=== PATIENT | male | born 1935 | race Caucasian/White ===

== ENCOUNTER 2017-06-08 16:20 | Outpatient (CLI) | payer MEDICARE, MEDICAID ==
--- NOTE | 2017-06-08 21:55 | MRI Report ---
EXAM: RIGHT SHOULDER MRI WITHOUT CONTRAST EXAM DATE: 06/08/2017 06:01 PM. CLINICAL HISTORY: Myalgia and myositis of right shoulder. Right shoulder pain after 3 months. COMPARISON: None. TECHNIQUE: Multiplanar, multisequence T1-weighted and fluid-sensitive sequences of the shoulder witho ut contrast. Other: None. FINDINGS: Acromioclavicular Region: The acromion is type II. Severe acromioclavicular osteoarthropathy as evide nced by bony hypertrophy and a large effusion. There appears to be incompetence of the inferior acrom ioclavicular ligament/joint capsule. The coracoacromial and coracoclavicular ligaments are intact. A moderate amount of fluid is in the subacromial/subdeltoid bursa. Glenohumeral Region: No subluxation. No effusion or loose bodies. The articular cartilage is unremark able. The glenohumeral ligaments and joint capsule are unremarkable. Bone Marrow: No fracture, marrow edema or bone lesions. Labrum: At least a partial-thickness tear of the posterior- superior labrum can be seen on series 501 , image 12). Musculature/Rotator Cuff: The inner margin of the subscapularis tendon is irregular with small areas of fissuring. The supraspinatus tendon has a full thickness tear of the anterior 7 mm of the tendon. This tear is 9 mm in length. The infraspinatus and teres minor tendons are intact. The patient has mo derate atrophy of the subscapularis and infraspinatus muscles. Biceps Tendon: The biceps tendon is greatly thickened in the extraocular portion intraarticular porti on is difficult to evaluate. Other: The subcutaneous tissues are unremarkable. IMPRESSION: 1. Severe acromioclavicular osteoarthropathy. 2. Moderate subacromial/subdeltoid bursitis. 3. Tendinosis and mild partial tearing of the subscapularis tendon. 4. Full-thickness tear of the anterior supraspinatus tendon. 5. At least moderate biceps tendinosis. [facility] MUSCULOSKELETAL RADIOLOGY SECTION Referring Provider Line: [phone] SITE ID: [id number]
== END 2017-06-08 16:21 | disposition home or self-care (01) ==
LOC: DI 16:20
PROVIDERS: ATTEND Internal Medicine
DX: M19.011 Primary osteoarthritis, right shoulder (principal); M75.101 Unspecified rotator cuff tear or rupture of right shoulder, not specified as traumatic; M75.51 Bursitis of right shoulder; M67.921 Unspecified disorder of synovium and tendon, right upper arm

== ENCOUNTER 2017-06-29 10:23 | Outpatient (CLI) | payer MEDICARE, MEDICAID ==
[2017-06-29 12:34] LABS: HCT - HEMATOCRIT 38.5 % (42.0-52.0); MEAN CORPUSCULAR HEMOGLOBIN 31.2 pg (27.0-31.0); MEAN CORPUSCULAR HGB CONC 33.7 g/dL (32.0-36.0); MEAN CORPUSCULAR VOLUME 92.7 fL (80.0-94.0); MEAN PLATELET VOLUME 8.4 fL (7.4-11.4); RED BLOOD COUNT 4.15 10^6/uL (4.70-6.10); WHITE BLOOD COUNT 7.4 x10^3/uL (4.8-10.8)
[2017-06-29 12:36] LABS: INR 1.1 (0.8-1.2)
[2017-06-29 12:43] LABS: CHOL/HDL RATIO 2.7 (<5.0); CHOLESTEROL 117 mg/dL; HDL CHOLESTEROL 44 mg/dL; LDL/HDL RATIO 1.3 (<3.6); TRIGLYCERIDES 68 mg/dL; VLDL CHOLESTEROL 14 mg/dL
[2017-06-29 13:09] LABS: HEMOGLOBIN A1C 0.48 g/dL
== END 2017-06-29 10:24 | disposition home or self-care (01) ==
LOC: LAB.N 10:23
PROVIDERS: ATTEND Internal Medicine
DX: E78.2 Mixed hyperlipidemia (principal); E03.9 Hypothyroidism, unspecified; Z79.01 Long term (current) use of anticoagulants; E13.40 Other specified diabetes mellitus with diabetic neuropathy, unspecified
CPT/HCPCS: 36415; 80061; 83036; 85610

== ENCOUNTER 2017-08-11 10:44 | Outpatient (CLI) | payer MEDICARE, MEDICAID ==
[2017-08-11 19:02] LABS: MEAN RETIC VALUE 108.9; RED BLOOD COUNT 4.5 10^6/uL (4.70-6.10)
[2017-08-11 19:21] LABS: THYROID STIMULATING HORMONE 2.1 uIU/mL (0.34-5.60)
[2017-08-11 19:38] LABS: ALBUMIN/GLOBULIN RATIO 1.4 (1.0-2.2); BILIRUBIN,TOTAL 0.6 mg/dL (0.2-1.0); CALCIUM 9.3 mg/dL (8.5-10.3); CREATININE 1.3 mg/dL (0.6-1.2); TOTAL PROTEIN 6.8 g/dL (6.7-8.2)
[2017-08-11 20:38] LABS: INR 1.6 (0.8-1.2)
== END 2017-08-11 10:45 | disposition home or self-care (01) ==
LOC: LAB.N 10:44
PROVIDERS: ATTEND Internal Medicine
DX: E13.40 Other specified diabetes mellitus with diabetic neuropathy, unspecified (principal); I48.91 Unspecified atrial fibrillation; E03.9 Hypothyroidism, unspecified
CPT/HCPCS: 36415; 80053; 82607; 82746; 83540; 84443; 84466; 85044; 85610

== ENCOUNTER 2017-10-10 14:45 | Outpatient (CLI) | payer MEDICARE, MEDICAID ==
[2017-10-10 13:59] LABS: ALBUMIN 4.1 g/dL (3.2-5.5); BILIRUBIN,DIRECT 0.1 mg/dL (0.1-0.5); BILIRUBIN,TOTAL 0.6 mg/dL (0.2-1.0); CALCIUM 8.9 mg/dL (8.5-10.3); TOTAL PROTEIN 6.5 g/dL (6.7-8.2)
[2017-10-10 14:05] LABS: HEMOGLOBIN A1C 0.52 g/dL; HEMOGLOBIN A1C % 5.5 % (4.6-6.2)
== END 2017-10-10 14:46 | disposition home or self-care (01) ==
LOC: LAB.N 14:45
PROVIDERS: ATTEND Internal Medicine
DX: I50.9 Heart failure, unspecified (principal); E11.65 Type 2 diabetes mellitus with hyperglycemia; I10 Essential (primary) hypertension; E13.40 Other specified diabetes mellitus with diabetic neuropathy, unspecified; E78.2 Mixed hyperlipidemia; E03.9 Hypothyroidism, unspecified; Z79.899 Other long term (current) drug therapy
CPT/HCPCS: 36415; 80048; 80076; 83036; 83880; 85610

== ENCOUNTER 2017-10-13 15:38 | Emergency (ER) | payer MEDICARE, MEDICAID ==
--- NOTE | 2017-10-13 17:18 | ED Physician Documentation ---
PD HPI ABD PAIN - Stated complaint Stated Complaint: SIDE PX - Chief complaint Chief Complaint: Abd Pain - History obtained from History obtained from: Patient - History of Present Illness Timing - onset: Other (82-year-old gentleman on warfarin, he has known large kidney stones and developed gross hematuria 4 days ago with small clots. There is no pain. He does not know why he is on warfarin.) Review of Systems Constitutional: denies: Fever, Chills Ears: reports: Reviewed and negative Throat: reports: Reviewed and negative Cardiac: reports: Reviewed and negative Respiratory: reports: Reviewed and negative PD PAST MEDICAL HISTORY - Past Medical History Cardiovascular: Congestive heart failure, Hypertension, Atrial fibrillation Respiratory: None Neuro: Other Endocrine/Autoimmune: Type 2 diabetes, HyPOthyroidism, Other GI: GERD, Other : Kidney stones HEENT: None Psych: None Musculoskeletal: Osteoarthritis, Other Derm: Other - Past Surgical History Past Surgical History: Yes General: Cholecystectomy Ortho: Knee replacement - Present Medications Home Medications: Ambulatory Orders Medication Instructions Recorded Confirmed Aspirin 81 mg PO DAILY 07/12/13 02/05/15 Finasteride 5 mg PO DAILY 07/12/13 02/05/15 Furosemide 80 mg PO DAILY 07/12/13 02/05/15 Gabapentin [Neurontin] 100 mg PO QPM 07/12/13 02/05/15 Ibuprofen 200 mg PO DAILY PRN 07/12/13 02/05/15 Oxybutynin Chloride [Oxybutynin 10 mg PO QPM 07/12/13 02/05/15 Chloride ER] Prazosin [Minipress] 5 mg PO TID 07/12/13 02/05/15 traZODone [Desyrel] 100 mg PO HS 07/12/13 02/05/15 Ascorbic Acid [Vitamin C] 2,000 mg PO DAILY 11/20/13 02/05/15 Ca Cmb No.1/Vit D3/B-6/FA/B12 1 each PO DAILY 11/20/13 02/05/15 [Vitamin D3 1,000 Unit Tablet] Glucosamine Sulfate 1,000 mg PO BID 11/20/13 02/05/15 Levothyroxine [Synthroid] 25 mcg PO QDAC 11/20/13 02/05/15 Multivitamin [Multi-Vitamin Daily] 1 each PO DAILY 11/20/13 02/05/15 Vitamin E 400 unit PO DAILY 11/20/13 02/05/15 Warfarin [Coumadin] 2.5 mg DAILY 05/30/14 02/05/15 oxyCODONE/ACET 5/325 [Percocet 5 1 each PO Q4-6H PRN #20 tablet 02/05/15 mg/325 mg] - Allergies Allergies/Adverse Reactions: Allergies Allergy/AdvReac Type Severity Reaction Status Date / Time No Known Drug Allergies Allergy Verified 10/13/17 15:54 - Social History Does the pt smoke?: No Smoking Status: Never smoker Does the pt drink ETOH?: No Does the pt have substance abuse?: No - Immunizations Immunizations are current?: Yes - POLST Patient has POLST: No PD ED PE NORMAL - Vitals Vital signs reviewed: Yes - General General: Alert and oriented X 3, No acute distress - Neck Neck: Supple, no meningeal sign, No bony TTP - Cardiac Cardiac: RRR, No murmur - Respiratory Respiratory: No respiratory distress, Clear bilaterally - Abdomen Abdomen: Normal bowel sounds, Soft, Non tender - Back Back: No CVA TTP, No spinal TTP - Derm Derm: Normal color, Warm and dry - Extremities Extremities: No deformity, No calf tenderness / cord - Neuro Neuro: Alert and oriented X 3, Normal speech - Psych Psych: Normal mood, Normal affect Results - Vitals Vitals: Vital Signs - 24 hr 10/13/17 10/13/17 15:48 17:52 Temperature 36.6 C 36.4 C L Heart Rate 87 78 Respiratory 14 16 Rate Blood Pressure 166/84 H 151/75 H O2 Saturation 96 99 Oxygen O2 Source [With Activity] Oxymizer O2 Source Room air - Labs Labs: Laboratory Tests 10/13/17 10/13/17 10/13/17 17:24 17:24 17:24 WBC 9.8 RBC 3.91 L Hgb 12.2 L Hct 36.3 L MCV 92.7 MCH 31.1 H MCHC 33.5 RDW 13.3 Plt Count 204 MPV 8.0 Neut # 7.5 H Lymph # 1.2 L [place] # 0.5 Eos # 0.4 Baso # 0.2 H Absolute Nucleated RBC 0.00 Nucleated RBC % 0.0 PT 27.5 H INR 2.5 H Sodium 136 Potassium 3.9 Chloride 101 Carbon Dioxide 28 Anion Gap 7.0 BUN 22 H Creatinine 0.9 Estimated GFR (MDRD) 81 L Glucose 101 H Calcium 8.8 Total Bilirubin 0.5 AST 24 ALT 20 Alkaline Phosphatase 69 Total Protein 6.0 L Albumin 3.8 Globulin 2.2 Albumin/Globulin Ratio 1.7 Lipase 26 Urine Color Urine Clarity Urine pH Ur Specific [place] Urine Protein Urine Glucose (UA) Urine Ketones Urine Occult Blood Urine Nitrite Urine Bilirubin Urine Urobilinogen Ur Leukocyte Esterase Urine RBC Urine WBC Ur Squamous Epith Cells Urine Bacteria Ur Microscopic Review Urine Culture Comments 10/13/17 17:48 WBC RBC Hgb Hct MCV MCH MCHC RDW Plt Count MPV Neut # Lymph # [place] # Eos # Baso # Absolute Nucleated RBC Nucleated RBC % PT INR Sodium Potassium Chloride Carbon Dioxide Anion Gap BUN Creatinine Estimated GFR (MDRD) Glucose Calcium Total Bilirubin AST ALT Alkaline Phosphatase Total Protein Albumin Globulin Albumin/Globulin Ratio Lipase Urine Color BROWN Urine Clarity BLOODY Urine pH 8.5 H Ur Specific [place] 1.015 Urine Protein 100 H Urine Glucose (UA) NEGATIVE Urine Ketones NEGATIVE Urine Occult Blood LARGE H Urine Nitrite NEGATIVE Urine Bilirubin NEGATIVE Urine Urobilinogen 0.2 (NORMAL) Ur Leukocyte Esterase NEGATIVE Urine RBC TNTC H Urine WBC 0-3 Ur Squamous Epith Cells NONE SEEN Urine Bacteria None Seen Ur Microscopic Review INDICATED Urine Culture Comments NOT INDICATED - Rads (name of study) CT KUB Radiology: EMP read contemporaneously (Nonobstructing large right kidney stone with staghorn calculus and renal cyst, atherosclerosis, diverticulosis, abdominal midline hernia.) PD MEDICAL DECISION MAKING - ED course ED course: 82-year-old gentleman with known history of right kidney stones and on warfarin presents with gross hematuria. He is not retaining. His INR is therapeutic and his CT as shown. Follow-up with urologist as advised. Departure - Departure Disposition: Home, Self Care Clinical Impression: Adequate anticoagulation on anticoagulant therapy Hematuria Qualifiers: Hematuria type: gross Qualified Code(s): R31.0 - Gross hematuria Condition: Good Record reviewed to determine appropriate education?: Yes Comments: You should follow-up with a urologist, since Dr. BAUMANN has retired, the closest is in [place], the phone number is [phone]. Call Monday for an appointment. Return if you are unable to urinate. Drink plenty of fluids.
[2017-10-13 17:32] LABS: BASOPHILS # (AUTO) 0.2 10^3/uL (0.0-0.1); BASOPHILS % (AUTO) 1.6 %; EOSINOPHILS # (AUTO) 0.4 10^3/uL (0.0-0.7); EOSINOPHILS % (AUTO) 4.2 %; HGB - HEMOGLOBIN 12.2 g/dL (14.0-18.0); LYMPHOCYTES # (AUTO) 1.2 10^3/uL (1.5-3.5); LYMPHOCYTES % (AUTO) 12.1 %; MEAN CORPUSCULAR HEMOGLOBIN 31.1 pg (27.0-31.0); MEAN CORPUSCULAR HGB CONC 33.5 g/dL (32.0-36.0); MEAN CORPUSCULAR VOLUME 92.7 fL (80.0-94.0); MONOCYTES # (AUTO) 0.5 10^3/uL (0.0-1.0); MONOCYTES % (AUTO) 5.5 %; NEUTROPHILS # (AUTO) 7.5 10^3/uL (1.5-6.6); NEUTROPHILS % (AUTO) 76.6 %; PLT - PLATELET COUNT 204 10^3/uL (130-450); RED BLOOD COUNT 3.91 10^6/uL (4.70-6.10); RED CELL DISTRIBUTION WIDTH 13.3 % (12.0-15.0); WHITE BLOOD COUNT 9.8 x10^3/uL (4.8-10.8)
[2017-10-13 17:36] LABS: INR 2.5 (0.8-1.2); PT - PROTHROMBIN TIME 27.5 secs (9.9-12.6)
[2017-10-13 17:45] LABS: ALBUMIN 3.8 g/dL (3.2-5.5); ALBUMIN/GLOBULIN RATIO 1.7 (1.0-2.2); BILIRUBIN,TOTAL 0.5 mg/dL (0.2-1.0); CALCIUM 8.8 mg/dL (8.5-10.3); CREATININE 0.9 mg/dL (0.6-1.2)
[2017-10-13 18:21] LABS: BILIRUBIN,URINE NEGATIVE (NEGATIVE); GLUCOSE, URINE (UA) NEGATIVE (NEGATIVE); KETONES,URINE (UA) NEGATIVE (NEGATIVE); LEUKOCYTE ESTERASE, URINE NEGATIVE (NEGATIVE); NITRITE,URINE NEGATIVE (NEGATIVE); OCCULT BLOOD,URINE LARGE (NEGATIVE); PH,URINE 8.5 PH (5.0-7.5); PROTEIN,URINE 100 mg/dL (NEGATIVE); UROBILINOGEN,URINE 0.2 (NORMAL) E.U./dL (NORMAL)
[2017-10-13 18:26] LABS: CLARITY,URINE BLOODY (CLEAR)
[2017-10-13 18:27] LABS: BACTERIA,URINE None Seen /HPF (None Seen); RBC,URINE TNTC /HPF (0-5); SQUAMOUS EPITHELIAL CELL,UR NONE SEEN (<= Few)
--- NOTE | 2017-10-13 18:40 | CT Report ---
EXAM: CT ABDOMEN AND PELVIS EXAM DATE: 10/13/2017 06:13 PM. CLINICAL HISTORY: Gross hematuria. COMPARISONS: 05/07/2014. TECHNIQUE: Routine helical CT imaging was performed through the abdomen and pelvis. IV contrast: No. Enteric contrast: No. Reconstructions: Coronal and sagittal. In accordance with CT protocol optimization, one or more of the following dose reduction techniques w ere utilized for this exam: automated exposure control, adjustment of mA and/or KV based on patient s ize, or use of iterative reconstructive technique. FINDINGS: Lung Bases: Unremarkable. Liver: The liver appears unchanged. There are several scattered liver calcifications. Gallbladder/Bile Ducts: The gallbladder is either absent or contracted. Spleen: Normal in size. Pancreas: Normal in size and contour. Adrenal Glands: Normal. Kidneys: There is a large staghorn type calculus in the lower pole of the right kidney measuring 23 x 21 x 25 mm. There are other nonobstructing right kidney stones. There are renal vascular calcificati ons. There is an exophytic 5.6 cm right renal cyst Peritoneal Cavity/Bowel: There is increased stool in the left colon. There are a moderate number of d iverticula in the left colon. The small bowel is normal in caliber. There is a fat-containing ventral hernia in the lower abdomen with hernia neck measuring 2.1 cm in diameter. The appendix is well visu alized and normal. Pelvic Organs: Urinary bladder is unremarkable. Vasculature: There is diffuse moderate to severe atherosclerotic vascular calcification without aneur ysm. Bones: No significant abnormality. Other: None. IMPRESSION: 1. Nonobstructing right kidney stones including a prominent staghorn type calculus in the lower pole calyx. 2. Decreased size of the lower pole right renal cyst since 05/07/2014. 3. Atherosclerotic vascular disease. 4. Colonic diverticulosis. 5. Fat containing midline lower abdominal hernia appears similar to previous. [facility] Referring Provider Line: [phone] SITE ID: [id number]
[2017-10-13 19:21] VITALS: BP 156/81
== END 2017-10-13 19:19 | disposition home or self-care (01) ==
LOC: ED 15:38
DX: R31.0 Gross hematuria (principal); N20.0 Calculus of kidney; N28.1 Cyst of kidney, acquired; I11.0 Hypertensive heart disease with heart failure; I50.9 Heart failure, unspecified; E11.9 Type 2 diabetes mellitus without complications; E03.9 Hypothyroidism, unspecified; Z96.659 Presence of unspecified artificial knee joint; Z79.01 Long term (current) use of anticoagulants; Z79.82 Long term (current) use of aspirin
CPT/HCPCS: 36415; 74176; 80053; 81001; 81003; 83690; 85025; 85610; 87086; 99283; 99284

== ENCOUNTER 2017-10-15 12:19 | Outpatient (CLI) | payer MEDICARE, MEDICAID | END 2017-10-15 12:20 | disposition critical access hospital (66) | LOC: EMS 12:19 | PROVIDERS: ATTEND Surgery | DX: R41.0 Disorientation, unspecified (principal) | CPT/HCPCS: A0425; A0429 ==

== ENCOUNTER 2017-10-15 12:43 | Emergency (ER) | payer MEDICARE, MEDICAID ==
[2017-10-15 13:24] LABS: BASOPHILS % (AUTO) 0.3 %; EOSINOPHILS % (AUTO) 0.1 %; HGB - HEMOGLOBIN 13.4 g/dL (14.0-18.0); LYMPHOCYTES # (AUTO) 0.5 10^3/uL (1.5-3.5); MEAN CORPUSCULAR HGB CONC 33.6 g/dL (32.0-36.0); MEAN CORPUSCULAR VOLUME 92.2 fL (80.0-94.0); MEAN PLATELET VOLUME 8.2 fL (7.4-11.4); MONOCYTES # (AUTO) 0.5 10^3/uL (0.0-1.0); MONOCYTES % (AUTO) 3.5 %; NEUTROPHILS # (AUTO) 13.9 10^3/uL (1.5-6.6); NEUTROPHILS % (AUTO) 93.1 %; PLT - PLATELET COUNT 220 10^3/uL (130-450); RED BLOOD COUNT 4.33 10^6/uL (4.70-6.10); RED CELL DISTRIBUTION WIDTH 13.5 % (12.0-15.0); WHITE BLOOD COUNT 14.9 x10^3/uL (4.8-10.8)
[2017-10-15] MEDS ORDERED: SODIUM CHLORIDE 0.9% 500 ML IV ONE (13:28)
[2017-10-15 13:29] LABS: INR 2.1 (0.8-1.2); PT - PROTHROMBIN TIME 22.6 secs (9.9-12.6)
[2017-10-15 13:36] LABS: ALBUMIN 4.3 g/dL (3.2-5.5); ALBUMIN/GLOBULIN RATIO 1.6 (1.0-2.2); BILIRUBIN,TOTAL 0.9 mg/dL (0.2-1.0); CALCIUM 9.3 mg/dL (8.5-10.3); CREATININE 0.9 mg/dL (0.6-1.2)
[2017-10-15 14:06] LABS: BILIRUBIN,URINE NEGATIVE (NEGATIVE); GLUCOSE, URINE (UA) NEGATIVE (NEGATIVE); KETONES,URINE (UA) 15 mg/dL (NEGATIVE); LEUKOCYTE ESTERASE, URINE TRACE (NEGATIVE); NITRITE,URINE NEGATIVE (NEGATIVE); OCCULT BLOOD,URINE MODERATE (NEGATIVE); PROTEIN,URINE 30 mg/dL (NEGATIVE); UROBILINOGEN,URINE 0.2 (NORMAL) E.U./dL (NORMAL)
[2017-10-15 14:08] LABS: CLARITY,URINE CLEAR (CLEAR)
--- NOTE | 2017-10-15 14:11 | ED Physician Documentation ---
History of Present Illness - Stated complaint Stated Complaint: INCREASED CONFUSION - Chief complaint Chief Complaint: Neuro - Additonal information Additional information: hx from nurses note who got hx from EMS who got hx from caregiver and some hx from pt caregiver not here and pt is a poor historian 82 male on coumadin for a fib recently seen in ED for hematuria, INR was 2.5, UA + blood but not infection, CT showed numerous non obstructing R renal stones including a staghorn in the right renal pelvis pt was dced to [facility] urology since then he has become more confused, has fallen, was found half in his chair , had a COWART earlier but not now, and arrives tachycardic pt denies a COWART now, denies neck pain, denies chest abd and back pain feels nauseated no vomit no blood in BM continues to have hematuria Review of Systems Constitutional: denies: Fever Throat: denies: Sore throat Cardiac: denies: Chest pain / pressure Respiratory: denies: Dyspnea, Cough GI: denies: Abdominal Pain, Nausea, Vomiting, Diarrhea, Bloody / black stool : reports: Hematuria Musculoskeletal: denies: Neck pain, Back pain Neurologic: reports: Generalized weakness, Headache, Head injury Endocrine: reports: Easy bruising / bleeding Immunocompromised: denies: Immunocompromised PD PAST MEDICAL HISTORY - Past Medical History Cardiovascular: Congestive heart failure, Hypertension, Atrial fibrillation Respiratory: None Neuro: Other Endocrine/Autoimmune: Type 2 diabetes, HyPOthyroidism, Other GI: GERD, Other : Kidney stones HEENT: None Psych: None Musculoskeletal: Osteoarthritis, Other Derm: Other - Past Surgical History Past Surgical History: Yes General: Cholecystectomy Ortho: Knee replacement - Present Medications Home Medications: Ambulatory Orders Medication Instructions Recorded Confirmed Aspirin 81 mg PO DAILY 07/12/13 02/05/15 Finasteride 5 mg PO DAILY 07/12/13 02/05/15 Furosemide 80 mg PO DAILY 07/12/13 02/05/15 Gabapentin [Neurontin] 100 mg PO QPM 07/12/13 02/05/15 Ibuprofen 200 mg PO DAILY PRN 07/12/13 02/05/15 Oxybutynin Chloride [Oxybutynin 10 mg PO QPM 07/12/13 02/05/15 Chloride ER] Prazosin [Minipress] 5 mg PO TID 07/12/13 02/05/15 traZODone [Desyrel] 100 mg PO HS 07/12/13 02/05/15 Ascorbic Acid [Vitamin C] 2,000 mg PO DAILY 11/20/13 02/05/15 Ca Cmb No.1/Vit D3/B-6/FA/B12 1 each PO DAILY 11/20/13 02/05/15 [Vitamin D3 1,000 Unit Tablet] Glucosamine Sulfate 1,000 mg PO BID 11/20/13 02/05/15 Levothyroxine [Synthroid] 25 mcg PO QDAC 11/20/13 02/05/15 Multivitamin [Multi-Vitamin Daily] 1 each PO DAILY 11/20/13 02/05/15 Vitamin E 400 unit PO DAILY 11/20/13 02/05/15 Warfarin [Coumadin] 2.5 mg DAILY 05/30/14 02/05/15 oxyCODONE/ACET 5/325 [Percocet 5 1 each PO Q4-6H PRN #20 tablet 02/05/15 mg/325 mg] - Allergies Allergies/Adverse Reactions: Allergies Allergy/AdvReac Type Severity Reaction Status Date / Time No Known Drug Allergies Allergy Verified 10/13/17 15:54 - Social History Does the pt smoke?: No Smoking Status: Never smoker Does the pt drink ETOH?: No Does the pt have substance abuse?: No - Immunizations Immunizations are current?: Yes - POLST Patient has POLST: No PD ED PE NORMAL - Vitals Vital signs reviewed: Yes - General General: No: Alert and oriented X 3 - HEENT HEENT: Atraumatic (no palpable swollen or tender spots), PERRL. No: Moist mucous membranes (dry) - Neck Neck: No bony TTP (but confused) - Cardiac Cardiac: RRR - Respiratory Respiratory: No respiratory distress, Clear bilaterally - Abdomen Abdomen: Non tender - Derm Derm: Normal color - Extremities Extremities: No deformity - Neuro Neuro: No motor deficit, No sensory deficit. No: Alert and oriented X 3 Eye Opening: Spontaneous Motor: Obeys Commands Verbal: Confused GCS Score: 14 Results - Vitals Vitals: Vital Signs - 24 hr 10/15/17 10/15/17 10/15/17 12:45 13:30 14:41 Temperature 36.6 C Heart Rate 109 H 87 96 Respiratory 18 18 18 Rate Blood Pressure 157/97 H 136/79 H 118/85 H O2 Saturation 99 98 96 10/15/17 10/15/17 15:38 16:47 Temperature Heart Rate 100 100 Respiratory 18 18 Rate Blood Pressure 179/92 H 128/109 H O2 Saturation 98 98 Oxygen O2 Source [With Activity] Oxymizer O2 Source Room air - EKG (time done) 1438 Rate: Rate (enter#) Rhythm: Atrial fibrillation (not new), Other (PVCs) [place]: Normal Intervals: No: Normal AL Ischemia: Non specific changes - Labs Labs: Laboratory Tests 10/15/17 10/15/17 10/15/17 13:18 13:18 13:18 WBC 14.9 H RBC 4.33 L Hgb 13.4 L Hct 39.9 L MCV 92.2 MCH 31.0 MCHC 33.6 RDW 13.5 Plt Count 220 MPV 8.2 Neut # 13.9 H Lymph # 0.5 L [place] # 0.5 Eos # 0.0 Baso # 0.0 Absolute Nucleated RBC 0.00 Nucleated RBC % 0.0 PT 22.6 H INR 2.1 H Sodium 135 Potassium 3.1 L Chloride 99 L Carbon Dioxide 27 Anion Gap 9.0 BUN 22 H Creatinine 0.9 Estimated GFR (MDRD) 81 L Glucose 147 H Lactic Acid Calcium 9.3 Total Bilirubin 0.9 AST 40 ALT 27 Alkaline Phosphatase 81 Total Protein 7.0 Albumin 4.3 Globulin 2.7 Albumin/Globulin Ratio 1.6 Lipase 13 L Urine Color Urine Clarity Urine pH Ur Specific [place] Urine Protein Urine Glucose (UA) Urine Ketones Urine Occult Blood Urine Nitrite Urine Bilirubin Urine Urobilinogen Ur Leukocyte Esterase Urine RBC Urine WBC Urine WBC Clumps Ur Squamous Epith Cells Urine Bacteria Urine Mucus Ur Microscopic Review Urine Culture Comments 10/15/17 10/15/17 13:18 13:55 WBC RBC Hgb Hct MCV MCH MCHC RDW Plt Count MPV Neut # Lymph # [place] # Eos # Baso # Absolute Nucleated RBC Nucleated RBC % PT INR Sodium Potassium Chloride Carbon Dioxide Anion Gap BUN Creatinine Estimated GFR (MDRD) Glucose Lactic Acid 1.3 Calcium Total Bilirubin AST ALT Alkaline Phosphatase Total Protein Albumin Globulin Albumin/Globulin Ratio Lipase Urine Color YELLOW Urine Clarity CLEAR Urine pH 7.0 Ur Specific [place] 1.010 Urine Protein 30 H Urine Glucose (UA) NEGATIVE Urine Ketones 15 H Urine Occult Blood MODERATE H Urine Nitrite NEGATIVE Urine Bilirubin NEGATIVE Urine Urobilinogen 0.2 (NORMAL) Ur Leukocyte Esterase TRACE H Urine RBC 11-25 H Urine WBC 11-25 H Urine WBC Clumps PRESENT Ur Squamous Epith Cells FEW Squamous Urine Bacteria Few Urine Mucus Few Strands Ur Microscopic Review INDICATED Urine Culture Comments INDICATED - Rads (name of study) CTH Radiology: See rad report (no acute fx or bleed, chronic changes) CT CS Radiology: See rad report (no acute fx, chronic stenosis, pulm edema) PD MEDICAL DECISION MAKING - ED course ED course: todya UA is + infected staghorn not febrile but tachy and leukocytosis given IVF and rocephin after blood and urine cx d/w urology at [facility] Dr Barriga who agrees with need to transfer to facility with urology but rec pt be admitted to hospitalist service with urology consult then spoke to [facility] hospitalist Dr Pablo who accepts pt in transfer Departure - Departure Disposition: 02 Transfer Acute Care Hosp Clinical Impression: Kidney stone on right side UTI (urinary tract infection) Qualifiers: Urinary tract infection type: site unspecified Hematuria presence: with hematuria Qualified Code(s): N39.0 - Urinary tract infection, site not specified Mental status change Qualifiers: Altered mental status type: unspecified Qualified Code(s): R41.82 - Altered mental status, unspecified Fall Qualifiers: Encounter type: initial encounter Qualified Code(s): W19.XXXA - Unspecified fall, initial encounter Discharge Date/Time: 10/15/17 19:05
[2017-10-15 14:14] LABS: BACTERIA,URINE Few /HPF (None Seen); MUCUS,URINE Few Strands; SQUAMOUS EPITHELIAL CELL,UR FEW Squamous (<= Few); WBC CLUMPS,URINE PRESENT
[2017-10-15] MEDS ORDERED: cefTRIAXone 1 GM in SODIUM CHLORIDE 0.9% MINIBAG 100 ML IV STA (14:17)
--- NOTE | 2017-10-15 16:13 | CT Preliminary Report ---
Exam: CT HEAD W/O IMPRESSION: 1. Negative for intracranial hemorrhage, mass effect, or acute intracranial abnormality. 2. [id number] nonfocal white matter disease. Nonspecific but most commonly attributed to chroni c microangiopathy. [facility] SITE ID: [id number]
--- NOTE | 2017-10-15 16:14 | CT Report ---
EXAM: CT HEAD EXAM DATE: 10/15/2017 03:38 PM. CLINICAL HISTORY: Fall AMS on coumadin. COMPARISON: None. TECHNIQUE: Multiaxial CT images were obtained from the foramen magnum to the vertex. Reformats: Coron al. IV contrast: None. In accordance with CT protocol optimization, one or more of the following dose reduction techniques w ere utilized for this exam: automated exposure control, adjustment of mA and/or KV based on patient s ize, or use of iterative reconstructive technique. FINDINGS: Parenchyma: There is [id number] periventricular white matter hypodensity. Negative for intracra nial acute hemorrhage. There is no midline shift or mass effect. Extraaxial Spaces: No subdural or epidural collections identified. Ventricles: Ventricles are symmetric in size and normal in location. Sinuses and Orbits: Imaged paranasal sinuses, orbits, and mastoids show no significant abnormality. Bones: No evidence of fracture or calvarial defect. Other: None. IMPRESSION: 1. Negative for intracranial hemorrhage, mass effect, or acute intracranial abnormality. 2. Welf-ic-imvpnsww nonfocal white matter disease. Nonspecific but most commonly attributed to chroni c microangiopathy. [facility] Referring Provider Line: [phone] SITE ID: [id number]
--- NOTE | 2017-10-15 16:18 | CT Report ---
EXAM: CT CERVICAL SPINE WITHOUT CONTRAST DATE: 10/15/2017 03:38 PM. HISTORY: Fall AMS on coumadin. COMPARISONS: None. TECHNIQUE: Thin-section axial images were acquired of the cervical spine without contrast. Post-proce ssing: Coronal and sagittal reformats. Other: None. In accordance with CT protocol optimization, one or more of the following dose reduction techniques w ere utilized for this exam: automated exposure control, adjustment of mA and/or KV based on patient s ize, or use of iterative reconstructive technique. FINDINGS: Alignment: There is straightening of normal cervical lordosis. There is 1-2 mm of anterolisthesis at C3-C4 secondary to facet joint space narrowing. Bones: The vertebral bodies appear normal in height. No acute fracture. There are moderate sized ante rior and posterior disk osteophyte spurs from C2-T1. Interspace Levels/Facets: The moderate-sized posterior spurs at C2-C3 and C3-C4 cause mild to moderate central spinal canal bon y stenosis. There is mild stenosis at other levels. There is moderate disk height loss at multiple le vels with moderately advanced multilevel facet joint space narrowing and spurring. Musculature: No paravertebral hematoma identified. Other: There is moderate septal thickening in the lung apices. No apical pneumothorax. IMPRESSION: 1. 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 2. Negative for acute fracture. 3. Septal thickening in the lung apices raising suspicion for pulmonary edema 4. Degenerative facet disease and mild anterolisthesis at C3-C4. [facility] Referring Provider Line: [phone] SITE ID: [id number]
[2017-10-15 16:47] VITALS: BP 128/109
== END 2017-10-15 19:05 | disposition short-term general hospital (02) ==
LOC: EDUNIT# → ED 12:43
DX: N20.0 Calculus of kidney (principal); N39.0 Urinary tract infection, site not specified; R41.82 Altered mental status, unspecified; I48.91 Unspecified atrial fibrillation; I11.0 Hypertensive heart disease with heart failure; I50.9 Heart failure, unspecified; E11.9 Type 2 diabetes mellitus without complications; E03.9 Hypothyroidism, unspecified; Z91.81 History of falling; Z96.659 Presence of unspecified artificial knee joint; Z79.82 Long term (current) use of aspirin; Z79.01 Long term (current) use of anticoagulants
CPT/HCPCS: 36415; 51702; 70450; 72125; 80053; 81001; 81003; 83605; 83690; 85025; 85610; 87040; 87077; 87086; 93005; 96365; 99284

== ENCOUNTER 2017-10-15 19:06 | Outpatient (CLI) | payer MEDICARE, MEDICAID | END 2017-10-15 19:07 | disposition short-term general hospital (02) | LOC: EMS 19:06 | PROVIDERS: ATTEND Surgery | DX: N20.0 Calculus of kidney (principal); R41.82 Altered mental status, unspecified | CPT/HCPCS: A0425; A0429 ==

== ENCOUNTER 2017-11-11 08:00 | Outpatient (CLI) | payer MEDICAID, MEDICARE, OTHER ==
[2017-11-11 22:31] LABS: BASOPHILS # (AUTO) 0.1 10^3/uL (0.0-0.1); BASOPHILS % (AUTO) 0.5 %; EOSINOPHILS # (AUTO) 0.2 10^3/uL (0.0-0.7); EOSINOPHILS % (AUTO) 1.6 %; LYMPHOCYTES # (AUTO) 0.8 10^3/uL (1.5-3.5); LYMPHOCYTES % (AUTO) 7.4 %; MEAN CORPUSCULAR HEMOGLOBIN 30.4 pg (27.0-31.0); MEAN CORPUSCULAR HGB CONC 33.2 g/dL (32.0-36.0); MEAN CORPUSCULAR VOLUME 91.8 fL (80.0-94.0); MEAN PLATELET VOLUME 8.3 fL (7.4-11.4); MONOCYTES # (AUTO) 0.8 10^3/uL (0.0-1.0); MONOCYTES % (AUTO) 7.5 %; NEUTROPHILS # (AUTO) 8.8 10^3/uL (1.5-6.6); PLT - PLATELET COUNT 284 10^3/uL (130-450); RED BLOOD COUNT 3.94 10^6/uL (4.70-6.10); RED CELL DISTRIBUTION WIDTH 13.6 % (12.0-15.0); WHITE BLOOD COUNT 10.6 x10^3/uL (4.8-10.8)
[2017-11-11 22:34] LABS: BILIRUBIN,URINE NEGATIVE (NEGATIVE); GLUCOSE, URINE (UA) NEGATIVE (NEGATIVE); KETONES,URINE (UA) NEGATIVE (NEGATIVE); LEUKOCYTE ESTERASE, URINE LARGE (NEGATIVE); NITRITE,URINE POSITIVE (NEGATIVE); OCCULT BLOOD,URINE LARGE (NEGATIVE); PROTEIN,URINE 100 mg/dL (NEGATIVE); UROBILINOGEN,URINE 0.2 (NORMAL) E.U./dL (NORMAL)
[2017-11-11 22:37] LABS: CLARITY,URINE CLOUDY (CLEAR)
[2017-11-11 22:44] LABS: ALKALINE PHOSPHATASE 105 IU/L (42-121); ALT ALANINE AMINOTRANSFERASE 15 IU/L (10-60); AST ASPARTATE AMINOTRANSFERASE 24 IU/L (10-42); BILIRUBIN,TOTAL 0.5 mg/dL (0.2-1.0); BUN - BLOOD UREA NITROGEN 21 mg/dL (6-20); CALCIUM 8.4 mg/dL (8.5-10.3); CARBON DIOXIDE - CO2 28 mmol/L (21-32); CHLORIDE 95 mmol/L (101-111); CHOL/HDL RATIO 2.9 (<5.0); CHOLESTEROL 101 mg/dL; CREATININE 0.9 mg/dL (0.6-1.2); GFR - MDRD 81 (>89); GLUCOSE 128 mg/dL (70-100); HDL CHOLESTEROL 35 mg/dL; LDL CHOLESTEROL,CALCULATED 50 mg/dL; LDL/HDL RATIO 1.4 (<3.6); SODIUM 131 mmol/L (135-145); TOTAL PROTEIN 5.9 g/dL (6.7-8.2); VLDL CHOLESTEROL 16 mg/dL
[2017-11-11 22:46] LABS: RBC,URINE TNTC /HPF (0-5)
[2017-11-11 22:47] LABS: BACTERIA,URINE Few /HPF (None Seen); SQUAMOUS EPITHELIAL CELL,UR NONE SEEN (<= Few)
== END 2017-11-11 08:01 | disposition home or self-care (01) ==
LOC: LAB.R 08:00
DX: G92 Toxic encephalopathy (principal); I50.9 Heart failure, unspecified; I48.91 Unspecified atrial fibrillation; N39.0 Urinary tract infection, site not specified; E03.9 Hypothyroidism, unspecified; A04.9 Bacterial intestinal infection, unspecified
CPT/HCPCS: 80053; 80061; 81001; 81003; 82306; 83721; 83880; 84443; 85025; 85610; 87077; 87086; 87493

== ENCOUNTER 2017-11-16 16:15 | Outpatient (CLI) | payer MEDICAID, MEDICARE, OTHER ==
[2017-11-16 13:37] LABS: CALCIUM 8.8 mg/dL (8.5-10.3)
[2017-11-16 14:20] LABS: FOLATE 18.46 ng/mL (5.90 - >24.8)
== END 2017-11-16 16:16 | disposition home or self-care (01) ==
LOC: LAB.R 16:15
DX: I50.9 Heart failure, unspecified (principal); D51.0 Vitamin B12 deficiency anemia due to intrinsic factor deficiency; D52.9 Folate deficiency anemia, unspecified; D64.9 Anemia, unspecified
CPT/HCPCS: 80048; 82607; 82746; 83540; 84466

== ENCOUNTER 2017-12-01 08:00 | Outpatient (CLI) | payer MEDICAID, MEDICARE, OTHER ==
[2017-12-01 20:27] LABS: ALBUMIN 2.5 g/dL (3.2-5.5); ALBUMIN/GLOBULIN RATIO 0.8 (1.0-2.2); BILIRUBIN,TOTAL 0.7 mg/dL (0.2-1.0); CALCIUM 8.4 mg/dL (8.5-10.3); TOTAL PROTEIN 5.6 g/dL (6.7-8.2)
== END 2017-12-01 08:01 | disposition home or self-care (01) ==
LOC: LAB.R 08:00
DX: I50.9 Heart failure, unspecified (principal); R79.89 Other specified abnormal findings of blood chemistry
CPT/HCPCS: 80053

== ENCOUNTER 2017-12-11 13:40 | Outpatient (CLI) | payer MEDICARE, MEDICAID ==
[2017-12-11 17:15] LABS: HB2 TOTAL 12.2 g/dL; HEMOGLOBIN A1C 0.49 g/dL; HEMOGLOBIN A1C % 5.8 % (4.6-6.2)
== END 2017-12-11 13:41 | disposition home or self-care (01) ==
LOC: LAB.R 13:40
DX: E11.9 Type 2 diabetes mellitus without complications (principal)
CPT/HCPCS: 83036

== ENCOUNTER 2017-12-22 09:00 | Outpatient (CLI) | payer MEDICARE, MEDICAID ==
[2017-12-22 13:44] LABS: BASOPHILS # (AUTO) 0.1 10^3/uL (0.0-0.1); BASOPHILS % (AUTO) 0.9 %; EOSINOPHILS # (AUTO) 0.6 10^3/uL (0.0-0.7); EOSINOPHILS % (AUTO) 6.2 %; HGB - HEMOGLOBIN 12.2 g/dL (14.0-18.0); LYMPHOCYTES # (AUTO) 1.8 10^3/uL (1.5-3.5); LYMPHOCYTES % (AUTO) 18.8 %; MEAN CORPUSCULAR HEMOGLOBIN 29.6 pg (27.0-31.0); MEAN CORPUSCULAR VOLUME 89.9 fL (80.0-94.0); MEAN PLATELET VOLUME 8.4 fL (7.4-11.4); MONOCYTES # (AUTO) 0.6 10^3/uL (0.0-1.0); MONOCYTES % (AUTO) 5.7 %; NEUTROPHILS # (AUTO) 6.7 10^3/uL (1.5-6.6); NEUTROPHILS % (AUTO) 68.4 %; PLT - PLATELET COUNT 256 10^3/uL (130-450); RED BLOOD COUNT 4.12 10^6/uL (4.70-6.10); RED CELL DISTRIBUTION WIDTH 15.3 % (12.0-15.0); WHITE BLOOD COUNT 9.7 x10^3/uL (4.8-10.8)
[2017-12-22 13:51] LABS: CALCIUM 8.6 mg/dL (8.5-10.3); CREATININE 0.9 mg/dL (0.6-1.2)
== END 2017-12-22 09:01 | disposition home or self-care (01) ==
LOC: LAB.R 09:00
DX: I50.9 Heart failure, unspecified (principal); D50.0 Iron deficiency anemia secondary to blood loss (chronic); G92 Toxic encephalopathy; R68.89 Other general symptoms and signs
CPT/HCPCS: 80048; 82728; 83540; 84466; 85025

== ENCOUNTER 2017-12-27 08:00 | Outpatient (CLI) | payer MEDICARE, MEDICAID ==
[2017-12-27 15:43] LABS: BASOPHILS # (AUTO) 0.1 10^3/uL (0.0-0.1); BASOPHILS % (AUTO) 0.9 %; EOSINOPHILS # (AUTO) 0.5 10^3/uL (0.0-0.7); EOSINOPHILS % (AUTO) 6.1 %; HGB - HEMOGLOBIN 11.4 g/dL (14.0-18.0); LYMPHOCYTES # (AUTO) 1.4 10^3/uL (1.5-3.5); LYMPHOCYTES % (AUTO) 16.1 %; MEAN CORPUSCULAR HEMOGLOBIN 29.7 pg (27.0-31.0); MEAN CORPUSCULAR HGB CONC 33.3 g/dL (32.0-36.0); MEAN CORPUSCULAR VOLUME 89.3 fL (80.0-94.0); MEAN PLATELET VOLUME 8.5 fL (7.4-11.4); MONOCYTES # (AUTO) 0.7 10^3/uL (0.0-1.0); MONOCYTES % (AUTO) 8.9 %; NEUTROPHILS # (AUTO) 5.7 10^3/uL (1.5-6.6); PLT - PLATELET COUNT 253 10^3/uL (130-450); RED BLOOD COUNT 3.84 10^6/uL (4.70-6.10); RED CELL DISTRIBUTION WIDTH 15.5 % (12.0-15.0); WHITE BLOOD COUNT 8.4 x10^3/uL (4.8-10.8)
[2017-12-27 15:56] LABS: BILIRUBIN,TOTAL 0.7 mg/dL (0.2-1.0); CALCIUM 8.6 mg/dL (8.5-10.3); TOTAL PROTEIN 5.9 g/dL (6.7-8.2)
== END 2017-12-27 08:01 ==
LOC: LAB.R 08:00
DX: E11.9 Type 2 diabetes mellitus without complications (principal); I10 Essential (primary) hypertension
CPT/HCPCS: 80053; 85025

== ENCOUNTER 2017-12-28 12:10 | Outpatient (CLI) | payer MEDICAID, MEDICARE, OTHER ==
[2017-12-28 13:13] LABS: INR 2.3 (0.8-1.2); PT - PROTHROMBIN TIME 25.6 secs (9.9-12.6)
== END 2017-12-28 12:11 | disposition home or self-care (01) ==
LOC: LAB.R 12:10
DX: I48.91 Unspecified atrial fibrillation (principal)
CPT/HCPCS: 85610

== ENCOUNTER 2017-12-28 23:38 | Outpatient (CLI) | payer MEDICARE, MEDICAID | END 2017-12-28 23:39 | disposition critical access hospital (66) | LOC: EMS 23:38 | PROVIDERS: ATTEND Surgery | DX: R93.8 Abnormal findings on diagnostic imaging of other specified body structures (principal); R53.1 Weakness | CPT/HCPCS: A0425; A0429 ==

== ENCOUNTER 2017-12-28 23:48 | Emergency (ER) | payer MEDICARE, MEDICAID ==
--- NOTE | 2017-12-28 23:58 | ED Physician Documentation ---
History of Present Illness - Stated complaint Stated Complaint: ABNORMAL XRAY - Chief complaint Chief Complaint: General - History obtained from History obtained from: Patient, Other (Dr. Garcia (called to ED and discussed case with me)) - Additonal information Additional information: patient had outpatient CXR earlier today (for URI symptoms), interpreted as " air lucency in right hemidiaphragm which may represent free air. correlate clinically for recent surgery or interventional procedure. If patient has not had recent medical procedure, findings may represent perforated viscus, a surgical emergency". Because of this concerning finding, patient is sent to ED for evaluation. Patient brought by ambulance in [facility]. He has no c/o except occasional wet cough. denies nausea, vomiting, abdominal pain. Review of Systems Constitutional: denies: Fever Cardiac: reports: Reviewed and negative Respiratory: reports: Cough. denies: Dyspnea GI: denies: Abdominal Pain, Nausea, Vomiting PD PAST MEDICAL HISTORY - Past Medical History Cardiovascular: Congestive heart failure, Hypertension, Atrial fibrillation Respiratory: None Endocrine/Autoimmune: Type 2 diabetes, HyPOthyroidism, Other GI: GERD, Other : Kidney stones HEENT: None Psych: None Musculoskeletal: Osteoarthritis, Other Derm: Other - Past Surgical History Past Surgical History: Yes General: Cholecystectomy Ortho: Knee replacement - Present Medications Home Medications: Ambulatory Orders Medication Instructions Recorded Confirmed Aspirin 81 mg PO DAILY 07/12/13 02/05/15 Finasteride 5 mg PO DAILY 07/12/13 02/05/15 Furosemide 40 mg PO DAILY 07/12/13 02/05/15 Gabapentin [Neurontin] 100 mg PO QPM 07/12/13 02/05/15 traZODone [Desyrel] 100 mg PO HS 07/12/13 02/05/15 Ascorbic Acid [Vitamin C] 2,000 mg PO DAILY 11/20/13 02/05/15 Ca Cmb No.1/Vit D3/B-6/FA/B12 1 each PO DAILY 11/20/13 02/05/15 [Vitamin D3 1,000 Unit Tablet] Glucosamine Sulfate 1,000 mg PO BID 11/20/13 02/05/15 Levothyroxine [Synthroid] 25 mcg PO QDAC 11/20/13 02/05/15 Multivitamin [Multi-Vitamin Daily] 1 each PO DAILY 11/20/13 02/05/15 Vitamin E 400 unit PO DAILY 11/20/13 02/05/15 Warfarin [Coumadin] 2.5 mg PO DAILY 05/30/14 02/05/15 Acetaminophen 650 mg PO Q6HR PRN 12/29/17 12/29/17 Amlodipine Besylate 1 tab PO DAILY 12/29/17 12/29/17 Atorvastatin Calcium 10 mg PO DAILY 12/29/17 12/29/17 Cyclobenzaprine HCl 10 mg PO Q8HR PRN 12/29/17 12/29/17 Ferrous Sulfate 325 mg PO BID 12/29/17 12/29/17 Fluticasone [Flonase] 1 spray NS DAILY 12/29/17 12/29/17 Guaifenesin/Dextromethorphan 10 ml PO Q4HR PRN 12/29/17 12/29/17 [Tussin Dm Cough Syrup] Isosorbide Mononitrate [Isosorbide 1 tab PO DAILY 12/29/17 12/29/17 Mononitrate ER] Losartan Potassium 1 tab PO DAILY 12/29/17 12/29/17 Metoprolol Tartrate 1 tab PO BID 12/29/17 12/29/17 Oxybutynin Chloride 2.5 mg PO TID 12/29/17 12/29/17 Oxybutynin [Ditropan] 1 tab PO TID 12/29/17 12/29/17 Potassium Citrate [Potassium 1 tab PO TID 12/29/17 12/29/17 Citrate ER] Tamsulosin HCl [Flomax] 1 tab PO DAILY 12/29/17 12/29/17 Warfarin Sodium 1 tab PO 12/29/17 Warfarin Sodium 1 tab PO 12/29/17 - Allergies Allergies/Adverse Reactions: Allergies Allergy/AdvReac Type Severity Reaction Status Date / Time No Known Drug Allergies Allergy Verified 12/29/17 00:05 - Social History Does the pt smoke?: No Smoking Status: Never smoker Does the pt drink ETOH?: No Does the pt have substance abuse?: No - Immunizations Immunizations are current?: Yes - POLST Patient has POLST: No PD ED PE NORMAL - Vitals Vital signs reviewed: Yes - General General: Alert and oriented X 3, No acute distress, Well developed/nourished - Respiratory Respiratory: No respiratory distress, Clear bilaterally - Abdomen Abdomen: Normal bowel sounds, Soft, Non tender, Non distended, Other (soft, reducible umbilical hernia. abdomen is nontender in all quadrants and periumbilicus. ) Results - Vitals Vitals: Vital Signs - 24 hr 12/28/17 12/29/17 12/29/17 23:48 00:42 01:21 Temperature 36.2 C L Heart Rate 81 81 87 Respiratory 123 H 22 15 Rate Blood Pressure 144/95 H 136/67 H 138/79 H O2 Saturation 96 95 96 12/29/17 02:24 Temperature 36.4 C L Heart Rate 77 Respiratory 19 Rate Blood Pressure 130/56 L O2 Saturation 95 Oxygen O2 Source [With Activity] Oxymizer O2 Source Room air - Rads (name of study) chest xray Radiology: Prelim report reviewed, See rad report PD MEDICAL DECISION MAKING - ED course Complexity details: reviewed results, re-evaluated patient, considered differential, d/w patient ED course: chest xray obtained in ED, interpreted by radiologist as "gaseous distention of the colon seen under the right hemidiaphragm. Free intraperitoneal air not strongly suspected but correlate for any peritoneal signs". On my initial exam and repeat exam after CXR, abdominal exam is thoroughly benign. There are no peritoneal signs nor any tenderness to deep or light palpation in any quadrant or periumbilical. Based on complete lack of peritoneal findings on exam, the findings on xrays represent air in colon at hepatic flexure and not free air Departure - Departure Disposition: 01 Home, Self Care Clinical Impression: Abnormal x-ray Condition: Good Instructions: ED Gas Bloating Discharge Date/Time: 12/29/17 02:35
--- NOTE | 2017-12-29 01:33 | XRAY Report ---
EXAM: CHEST RADIOGRAPHY EXAM DATE: 12/29/2017 01:10 AM. CLINICAL HISTORY: Recent CXR interpreted as possible free air. COMPARISON: None. TECHNIQUE: 2 views. FINDINGS: Lungs/Pleura: Mild bibasilar atelectasis. No pleural effusion seen. Calcified granulomas in the right lung. No pneumothorax. Mediastinum: Heart size upper normal. Aortic atherosclerosis. Other: Gaseous distention of the colon. Free intraperitoneal air not strongly suspected. IMPRESSION: 1. Borderline heart size and mild bibasilar atelectasis. 2. Gaseous distention of the colon seen under the right hemidiaphragm. Free intraperitoneal air not s trongly suspected but correlate for any peritoneal signs. [facility] Referring Provider Line: [phone] SITE ID: [id number]
[2017-12-29] MEDS ORDERED: BENZONATATE 100 MG CAPSULE PO STA (02:18)
[2017-12-29 02:25] VITALS: BP 130/56
== END 2017-12-29 02:35 | disposition home or self-care (01) ==
LOC: EDUNIT# → ED 23:48
DX: R91.8 Other nonspecific abnormal finding of lung field (principal); I11.0 Hypertensive heart disease with heart failure; I50.9 Heart failure, unspecified; I48.91 Unspecified atrial fibrillation; E11.9 Type 2 diabetes mellitus without complications; E03.9 Hypothyroidism, unspecified; K21.9 Gastro-esophageal reflux disease without esophagitis; M19.90 Unspecified osteoarthritis, unspecified site; Z79.82 Long term (current) use of aspirin; Z79.01 Long term (current) use of anticoagulants
CPT/HCPCS: 71046; 99283; 99284; A9270

== ENCOUNTER 2017-12-29 02:33 | Outpatient (CLI) | payer MEDICARE, MEDICAID | END 2017-12-29 02:34 | LOC: EMS 02:33 | PROVIDERS: ATTEND Surgery | DX: R53.1 Weakness (principal); R05 Cough; Z74.01 Bed confinement status | CPT/HCPCS: A0425; A0428 ==

== ENCOUNTER 2017-12-31 16:30 | Outpatient (CLI) | payer MEDICARE, MEDICAID ==
[2017-12-31 19:01] LABS: INR 2.1 (0.8-1.2); PT - PROTHROMBIN TIME 23.2 secs (9.9-12.6)
== END 2017-12-31 16:31 | disposition home or self-care (01) ==
LOC: LAB.R 16:30
DX: D68.52 Prothrombin gene mutation (principal); Z51.81 Encounter for therapeutic drug level monitoring
CPT/HCPCS: 85610

== ENCOUNTER 2018-01-04 14:55 | Outpatient (CLI) | payer MEDICARE, MEDICAID ==
[2018-01-04 17:55] LABS: ALBUMIN 2.4 g/dL (3.2-5.5); ALBUMIN/GLOBULIN RATIO 0.7 (1.0-2.2); BILIRUBIN,TOTAL 0.5 mg/dL (0.2-1.0); CALCIUM 8.4 mg/dL (8.5-10.3); TOTAL PROTEIN 5.9 g/dL (6.7-8.2)
== END 2018-01-04 14:56 | disposition home or self-care (01) ==
LOC: LAB.R 14:55
DX: E11.9 Type 2 diabetes mellitus without complications (principal)
CPT/HCPCS: 80053

== ENCOUNTER 2018-01-11 16:10 | Outpatient (CLI) | payer MEDICARE, MEDICAID ==
[2018-01-11 19:50] LABS: CALCIUM 8.5 mg/dL (8.5-10.3); CREATININE 0.9 mg/dL (0.6-1.2)
[2018-01-11 19:51] LABS: BASOPHILS % (AUTO) 0.2 %; HGB - HEMOGLOBIN 10.2 g/dL (14.0-18.0); LYMPHOCYTES # (AUTO) 1.2 10^3/uL (1.5-3.5); LYMPHOCYTES % (AUTO) 7.1 %; MEAN CORPUSCULAR HEMOGLOBIN 28.7 pg (27.0-31.0); MEAN CORPUSCULAR HGB CONC 32.2 g/dL (32.0-36.0); MEAN CORPUSCULAR VOLUME 89.3 fL (80.0-94.0); MEAN PLATELET VOLUME 8.2 fL (7.4-11.4); MONOCYTES # (AUTO) 0.6 10^3/uL (0.0-1.0); MONOCYTES % (AUTO) 3.7 %; NEUTROPHILS # (AUTO) 15.4 10^3/uL (1.5-6.6); PLT - PLATELET COUNT 523 10^3/uL (130-450); RED BLOOD COUNT 3.55 10^6/uL (4.70-6.10); RED CELL DISTRIBUTION WIDTH 15.1 % (12.0-15.0); WHITE BLOOD COUNT 17.3 x10^3/uL (4.8-10.8)
== END 2018-01-11 23:59 | disposition home or self-care (01) ==
LOC: LAB.R 16:10
PROVIDERS: ATTEND Internal Medicine
DX: N20.0 Calculus of kidney (principal)
CPT/HCPCS: 80048; 85025

== ENCOUNTER 2018-01-18 10:40 | Outpatient (CLI) | END 2018-01-18 10:41 | disposition home or self-care (01) ==

== ENCOUNTER 2018-01-27 08:00 | Outpatient (CLI) | payer MEDICARE, MEDICAID ==
[2018-01-27 23:19] LABS: BASOPHILS # (AUTO) 0.1 10^3/uL (0.0-0.1); BASOPHILS % (AUTO) 0.7 %; EOSINOPHILS # (AUTO) 0.6 10^3/uL (0.0-0.7); EOSINOPHILS % (AUTO) 7.3 %; HGB - HEMOGLOBIN 10.8 g/dL (14.0-18.0); LYMPHOCYTES # (AUTO) 1.1 10^3/uL (1.5-3.5); LYMPHOCYTES % (AUTO) 14.8 %; MEAN CORPUSCULAR HEMOGLOBIN 30.1 pg (27.0-31.0); MEAN CORPUSCULAR HGB CONC 32.9 g/dL (32.0-36.0); MEAN CORPUSCULAR VOLUME 91.3 fL (80.0-94.0); MEAN PLATELET VOLUME 8.3 fL (7.4-11.4); MONOCYTES # (AUTO) 0.5 10^3/uL (0.0-1.0); MONOCYTES % (AUTO) 6.9 %; NEUTROPHILS # (AUTO) 5.3 10^3/uL (1.5-6.6); NEUTROPHILS % (AUTO) 70.3 %; PLT - PLATELET COUNT 175 10^3/uL (130-450); RED BLOOD COUNT 3.58 10^6/uL (4.70-6.10); RED CELL DISTRIBUTION WIDTH 17.6 % (12.0-15.0); WHITE BLOOD COUNT 7.6 x10^3/uL (4.8-10.8)
== END 2018-01-27 08:01 | disposition home or self-care (01) ==
LOC: EEVIPCON → LAB.R 08:00
DX: D64.9 Anemia, unspecified (principal)
CPT/HCPCS: 85025

== ENCOUNTER 2018-01-28 08:00 | Outpatient (CLI) | payer MEDICARE, MEDICAID ==
[2018-01-28 12:18] LABS: % IRON SATURATION 15 % (20-50); IRON 27 ug/dL (45-182); TOTAL IRON BINDING CAPACITY 181 ug/dL (250-450); TRANSFERRIN 129 mg/dL (180-329)
== END 2018-01-28 08:01 | disposition home or self-care (01) ==
LOC: LAB.R 08:00
DX: D64.9 Anemia, unspecified (principal)
CPT/HCPCS: 82728; 83540; 84466

== ENCOUNTER 2018-02-04 08:00 | Outpatient (CLI) | payer MEDICARE, MEDICAID ==
[2018-02-04 00:12] LABS: BASOPHILS # (AUTO) 0.1 10^3/uL (0.0-0.1); BASOPHILS % (AUTO) 1.3 %; EOSINOPHILS # (AUTO) 0.8 10^3/uL (0.0-0.7); EOSINOPHILS % (AUTO) 9.2 %; LYMPHOCYTES # (AUTO) 2.5 10^3/uL (1.5-3.5); LYMPHOCYTES % (AUTO) 30.7 %; MEAN CORPUSCULAR HEMOGLOBIN 29.5 pg (27.0-31.0); MEAN CORPUSCULAR HGB CONC 32.6 g/dL (32.0-36.0); MEAN CORPUSCULAR VOLUME 90.6 fL (80.0-94.0); MEAN PLATELET VOLUME 8.1 fL (7.4-11.4); MONOCYTES # (AUTO) 0.5 10^3/uL (0.0-1.0); MONOCYTES % (AUTO) 6.6 %; NEUTROPHILS # (AUTO) 4.3 10^3/uL (1.5-6.6); NEUTROPHILS % (AUTO) 52.2 %; PLT - PLATELET COUNT 232 10^3/uL (130-450); RED BLOOD COUNT 3.72 10^6/uL (4.70-6.10); RED CELL DISTRIBUTION WIDTH 17.9 % (12.0-15.0); WHITE BLOOD COUNT 8.2 x10^3/uL (4.8-10.8)
[2018-02-04 01:17] LABS: ALBUMIN 2.6 g/dL (3.2-5.5); ALBUMIN/GLOBULIN RATIO 0.9 (1.0-2.2); BILIRUBIN,TOTAL 0.5 mg/dL (0.2-1.0); CREATININE 1.1 mg/dL (0.6-1.2); TOTAL PROTEIN 5.5 g/dL (6.7-8.2)
[2018-02-04 01:23] LABS: CALCIUM 8.7 mg/dL (8.5-10.3)
[2018-02-04 02:40] LABS: HEMOGLOBIN A1C 0.44 g/dL; HEMOGLOBIN A1C % 5.5 % (4.6-6.2)
== END 2018-02-04 08:01 | disposition home or self-care (01) ==
LOC: LAB.R 08:00
PROVIDERS: ATTEND Internal Medicine
DX: Z13.0 Encounter for screening for diseases of the blood and blood-forming organs and certain disorders involving the immune mechanism (principal); R68.89 Other general symptoms and signs
CPT/HCPCS: 80053; 83036; 85025

== ENCOUNTER 2018-02-11 08:00 | Outpatient (CLI) | payer MEDICARE, MEDICAID ==
[2018-02-11 15:17] LABS: BASOPHILS # (AUTO) 0.1 10^3/uL (0.0-0.1); BASOPHILS % (AUTO) 1.1 %; EOSINOPHILS # (AUTO) 0.3 10^3/uL (0.0-0.7); EOSINOPHILS % (AUTO) 3.7 %; HGB - HEMOGLOBIN 11.2 g/dL (14.0-18.0); LYMPHOCYTES # (AUTO) 1.5 10^3/uL (1.5-3.5); LYMPHOCYTES % (AUTO) 21.3 %; MEAN CORPUSCULAR HEMOGLOBIN 29.8 pg (27.0-31.0); MEAN CORPUSCULAR HGB CONC 32.6 g/dL (32.0-36.0); MEAN CORPUSCULAR VOLUME 91.3 fL (80.0-94.0); MEAN PLATELET VOLUME 7.8 fL (7.4-11.4); MONOCYTES # (AUTO) 0.4 10^3/uL (0.0-1.0); MONOCYTES % (AUTO) 6.2 %; NEUTROPHILS # (AUTO) 4.7 10^3/uL (1.5-6.6); NEUTROPHILS % (AUTO) 67.7 %; PLT - PLATELET COUNT 284 10^3/uL (130-450); RED BLOOD COUNT 3.75 10^6/uL (4.70-6.10); RED CELL DISTRIBUTION WIDTH 18.4 % (12.0-15.0); WHITE BLOOD COUNT 6.9 x10^3/uL (4.8-10.8)
[2018-02-11 15:47] LABS: CALCIUM 8.6 mg/dL (8.5-10.3); CREATININE 0.9 mg/dL (0.6-1.2)
== END 2018-02-11 08:01 | disposition home or self-care (01) ==
LOC: LAB.R 08:00
DX: R22.31 Localized swelling, mass and lump, right upper limb (principal); E83.49 Other disorders of magnesium metabolism; R94.6 Abnormal results of thyroid function studies
CPT/HCPCS: 80048; 83735; 84443; 85025

== ENCOUNTER 2018-02-18 08:00 | Outpatient (CLI) | payer MEDICARE, MEDICAID ==
[2018-02-18 20:37] LABS: CALCIUM 8.3 mg/dL (8.5-10.3)
== END 2018-02-18 08:01 | disposition home or self-care (01) ==
LOC: LAB.R 08:00
DX: I48.91 Unspecified atrial fibrillation (principal)
CPT/HCPCS: 80048

== ENCOUNTER 2018-02-24 08:00 | Outpatient (CLI) | payer MEDICARE, MEDICAID ==
[2018-02-25 00:35] LABS: ALBUMIN 2.6 g/dL (3.2-5.5); BILIRUBIN,TOTAL 0.6 mg/dL (0.2-1.0); CALCIUM 8.5 mg/dL (8.5-10.3); TOTAL PROTEIN 5.2 g/dL (6.7-8.2)
== END 2018-02-25 08:01 | disposition home or self-care (01) ==
LOC: LAB.R 08:00
DX: I10 Essential (primary) hypertension (principal)
CPT/HCPCS: 80053

== ENCOUNTER 2018-03-02 11:30 | Outpatient (CLI) | payer MEDICARE, MEDICAID ==
[2018-03-02 17:30] LABS: BASOPHILS # (AUTO) 0.1 10^3/uL (0.0-0.1); EOSINOPHILS # (AUTO) 0.6 10^3/uL (0.0-0.7); EOSINOPHILS % (AUTO) 7.9 %; HGB - HEMOGLOBIN 10.1 g/dL (14.0-18.0); LYMPHOCYTES # (AUTO) 1.2 10^3/uL (1.5-3.5); MEAN CORPUSCULAR HEMOGLOBIN 29.9 pg (27.0-31.0); MEAN CORPUSCULAR HGB CONC 32.8 g/dL (32.0-36.0); MEAN CORPUSCULAR VOLUME 91.2 fL (80.0-94.0); MEAN PLATELET VOLUME 9.2 fL (7.4-11.4); MONOCYTES # (AUTO) 0.4 10^3/uL (0.0-1.0); MONOCYTES % (AUTO) 5.4 %; NEUTROPHILS # (AUTO) 5.7 10^3/uL (1.5-6.6); NEUTROPHILS % (AUTO) 70.7 %; PLT - PLATELET COUNT 205 10^3/uL (130-450); RED BLOOD COUNT 3.38 10^6/uL (4.70-6.10); RED CELL DISTRIBUTION WIDTH 19.1 % (12.0-15.0)
[2018-03-02 17:51] LABS: ALBUMIN 2.6 g/dL (3.2-5.5); BILIRUBIN,TOTAL 0.6 mg/dL (0.2-1.0); CALCIUM 8.3 mg/dL (8.5-10.3); CREATININE 0.8 mg/dL (0.6-1.2); TOTAL PROTEIN 5.2 g/dL (6.7-8.2)
[2018-03-02 18:15] LABS: HB2 TOTAL 10.7 g/dL; HEMOGLOBIN A1C 0.36 g/dL; HEMOGLOBIN A1C % 5.2 % (4.6-6.2)
== END 2018-03-02 11:31 | disposition home or self-care (01) ==
LOC: LAB.R 11:30
PROVIDERS: ATTEND Internal Medicine
DX: I50.9 Heart failure, unspecified (principal); N20.0 Calculus of kidney; E03.9 Hypothyroidism, unspecified; E09.9 Drug or chemical induced diabetes mellitus without complications
CPT/HCPCS: 80053; 83036; 84443; 85025

== ENCOUNTER 2018-03-08 15:42 | Outpatient (CLI) | payer MEDICARE, MEDICAID ==
[2018-03-08 18:38] LABS: ALBUMIN 2.6 g/dL (3.2-5.5); ALBUMIN/GLOBULIN RATIO 0.9 (1.0-2.2); BILIRUBIN,TOTAL 0.4 mg/dL (0.2-1.0); CALCIUM 8.6 mg/dL (8.5-10.3); CREATININE 0.7 mg/dL (0.6-1.2); TOTAL PROTEIN 5.4 g/dL (6.7-8.2)
== END 2018-03-08 15:43 | disposition home or self-care (01) ==
LOC: LAB.R 15:42
DX: I50.9 Heart failure, unspecified (principal)
CPT/HCPCS: 80053

== ENCOUNTER 2018-04-02 08:00 | Outpatient (CLI) | payer MEDICARE, MEDICAID ==
[2018-04-02 22:55] LABS: BASOPHILS # (AUTO) 0.1 10^3/uL (0.0-0.1); BASOPHILS % (AUTO) 1.3 %; EOSINOPHILS # (AUTO) 0.7 10^3/uL (0.0-0.7); EOSINOPHILS % (AUTO) 8.8 %; LYMPHOCYTES # (AUTO) 1.5 10^3/uL (1.5-3.5); LYMPHOCYTES % (AUTO) 18.9 %; MEAN CORPUSCULAR VOLUME 90.9 fL (80.0-94.0); MEAN PLATELET VOLUME 8.1 fL (7.4-11.4); MONOCYTES # (AUTO) 0.7 10^3/uL (0.0-1.0); MONOCYTES % (AUTO) 8.4 %; NEUTROPHILS % (AUTO) 62.6 %; PLT - PLATELET COUNT 242 10^3/uL (130-450); RED BLOOD COUNT 3.66 10^6/uL (4.70-6.10); RED CELL DISTRIBUTION WIDTH 16.3 % (12.0-15.0); WHITE BLOOD COUNT 7.9 x10^3/uL (4.8-10.8)
== END 2018-04-02 08:01 | disposition home or self-care (01) ==
LOC: LAB.R 08:00
DX: R68.89 Other general symptoms and signs (principal); D50.0 Iron deficiency anemia secondary to blood loss (chronic)
CPT/HCPCS: 82728; 85025

== ENCOUNTER 2018-04-05 17:47 | Outpatient (CLI) | payer MEDICARE, MEDICAID ==
[2018-04-05 18:39] LABS: CALCIUM 8.4 mg/dL (8.5-10.3); CREATININE 0.9 mg/dL (0.6-1.2)
== END 2018-04-05 17:48 | disposition home or self-care (01) ==
LOC: LAB.R 17:47
DX: N20.0 Calculus of kidney (principal); I87.323 Chronic venous hypertension (idiopathic) with inflammation of bilateral lower extremity
CPT/HCPCS: 80048

== ENCOUNTER 2018-05-03 08:00 | Outpatient (CLI) | payer MEDICARE, MEDICAID ==
[2018-05-03 20:37] LABS: CALCIUM 8.6 mg/dL (8.5-10.3); CREATININE 0.8 mg/dL (0.6-1.2)
== END 2018-05-03 08:01 | disposition home or self-care (01) ==
LOC: LAB.R 08:00
DX: G92 Toxic encephalopathy (principal); I50.9 Heart failure, unspecified
CPT/HCPCS: 80048

== ENCOUNTER 2018-05-10 13:30 | Outpatient (CLI) | payer MEDICARE, MEDICAID ==
[2018-05-10 16:07] LABS: CALCIUM 8.2 mg/dL (8.5-10.3); CREATININE 0.7 mg/dL (0.6-1.2)
== END 2018-05-10 13:31 | disposition home or self-care (01) ==
LOC: LAB.R 13:30
PROVIDERS: ATTEND Internal Medicine
DX: I50.9 Heart failure, unspecified (principal)
CPT/HCPCS: 80048

== ENCOUNTER 2018-05-18 23:14 | Outpatient (CLI) | payer MEDICARE, MEDICAID ==
[2018-05-18 14:52] LABS: ALBUMIN 3.2 g/dL (3.2-5.5); ALBUMIN/GLOBULIN RATIO 1.3 (1.0-2.2); BILIRUBIN,TOTAL 0.9 mg/dL (0.2-1.0); CALCIUM 8.5 mg/dL (8.5-10.3); CREATININE 0.9 mg/dL (0.6-1.2); TOTAL PROTEIN 5.6 g/dL (6.7-8.2)
== END 2018-05-18 23:15 | disposition home or self-care (01) ==
LOC: LAB.R 23:14
DX: R79.89 Other specified abnormal findings of blood chemistry (principal)
CPT/HCPCS: 80053

== ENCOUNTER 2018-05-24 13:45 | Outpatient (CLI) | payer MEDICARE, MEDICAID ==
[2018-05-24 15:44] LABS: ALBUMIN 3.4 g/dL (3.2-5.5); ALBUMIN/GLOBULIN RATIO 1.2 (1.0-2.2); BILIRUBIN,TOTAL 0.5 mg/dL (0.2-1.0); CALCIUM 8.9 mg/dL (8.5-10.3); TOTAL PROTEIN 6.2 g/dL (6.7-8.2)
== END 2018-05-24 13:46 | disposition home or self-care (01) ==
LOC: LAB.R 13:45
PROVIDERS: ATTEND Internal Medicine
DX: E11.9 Type 2 diabetes mellitus without complications (principal); I50.9 Heart failure, unspecified
CPT/HCPCS: 80053

== ENCOUNTER 2018-06-15 10:00 | Outpatient (CLI) | payer MEDICARE, MEDICAID ==
[2018-06-15 16:52] LABS: BASOPHILS # (AUTO) 0.1 10^3/uL (0.0-0.1); BASOPHILS % (AUTO) 0.9 %; EOSINOPHILS # (AUTO) 0.4 10^3/uL (0.0-0.7); EOSINOPHILS % (AUTO) 6.2 %; HGB - HEMOGLOBIN 11.1 g/dL (14.0-18.0); LYMPHOCYTES # (AUTO) 1.7 10^3/uL (1.5-3.5); LYMPHOCYTES % (AUTO) 25.9 %; MEAN CORPUSCULAR HEMOGLOBIN 30.1 pg (27.0-31.0); MEAN CORPUSCULAR HGB CONC 33.2 g/dL (32.0-36.0); MEAN CORPUSCULAR VOLUME 90.6 fL (80.0-94.0); MEAN PLATELET VOLUME 7.7 fL (7.4-11.4); MONOCYTES # (AUTO) 0.6 10^3/uL (0.0-1.0); MONOCYTES % (AUTO) 8.5 %; NEUTROPHILS # (AUTO) 3.8 10^3/uL (1.5-6.6); NEUTROPHILS % (AUTO) 58.5 %; PLT - PLATELET COUNT 219 10^3/uL (130-450); RED CELL DISTRIBUTION WIDTH 14.3 % (12.0-15.0); WHITE BLOOD COUNT 6.5 x10^3/uL (4.8-10.8)
[2018-06-15 17:01] LABS: ALBUMIN 2.8 g/dL (3.2-5.5); ALBUMIN/GLOBULIN RATIO 1.1 (1.0-2.2); BILIRUBIN,TOTAL 0.5 mg/dL (0.2-1.0); CALCIUM 8.3 mg/dL (8.5-10.3); CREATININE 0.9 mg/dL (0.6-1.2); TOTAL PROTEIN 5.3 g/dL (6.7-8.2); URIC ACID 5.4 mg/dL (2.6-7.2)
== END 2018-06-15 10:01 | disposition home or self-care (01) ==
LOC: LAB.R 10:00
PROVIDERS: ATTEND Family Medicine
DX: R79.89 Other specified abnormal findings of blood chemistry (principal); R68.89 Other general symptoms and signs; R70.0 Elevated erythrocyte sedimentation rate; E79.0 Hyperuricemia without signs of inflammatory arthritis and tophaceous disease
CPT/HCPCS: 80053; 84550; 85025; 85651

== ENCOUNTER 2018-06-17 08:00 | Outpatient (CLI) | payer MEDICARE, MEDICAID ==
[2018-06-17 16:57] LABS: HB2 TOTAL 13.6 g/dL; HEMOGLOBIN A1C 0.46 g/dL; HEMOGLOBIN A1C % 5.2 % (4.6-6.2)
[2018-06-17 17:20] LABS: CHOL/HDL RATIO 2.6 (<5.0); CHOLESTEROL 98 mg/dL; HDL CHOLESTEROL 37 mg/dL; MAGNESIUM 1.8 mg/dL (1.7-2.8)
[2018-06-17 17:44] LABS: LDL CHOLESTEROL,DIRECT 56 mg/dL; LDLD/HDL RATIO 1.5 (<3.6)
== END 2018-06-17 08:01 | disposition home or self-care (01) ==
LOC: LAB 08:00
PROVIDERS: ATTEND Internal Medicine
DX: E78.5 Hyperlipidemia, unspecified (principal); Z13.220 Encounter for screening for lipoid disorders; R73.09 Other abnormal glucose; E61.2 Magnesium deficiency; R94.6 Abnormal results of thyroid function studies; E55.9 Vitamin D deficiency, unspecified; E11.9 Type 2 diabetes mellitus without complications
CPT/HCPCS: 80061; 82306; 83036; 83721; 83735; 84443

== ENCOUNTER 2018-07-18 11:50 | Outpatient (CLI) | payer MEDICARE, MEDICAID ==
[2018-07-18 16:35] LABS: BASOPHILS # (AUTO) 0.1 10^3/uL (0.0-0.1); BASOPHILS % (AUTO) 0.8 %; EOSINOPHILS # (AUTO) 0.2 10^3/uL (0.0-0.7); EOSINOPHILS % (AUTO) 3.3 %; HGB - HEMOGLOBIN 11.8 g/dL (14.0-18.0); LYMPHOCYTES # (AUTO) 1.4 10^3/uL (1.5-3.5); LYMPHOCYTES % (AUTO) 21.5 %; MEAN CORPUSCULAR HEMOGLOBIN 29.8 pg (27.0-31.0); MEAN CORPUSCULAR HGB CONC 32.6 g/dL (32.0-36.0); MEAN CORPUSCULAR VOLUME 91.3 fL (80.0-94.0); MEAN PLATELET VOLUME 7.3 fL (7.4-11.4); MONOCYTES # (AUTO) 0.6 10^3/uL (0.0-1.0); MONOCYTES % (AUTO) 8.5 %; NEUTROPHILS # (AUTO) 4.4 10^3/uL (1.5-6.6); NEUTROPHILS % (AUTO) 65.9 %; PLT - PLATELET COUNT 333 10^3/uL (130-450); RED BLOOD COUNT 3.96 10^6/uL (4.70-6.10); RED CELL DISTRIBUTION WIDTH 14.5 % (12.0-15.0); WHITE BLOOD COUNT 6.7 x10^3/uL (4.8-10.8)
[2018-07-18 17:02] LABS: % IRON SATURATION 19 % (20-50); IRON 39 ug/dL (45-182); TOTAL IRON BINDING CAPACITY 206 ug/dL (250-450); TRANSFERRIN 147 mg/dL (180-329)
== END 2018-07-18 23:59 | disposition home or self-care (01) ==
LOC: LAB.R 11:50
DX: I48.91 Unspecified atrial fibrillation (principal); I50.9 Heart failure, unspecified; D50.9 Iron deficiency anemia, unspecified; G92 Toxic encephalopathy; N20.0 Calculus of kidney
CPT/HCPCS: 82607; 83540; 84466; 85025

== ENCOUNTER 2018-08-19 08:00 | Outpatient (CLI) | payer MEDICARE, MEDICAID ==
[2018-08-19 16:49] LABS: BASOPHILS # (AUTO) 0.1 10^3/uL (0.0-0.1); BASOPHILS % (AUTO) 0.9 %; EOSINOPHILS # (AUTO) 0.5 10^3/uL (0.0-0.7); EOSINOPHILS % (AUTO) 6.5 %; LYMPHOCYTES # (AUTO) 1.8 10^3/uL (1.5-3.5); LYMPHOCYTES % (AUTO) 22.3 %; MEAN CORPUSCULAR HEMOGLOBIN 28.9 pg (27.0-31.0); MEAN CORPUSCULAR HGB CONC 32.1 g/dL (32.0-36.0); MEAN PLATELET VOLUME 7.6 fL (7.4-11.4); MONOCYTES # (AUTO) 0.5 10^3/uL (0.0-1.0); MONOCYTES % (AUTO) 5.5 %; NEUTROPHILS # (AUTO) 5.3 10^3/uL (1.5-6.6); NEUTROPHILS % (AUTO) 64.8 %; PLT - PLATELET COUNT 283 10^3/uL (130-450); RED BLOOD COUNT 4.13 10^6/uL (4.70-6.10); RED CELL DISTRIBUTION WIDTH 15.2 % (12.0-15.0); WHITE BLOOD COUNT 8.2 x10^3/uL (4.8-10.8)
[2018-08-19 17:25] LABS: ALBUMIN 2.7 g/dL (3.2-5.5); ALBUMIN/GLOBULIN RATIO 1.1 (1.0-2.2); ALKALINE PHOSPHATASE 96 IU/L (42-121); ALT ALANINE AMINOTRANSFERASE 15 IU/L (10-60); AST ASPARTATE AMINOTRANSFERASE 19 IU/L (10-42); BILIRUBIN,TOTAL 0.5 mg/dL (0.2-1.0); BUN - BLOOD UREA NITROGEN 21 mg/dL (6-20); CALCIUM 8.4 mg/dL (8.5-10.3); CARBON DIOXIDE - CO2 30 mmol/L (21-32); CHLORIDE 99 mmol/L (101-111); CHOL/HDL RATIO 3.3 (<5.0); CHOLESTEROL 91 mg/dL; GFR - MDRD 71 (>89); GLUCOSE 117 mg/dL (70-100); HDL CHOLESTEROL 28 mg/dL; LDL CHOLESTEROL,CALCULATED 34 mg/dL; LDL/HDL RATIO 1.2 (<3.6); SODIUM 137 mmol/L (135-145); TOTAL PROTEIN 5.1 g/dL (6.7-8.2); VLDL CHOLESTEROL 29 mg/dL
[2018-08-19 17:27] LABS: HB2 TOTAL 12.6 g/dL; HEMOGLOBIN A1C 0.47 g/dL; HEMOGLOBIN A1C % 5.6 % (4.6-6.2)
== END 2018-08-19 23:59 | disposition home or self-care (01) ==
LOC: LAB.R 08:00
PROVIDERS: ATTEND Internal Medicine
DX: R79.89 Other specified abnormal findings of blood chemistry (principal); Z13.220 Encounter for screening for lipoid disorders; R68.89 Other general symptoms and signs; R73.09 Other abnormal glucose; R94.6 Abnormal results of thyroid function studies
CPT/HCPCS: 80053; 80061; 83036; 83721; 84443; 85025

== ENCOUNTER 2018-09-14 11:50 | Outpatient (CLI) | payer MEDICARE, MEDICAID ==
[2018-09-14 14:31] LABS: BASOPHILS # (AUTO) 0.1 10^3/uL (0.0-0.1); BASOPHILS % (AUTO) 0.8 %; EOSINOPHILS # (AUTO) 0.5 10^3/uL (0.0-0.7); EOSINOPHILS % (AUTO) 5.7 %; HGB - HEMOGLOBIN 11.2 g/dL (14.0-18.0); LYMPHOCYTES # (AUTO) 1.7 10^3/uL (1.5-3.5); LYMPHOCYTES % (AUTO) 20.5 %; MEAN CORPUSCULAR HEMOGLOBIN 30.4 pg (27.0-31.0); MEAN CORPUSCULAR HGB CONC 33.4 g/dL (32.0-36.0); MEAN PLATELET VOLUME 8.1 fL (7.4-11.4); MONOCYTES # (AUTO) 0.6 10^3/uL (0.0-1.0); NEUTROPHILS # (AUTO) 5.5 10^3/uL (1.5-6.6); PLT - PLATELET COUNT 253 10^3/uL (130-450); RED BLOOD COUNT 3.68 10^6/uL (4.70-6.10); RED CELL DISTRIBUTION WIDTH 15.7 % (12.0-15.0); WHITE BLOOD COUNT 8.3 x10^3/uL (4.8-10.8)
== END 2018-09-14 23:59 | disposition home or self-care (01) ==
LOC: LAB.R 11:50
DX: R68.89 Other general symptoms and signs (principal); I50.9 Heart failure, unspecified
CPT/HCPCS: 85025

== ENCOUNTER 2018-09-26 16:35 | Outpatient (CLI) | payer MEDICARE, MEDICAID ==
[2018-09-26 17:58] LABS: BASOPHILS # (AUTO) 0.1 10^3/uL (0.0-0.1); BASOPHILS % (AUTO) 0.8 %; EOSINOPHILS # (AUTO) 0.5 10^3/uL (0.0-0.7); EOSINOPHILS % (AUTO) 5.1 %; HGB - HEMOGLOBIN 12.5 g/dL (14.0-18.0); LYMPHOCYTES # (AUTO) 1.7 10^3/uL (1.5-3.5); LYMPHOCYTES % (AUTO) 17.5 %; MEAN CORPUSCULAR HEMOGLOBIN 30.6 pg (27.0-31.0); MEAN CORPUSCULAR HGB CONC 33.2 g/dL (32.0-36.0); MEAN PLATELET VOLUME 7.8 fL (7.4-11.4); MONOCYTES # (AUTO) 0.7 10^3/uL (0.0-1.0); MONOCYTES % (AUTO) 7.1 %; NEUTROPHILS # (AUTO) 6.7 10^3/uL (1.5-6.6); NEUTROPHILS % (AUTO) 69.5 %; PLT - PLATELET COUNT 241 10^3/uL (130-450); RED BLOOD COUNT 4.09 10^6/uL (4.70-6.10); WHITE BLOOD COUNT 9.6 x10^3/uL (4.8-10.8)
[2018-09-26 18:12] LABS: ALBUMIN 3.1 g/dL (3.2-5.5); ALBUMIN/GLOBULIN RATIO 1.3 (1.0-2.2); BILIRUBIN,TOTAL 0.5 mg/dL (0.2-1.0); CALCIUM 8.6 mg/dL (8.5-10.3); CREATININE 0.8 mg/dL (0.6-1.2); TOTAL PROTEIN 5.5 g/dL (6.7-8.2)
[2018-09-26 18:17] LABS: THYROID STIMULATING HORMONE 1.72 uIU/mL (0.34-5.60)
[2018-09-26 18:22] LABS: FREE T4 (FREE THYROXINE) 1.03 ng/dL (0.58-1.64)
== END 2018-09-26 23:59 | disposition home or self-care (01) ==
LOC: LAB.R 16:35
DX: E03.9 Hypothyroidism, unspecified (principal); I11.0 Hypertensive heart disease with heart failure; I50.9 Heart failure, unspecified; N20.0 Calculus of kidney; E64.0 Sequelae of protein-calorie malnutrition
CPT/HCPCS: 80053; 84439; 84443; 85025

== ENCOUNTER 2018-11-09 08:00 | Outpatient (CLI) | payer MEDICARE, MEDICAID ==
[2018-11-09 23:42] LABS: BASOPHILS # (AUTO) 0.1 10^3/uL (0.0-0.1); BASOPHILS % (AUTO) 1.1 %; EOSINOPHILS # (AUTO) 0.4 10^3/uL (0.0-0.7); EOSINOPHILS % (AUTO) 6.8 %; HGB - HEMOGLOBIN 8.2 g/dL (14.0-18.0); LYMPHOCYTES # (AUTO) 1.7 10^3/uL (1.5-3.5); LYMPHOCYTES % (AUTO) 27.5 %; MEAN CORPUSCULAR HEMOGLOBIN 30.6 pg (27.0-31.0); MEAN CORPUSCULAR HGB CONC 32.3 g/dL (32.0-36.0); MEAN CORPUSCULAR VOLUME 94.7 fL (80.0-94.0); MEAN PLATELET VOLUME 7.5 fL (7.4-11.4); MONOCYTES # (AUTO) 0.5 10^3/uL (0.0-1.0); MONOCYTES % (AUTO) 9.1 %; NEUTROPHILS # (AUTO) 3.3 10^3/uL (1.5-6.6); NEUTROPHILS % (AUTO) 55.5 %; PLT - PLATELET COUNT 257 10^3/uL (130-450); RED BLOOD COUNT 2.67 10^6/uL (4.70-6.10); RED CELL DISTRIBUTION WIDTH 16.8 % (12.0-15.0)
== END 2018-11-09 23:59 | disposition home or self-care (01) ==
LOC: LAB.R 08:00
PROVIDERS: ATTEND Internal Medicine
DX: E64.0 Sequelae of protein-calorie malnutrition (principal)
CPT/HCPCS: 85025

== ENCOUNTER 2018-11-10 08:00 | Outpatient (CLI) | payer MEDICARE, MEDICAID ==
[2018-11-11 00:10] LABS: BILIRUBIN,URINE NEGATIVE (NEGATIVE); GLUCOSE, URINE (UA) NEGATIVE (NEGATIVE); KETONES,URINE (UA) NEGATIVE (NEGATIVE); LEUKOCYTE ESTERASE, URINE LARGE (NEGATIVE); NITRITE,URINE NEGATIVE (NEGATIVE); OCCULT BLOOD,URINE SMALL (NEGATIVE); PROTEIN,URINE NEGATIVE (NEGATIVE); UROBILINOGEN,URINE 0.2 (NORMAL) E.U./dL (NORMAL)
[2018-11-11 00:11] LABS: BACTERIA,URINE Few /HPF (None Seen); CLARITY,URINE HAZY (CLEAR); SQUAMOUS EPITHELIAL CELL,UR NONE SEEN (<= Few)
== END 2018-11-10 23:59 | disposition home or self-care (01) ==
LOC: LAB.R 08:00
PROVIDERS: ATTEND Internal Medicine
DX: R31.9 Hematuria, unspecified (principal); R82.90 Unspecified abnormal findings in urine
CPT/HCPCS: 81001; 81003; 87086

== ENCOUNTER 2018-11-18 08:00 | Outpatient (CLI) | payer MEDICARE, MEDICAID ==
[2018-11-18 17:04] LABS: CALCIUM 8.6 mg/dL (8.5-10.3); CREATININE 0.8 mg/dL (0.6-1.2)
== END 2018-11-18 23:59 | disposition home or self-care (01) ==
LOC: LAB.R 08:00
PROVIDERS: ATTEND Internal Medicine
DX: E11.9 Type 2 diabetes mellitus without complications (principal); E03.9 Hypothyroidism, unspecified
CPT/HCPCS: 80048; 82728; 83540; 84466

== ENCOUNTER 2018-11-24 08:00 | Outpatient (CLI) | payer MEDICARE, MEDICAID ==
[2018-11-24 16:41] LABS: BASOPHILS # (AUTO) 0.1 10^3/uL (0.0-0.1); EOSINOPHILS # (AUTO) 0.5 10^3/uL (0.0-0.7); EOSINOPHILS % (AUTO) 7.1 %; HGB - HEMOGLOBIN 10.1 g/dL (14.0-18.0); LYMPHOCYTES # (AUTO) 1.6 10^3/uL (1.5-3.5); LYMPHOCYTES % (AUTO) 23.7 %; MEAN CORPUSCULAR HEMOGLOBIN 30.2 pg (27.0-31.0); MEAN CORPUSCULAR HGB CONC 32.1 g/dL (32.0-36.0); MEAN CORPUSCULAR VOLUME 94.2 fL (80.0-94.0); MEAN PLATELET VOLUME 7.7 fL (7.4-11.4); MONOCYTES # (AUTO) 0.5 10^3/uL (0.0-1.0); MONOCYTES % (AUTO) 7.7 %; NEUTROPHILS # (AUTO) 4.2 10^3/uL (1.5-6.6); NEUTROPHILS % (AUTO) 60.5 %; PLT - PLATELET COUNT 308 10^3/uL (130-450); RED BLOOD COUNT 3.33 10^6/uL (4.70-6.10); RED CELL DISTRIBUTION WIDTH 14.2 % (12.0-15.0); WHITE BLOOD COUNT 6.9 x10^3/uL (4.8-10.8)
[2018-11-25 19:18] LABS: FOLATE 12.98 ng/mL (5.90 - >24.8)
== END 2018-11-24 23:59 | disposition home or self-care (01) ==
LOC: LAB.R 08:00
PROVIDERS: ATTEND Internal Medicine
DX: D51.9 Vitamin B12 deficiency anemia, unspecified (principal); E64.0 Sequelae of protein-calorie malnutrition; D52.9 Folate deficiency anemia, unspecified
CPT/HCPCS: 82607; 82746; 85025

== ENCOUNTER 2018-12-04 08:00 | Outpatient (CLI) | payer MEDICARE, MEDICAID | END 2018-12-04 23:59 | disposition home or self-care (01) | LOC: LAB.R 08:00 | PROVIDERS: ATTEND Internal Medicine | DX: R19.5 Other fecal abnormalities (principal); R19.4 Change in bowel habit | CPT/HCPCS: 83630; 87177; 87209; 87493 ==

== ENCOUNTER 2018-12-11 08:00 | Outpatient (CLI) | payer MEDICARE, MEDICAID | END 2018-12-11 23:59 | disposition home or self-care (01) | LOC: LAB.R 08:00 | PROVIDERS: ATTEND Internal Medicine | DX: B82.9 Intestinal parasitism, unspecified (principal) | CPT/HCPCS: 87177; 87209 ==

== ENCOUNTER 2018-12-11 08:00 | Outpatient (CLI) | payer MEDICARE, MEDICAID ==
[2018-12-11 17:20] LABS: BASOPHILS # (AUTO) 0.1 10^3/uL (0.0-0.1); BASOPHILS % (AUTO) 0.8 %; EOSINOPHILS # (AUTO) 0.6 10^3/uL (0.0-0.7); HGB - HEMOGLOBIN 11.1 g/dL (14.0-18.0); LYMPHOCYTES # (AUTO) 1.8 10^3/uL (1.5-3.5); LYMPHOCYTES % (AUTO) 20.1 %; MEAN CORPUSCULAR HEMOGLOBIN 30.7 pg (27.0-31.0); MEAN CORPUSCULAR HGB CONC 33.4 g/dL (32.0-36.0); MEAN PLATELET VOLUME 7.5 fL (7.4-11.4); MONOCYTES # (AUTO) 0.6 10^3/uL (0.0-1.0); MONOCYTES % (AUTO) 6.9 %; NEUTROPHILS # (AUTO) 5.7 10^3/uL (1.5-6.6); NEUTROPHILS % (AUTO) 65.2 %; PLT - PLATELET COUNT 291 10^3/uL (130-450); RED BLOOD COUNT 3.61 10^6/uL (4.70-6.10); RED CELL DISTRIBUTION WIDTH 13.8 % (12.0-15.0); WHITE BLOOD COUNT 8.7 x10^3/uL (4.8-10.8)
[2018-12-11 17:35] LABS: ALBUMIN 2.8 g/dL (3.2-5.5); ALKALINE PHOSPHATASE 95 IU/L (42-121); ALT ALANINE AMINOTRANSFERASE 12 IU/L (10-60); AST ASPARTATE AMINOTRANSFERASE 16 IU/L (10-42); BILIRUBIN,TOTAL 0.3 mg/dL (0.2-1.0); BUN - BLOOD UREA NITROGEN 18 mg/dL (6-20); CALCIUM 8.8 mg/dL (8.5-10.3); CARBON DIOXIDE - CO2 32 mmol/L (21-32); CHLORIDE 97 mmol/L (101-111); CHOL/HDL RATIO 2.9 (<5.0); CHOLESTEROL 69 mg/dL; CREATININE 0.8 mg/dL (0.6-1.2); GFR - MDRD 92 (>89); HDL CHOLESTEROL 24 mg/dL; LDL CHOLESTEROL,CALCULATED 36 mg/dL; LDL/HDL RATIO 1.5 (<3.6); SODIUM 140 mmol/L (135-145); TOTAL PROTEIN 5.7 g/dL (6.7-8.2); VLDL CHOLESTEROL 9 mg/dL
[2018-12-11 18:06] LABS: HB2 TOTAL 11.7 g/dL; HEMOGLOBIN A1C 0.32 g/dL; HEMOGLOBIN A1C % 4.7 % (4.6-6.2)
[2018-12-11 18:20] LABS: GLUCOSE 92 mg/dL (70-100)
[2018-12-11 18:37] LABS: BILIRUBIN,URINE NEGATIVE (NEGATIVE); GLUCOSE, URINE (UA) NEGATIVE (NEGATIVE); KETONES,URINE (UA) NEGATIVE (NEGATIVE); LEUKOCYTE ESTERASE, URINE LARGE (NEGATIVE); NITRITE,URINE POSITIVE (NEGATIVE); OCCULT BLOOD,URINE LARGE (NEGATIVE); PH,URINE 8.5 PH (5.0-7.5); PROTEIN,URINE NEGATIVE (NEGATIVE); UROBILINOGEN,URINE 0.2 (NORMAL) E.U./dL (NORMAL)
[2018-12-11 18:40] LABS: CLARITY,URINE HAZY (CLEAR)
[2018-12-11 18:43] LABS: BACTERIA,URINE Rare /HPF (None Seen); RBC,URINE TNTC /HPF (0-5); SQUAMOUS EPITHELIAL CELL,UR NONE SEEN (<= Few)
== END 2018-12-11 23:59 | disposition home or self-care (01) ==
LOC: LAB.R 08:00
DX: E03.9 Hypothyroidism, unspecified (principal); I50.9 Heart failure, unspecified; E11.9 Type 2 diabetes mellitus without complications; N20.0 Calculus of kidney; B82.9 Intestinal parasitism, unspecified
CPT/HCPCS: 80053; 80061; 81001; 81003; 83036; 83721; 83735; 84443; 85025; 87086; 87177; 87181; 87209

== ENCOUNTER 2018-12-26 03:59 | Outpatient (CLI) | payer MEDICARE, MEDICAID | END 2018-12-26 04:00 | disposition critical access hospital (66) | LOC: EMS 03:59 | PROVIDERS: ATTEND Surgery | DX: R71.0 Precipitous drop in hematocrit (principal); R19.5 Other fecal abnormalities; R05 Cough; I69.365 Other paralytic syndrome following cerebral infarction, bilateral; G82.50 Quadriplegia, unspecified | CPT/HCPCS: A0425; A0429 ==

== ENCOUNTER 2018-12-26 04:04 | Inpatient (IN) | payer MEDICARE, MEDICAID ==
--- NOTE | 2018-12-26 04:15 | ED Physician Documentation ---
History of Present Illness - Stated complaint Stated Complaint: LOW H & H - Chief complaint Chief Complaint: General - History obtained from History obtained from: Patient - Additonal information Additional information: Patient is an 83-year-old male with complicated past medical history including CVA and currently anticoagulated with xarelto presenting with decreased H&H per his assisted facility. Patient denies fever, chest pain, headache, abdominal pain, vomiting, urine changes, stool changes, shortness of breath or other complaints. Patient denies blood in stool or other areas.Patient states that he has otherwise been in his normal state of health with no significant changes. No other improving or worsening factors noted. Unknown last INR.EMS reports that assisted staff contacted POA and he is aware of patient coming to the ED and is reportedly going to come in soon. However, no family members present. Review of Systems Constitutional: denies: Fever Cardiac: denies: Chest pain / pressure Respiratory: denies: Dyspnea GI: denies: Abdominal Pain, Vomiting PD PAST MEDICAL HISTORY - Past Medical History Cardiovascular: Congestive heart failure, Hypertension, Atrial fibrillation Respiratory: None Neuro: CVA Endocrine/Autoimmune: Type 2 diabetes, HyPOthyroidism, Other GI: GERD, Other : Kidney stones HEENT: None Psych: None Musculoskeletal: Osteoarthritis, Other Derm: Other - Past Surgical History Past Surgical History: Yes General: Cholecystectomy Ortho: Knee replacement - Present Medications Home Medications: Ambulatory Orders Medication Instructions Recorded Confirmed Aspirin 81 mg PO DAILY 07/12/13 12/26/18 Finasteride 5 mg PO DAILY 07/12/13 12/26/18 Furosemide 40 mg PO DAILY 07/12/13 12/26/18 Gabapentin [Neurontin] 300 mg PO QPM 07/12/13 12/26/18 traZODone [Desyrel] 50 mg PO HS 07/12/13 12/26/18 Ascorbic Acid [Vitamin C] 2,000 mg PO DAILY 11/20/13 12/26/18 Ca Cmb No.1/Vit D3/B-6/FA/B12 1 each PO DAILY 11/20/13 12/26/18 [Vitamin D3 1,000 Unit Tablet] Glucosamine Sulfate 1,000 mg PO BID 11/20/13 12/26/18 Levothyroxine [Synthroid] 25 mcg PO QDAC 11/20/13 12/26/18 Multivitamin [Multi-Vitamin Daily] 1 each PO DAILY 11/20/13 12/26/18 Vitamin E 400 unit PO DAILY 11/20/13 12/26/18 Acetaminophen 650 mg PO Q6HR PRN 12/29/17 12/26/18 Amlodipine Besylate 1 tab PO DAILY 12/29/17 12/26/18 Atorvastatin Calcium 10 mg PO DAILY 12/29/17 12/26/18 Cyclobenzaprine HCl 10 mg PO Q8HR PRN 12/29/17 12/26/18 Ferrous Sulfate 325 mg PO TID 12/29/17 12/26/18 Fluticasone [Flonase] 1 spray NS DAILY 12/29/17 12/26/18 Guaifenesin/Dextromethorphan 10 ml PO Q4HR PRN 12/29/17 12/26/18 [Tussin Dm Cough Syrup] Isosorbide Mononitrate [Isosorbide 1 tab PO DAILY 12/29/17 12/26/18 Mononitrate ER] Losartan Potassium 1 tab PO DAILY 12/29/17 12/26/18 Metoprolol Tartrate 1 tab PO BID 12/29/17 12/26/18 Oxybutynin [Ditropan] 2.5 mg PO TID 12/29/17 12/26/18 Potassium Citrate [Potassium 1 tab PO TID 12/29/17 12/26/18 Citrate ER] Tamsulosin HCl [Flomax] 1 tab PO DAILY 12/29/17 12/26/18 Rivaroxaban [Xarelto] 20 mg PO DAILY 12/26/18 12/26/18 raNITIdine [Zantac] 75 mg PO DAILY 12/26/18 12/26/18 - Allergies Allergies/Adverse Reactions: Allergies Allergy/AdvReac Type Severity Reaction Status Date / Time No Known Drug Allergies Allergy Verified 12/26/18 04:13 - Social History Does the pt smoke?: No Smoking Status: Never smoker Does the pt drink ETOH?: No Does the pt have substance abuse?: No - Immunizations Immunizations are current?: Yes - POLST Patient has POLST: No PD ED PE NORMAL - Vitals Vital signs reviewed: Yes - General General: Alert and oriented X 3, No acute distress, Well developed/nourished - HEENT HEENT: Atraumatic. No: Moist mucous membranes (Slightly dry), Dentition benign (No teeth or dentures present) - Cardiac Cardiac: RRR, No murmur - Respiratory Respiratory: No respiratory distress, Clear bilaterally - Abdomen Abdomen: Soft, Non tender. No: Non distended (Mildy distended) - Rectal Rectal: Other (Patient had black stool present in diaper,hemmocult positive) - Derm Derm: Warm and dry, No rash. No: Normal color (Pale) - Extremities Extremities: No deformity, No tenderness to palpate. No: No edema (Non pitting pedal edema bilaterally with appreciable edema to upper extremities) - Neuro Neuro: Alert and oriented X 3 (No gross deficits from baseline), No motor deficit, No sensory deficit - Psych Psych: Normal mood, Normal affect Results - Vitals Vitals: Vital Signs - 24 hr 12/26/18 12/26/18 12/26/18 04:04 04:32 05:03 Heart Rate 74 68 67 Respiratory 16 18 17 Rate Blood Pressure 126/62 104/49 L 119/60 O2 Saturation 97 98 100 12/26/18 12/26/18 06:19 06:42 Heart Rate 63 61 Respiratory 16 15 Rate Blood Pressure 100/45 L 112/41 L O2 Saturation 96 95 Oxygen O2 Source [] Oxymizer O2 Source Room air - EKG (time done) 0442 Rate: Rate (enter#) (68) Rhythm: Atrial fibrillation Intervals: Prolonged QT Ischemia: Non specific changes - Labs Labs: Laboratory Tests 12/25/18 12/26/18 12/26/18 22:20 04:25 04:25 WBC RBC Hgb Hct MCV MCH MCHC RDW Plt Count MPV Neut # (Auto) Lymph # (Auto) Grundy # (Auto) Eos # (Auto) Baso # (Auto) Absolute Nucleated RBC Nucleated RBC % PT INR APTT Sodium Potassium Chloride Carbon Dioxide Anion Gap BUN Creatinine Estimated GFR (MDRD) Glucose Calcium Total Bilirubin AST ALT Alkaline Phosphatase Troponin I B-Natriuretic Peptide 189 H Total Protein Albumin Globulin Albumin/Globulin Ratio Lipase Blood Type O POSITIVE Blood Type Recheck O POSITIVE Antibody Screen NEGATIVE Crossmatch IS Only See Detail 12/26/18 12/26/18 12/26/18 04:35 04:35 04:35 WBC 8.6 RBC 2.08 L Hgb 6.4 L* Hct 19.5 L* MCV 93.8 MCH 30.9 MCHC 32.9 RDW 15.7 H Plt Count 270 MPV 7.5 Neut # (Auto) 5.9 Lymph # (Auto) 1.5 Grundy # (Auto) 0.4 Eos # (Auto) 0.7 Baso # (Auto) 0.1 Absolute Nucleated RBC 0.01 Nucleated RBC % 0.1 PT 24.5 H INR 2.2 H APTT 40.1 H Sodium 136 Potassium 4.0 Chloride 98 L Carbon Dioxide 30 Anion Gap 8.0 BUN 40 H Creatinine 1.0 Estimated GFR (MDRD) 71 L Glucose 99 Calcium 8.5 Total Bilirubin 0.5 AST 16 ALT 20 Alkaline Phosphatase 80 Troponin I B-Natriuretic Peptide Total Protein 5.5 L Albumin 2.8 L Globulin 2.7 Albumin/Globulin Ratio 1.0 Lipase 27 Blood Type Blood Type Recheck Antibody Screen Crossmatch IS Only 12/26/18 04:35 WBC RBC Hgb Hct MCV MCH MCHC RDW Plt Count MPV Neut # (Auto) Lymph # (Auto) Grundy # (Auto) Eos # (Auto) Baso # (Auto) Absolute Nucleated RBC Nucleated RBC % PT INR APTT Sodium Potassium Chloride Carbon Dioxide Anion Gap BUN Creatinine Estimated GFR (MDRD) Glucose Calcium Total Bilirubin AST ALT Alkaline Phosphatase Troponin I < 0.04 B-Natriuretic Peptide Total Protein Albumin Globulin Albumin/Globulin Ratio Lipase Blood Type Blood Type Recheck Antibody Screen Crossmatch IS Only PD MEDICAL DECISION MAKING - ED course Complexity details: reviewed old records, reviewed results, re-evaluated patient, considered differential, d/w patient ED course: Patient is presenting from local assisted facility with report of decreased H&H without known areas of hemorrhage. Patient himself states that he is asymptomatic and denies all complaints. Physical exam is relatively unremarkable except for his baseline disease processes with the exception of nearly black stool present in his diaper which is Hemoccult positive. Screening lab work as well as coagulopathy studies and type and screen ordered. Given patient's history of CHF and fluid overload on physical exam, do not feel he requires IV fluids at this time. He does not require other medications currently. Patient is DNR/DNI and states that he is amenable to blood transfusion, but also trying to obtain consent from POA.Unfortunately, multiple attempts to contact POA are unsuccessful. Patient's physician had called in previously to alert ED staff that patient would be arriving and he requested blood transfusion. As patient and his physician are agreeable, feel appropriate to move forward with blood transfusion as POA is unavailable to provide consent otherwise. Do have concern for fluid overload given his history of CHF and physical exam findings. Patient does receive Lasix daily and feel this is appropriate to give with his blood transfusion today.Contacted patient's primary care physician as unable to obtain contact with POA and discussed possible hospitalization for further work-up such as endoscopy or colonoscopy versus discharge back to nursing facility following administration of blood products. Primary care physician feels it most appropriate to admit. Patient is also amenable to this plan. Discussed patient with hospitalist and hospitalist agrees with admission and will be consulting general surgery as well. Departure - Departure Disposition: 01 Home, Self Care Clinical Impression: Anemia Qualifiers: Anemia type: unspecified type Qualified Code(s): D64.9 - Anemia, unspecified GI bleed Qualifiers: GI bleed type/associated pathology: melena Qualified Code(s): K92.1 - Melena Condition: Fair
[2018-12-26 04:52] LABS: INR 2.2 (0.8-1.2); PT - PROTHROMBIN TIME 24.5 secs (9.9-12.6)
[2018-12-26 04:53] LABS: BASOPHILS # (AUTO) 0.1 10^3/uL (0.0-0.1); BASOPHILS % (AUTO) 0.7 %; EOSINOPHILS # (AUTO) 0.7 10^3/uL (0.0-0.7); EOSINOPHILS % (AUTO) 8.1 %; LYMPHOCYTES # (AUTO) 1.5 10^3/uL (1.5-3.5); LYMPHOCYTES % (AUTO) 17.7 %; MEAN CORPUSCULAR HEMOGLOBIN 30.9 pg (27.0-31.0); MEAN CORPUSCULAR HGB CONC 32.9 g/dL (32.0-36.0); MEAN CORPUSCULAR VOLUME 93.8 fL (80.0-94.0); MEAN PLATELET VOLUME 7.5 fL (7.4-11.4); MONOCYTES # (AUTO) 0.4 10^3/uL (0.0-1.0); MONOCYTES % (AUTO) 5.1 %; NEUTROPHILS # (AUTO) 5.9 10^3/uL (1.5-6.6); NEUTROPHILS % (AUTO) 68.4 %; PLT - PLATELET COUNT 270 10^3/uL (130-450); RED BLOOD COUNT 2.08 10^6/uL (4.70-6.10); RED CELL DISTRIBUTION WIDTH 15.7 % (12.0-15.0); WHITE BLOOD COUNT 8.6 x10^3/uL (4.8-10.8)
[2018-12-26 04:55] LABS: HGB - HEMOGLOBIN 6.4 g/dL (14.0-18.0)
[2018-12-26 04:59] LABS: ALBUMIN 2.8 g/dL (3.2-5.5); BILIRUBIN,TOTAL 0.5 mg/dL (0.2-1.0); CALCIUM 8.5 mg/dL (8.5-10.3); PARTIAL THROMBOPLASTIN TIME 40.1 secs (24.9-33.3); TOTAL PROTEIN 5.5 g/dL (6.7-8.2)
[2018-12-26] MEDS ORDERED: FUROSEMIDE 20 MG/2 ML VIAL IVP PRN (05:50)
[2018-12-26] MEDS ORDERED: ONDANSETRON 4 MG/2 ML VIAL IVP PRN (07:44)
[2018-12-26] MEDS ORDERED: ACETAMINOPHEN 325 MG TABLET PO PRN (07:44)
[2018-12-26] MEDS ORDERED: ZOLPIDEM 5 MG TABLET PO PRN (07:44)
[2018-12-26 07:55] LABS: BASOPHILS # (AUTO) 0.1 10^3/uL (0.0-0.1); EOSINOPHILS # (AUTO) 0.8 10^3/uL (0.0-0.7); EOSINOPHILS % (AUTO) 8.7 %; LYMPHOCYTES # (AUTO) 1.7 10^3/uL (1.5-3.5); LYMPHOCYTES % (AUTO) 19.4 %; MEAN CORPUSCULAR HEMOGLOBIN 30.4 pg (27.0-31.0); MEAN CORPUSCULAR HGB CONC 32.7 g/dL (32.0-36.0); MEAN CORPUSCULAR VOLUME 92.8 fL (80.0-94.0); MONOCYTES # (AUTO) 0.5 10^3/uL (0.0-1.0); MONOCYTES % (AUTO) 5.3 %; NEUTROPHILS # (AUTO) 5.9 10^3/uL (1.5-6.6); NEUTROPHILS % (AUTO) 65.6 %; PLT - PLATELET COUNT 250 10^3/uL (130-450); RED BLOOD COUNT 2.12 10^6/uL (4.70-6.10); RED CELL DISTRIBUTION WIDTH 15.1 % (12.0-15.0)
[2018-12-26] MEDS ORDERED: LACTATED RINGERS 1,000 ML IV SCH (08:00)
[2018-12-26 08:16] LABS: RBC MORPHOLOGY (MULTIPLE) 1+ ANISOCYTOSIS (NORMAL)
[2018-12-26 08:18] LABS: HGB - HEMOGLOBIN 6.5 g/dL (14.0-18.0)
--- NOTE | 2018-12-26 08:39 | HISTORY & PHYSICAL EXAMINATION ---
Chief Complaint - Chief Complaint Chief Complaint: GI bleed History of Present Illness - History of Present Illness HPI Comment/Other: is 83-yrs-old male with a PMH significant for CVA on last year and currently anticoagulated with xarelto, Afib, systolic heart failure EF 45% on 2014, HTN, DM2, BPH, Hypothyroidism, HLD, chronic anemia, hx of renal stones, chronic venous stasis and lymphedema, chronic constipation, cataracts, arthritis, CKD, who present ER with decreased H&H per his [facility] facility [facility] reported. Patient denies blood in stool or other areas, he report" I had normal stool." pt took Tid iron pill for his chronic anemia in his home meds list. Pt states that he has otherwise been in his normal state of health without significant changes. Pt denies shortness of breath, dizziness, fever, chest pain, headache, abdominal pain, vomiting, urine changes, stool changes. In ER, his black stool is Hemoccult positive. HGB is 6.4. Pt had one unit blood transfused in ER. Now his HGB is 8.3, INR is 2.2. GI surgeon was called in ER. pt is scheduled to have EGD on tomorrow. History - Past Medical History Cardiovascular: reports: Congestive heart failure, Hypertension, Atrial fibrillation Respiratory: reports: None Neuro: reports: CVA Endocrine/Autoimmune: reports: Type 2 diabetes, HyPOthyroidism, Other GI: reports: GERD, Other : reports: Kidney stones HEENT: reports: None Psych: reports: None Musculoskeletal: reports: Osteoarthritis, Other Derm: reports: Other MRSA Hx?: No Other Past Medical History: USES WHEELCHAIR.... - Past Surgical History General: reports: Cholecystectomy Ortho: reports: Knee replacement - Family & Social History Social History Notes: pt denies cigarett smoker, alcohol and drug abuse - POLST Patient has POLST: No Meds/Allgy - Home Medications Home Medications: Ambulatory Orders Medication Instructions Recorded Confirmed Aspirin 81 mg PO DAILY 07/12/13 12/26/18 Finasteride 5 mg PO DAILY 07/12/13 12/26/18 traZODone [Desyrel] 50 mg PO HS 07/12/13 12/26/18 Glucosamine Sulfate 1,000 mg PO BIDWM 11/20/13 12/26/18 Levothyroxine [Synthroid] 25 mcg PO QDAC 11/20/13 12/26/18 Multivitamin [Multi-Vitamin Daily] 1 each PO DAILY 11/20/13 12/26/18 Vitamin E 400 unit PO DAILY 11/20/13 12/26/18 Acetaminophen 650 mg PO Q6HR PRN 12/29/17 12/26/18 Amlodipine Besylate 5 mg PO DAILY 12/29/17 12/26/18 Atorvastatin Calcium 10 mg PO DAILY 12/29/17 12/26/18 Cyclobenzaprine HCl 10 mg PO Q8HR PRN 12/29/17 12/26/18 Ferrous Sulfate 650 mg PO TIDWM 12/29/17 12/26/18 Fluticasone [Flonase] 1 spray NS QPM 12/29/17 12/26/18 Guaifenesin/Dextromethorphan 10 ml PO Q4HR PRN 12/29/17 12/26/18 [Tussin Dm Cough Syrup] Isosorbide Mononitrate [Isosorbide 30 mg PO DAILY 12/29/17 12/26/18 Mononitrate ER] Losartan Potassium 50 mg PO DAILY 12/29/17 12/26/18 Metoprolol Tartrate 25 mg PO BID 12/29/17 12/26/18 Oxybutynin [Ditropan] 2.5 mg PO TID 12/29/17 12/26/18 Potassium Citrate [Potassium 10 meq PO TIDWM 12/29/17 12/26/18 Citrate ER] Tamsulosin HCl [Flomax] 0.4 mg PO QPM 12/29/17 12/26/18 Albuterol Sulfate 1.25 mg INH Q4H PRN 12/26/18 12/26/18 Ascorbic Acid 2,000 mg PO QDBREAKFAST 12/26/18 12/26/18 Furosemide [Lasix] 40 mg PO DAILY 12/26/18 12/26/18 Gabapentin [Neurontin] 300 mg PO HS 12/26/18 12/26/18 Loperamide [Imodium] 2 mg PO QID PRN 12/26/18 12/26/18 Nystatin [Nystop] 1 applic TOP BID PRN 12/26/18 12/26/18 Rivaroxaban [Xarelto] 20 mg PO QDDINNER 12/26/18 12/26/18 Semaglutide [Ozempic] 0.25 mg SUBQ SA@0800 12/26/18 12/26/18 raNITIdine HCl [Ranitidine HCl] 75 mg PO QDDINNER 12/26/18 12/26/18 - Allergies Allergies/Adverse Reactions: Allergies Allergy/AdvReac Type Severity Reaction Status Date / Time No Known Drug Allergies Allergy Verified 12/26/18 04:13 Review of Systems - Constitutional Constitutional: denies: Fatigue, Fever, Chills, Malaise, Weakness, Poor appetite, Diaphoresis, Night sweats - Eyes Eyes: denies: Pain, Irritation, Amaurosis, Blurred vision, Spots in vision, Field loss, Vision loss, Dipolpia - Ears, Nose & Throat Ears, Nose & Throat: denies: Ear pain, Hearing loss, Hearing aids, Tinnitus, Vertigo, Nasal pain, Nasal discharge, Nosebleeds, Nasal obstruction, Nasal congestion, Postnasal drainage, Dentures, Sore throat, Hoarseness, Mouth lesions, Bleeding gums, Dental decay, Dental pain - Cardiovascular Cariovascular: denies: Irregular heart rate, Palpitations, Chest pain, Edema, Lightheadedness, Syncope, Exertional dyspnea, Decr. exercise tolerance, Orthopnea, Other - Respiratory Respiratory: denies: Cough, Sputum production, Wheezing, Snoring, Hemoptysis, Orthopnea, SOB at rest, SOB with exertion, Apnea, Stridor - Gastrointestinal Gastrointestinal: reports: Black stools. denies: Abdominal pain, Abdominal dist ention, Constipation, Diarrhea, Change in bowel habits, Rectal bleeding, Bloody stools, Nausea, Vomiting, Bile emesis, Jack blood emesis, Coffee grounds emesis, Reflux/heartburn, Bloating, Poor appetite - Genitourinary Genitourinary: denies: Dysuria, Frequency, Urgency, Hematuria, Incontinence, Flank pain, Nocturia, Urethral discharge - Musculoskeletal Musculoskeletal: denies: Muscle pain, Back pain, Muscle aches, Stiffness, Limited range of motion, Muscle weakness, Gout, Joint pain - Integumentary Integumentary: denies: Rash, Pruritis, Lesions, Dryness, Lumps, Acne, Pigment changes, Nail changes - Neurological Neurological: denies: General weakness, Focal weakness, Headache, Dizziness, Numbness, Memory problems, Pre-existing deficit, Abnormal gait, Seizures, Incoordination, Slurred speech - Psychiatric Psychiatric: denies: Depression, Anxiety, Suicidal, Delusions, Hallucinations, Homicidal - Endocrine Endocrine: denies: Polyuria, Polydypsia, Polyphagia, Intolerance to cold - Hematologic/Lymphatic Hematologic/Lymphatic: denies: Anemia, Bruising, Petechiae, Blood clots, Lymphadenopathy, Bleeding tendencies Prior Level of Functionality: pt is residence [facility], [place] Exam - Vital Signs Reviewed Vital Signs: Yes Vital Signs: Vital Signs x48h Temp Pulse Resp BP Pulse Ox 12/26/18 08:15 36.4 C L 65 18 97/65 12/26/18 07:31 36.6 C 70 17 102/63 12/26/18 07:21 36.6 C 69 16 106/51 L 12/26/18 07:16 36.6 C 68 16 109/61 12/26/18 06:42 61 15 112/41 L 95 12/26/18 06:19 63 16 100/45 L 96 12/26/18 05:03 67 17 119/60 100 12/26/18 04:32 68 18 104/49 L 98 12/26/18 04:04 74 16 126/62 97 - Physical Exam General Appearance: positive: No acute distress, Alert. negative: Lethargic Eyes Bilateral: positive: Normal inspection, PERRL, No lid inflammation, Conjunctivae nml ENT: positive: ENT inspection nml, Pharynx nml, No signs of dehydration. negative: Purulent nasal drainage, Pharyngeal erythema, Oral lesions Neck: positive: Nml inspection, Thyroid nml, No JVD, Trachea midline. negative: Thyromegaly, Lymphadenopathy (R), Lymphadenopathy (L), Stiff neck, Swelling/bruising, Tracheal deviation Respiratory: positive: Chest non-tender, No respiratory distress, Breath sounds nml. negative: Wheezes, Rales, Rhonchi Cardiovascular: positive: Regular rate & rhythm, No murmur, No gallop. negative: Irregularly irregular, Extrasystoles, Tachycardia, Bradycardia, JVD present, Systolic murmur, Diastolic murmur Peripheral Pulses: positive: 2+ Abdomen: positive: Non-tender, No organomegaly, Nml bowel sounds, No distention. negative: Tenderness, Guarding, Rebound Back: positive: Nml inspection. negative: CVA tenderness (R), CVA tenderness (L) Skin: positive: Color nml, No rash, Warm, Dry. negative: Cyanosis, Diaphoresis, Pallor Extremities: positive: Non-tender, Nml appearance. negative: Calf tenderness, Joint swelling, Raysa's sign/cords Neurologic/Psychiatric: positive: Oriented x3, Sensation nml, Mood/affect nml. negative: Weakness, Sensory loss, Facial droop, Slurred/abnml speech, Depressed mood/affect Sepsis Event Note (H) - Evaluation Current Stage of Sepsis: Ruled out Conclusion/Plan - Problem List (1) GI bleed Conclusion/Plan: it may be caused by his Xarelto plus Aspirin. HGB is 6.4 and positive Occult test. pt already had one unit blood transfused in ER hold Xarelto and Aspirin now GI surgeon consult NPO after midnight, schedule to have EGD on tomorrow. pt had black stool, it most likely bleed at upper GI if pt had bleeding site Protonic IVF bid H&H check Qualifiers: GI bleed type/associated pathology: melena Qualified Code(s): K92.1 - Melena (2) Systolic heart failure Conclusion/Plan: pt had ECHO on 2013 in [facility], which showed pt had 45% EF, will update a new ECHO, also pt may need further blood transfusion precaution of fluid overload (3) Chronic a-fib Conclusion/Plan: pt has hx of chronic afib on Xarelto, now Xarelto need to be hold. pt's HR is stable. pt had low BP, now hold Metoprolol, but will reconcile after BP is stable (4) HTN (hypertension) Conclusion/Plan: hx of HTN, but now pt present slight lower BP, hold all his BP meds now (5) History of CVA (cerebrovascular accident) Conclusion/Plan: stable, continue nurse care, and support (6) Chronic anemia Conclusion/Plan: pt has hx of anemia and he took iron at home. reconcile iron pill, continue lab monitor (7) Diabetes mellitus Conclusion/Plan: hx of DM check A1C, start on slide scale, ACHS and hypoglycemia protocol (8) Do not intubate, cardiopulmonary resuscitation (CPR)-only code status Conclusion/Plan: pt request DNR - Lab Results Fish Bones: 12/26/18 09:35 12/26/18 04:35 Core Measures - Anticipated LOS I expect patient to be DC'd or transferred within 96 hours.: Yes - DVT/VTE - Prophylaxis VTE/DVT Device ordered at admit?: Yes VTE/DVT Prophylaxis med ordered at admit?: Yes
[2018-12-26] MEDS: POLYETHYLENE GLYCOL 3350 17 GM PACKET PO SCH (09:32)
[2018-12-26 09:42] LABS: HGB - HEMOGLOBIN 8.3 g/dL (14.0-18.0)
[2018-12-26] MEDS: SODIUM CHLORIDE FLUSH 0.9% 10 ML SYRINGE IVP SCH ×3 (09:46→23:31)
[2018-12-26] MEDS: PANTOPRAZOLE 40 MG VIAL IVP SCH ×2 (09:46→21:01)
[2018-12-26] MEDS: FERROUS SULFATE 325 MG TABLET PO SCH ×2 (11:10→17:37)
[2018-12-26] MEDS: MIN OIL/DIMETHICON/COCONUT OIL 92 GM TUBE TOP PRN ×2 (11:10→22:40)
[2018-12-26] MEDS ORDERED: ALBUTEROL NEB 2.5 MG/3 ML INH PRN (11:11)
[2018-12-26] MEDS ORDERED: NYSTATIN POWDER 15 GM TOP PRN (11:11)
[2018-12-26] MEDS ORDERED: CYCLOBENZAPRINE 10 MG TABLET PO PRN (11:11)
[2018-12-26 12:01] LABS: HB2 TOTAL 8.4 g/dL; HEMOGLOBIN A1C 0.3 g/dL; HEMOGLOBIN A1C % 5.4 % (4.6-6.2)
[2018-12-26] MEDS: INSULIN ASPART 300 UNIT/3 ML PEN SUBQ SCH ×3 (12:40→22:23)
[2018-12-26 13:47] LABS: BASOPHILS # (AUTO) 0.1 10^3/uL (0.0-0.1); BASOPHILS % (AUTO) 1.1 %; EOSINOPHILS # (AUTO) 0.6 10^3/uL (0.0-0.7); HGB - HEMOGLOBIN 7.9 g/dL (14.0-18.0); LYMPHOCYTES # (AUTO) 1.4 10^3/uL (1.5-3.5); MEAN CORPUSCULAR HEMOGLOBIN 30.7 pg (27.0-31.0); MEAN CORPUSCULAR HGB CONC 33.4 g/dL (32.0-36.0); MEAN PLATELET VOLUME 7.1 fL (7.4-11.4); MONOCYTES # (AUTO) 0.5 10^3/uL (0.0-1.0); MONOCYTES % (AUTO) 5.6 %; NEUTROPHILS # (AUTO) 6.4 10^3/uL (1.5-6.6); NEUTROPHILS % (AUTO) 71.3 %; PLT - PLATELET COUNT 247 10^3/uL (130-450); RED BLOOD COUNT 2.56 10^6/uL (4.70-6.10); RED CELL DISTRIBUTION WIDTH 15.3 % (12.0-15.0)
[2018-12-26] MEDS ORDERED: OCTREOTIDE 100 MCG/ML VIAL SUBQ SCH (14:00)
[2018-12-26] MEDS ORDERED: FERROUS SULFATE 325 MG TABLET PO SCH (14:00)
[2018-12-26] MEDS: OXYBUTYNIN 5MG TABLET PO SCH ×2 (14:17→21:00)
[2018-12-26] MEDS: SODIUM CHLORIDE 0.9% 1,000 ML IV SCH (17:38)
--- NOTE | 2018-12-26 18:17 | CONSULTATION NOTE ---
Referring Provider Name of Referring Provider:: MICHAEL Lamar Consult Date: 12/26/18 Chief Complaint - Chief Complaint Chief Complaint: gi bleed/melena History of Present Illness - Admitted From Admitted From:: ER - History Obtained From Records Reviewed: yes History obtained from: pt, records Exam Limitations: poor historian - History of Present Illness HPI Comment/Other: 83 yo male on rivaroxiban and aspirin therapy for atrial fibrillation who was noted to be profoundly anemic [facility] the [facility] and was brought to the ER for evaluation today where melenic stool was noted. Pt was admitted for transfusion and further evaluation. He is alert and denies abdominal pain, indigestion, heartburn, dysphagia, hx of peptic ulcer disease, hx of prior similar episodes. He denies prior UGI evaluations. He was unaware that his bm's were melenic. He denies hx of constipation, recent diarrhea, BRBPR, wt loss or FH GI tumors. He believes he had a colonoscopy that was nl many years ago. He has been hemodynamically stable in the ER and since admiss ion. He has not had any further bm's since admission. His Hgb simone from 6.4 to 8.3 after 1 unit prbcs. Surgical consultation was requested regarding possible endoscopic evaluation. History - Past Medical History Cardiovascular: reports: Congestive heart failure, Hypertension, Atrial fibrillation Respiratory: reports: None Neuro: reports: CVA Endocrine/Autoimmune: reports: Type 2 diabetes, HyPOthyroidism, Other GI: reports: GERD, Other : reports: Kidney stones HEENT: reports: None Psych: reports: None Musculoskeletal: reports: Osteoarthritis, Other Derm: reports: Other MRSA Hx?: No Other Past Medical History: USES WHEELCHAIR.... - Past Surgical History General: reports: Cholecystectomy Ortho: reports: Knee replacement - Family & Social History Living arrangement: [facility] Social History Notes: pt denies cigarett smoker, alcohol and drug abuse - Substance History Use: Uses substance without health or social issues: NONE - POLST Patient has POLST: Yes POLST Status: DNR Meds/Allgy - Home Medications Home Medications: Ambulatory Orders Medication Instructions Recorded Confirmed Aspirin 81 mg PO DAILY 07/12/13 12/26/18 Finasteride 5 mg PO DAILY 07/12/13 12/26/18 traZODone [Desyrel] 50 mg PO HS 07/12/13 12/26/18 Glucosamine Sulfate 1,000 mg PO BIDWM 11/20/13 12/26/18 Levothyroxine [Synthroid] 25 mcg PO QDAC 11/20/13 12/26/18 Multivitamin [Multi-Vitamin Daily] 1 each PO DAILY 11/20/13 12/26/18 Vitamin E 400 unit PO DAILY 11/20/13 12/26/18 Acetaminophen 650 mg PO Q6HR PRN 12/29/17 12/26/18 Amlodipine Besylate 5 mg PO DAILY 12/29/17 12/26/18 Atorvastatin Calcium 10 mg PO QPM 12/29/17 12/26/18 Cyclobenzaprine HCl 10 mg PO Q8HR PRN 12/29/17 12/26/18 Ferrous Sulfate 650 mg PO TIDWM 12/29/17 12/26/18 Fluticasone [Flonase] 1 spray NS QPM 12/29/17 12/26/18 Guaifenesin/Dextromethorphan 10 ml PO Q4HR PRN 12/29/17 12/26/18 [Tussin Dm Cough Syrup] Isosorbide Mononitrate [Isosorbide 30 mg PO DAILY 12/29/17 12/26/18 Mononitrate ER] Losartan Potassium 50 mg PO DAILY 12/29/17 12/26/18 Metoprolol Tartrate 25 mg PO BID 12/29/17 12/26/18 Oxybutynin [Ditropan] 2.5 mg PO TID 12/29/17 12/26/18 Potassium Citrate [Potassium 10 meq PO TIDWM 12/29/17 12/26/18 Citrate ER] Tamsulosin HCl [Flomax] 0.4 mg PO QPM 12/29/17 12/26/18 Albuterol Sulfate 1.25 mg INH Q4H PRN 12/26/18 12/26/18 Ascorbic Acid 2,000 mg PO QDBREAKFAST 12/26/18 12/26/18 Furosemide [Lasix] 40 mg PO DAILY 12/26/18 12/26/18 Gabapentin [Neurontin] 300 mg PO HS 12/26/18 12/26/18 Loperamide [Imodium] 2 mg PO QID PRN 12/26/18 12/26/18 Nystatin [Nystop] 1 applic TOP BID PRN 12/26/18 12/26/18 Rivaroxaban [Xarelto] 20 mg PO QDDINNER 12/26/18 12/26/18 Semaglutide [Ozempic] 0.25 mg SUBQ SA@0800 12/26/18 12/26/18 raNITIdine HCl [Ranitidine HCl] 75 mg PO QDDINNER 12/26/18 12/26/18 - Allergies Allergies/Adverse Reactions: Allergies Allergy/AdvReac Type Severity Reaction Status Date / Time No Known Drug Allergies Allergy Verified 12/26/18 04:13 Review of Systems - Gastrointestinal Gastrointestinal: reports: Black stools. denies: Abdominal pain, Abdominal distention, Constipation, Diarrhea, Bloody stools, Nausea, Vomiting, Reflux/heartburn, Poor appetite - Hematologic/Lymphatic Hematologic/Lymphatic: denies: Bruising, Blood clots, Bleeding tendencies Exam - Vital Signs Reviewed Vital Signs: Yes Vital Signs: Vital Signs x48h Temp Pulse Pulse Resp BP Pulse Ox 12/26/18 16:38 36.5 C 84 16 96 12/26/18 16:00 36.5 C 84 16 114/51 L 98 12/26/18 11:51 36.4 C L 59 L 18 103/39 L 99 - Physical Exam General Appearance: positive: No acute distress, Alert Eyes Bilateral: positive: No scleral icterus ENT: positive: ENT inspection nml, Pharynx nml, No signs of dehydration Neck: positive: Nml inspection, No JVD, Trachea midline. negative: Lymphadenopathy (R), Lymphadenopathy (L) Respiratory: positive: Chest non-tender, No respiratory distress, Breath sounds nml. negative: Wheezes, Rales, Rhonchi Cardiovascular: positive: Irregularly irregular Abdomen: positive: Non-tender, No organomegaly, No distention, Other (marked truncal obesity; chronically incarcerated nontender umbilical hernia which apparently is asymptomatic). negative: Guarding, Rebound, Hepatomegaly, Splenomegaly, Mass Rectal: positive: Black stool (per ER evaluation) Extremities: negative: Calf tenderness Conclusion/Plan - Diagnosis Diagnosis: GI bleed/melena with profound anemia in pt anticoagulated with rivaroxiban and aspirin. DDX includes UGI sources such as PUD, gastritis, atypical GERD, angiodysplasia, dieulafoy lesion, neoplasm, doubt lower gi source. Currently stable with no signs of further active bleeding. Multiple major medical comorbidities increase periprocedural risk. - Plan Plan: Hold rivaroxiban. Plan EGD in am tomorrow. PAR conference with patient. Agree with empiric high dose PPI therapy, serial H/H and further transfusion as necessary. Will follow. Thanks, - Lab Results Lab results reviewed: Yes Fish Bones: 12/26/18 13:42 12/26/18 04:35
[2018-12-26 19:24] LABS: BASOPHILS # (AUTO) 0.1 10^3/uL (0.0-0.1); BASOPHILS % (AUTO) 0.6 %; EOSINOPHILS # (AUTO) 0.7 10^3/uL (0.0-0.7); EOSINOPHILS % (AUTO) 6.9 %; HGB - HEMOGLOBIN 7.5 g/dL (14.0-18.0); LYMPHOCYTES # (AUTO) 1.5 10^3/uL (1.5-3.5); LYMPHOCYTES % (AUTO) 14.9 %; MEAN CORPUSCULAR HEMOGLOBIN 30.5 pg (27.0-31.0); MEAN CORPUSCULAR HGB CONC 32.8 g/dL (32.0-36.0); MONOCYTES # (AUTO) 0.5 10^3/uL (0.0-1.0); MONOCYTES % (AUTO) 4.9 %; NEUTROPHILS # (AUTO) 7.2 10^3/uL (1.5-6.6); NEUTROPHILS % (AUTO) 72.7 %; PLT - PLATELET COUNT 240 10^3/uL (130-450); RED BLOOD COUNT 2.46 10^6/uL (4.70-6.10); RED CELL DISTRIBUTION WIDTH 15.8 % (12.0-15.0)
[2018-12-26] MEDS: traZODone 50 MG TABLET PO SCH (21:00)
[2018-12-26] MEDS: ATORVASTATIN 10 MG TABLET PO SCH (21:00)
[2018-12-26] MEDS: TAMSULOSIN 0.4 MG CAPSULE PO SCH (21:00)
[2018-12-26] MEDS ORDERED: GABAPENTIN 300 MG CAPSULE PO SCH (21:00)
[2018-12-26] MEDS: SODIUM CHLORIDE FLUSH 0.9% 10 ML SYRINGE IVP PRN (21:01)
[2018-12-27] MEDS: SODIUM CHLORIDE FLUSH 0.9% 10 ML SYRINGE IVP SCH ×4 (00:27→23:35)
[2018-12-27 01:38] LABS: BASOPHILS # (AUTO) 0.1 10^3/uL (0.0-0.1); BASOPHILS % (AUTO) 1.5 %; EOSINOPHILS # (AUTO) 0.7 10^3/uL (0.0-0.7); EOSINOPHILS % (AUTO) 7.2 %; HGB - HEMOGLOBIN 7.4 g/dL (14.0-18.0); LYMPHOCYTES # (AUTO) 1.7 10^3/uL (1.5-3.5); LYMPHOCYTES % (AUTO) 17.9 %; MEAN CORPUSCULAR HEMOGLOBIN 30.7 pg (27.0-31.0); MEAN CORPUSCULAR HGB CONC 33.2 g/dL (32.0-36.0); MEAN CORPUSCULAR VOLUME 92.3 fL (80.0-94.0); MEAN PLATELET VOLUME 7.4 fL (7.4-11.4); MONOCYTES # (AUTO) 0.4 10^3/uL (0.0-1.0); MONOCYTES % (AUTO) 4.8 %; NEUTROPHILS # (AUTO) 6.4 10^3/uL (1.5-6.6); NEUTROPHILS % (AUTO) 68.6 %; PLT - PLATELET COUNT 251 10^3/uL (130-450); RED BLOOD COUNT 2.42 10^6/uL (4.70-6.10); RED CELL DISTRIBUTION WIDTH 15.5 % (12.0-15.0); WHITE BLOOD COUNT 9.3 x10^3/uL (4.8-10.8)
[2018-12-27] MEDS: SODIUM CHLORIDE 0.9% 1,000 ML IV SCH (05:21)
[2018-12-27 06:16] LABS: INR 1.3 (0.8-1.2); PT - PROTHROMBIN TIME 14.3 secs (9.9-12.6)
[2018-12-27 06:24] LABS: ALBUMIN 2.3 g/dL (3.2-5.5); ALBUMIN/GLOBULIN RATIO 1.1 (1.0-2.2); BILIRUBIN,TOTAL 0.3 mg/dL (0.2-1.0); CALCIUM 7.5 mg/dL (8.5-10.3); CREATININE 0.9 mg/dL (0.6-1.2); PARTIAL THROMBOPLASTIN TIME 33.7 secs (24.9-33.3); TOTAL PROTEIN 4.3 g/dL (6.7-8.2)
[2018-12-27] MEDS: OXYBUTYNIN 5MG TABLET PO SCH ×3 (06:26→21:35)
[2018-12-27] MEDS: LEVOTHYROXINE 25 MCG TABLET PO SCH (06:26)
[2018-12-27] MEDS: INSULIN ASPART 300 UNIT/3 ML PEN SUBQ SCH ×2 (08:18→12:04)
[2018-12-27] MEDS: POLYETHYLENE GLYCOL 3350 17 GM PACKET PO SCH (08:19)
[2018-12-27] MEDS: PANTOPRAZOLE 40 MG VIAL IVP SCH ×2 (08:19→21:36)
[2018-12-27] MEDS: FERROUS SULFATE 325 MG TABLET PO SCH ×3 (08:19→17:24)
[2018-12-27] MEDS: MULTIVITAMIN TABLET PO SCH (08:19)
[2018-12-27] MEDS ORDERED: POTASSIUM CHLOR 20 MEQ/100 ML 20 MEQ/100 ML BAG IV ONE (08:38)
[2018-12-27] MEDS ORDERED: D5.45NS W/20 MEQ KCL 1,000 ML IV SCH ×2 (09:00→16:38)
[2018-12-27] MEDS ORDERED: POTASSIUM CHLOR 10 MEQ/100 ML 10 MEQ/100 ML BAG IV SCH (10:00)
[2018-12-27] MEDS ORDERED: SODIUM CHLORIDE 0.9% 500 ML IV ONE (11:15)
[2018-12-27] MEDS: LOSARTAN 50 MG TABLET PO SCH (12:02)
[2018-12-27] MEDS: METOPROLOL TARTRATE 25 MG TABLET PO SCH ×2 (12:03→21:35)
--- NOTE | 2018-12-27 12:54 | PROVIDER PROGRESS NOTE ---
Subjective - Prog Note Date Prog Note Date: 12/27/18 - Subjective Pt reports feeling: Improved Subjective: pt denies shortness of breath, dizziness, chest pain. pt is planned to have EGD on today. pt is slight pale than yesterday. Lab report pt's HGB is 7 now. Pt will have transfusion of one unit blood for pt. we continue H&H manage pt. Current Medications - Current Medications Current Medications: Active Medications Acetaminophen (Tylenol) 650 mg PO Q4HR PRN PRN Reason: Pain 1 to 4 Last Admin: 12/27/18 03:16 Dose: 650 mg Albuterol () 1.25 mg INH Q4H PRN PRN Reason: Shortness of Air/Wheezing Amlodipine Besylate (Norvasc) 5 mg PO DAILY [facility] Atorvastatin Calcium (Lipitor) 10 mg PO QPM [facility] Last Admin: 12/26/18 21:00 Dose: 10 mg Cyclobenzaprine HCl (Flexeril) 10 mg PO Q8HR PRN PRN Reason: Spasms Ferrous Sulfate (Feosol) 325 mg PO TIDWM [facility] Last Admin: 12/27/18 13:22 Dose: 325 mg Finasteride (Proscar) 5 mg PO DAILY [facility] Gabapentin (Neurontin) 300 mg PO HS [facility] Potassium Chloride/Dextrose/Sod Cl (D5.45ns W/20 Meq Kcl) 1,000 mls @ 83.333 mls/hr IV .Q12H [facility] Last Admin: 12/27/18 09:17 Dose: 83.333 mls/hr Potassium Chloride (Potassium Chloride) 10 meq in 100 mls @ 100 mls/hr IV Q1H [facility] Stop: 12/27/18 18:59 Insulin Aspart (Novolog) 1 - 5 unit SUBQ 0800,1200,1700,2100 [facility]; Protocol Last Admin: 12/27/18 12:04 Dose: Not Given Isosorbide Mononitrate (Imdur) 30 mg PO DAILY [facility] Levothyroxine Sodium (Synthroid) 25 mcg PO QDAC [facility] Last Admin: 12/27/18 06:26 Dose: 25 mcg Losartan Potassium (Cozaar) 50 mg PO DAILY [facility] Last Admin: 12/27/18 12:02 Dose: Not Given Metoprolol Tartrate (Lopressor) 25 mg PO BID [facility] Last Admin: 12/27/18 12:03 Dose: Not Given Mineral Oil (Cavilon) 1 applic TOP PRN PRN PRN Reason: Skin Care Last Admin: 12/26/18 22:40 Dose: 1 applic Multivitamins (Theragran) 1 tab PO DAILYWM [facility] Last Admin: 12/27/18 08:19 Dose: 1 tab Nystatin (Nystop) 1 applic TOP BID PRN PRN Reason: YEAST SIGNS/SYMPTOMS Ondansetron HCl (Zofran Inj) 4 mg IVP Q6HR PRN PRN Reason: Nausea / Vomiting Oxybutynin Chloride (Ditropan) 2.5 mg PO TID [facility] Last Admin: 12/27/18 13:21 Dose: 2.5 mg Pantoprazole Sodium (Protonix) 40 mg IVP BID [facility] Last Admin: 12/27/18 08:19 Dose: 40 mg Polyethylene Glycol (Miralax) 17 gm PO DAILY [facility] Last Admin: 12/27/18 08:19 Dose: Not Given Sodium Chloride (Normal Saline Flush 0.9%) 10 ml IVP PRN PRN PRN Reason: NEEDED PER PROVIDER ORDERS Last Admin: 12/26/18 21:01 Dose: 10 ml Sodium Chloride (Normal Saline Flush 0.9%) 10 ml IVP 0100,0900,1700 [facility] Last Admin: 12/27/18 08:19 Dose: 10 ml Tamsulosin HCl (Flomax) 0.4 mg PO QPM [facility] Last Admin: 12/26/18 21:00 Dose: 0.4 mg Trazodone HCl (Desyrel) 50 mg PO HS [facility] Last Admin: 12/26/18 21:00 Dose: 50 mg Zolpidem Tartrate (Ambien) 5 mg PO QPM PRN PRN Reason: Insomnia Aspirin 81 mg PO DAILY 07/12/13 Finasteride 5 mg PO DAILY 07/12/13 traZODone [Desyrel] 50 mg PO HS 07/12/13 Glucosamine Sulfate 1,000 mg PO BIDWM 11/20/13 Levothyroxine [Synthroid] 25 mcg PO QDAC 11/20/13 Multivitamin [Multi-Vitamin Daily] 1 each PO DAILY 11/20/13 Vitamin E 400 unit PO DAILY 11/20/13 Acetaminophen 650 mg PO Q6HR PRN 12/29/17 Amlodipine Besylate 5 mg PO DAILY 12/29/17 Atorvastatin Calcium 10 mg PO QPM 12/29/17 Cyclobenzaprine HCl 10 mg PO Q8HR PRN 12/29/17 Ferrous Sulfate 650 mg PO TIDWM 12/29/17 Fluticasone [Flonase] 1 spray NS QPM 12/29/17 Guaifenesin/Dextromethorphan [Tussin Dm Cough Syrup] 10 ml PO Q4HR PRN 12/29/17 Isosorbide Mononitrate [Isosorbide Mononitrate ER] 30 mg PO DAILY 12/29/17 Losartan Potassium 50 mg PO DAILY 12/29/17 Metoprolol Tartrate 25 mg PO BID 12/29/17 Oxybutynin [Ditropan] 2.5 mg PO TID 12/29/17 Potassium Citrate [Potassium Citrate ER] 10 meq PO TIDWM 12/29/17 Tamsulosin HCl [Flomax] 0.4 mg PO QPM 12/29/17 Albuterol Sulfate 1.25 mg INH Q4H PRN 12/26/18 Ascorbic Acid 2,000 mg PO QDBREAKFAST 12/26/18 Furosemide [Lasix] 40 mg PO DAILY 12/26/18 Gabapentin [Neurontin] 300 mg PO HS 12/26/18 Loperamide [Imodium] 2 mg PO QID PRN 12/26/18 Nystatin [Nystop] 1 applic TOP BID PRN 12/26/18 Rivaroxaban [Xarelto] 20 mg PO QDDINNER 12/26/18 Semaglutide [Ozempic] 0.25 mg SUBQ SA@0800 12/26/18 raNITIdine HCl [Ranitidine HCl] 75 mg PO QDDINNER 12/26/18 Objective - Vital Signs/Intake & Output Reviewed Vital Signs: Yes Vital Signs: Vital Signs x48h Temp Pulse Pulse Resp BP BP Pulse Ox 12/27/18 12:03 108/44 L 12/27/18 11:40 36.5 C 71 18 108/44 L 97 12/27/18 11:21 36.5 C 70 18 123/64 97 12/27/18 11:20 36.5 C 77 18 123/64 97 12/27/18 09:04 60 18 12/27/18 07:56 36.6 C 71 16 132/47 H 97 Intake & Output: Intake & Output 12/24/18 12/25/18 12/26/18 12/27/18 23:59 23:59 23:59 23:59 Intake Total 2280 1305.385 Output Total 1 Balance 2280 1304.385 - Objective General Appearance: positive: No acute distress, Alert. negative: Lethargic Eyes Bilateral: positive: Normal inspection, PERRL, No lid inflammation, Conjunctivae nml ENT: positive: ENT inspection nml, Pharynx nml, No signs of dehydration. negative: Purulent nasal drainage, Pharyngeal erythema, Oral lesions Neck: positive: Nml inspection, Thyroid nml, No JVD, Trachea midline. negative: Thyromegaly, Lymphadenopathy (R), Lymphadenopathy (L), Stiff neck, Swelling/bruising, Tracheal deviation Respiratory: positive: Chest non-tender, No respiratory distress, Breath sounds nml. negative: Wheezes, Rales, Rhonchi Cardiovascular: positive: Regular rate & rhythm, No murmur, No gallop. negative: Irregularly irregular, Extrasystoles, Tachycardia, Bradycardia, JVD present, Systolic murmur, Diastolic murmur Peripheral Pulses: 2+ Radial (R), 2+ Radial (L), 2+ Dorsalis pedis (R), 2+ Dorsalis pedis (L) Abdomen: positive: Non-tender, No organomegaly, Nml bowel sounds, No distention. negative: Tenderness, Guarding, Rebound Back: positive: Nml inspection. negative: CVA tenderness (R), CVA tenderness (L) Skin: positive: No rash, Warm, Dry, Pallor. negative: Cyanosis, Diaphoresis, Decubitus, Laceration (cm) Extremities: positive: Non-tender, Nml appearance. negative: Calf tenderness, Joint swelling, Raysa's sign/cords Neurologic/Psychiatric: positive: Oriented x3, Mood/affect nml. negative: Weakness, Sensory loss, Facial droop, Slurred/abnml speech, Depressed mood/affect - Lab Results Fish Bones: 12/27/18 09:15 12/27/18 05:29 Other Labs: Lab Results x24hrs 12/27/18 12/27/18 12/27/18 Range/Units 11:10 09:15 07:29 WBC (4.8-10.8) x10^3/uL RBC (4.70-6.10) 10^6/uL Hgb 7.0 L* (14.0-18.0) g/dL Hct 21.2 L (42.0-52.0) % MCV (80.0-94.0) fL MCH (27.0-31.0) pg MCHC (32.0-36.0) g/dL RDW (12.0-15.0) % Plt Count (130-450) 10^3/uL MPV (7.4-11.4) fL Neut # (Auto) (1.5-6.6) 10^3/uL Lymph # (Auto) (1.5-3.5) 10^3/uL [place] # (Auto) (0.0-1.0) 10^3/uL Eos # (Auto) (0.0-0.7) 10^3/uL Baso # (Auto) (0.0-0.1) 10^3/uL Absolute Nucleated RBC x10^3/uL Nucleated RBC % /100WBC PT (9.9-12.6) secs INR (0.8-1.2) APTT (24.9-33.3) secs Sodium (135-145) mmol/L Potassium (3.5-5.0) mmol/L Chloride (101-111) mmol/L Carbon Dioxide (21-32) mmol/L Anion Gap (6-13) BUN (6-20) mg/dL Creatinine (0.6-1.2) mg/dL Estimated GFR (MDRD) (>89) Glucose (70-100) mg/dL POC Whole Bld Glucose 84 76 (70 - 100) mg/dL Glycated Hemoglobin (4.6-6.2) % Estim Average Glucose (70-100) Calcium (8.5-10.3) mg/dL Total Bilirubin (0.2-1.0) mg/dL AST (10-42) IU/L ALT (10-60) IU/L Alkaline Phosphatase (42-121) IU/L Total Protein (6.7-8.2) g/dL Albumin (3.2-5.5) g/dL Globulin (2.1-4.2) g/dL Albumin/Globulin Ratio (1.0-2.2) TSH (0.34-5.60) uIU/mL Blood Type Antibody Screen Crossmatch IS Only 12/27/18 12/27/18 12/27/18 Range/Units 05:29 05:29 05:29 WBC (4.8-10.8) x10^3/uL RBC (4.70-6.10) 10^6/uL Hgb (14.0-18.0) g/dL Hct (42.0-52.0) % MCV (80.0-94.0) fL MCH (27.0-31.0) pg MCHC (32.0-36.0) g/dL RDW (12.0-15.0) % Plt Count (130-450) 10^3/uL MPV (7.4-11.4) fL Neut # (Auto) (1.5-6.6) 10^3/uL Lymph # (Auto) (1.5-3.5) 10^3/uL [place] # (Auto) (0.0-1.0) 10^3/uL Eos # (Auto) (0.0-0.7) 10^3/uL Baso # (Auto) (0.0-0.1) 10^3/uL Absolute Nucleated RBC x10^3/uL Nucleated RBC % /100WBC PT 14.3 H (9.9-12.6) secs INR 1.3 H (0.8-1.2) APTT 33.7 H (24.9-33.3) secs Sodium 138 (135-145) mmol/L Potassium 3.3 L (3.5-5.0) mmol/L Chloride 103 (101-111) mmol/L Carbon Dioxide 27 (21-32) mmol/L Anion Gap 8.0 (6-13) BUN 35 H (6-20) mg/dL Creatinine 0.9 (0.6-1.2) mg/dL Estimated GFR (MDRD) 80 L (>89) Glucose 83 (70-100) mg/dL POC Whole Bld Glucose (70 - 100) mg/dL Glycated Hemoglobin (4.6-6.2) % Estim Average Glucose (70-100) Calcium 7.5 L (8.5-10.3) mg/dL Total Bilirubin 0.3 (0.2-1.0) mg/dL AST 13 (10-42) IU/L ALT 12 (10-60) IU/L Alkaline Phosphatase 75 (42-121) IU/L Total Protein 4.3 L (6.7-8.2) g/dL Albumin 2.3 L (3.2-5.5) g/dL Globulin 2.0 L (2.1-4.2) g/dL Albumin/Globulin Ratio 1.1 (1.0-2.2) TSH 2.90 (0.34-5.60) uIU/mL Blood Type Antibody Screen Crossmatch IS Only 12/27/18 12/26/18 12/26/18 Range/Units 01:25 21:15 19:17 WBC 9.3 10.0 (4.8-10.8) x10^3/uL RBC 2.42 L 2.46 L (4.70-6.10) 10^6/uL Hgb 7.4 L 7.5 L (14.0-18.0) g/dL Hct 22.3 L 22.9 L (42.0-52.0) % MCV 92.3 93.0 (80.0-94.0) fL MCH 30.7 30.5 (27.0-31.0) pg MCHC 33.2 32.8 (32.0-36.0) g/dL RDW 15.5 H 15.8 H (12.0-15.0) % Plt Count 251 240 (130-450) 10^3/uL MPV 7.4 7.0 L (7.4-11.4) fL Neut # (Auto) 6.4 7.2 H (1.5-6.6) 10^3/uL Lymph # (Auto) 1.7 1.5 (1.5-3.5) 10^3/uL [place] # (Auto) 0.4 0.5 (0.0-1.0) 10^3/uL Eos # (Auto) 0.7 0.7 (0.0-0.7) 10^3/uL Baso # (Auto) 0.1 0.1 (0.0-0.1) 10^3/uL Absolute Nucleated RBC 0.00 0.00 x10^3/uL Nucleated RBC % 0.0 0.0 /100WBC PT (9.9-12.6) secs INR (0.8-1.2) APTT (24.9-33.3) secs Sodium (135-145) mmol/L Potassium (3.5-5.0) mmol/L Chloride (101-111) mmol/L Carbon Dioxide (21-32) mmol/L Anion Gap (6-13) BUN (6-20) mg/dL Creatinine (0.6-1.2) mg/dL Estimated GFR (MDRD) (>89) Glucose (70-100) mg/dL POC Whole Bld Glucose 97 (70 - 100) mg/dL Glycated Hemoglobin (4.6-6.2) % Estim Average Glucose (70-100) Calcium (8.5-10.3) mg/dL Total Bilirubin (0.2-1.0) mg/dL AST (10-42) IU/L ALT (10-60) IU/L Alkaline Phosphatase (42-121) IU/L Total Protein (6.7-8.2) g/dL Albumin (3.2-5.5) g/dL Globulin (2.1-4.2) g/dL Albumin/Globulin Ratio (1.0-2.2) TSH (0.34-5.60) uIU/mL Blood Type Antibody Screen Crossmatch IS Only 12/26/18 12/26/18 12/26/18 Range/Units 16:54 13:42 11:49 WBC 9.0 (4.8-10.8) x10^3/uL RBC 2.56 L (4.70-6.10) 10^6/uL Hgb 7.9 L (14.0-18.0) g/dL Hct 23.6 L (42.0-52.0) % MCV 92.0 (80.0-94.0) fL MCH 30.7 (27.0-31.0) pg MCHC 33.4 (32.0-36.0) g/dL RDW 15.3 H (12.0-15.0) % Plt Count 247 (130-450) 10^3/uL MPV 7.1 L (7.4-11.4) fL Neut # (Auto) 6.4 (1.5-6.6) 10^3/uL Lymph # (Auto) 1.4 L (1.5-3.5) 10^3/uL [place] # (Auto) 0.5 (0.0-1.0) 10^3/uL Eos # (Auto) 0.6 (0.0-0.7) 10^3/uL Baso # (Auto) 0.1 (0.0-0.1) 10^3/uL Absolute Nucleated RBC 0.00 x10^3/uL Nucleated RBC % 0.0 /100WBC PT (9.9-12.6) secs INR (0.8-1.2) APTT (24.9-33.3) secs Sodium (135-145) mmol/L Potassium (3.5-5.0) mmol/L Chloride (101-111) mmol/L Carbon Dioxide (21-32) mmol/L Anion Gap (6-13) BUN (6-20) mg/dL Creatinine (0.6-1.2) mg/dL Estimated GFR (MDRD) (>89) Glucose (70-100) mg/dL POC Whole Bld Glucose 101 H 91 (70 - 100) mg/dL Glycated Hemoglobin (4.6-6.2) % Estim Average Glucose (70-100) Calcium (8.5-10.3) mg/dL Total Bilirubin (0.2-1.0) mg/dL AST (10-42) IU/L ALT (10-60) IU/L Alkaline Phosphatase (42-121) IU/L Total Protein (6.7-8.2) g/dL Albumin (3.2-5.5) g/dL Globulin (2.1-4.2) g/dL Albumin/Globulin Ratio (1.0-2.2) TSH (0.34-5.60) uIU/mL Blood Type Antibody Screen Crossmatch IS Only 12/26/18 12/26/18 Range/Units 09:35 04:25 WBC (4.8-10.8) x10^3/uL RBC (4.70-6.10) 10^6/uL Hgb (14.0-18.0) g/dL Hct (42.0-52.0) % MCV (80.0-94.0) fL MCH (27.0-31.0) pg MCHC (32.0-36.0) g/dL RDW (12.0-15.0) % Plt Count (130-450) 10^3/uL MPV (7.4-11.4) fL Neut # (Auto) (1.5-6.6) 10^3/uL Lymph # (Auto) (1.5-3.5) 10^3/uL [place] # (Auto) (0.0-1.0) 10^3/uL Eos # (Auto) (0.0-0.7) 10^3/uL Baso # (Auto) (0.0-0.1) 10^3/uL Absolute Nucleated RBC x10^3/uL Nucleated RBC % /100WBC PT (9.9-12.6) secs INR (0.8-1.2) APTT (24.9-33.3) secs Sodium (135-145) mmol/L Potassium (3.5-5.0) mmol/L Chloride (101-111) mmol/L Carbon Dioxide (21-32) mmol/L Anion Gap (6-13) BUN (6-20) mg/dL Creatinine (0.6-1.2) mg/dL Estimated GFR (MDRD) (>89) Glucose (70-100) mg/dL POC Whole Bld Glucose (70 - 100) mg/dL Glycated Hemoglobin 5.4 (4.6-6.2) % Estim Average Glucose 108 H (70-100) Calcium (8.5-10.3) mg/dL Total Bilirubin (0.2-1.0) mg/dL AST (10-42) IU/L ALT (10-60) IU/L Alkaline Phosphatase (42-121) IU/L Total Protein (6.7-8.2) g/dL Albumin (3.2-5.5) g/dL Globulin (2.1-4.2) g/dL Albumin/Globulin Ratio (1.0-2.2) TSH (0.34-5.60) uIU/mL Blood Type O POSITIVE Antibody Screen NEGATIVE Crossmatch IS Only See Detail ABX Reporting Has patient been on IV antibiotics over the past 48 hours?: No Sepsis Event Note (H) - Evaluation Current Stage of Sepsis: Ruled out Assessment/Plan - Problem List (1) GI bleed Impression: 12/27 pt's HGB continue to go down, not HGB is 7. nurse report pt still has black stool although pt took iron pill. transfusion of one unit of blood. pt already had one blood on yesterday will have colonoscopy per GI surgeon, will followup continue H&H manage pt continue IV of Protonic it may be caused by his Xarelto plus Aspirin. HGB is 6.4 and positive Occult test. pt already had one unit blood transfused in ER hold Xarelto and Aspirin now GI surgeon consult NPO after midnight, schedule to have EGD on tomorrow. pt had black stool, it most likely bleed at upper GI if pt had bleeding site Protonic IVF bid H&H check (2) Systolic heart failure Conclusion/Plan: 12/27 new ECHO reveal pt had normal EF at 60%, it is significantly improved. will reconcile home meds continue vital and lab monitor pt pt had ECHO on 2013 in [facility], which showed pt had 45% EF, will update a new E CHO, also pt may need further blood transfusion precaution of fluid overload (3) Chronic a-fib Conclusion/Plan: 12/27 stable HR, continue tele and vital monitor, hold Xarelto now pt has hx of chronic afib on Xarelto, now Xarelto need to be hold. pt's HR is stable. pt had low BP, now hold Metoprolol, but will reconcile after BP is stable (4) HTN (hypertension) Conclusion/Plan: hx of HTN, but now pt present slight lower BP, hold all his BP meds now (5) History of CVA (cerebrovascular accident) Conclusion/Plan: stable, continue nurse care, and support (6) Chronic anemia Conclusion/Plan: pt has hx of anemia and he took iron at home. reconcile iron pill, continue lab monitor (7) Diabetes mellitus Conclusion/Plan: hx of DM check A1C, start on slide scale, ACHS and hypoglycemia protocol Qualifiers: GI bleed type/associated pathology: melena Qualified Code(s): K92.1 - Melena
--- NOTE | 2018-12-27 14:15 | ANESTHESIA ---
Pre-Anesthesia VS, & Labs - Diagnosis Diagnosis GI bleed/melena with profound anemia in pt anticoagulated with rivaroxiban and aspirin. DDX includes UGI sources such as PUD, gastritis, atypical GERD, angiodysplasia, dieulafoy lesion, neoplasm, doubt lower gi source. Currently stable with no signs of further active bleed ing. Multiple major medical comorbidities increase periprocedural risk. - Procedure EGD Vital Signs: Temp Pulse Resp BP Pulse Ox 36.5 C 71 18 108/44 L 97 12/27/18 11:40 12/27/18 11:40 12/27/18 11:40 12/27/18 12:03 12/27/18 11:40 Height 5 ft 7 in Weight (kg) 96.5 kg Body Mass Index 33.3 - NPO >8 hours - Lab Results Current Lab Results: Laboratory Tests 12/27/18 11:10: POC Whole Bld Glucose 84 12/27/18 09:15: Hgb 7.0 L*, Hct 21.2 L 12/27/18 07:29: POC Whole Bld Glucose 76 12/27/18 05:29: TSH 2.90 12/27/18 05:29: Sodium 138, Potassium 3.3 L, Chloride 103, Carbon Dioxide 27, Anion Gap 8.0, BUN 35 H, Creatinine 0.9, Estimated GFR (MDRD) 80 L, Glucose 83, Calcium 7.5 L, Total Bilirubin 0.3, AST 13, ALT 12, Alkaline Phosphatase 75, To alondra Protein 4.3 L, Albumin 2.3 L, Globulin 2.0 L, Albumin/Globulin Ratio 1.1 12/27/18 05:29: PT 14.3 H, INR 1.3 H, APTT 33.7 H 12/27/18 01:25: WBC 9.3, RBC 2.42 L, Hgb 7.4 L, Hct 22.3 L, MCV 92.3, MCH 30.7, MCHC 33.2, RDW 15.5 H, Plt Count 251, MPV 7.4, Neut # (Auto) 6.4, Lymph # (Auto) 1.7, [place] # (Auto) 0.4, Eos # (Auto) 0.7, Baso # (Auto) 0.1, Absolute Nucleated RBC 0.00, Nucleated RBC % 0.0 12/26/18 21:15: POC Whole Bld Glucose 97 12/26/18 19:17: WBC 10.0, RBC 2.46 L, Hgb 7.5 L, Hct 22.9 L, MCV 93.0, MCH 30.5, MCHC 32.8, RDW 15.8 H, Plt Count 240, MPV 7.0 L, Neut # (Auto) 7.2 H, Lymph # (Auto) 1.5, [place] # (Auto) 0.5, Eos # (Auto) 0.7, Baso # (Auto) 0.1, Absolute Nucleated RBC 0.00, Nucleated RBC % 0.0 12/26/18 16:54: POC Whole Bld Glucose 101 H 12/26/18 13:42: WBC 9.0, RBC 2.56 L, Hgb 7.9 L, Hct 23.6 L, MCV 92.0, MCH 30.7, MCHC 33.4, RDW 15.3 H, Plt Count 247, MPV 7.1 L, Neut # (Auto) 6.4, Lymph # (Auto) 1.4 L, [place] # (Auto) 0.5, Eos # (Auto) 0.6, Baso # (Auto) 0.1, Absolute Nucleated RBC 0.00, Nucleated RBC % 0.0 12/26/18 11:49: POC Whole Bld Glucose 91 12/26/18 09:35: Glycated Hemoglobin 5.4, Estim Average Glucose 108 H 12/26/18 09:35: Hgb 8.3 L, Hct 25.2 L 12/26/18 07:42: WBC 9.0, RBC 2.12 L, Hgb 6.5 L*, Hct 19.7 L*, MCV 92.8, MCH 30.4, MCHC 32.7, RDW 15.1 H, Plt Count 250, MPV 7.0 L, Neut # (Auto) 5.9, Lymph # (Auto) 1.7, [place] # (Auto) 0.5, Eos # (Auto) 0.8 H, Baso # (Auto) 0.1, Absolute Nucleated RBC 0.00, Nucleated RBC % 0.0, Manual Slide Review Indicated, RBC Morph Micro Appear 1+ ANISOCYTOSIS 12/26/18 04:35: Troponin I < 0.04 12/26/18 04:35: Sodium 136, Potassium 4.0, Chloride 98 L, Carbon Dioxide 30, Anion Gap 8.0, BUN 40 H, Creatinine 1.0, Estimated GFR (MDRD) 71 L, Glucose 99, Calcium 8.5, Total Bilirubin 0.5, AST 16, ALT 20, Alkaline Phosphatase 80, Total Protein 5.5 L, Albumin 2.8 L, Globulin 2.7, Albumin/Globulin Ratio 1.0, Lipase 27 12/26/18 04:35: PT 24.5 H, INR 2.2 H, APTT 40.1 H 12/26/18 04:35: WBC 8.6, RBC 2.08 L, Hgb 6.4 L*, Hct 19.5 L*, MCV 93.8, MCH 30. 9, MCHC 32.9, RDW 15.7 H, Plt Count 270, MPV 7.5, Neut # (Auto) 5.9, Lymph # (Auto) 1.5, [place] # (Auto) 0.4, Eos # (Auto) 0.7, Baso # (Auto) 0.1, Absolute Nucleated RBC 0.01, Nucleated RBC % 0.1 12/26/18 04:25: B-Natriuretic Peptide 189 H 12/26/18 04:25: Blood Type O POSITIVE, Antibody Screen NEGATIVE, Crossmatch IS Only See Detail 12/25/18 22:20: Blood Type Recheck O POSITIVE Fish Bones: 12/27/18 09:15 12/27/18 05:29 Home Medications and Allergies Home Medications: Ambulatory Orders Albuterol Sulfate 1.25 mg INH Q4H PRN 12/26/18 Ascorbic Acid 2,000 mg PO QDBREAKFAST 12/26/18 Furosemide [Lasix] 40 mg PO DAILY 12/26/18 Gabapentin [Neurontin] 300 mg PO HS 12/26/18 Loperamide [Imodium] 2 mg PO QID PRN 12/26/18 Nystatin [Nystop] 1 applic TOP BID PRN 12/26/18 Rivaroxaban [Xarelto] 20 mg PO QDDINNER 12/26/18 Semaglutide [Ozempic] 0.25 mg SUBQ SA@0800 12/26/18 raNITIdine HCl [Ranitidine HCl] 75 mg PO QDDINNER 12/26/18 Active Medications Acetaminophen (Tylenol) 650 mg PO Q4HR PRN PRN Reason: Pain 1 to 4 Last Admin: 12/27/18 03:16 Dose: 650 mg Albuterol () 1.25 mg INH Q4H PRN PRN Reason: Shortness of Air/Wheezing Amlodipine Besylate (Norvasc) 5 mg PO DAILY [facility] Atorvastatin Calcium (Lipitor) 10 mg PO QPM [facility] Last Admin: 12/26/18 21:00 Dose: 10 mg Cyclobenzaprine HCl (Flexeril) 10 mg PO Q8HR PRN PRN Reason: Spasms Ferrous Sulfate (Feosol) 325 mg PO TIDWM [facility] Last Admin: 12/27/18 13:22 Dose: 325 mg Finasteride (Proscar) 5 mg PO DAILY [facility] Gabapentin (Neurontin) 300 mg PO HS [facility] Potassium Chloride/Dextrose/Sod Cl (D5.45ns W/20 Meq Kcl) 1,000 mls @ 83.333 mls/hr IV .Q12H [facility] Last Admin: 12/27/18 09:17 Dose: 83.333 mls/hr Potassium Chloride (Potassium Chloride) 10 meq in 100 mls @ 100 mls/hr IV Q1H [facility] Stop: 12/27/18 18:59 Insulin Aspart (Novolog) 1 - 5 unit SUBQ 0800,1200,1700,2100 [facility]; Protocol Last Admin: 12/27/18 12:04 Dose: Not Given Isosorbide Mononitrate (Imdur) 30 mg PO DAILY [facility] Levothyroxine Sodium (Synthroid) 25 mcg PO QDAC [facility] Last Admin: 12/27/18 06:26 Dose: 25 mcg Losartan Potassium (Cozaar) 50 mg PO DAILY [facility] Last Admin: 12/27/18 12:02 Dose: Not Given Metoprolol Tartrate (Lopressor) 25 mg PO BID [facility] Last Admin: 12/27/18 12:03 Dose: Not Given Mineral Oil (Cavilon) 1 applic TOP PRN PRN PRN Reason: Skin Care Last Admin: 12/26/18 22:40 Dose: 1 applic Multivitamins (Theragran) 1 tab PO DAILYWM [facility] Last Admin: 12/27/18 08:19 Dose: 1 tab Nystatin (Nystop) 1 applic TOP BID PRN PRN Reason: YEAST SIGNS/SYMPTOMS Ondansetron HCl (Zofran Inj) 4 mg IVP Q6HR PRN PRN Reason: Nausea / Vomiting Oxybutynin Chloride (Ditropan) 2.5 mg PO TID [facility] Last Admin: 12/27/18 13:21 Dose: 2.5 mg Pantoprazole Sodium (Protonix) 40 mg IVP BID [facility] Last Admin: 12/27/18 08:19 Dose: 40 mg Polyethylene Glycol (Miralax) 17 gm PO DAILY [facility] Last Admin: 12/27/18 08:19 Dose: Not Given Sodium Chloride (Normal Saline Flush 0.9%) 10 ml IVP PRN PRN PRN Reason: NEEDED PER PROVIDER ORDERS Last Admin: 12/26/18 21:01 Dose: 10 ml Sodium Chloride (Normal Saline Flush 0.9%) 10 ml IVP 0100,0900,1700 [facility] Last Admin: 12/27/18 08:19 Dose: 10 ml Tamsulosin HCl (Flomax) 0.4 mg PO QPM [facility] Last Admin: 12/26/18 21:00 Dose: 0.4 mg Trazodone HCl (Desyrel) 50 mg PO HS [facility] Last Admin: 12/26/18 21:00 Dose: 50 mg Zolpidem Tartrate (Ambien) 5 mg PO QPM PRN PRN Reason: Insomnia Aspirin 81 mg PO DAILY 07/12/13 Finasteride 5 mg PO DAILY 07/12/13 traZODone [Desyrel] 50 mg PO HS 07/12/13 Glucosamine Sulfate 1,000 mg PO BIDWM 11/20/13 Levothyroxine [Synthroid] 25 mcg PO QDAC 11/20/13 Multivitamin [Multi-Vitamin Daily] 1 each PO DAILY 11/20/13 Vitamin E 400 unit PO DAILY 11/20/13 Acetaminophen 650 mg PO Q6HR PRN 12/29/17 Amlodipine Besylate 5 mg PO DAILY 12/29/17 Atorvastatin Calcium 10 mg PO QPM 12/29/17 Cyclobenzaprine HCl 10 mg PO Q8HR PRN 12/29/17 Ferrous Sulfate 650 mg PO TIDWM 12/29/17 Fluticasone [Flonase] 1 spray NS QPM 12/29/17 Guaifenesin/Dextromethorphan [Tussin Dm Cough Syrup] 10 ml PO Q4HR PRN 12/29/17 Isosorbide Mononitrate [Isosorbide Mononitrate ER] 30 mg PO DAILY 12/29/17 Losartan Potassium 50 mg PO DAILY 12/29/17 Metoprolol Tartrate 25 mg PO BID 12/29/17 Oxybutynin [Ditropan] 2.5 mg PO TID 12/29/17 Potassium Citrate [Potassium Citrate ER] 10 meq PO TIDWM 12/29/17 Tamsulosin HCl [Flomax] 0.4 mg PO QPM 12/29/17 Albuterol Sulfate 1.25 mg INH Q4H PRN 12/26/18 Ascorbic Acid 2,000 mg PO QDBREAKFAST 12/26/18 Furosemide [Lasix] 40 mg PO DAILY 12/26/18 Gabapentin [Neurontin] 300 mg PO HS 12/26/18 Loperamide [Imodium] 2 mg PO QID PRN 12/26/18 Nystatin [Nystop] 1 applic TOP BID PRN 12/26/18 Rivaroxaban [Xarelto] 20 mg PO QDDINNER 12/26/18 Semaglutide [Ozempic] 0.25 mg SUBQ SA@0800 12/26/18 raNITIdine HCl [Ranitidine HCl] 75 mg PO QDDINNER 12/26/18 Allergies/Adverse Reactions: Allergies Allergy/AdvReac Type Severity Reaction Status Date / Time No Known Drug Allergies Allergy Verified 12/26/18 04:13 Anes History & Medical History - Medical History Cardiovascular: reports: Congestive heart failure, Hypertension, Atrial fibrillation Pulmonary: reports: None Gastrointestinal: reports: GERD, Other Urinary: reports: Kidney stones Neuro: reports: CVA Musculoskeletal: reports: Osteoarthritis, Other Endocrine/Autoimmune: reports: Type 2 diabetes, HyPOthyroidism, Other Blood Disorders: reports: None Skin: reports: Other Smoking Status: Never smoker Other Past Medical History: USES WHEELCHAIR.... - Surgical History General: Cholecystectomy Orthopedic: Knee replacement Exam General: Alert, Oriented x3, Cooperative Dental: Poor dentition Mouth Opening: Greater than 4 Fingerbreadths Mallampati classification: II Thyromental Distance: greater than 6 cm Respiratory: Decreased breath sounds Cardiovascular: Regular rate Mental/Cognitive Status: Alert/Oriented X3 Plan Anesthesia Type: MAC Consent for Procedure(s) Verified and Reviewed: Yes Code Status: Do Not Attempt Resuscitation ASA classification: 4-Incapacitating disease Is this case an emergency?: Yes
[2018-12-27] MEDS ORDERED: LACTATED RINGERS 1,000 ML IV ONE (15:42)
[2018-12-27] MEDS ORDERED: ePHEDrine 50 MG/ML VIAL IVP ONE (15:57)
[2018-12-27] MEDS ORDERED: KETAMINE 500 MG/10 ML VIAL IVP ONE (15:57)
[2018-12-27] MEDS ORDERED: LIDOCAINE-MPF 2% 5 ML VIAL IM ONE (15:57)
[2018-12-27] MEDS ORDERED: MIDAZOLAM 2 MG/2 ML VIAL IVP ONE (15:57)
[2018-12-27 16:52] LABS: HGB - HEMOGLOBIN 8.8 g/dL (14.0-18.0)
[2018-12-27] MEDS: POTASSIUM CHLOR 10 MEQ/100 ML 10 MEQ/100 ML BAG IV SCH ×2 (17:24→18:26)
[2018-12-27] MEDS: INSULIN REGULAR HUMAN 100 UNIT/1 ML 10 ML MDV SUBQ SCH ×2 (17:50→23:35)
[2018-12-27] MEDS: D5.45NS W/20 MEQ KCL 1,000 ML IV SCH ×2 (18:28→23:34)
[2018-12-27] MEDS: SODIUM/POTASSIUM/MAG SULFATES 354 ML PREP KIT PO SCH (19:01)
[2018-12-27 20:19] LABS: HGB - HEMOGLOBIN 9.5 g/dL (14.0-18.0)
[2018-12-27 20:26] LABS: CALCIUM 7.9 mg/dL (8.5-10.3); CREATININE 0.9 mg/dL (0.6-1.2); MAGNESIUM 2.1 mg/dL (1.7-2.8)
[2018-12-27] MEDS: traZODone 50 MG TABLET PO SCH (21:35)
[2018-12-27] MEDS: TAMSULOSIN 0.4 MG CAPSULE PO SCH (21:35)
[2018-12-27] MEDS: ATORVASTATIN 10 MG TABLET PO SCH (21:36)
[2018-12-27] MEDS: SODIUM CHLORIDE FLUSH 0.9% 10 ML SYRINGE IVP PRN (21:36)
[2018-12-27] MEDS: GABAPENTIN 300 MG CAPSULE PO SCH (21:36)
[2018-12-27 22:35] LABS: HGB - HEMOGLOBIN 9.2 g/dL (14.0-18.0)
[2018-12-28] MEDS: SODIUM/POTASSIUM/MAG SULFATES 354 ML PREP KIT PO SCH (05:03)
[2018-12-28] MEDS: OXYBUTYNIN 5MG TABLET PO SCH ×3 (05:09→21:17)
[2018-12-28 05:30] LABS: BASOPHILS # (AUTO) 0.1 10^3/uL (0.0-0.1); BASOPHILS % (AUTO) 0.6 %; CALCIUM 7.9 mg/dL (8.5-10.3); CREATININE 0.8 mg/dL (0.6-1.2); EOSINOPHILS # (AUTO) 0.6 10^3/uL (0.0-0.7); EOSINOPHILS % (AUTO) 6.6 %; HGB - HEMOGLOBIN 8.8 g/dL (14.0-18.0); LYMPHOCYTES # (AUTO) 1.4 10^3/uL (1.5-3.5); LYMPHOCYTES % (AUTO) 15.1 %; MEAN CORPUSCULAR HEMOGLOBIN 30.9 pg (27.0-31.0); MEAN CORPUSCULAR HGB CONC 33.7 g/dL (32.0-36.0); MEAN CORPUSCULAR VOLUME 91.5 fL (80.0-94.0); MEAN PLATELET VOLUME 7.1 fL (7.4-11.4); MONOCYTES # (AUTO) 0.5 10^3/uL (0.0-1.0); MONOCYTES % (AUTO) 5.4 %; NEUTROPHILS # (AUTO) 6.5 10^3/uL (1.5-6.6); NEUTROPHILS % (AUTO) 72.3 %; PLT - PLATELET COUNT 240 10^3/uL (130-450); RED BLOOD COUNT 2.85 10^6/uL (4.70-6.10); RED CELL DISTRIBUTION WIDTH 15.7 % (12.0-15.0); WHITE BLOOD COUNT 9.1 x10^3/uL (4.8-10.8)
[2018-12-28] MEDS: INSULIN REGULAR HUMAN 100 UNIT/1 ML 10 ML MDV SUBQ SCH ×2 (05:38→13:06)
[2018-12-28] MEDS: LEVOTHYROXINE 25 MCG TABLET PO SCH (06:00)
[2018-12-28] MEDS: amLODIPine 5 MG TABLET PO SCH (07:52)
[2018-12-28] MEDS: POLYETHYLENE GLYCOL 3350 17 GM PACKET PO SCH (08:01)
[2018-12-28] MEDS: METOPROLOL TARTRATE 25 MG TABLET PO SCH ×2 (08:01→21:17)
--- NOTE | 2018-12-28 08:02 | ANESTHESIA ---
Pre-Anesthesia VS, & Labs - Diagnosis Diagnosis GI bleed/melena with profound anemia in pt anticoagulated with rivaroxiban and aspirin. DDX includes UGI sources such as PUD, gastritis, atypical GERD, angiodysplasia, dieulafoy lesion, neoplasm, doubt lower gi source. Currently stable with no signs of further active bleed ing. Multiple major medical comorbidities increase periprocedural risk. - Procedure colonoscopy Vital Signs: Temp Pulse Resp BP Pulse Ox 36.5 C 69 16 102/51 L 99 12/28/18 07:30 12/28/18 07:30 12/28/18 07:30 12/28/18 07:30 12/28/18 07:30 Height 5 ft 7 in Weight (kg) 96.5 kg Body Mass Index 33.3 - NPO >8 hours - Lab Results Current Lab Results: Laboratory Tests 12/28/18 05:35: POC Whole Bld Glucose 102 H 12/28/18 05:10: Sodium 141, Potassium 3.6, Chloride 106, Carbon Dioxide 27, Anion Gap 8.0, BUN 22 H, Creatinine 0.8, Estimated GFR (MDRD) 92, Glucose 101 H, Calcium 7.9 L, Magnesium 2.0 12/28/18 05:10: WBC 9.1, RBC 2.85 L, Hgb 8.8 L, Hct 26.1 L, MCV 91.5, MCH 30.9, MCHC 33.7, RDW 15.7 H, Plt Count 240, MPV 7.1 L, Neut # (Auto) 6.5, Lymph # (Auto) 1.4 L, [place] # (Auto) 0.5, Eos # (Auto) 0.6, Baso # (Auto) 0.1, Absolute Nucleated RBC 0.00, Nucleated RBC % 0.0 12/27/18 23:30: POC Whole Bld Glucose 101 H 12/27/18 22:29: Hgb 9.2 L, Hct 27.7 L 12/27/18 20:11: Sodium 138, Potassium 3.8, Chloride 104, Carbon Dioxide 26, Anion Gap 8.0, BUN 26 H, Creatinine 0.9, Estimated GFR (MDRD) 80 L, Glucose 111 H, Calcium 7.9 L, Magnesium 2.1 12/27/18 20:11: Hgb 9.5 L, Hct 28.9 L 12/27/18 17:47: POC Whole Bld Glucose 103 H 12/27/18 16:44: Hgb 8.8 L, Hct 27.0 L 12/27/18 11:10: POC Whole Bld Glucose 84 12/27/18 09:15: Hgb 7.0 L*, Hct 21.2 L 12/27/18 07:29: POC Whole Bld Glucose 76 12/27/18 05:29: TSH 2.90 12/27/18 05:29: Sodium 138, Potassium 3.3 L, Chloride 103, Carbon Dioxide 27, Anion Gap 8.0, BUN 35 H, Creatinine 0.9, Estimated GFR (MDRD) 80 L, Glucose 83, Calcium 7.5 L, Total Bilirubin 0.3, AST 13, ALT 12, Alkaline Phosphatase 75, Total Protein 4.3 L, Albumin 2.3 L, Globulin 2.0 L, Albumin/Globulin Ratio 1.1 12/27/18 05:29: PT 14.3 H, INR 1.3 H, APTT 33.7 H 12/27/18 01:25: WBC 9.3, RBC 2.42 L, Hgb 7.4 L, Hct 22.3 L, MCV 92.3, MCH 30.7, MCHC 33.2, RDW 15.5 H, Plt Count 251, MPV 7.4, Neut # (Auto) 6.4, Lymph # (Auto) 1.7, [place] # (Auto) 0.4, Eos # (Auto) 0.7, Baso # (Auto) 0.1, Absolute Nucleated RBC 0.00, Nucleated RBC % 0.0 12/26/18 21:15: POC Whole Bld Glucose 97 12/26/18 19:17: WBC 10.0, RBC 2.46 L, Hgb 7.5 L, Hct 22.9 L, MCV 93.0, MCH 30.5, MCHC 32.8, RDW 15.8 H, Plt Count 240, MPV 7.0 L, Neut # (Auto) 7.2 H, Lymph # (Auto) 1.5, [place] # (Auto) 0.5, Eos # (Auto) 0.7, Baso # (Auto) 0.1, Absolute Nucleated RBC 0.00, Nucleated RBC % 0.0 12/26/18 16:54: POC Whole Bld Glucose 101 H 12/26/18 13:42: WBC 9.0, RBC 2.56 L, Hgb 7.9 L, Hct 23.6 L, MCV 92.0, MCH 30.7, MCHC 33.4, RDW 15.3 H, Plt Count 247, MPV 7.1 L, Neut # (Auto) 6.4, Lymph # (Auto) 1.4 L, [place] # (Auto) 0.5, Eos # (Auto) 0.6, Baso # (Auto) 0.1, Absolute Nucleated RBC 0.00, Nucleated RBC % 0.0 12/26/18 11:49: POC Whole Bld Glucose 91 12/26/18 09:35: Glycated Hemoglobin 5.4, Estim Average Glucose 108 H 12/26/18 09:35: Hgb 8.3 L, Hct 25.2 L 12/26/18 07:42: WBC 9.0, RBC 2.12 L, Hgb 6.5 L*, Hct 19.7 L*, MCV 92.8, MCH 30.4, MCHC 32.7, RDW 15.1 H, Plt Count 250, MPV 7.0 L, Neut # (Auto) 5.9, Lymph # (Auto) 1.7, [place] # (Auto) 0.5, Eos # (Auto) 0.8 H, Baso # (Auto) 0.1, Absolute Nucleated RBC 0.00, Nucleated RBC % 0.0, Manual Slide Review Indicated, RBC Morph Micro Appear 1+ ANISOCYTOSIS 12/26/18 04:35: Troponin I < 0.04 12/26/18 04:35: Sodium 136, Potassium 4.0, Chloride 98 L, Carbon Dioxide 30, Anion Gap 8.0, BUN 40 H, Creatinine 1.0, Estimated GFR (MDRD) 71 L, Glucose 99, Calcium 8.5, Total Bilirubin 0.5, AST 16, ALT 20, Alkaline Phosphatase 80, Total Protein 5.5 L, Albumin 2.8 L, Globulin 2.7, Albumin/Globulin Ratio 1.0, Lipase 27 12/26/18 04:35: PT 24.5 H, INR 2.2 H, APTT 40.1 H 12/26/18 04:35: WBC 8.6, RBC 2.08 L, Hgb 6.4 L*, Hct 19.5 L*, MCV 93.8, MCH 30.9, MCHC 32.9, RDW 15.7 H, Plt Count 270, MPV 7.5, Neut # (Auto) 5.9, Lymph # (Auto) 1.5, [place] # (Auto) 0.4, Eos # (Auto) 0.7, Baso # (Auto) 0.1, Absolute Nucleated RBC 0.01, Nucleated RBC % 0.1 12/26/18 04:25: B-Natriuretic Peptide 189 H 12/26/18 04:25: Blood Type O POSITIVE, Antibody Screen NEGATIVE, Crossmatch IS Only See Detail 12/25/18 22:20: Blood Type Recheck O POSITIVE Lab results reviewed: Yes Fish Bones: 12/28/18 05:10 12/28/18 05:10 Home Medications and Allergies Home Medications: Ambulatory Orders Albuterol Sulfate 1.25 mg INH Q4H PRN 12/26/18 Ascorbic Acid 2,000 mg PO QDBREAKFAST 12/26/18 Furosemide [Lasix] 40 mg PO DAILY 12/26/18 Gabapentin [Neurontin] 300 mg PO HS 12/26/18 Loperamide [Imodium] 2 mg PO QID PRN 12/26/18 Nystatin [Nystop] 1 applic TOP BID PRN 12/26/18 Rivaroxaban [Xarelto] 20 mg PO QDDINNER 12/26/18 Semaglutide [Ozempic] 0.25 mg SUBQ SA@0800 12/26/18 raNITIdine HCl [Ranitidine HCl] 75 mg PO QDDINNER 12/26/18 Active Medications Acetaminophen (Tylenol) 650 mg PO Q4HR PRN PRN Reason: Pain 1 to 4 Last Admin: 12/27/18 03:16 Dose: 650 mg Albuterol () 1.25 mg INH Q4H PRN PRN Reason: Shortness of Air/Wheezing Amlodipine Besylate (Norvasc) 5 mg PO DAILY [facility] Last Admin: 12/28/18 07:52 Dose: Not Given Atorvastatin Calcium (Lipitor) 10 mg PO QPM [facility] Last Admin: 12/27/18 21:36 Dose: 10 mg Cyclobenzaprine HCl (Flexeril) 10 mg PO Q8HR PRN PRN Reason: Spasms Ferrous Sulfate (Feosol) 325 mg PO TIDWM [facility] Last Admin: 12/27/18 17:24 Dose: 325 mg Finasteride (Proscar) 5 mg PO DAILY [facility] Gabapentin (Neurontin) 300 mg PO HS [facility] Last Admin: 12/27/18 21:36 Dose: 300 mg Potassium Chloride/Dextrose/Sod Cl (D5.45ns W/20 Meq Kcl) 1,000 mls @ 75 mls/hr IV .[id number] [facility] Last Admin: 12/27/18 23:34 Dose: 75 mls/hr Insulin Human Regular (Novolin R) 1 - 5 unit SUBQ Q6HR [facility]; Protocol Last Admin: 12/28/18 05:38 Dose: Not Given Isosorbide Mononitrate (Imdur) 30 mg PO DAILY [facility] Levothyroxine Sodium (Synthroid) 25 mcg PO QDAC [facility] Last Admin: 12/28/18 06:00 Dose: 25 mcg Losartan Potassium (Cozaar) 50 mg PO DAILY [facility] Last Admin: 12/27/18 12:02 Dose: Not Given Metoprolol Tartrate (Lopressor) 25 mg PO BID [facility] Last Admin: 12/27/18 21:35 Dose: 25 mg Mineral Oil (Cavilon) 1 applic TOP PRN PRN PRN Reason: Skin Care Last Admin: 12/26/18 22:40 Dose: 1 applic Multivitamins (Theragran) 1 tab PO DAILYWM [facility] Last Admin: 12/27/18 08:19 Dose: 1 tab Nystatin (Nystop) 1 applic TOP BID PRN PRN Reason: YEAST SIGNS/SYMPTOMS Ondansetron HCl (Zofran Inj) 4 mg IVP Q6HR PRN PRN Reason: Nausea / Vomiting Oxybutynin Chloride (Ditropan) 2.5 mg PO TID [facility] Last Admin: 12/28/18 05:09 Dose: 2.5 mg Pantoprazole Sodium (Protonix) 40 mg IVP BID [facility] Last Admin: 12/27/18 21:36 Dose: 40 mg Polyethylene Glycol (Miralax) 17 gm PO DAILY [facility] Last Admin: 12/27/18 08:19 Dose: Not Given Sodium Chloride (Normal Saline Flush 0.9%) 10 ml IVP PRN PRN PRN Reason: NEEDED PER PROVIDER ORDERS Last Admin: 12/27/18 21:36 Dose: 10 ml Sodium Chloride (Normal Saline Flush 0.9%) 10 ml IVP 0100,0900,1700 [facility] Last Admin: 12/27/18 23:35 Dose: Not Given Tamsulosin HCl (Flomax) 0.4 mg PO QPM [facility] Last Admin: 12/27/18 21:35 Dose: 0.4 mg Trazodone HCl (Desyrel) 50 mg PO HS [facility] Last Admin: 12/27/18 21:35 Dose: 50 mg Zolpidem Tartrate (Ambien) 5 mg PO QPM PRN PRN Reason: Insomnia Aspirin 81 mg PO DAILY 07/12/13 Finasteride 5 mg PO DAILY 07/12/13 traZODone [Desyrel] 50 mg PO HS 07/12/13 Glucosamine Sulfate 1,000 mg PO BIDWM 11/20/13 Levothyroxine [Synthroid] 25 mcg PO QDAC 11/20/13 Multivitamin [Multi-Vitamin Daily] 1 each PO DAILY 11/20/13 Vitamin E 400 unit PO DAILY 11/20/13 Acetaminophen 650 mg PO Q6HR PRN 12/29/17 Amlodipine Besylate 5 mg PO DAILY 12/29/17 Atorvastatin Calcium 10 mg PO QPM 12/29/17 Cyclobenzaprine HCl 10 mg PO Q8HR PRN 12/29/17 Ferrous Sulfate 650 mg PO TIDWM 12/29/17 Fluticasone [Flonase] 1 spray NS QPM 12/29/17 Guaifenesin/Dextromethorphan [Tussin Dm Cough Syrup] 10 ml PO Q4HR PRN 12/29/17 Isosorbide Mononitrate [Isosorbide Mononitrate ER] 30 mg PO DAILY 12/29/17 Losartan Potassium 50 mg PO DAILY 12/29/17 Metoprolol Tartrate 25 mg PO BID 12/29/17 Oxybutynin [Ditropan] 2.5 mg PO TID 12/29/17 Potassium Citrate [Potassium Citrate ER] 10 meq PO TIDWM 12/29/17 Tamsulosin HCl [Flomax] 0.4 mg PO QPM 12/29/17 Albuterol Sulfate 1.25 mg INH Q4H PRN 12/26/18 Ascorbic Acid 2,000 mg PO QDBREAKFAST 12/26/18 Furosemide [Lasix] 40 mg PO DAILY 12/26/18 Gabapentin [Neurontin] 300 mg PO HS 12/26/18 Loperamide [Imodium] 2 mg PO QID PRN 12/26/18 Nystatin [Nystop] 1 applic TOP BID PRN 12/26/18 Rivaroxaban [Xarelto] 20 mg PO QDDINNER 12/26/18 Semaglutide [Ozempic] 0.25 mg SUBQ SA@0800 12/26/18 raNITIdine HCl [Ranitidine HCl] 75 mg PO QDDINNER 12/26/18 Allergies/Adverse Reactions: Allergies Allergy/AdvReac Type Severity Reaction Status Date / Time No Known Drug Allergies Allergy Verified 12/26/18 04:13 Anes History & Medical History - Anesthetic History Anesthesia Complications: reports: No previous complications Family history of Anesthesia Complications: Denies Family history of Malignant Hyperthermia: Denies - Medical History Cardiovascular: reports: Congestive heart failure, Hypertension, Atrial fibrillation Pulmonary: reports: None Gastrointestinal: reports: GERD, Other Urinary: reports: Kidney stones Neuro: reports: CVA Musculoskeletal: reports: Osteoarthritis, Other Endocrine/Autoimmune: reports: Type 2 diabetes, HyPOthyroidism, Other Blood Disorders: reports: None Skin: reports: Other Smoking Status: Never smoker Other Past Medical History: USES WHEELCHAIR.... - Surgical History General: Cholecystectomy, EGD Orthopedic: Knee replacement Exam General: Alert Dental: WNL, Poor dentition Mouth Opening: Greater than 4 Fingerbreadths Neck Mobility: Normal Mallampati classification: II Thyromental Distance: greater than 6 cm Respiratory: Decreased breath sounds Neurological: Normal speech Mental/Cognitive Status: Alert/Oriented X3 Cognitive Status: Within normal limits Plan Anesthesia Type: MAC Regional Block: Per Surgeon's request for Post Op pain control Consent for Procedure(s) Verified and Reviewed: Yes Code Status: Do Not Attempt Resuscitation ASA classification: 4-Incapacitating disease Is this case an emergency?: Yes
[2018-12-28] MEDS: SODIUM CHLORIDE FLUSH 0.9% 10 ML SYRINGE IVP SCH ×2 (09:17→17:43)
[2018-12-28] MEDS: FINASTERIDE 5 MG TABLET PO SCH (09:17)
[2018-12-28] MEDS: MULTIVITAMIN TABLET PO SCH (09:17)
[2018-12-28] MEDS: FERROUS SULFATE 325 MG TABLET PO SCH ×3 (09:17→17:43)
[2018-12-28] MEDS: LOSARTAN 50 MG TABLET PO SCH (09:17)
[2018-12-28] MEDS: ISOSORBIDE MONONITRATE ER 30 MG TABLET PO SCH (09:17)
[2018-12-28] MEDS: PANTOPRAZOLE 40 MG VIAL IVP SCH ×2 (09:17→21:18)
--- NOTE | 2018-12-28 09:57 | PROVIDER PROGRESS NOTE ---
Assessment/Plan - Problem List (1) GI bleed Qualifiers: GI bleed type/associated pathology: unspecified gastrointestinal hemorrhage type Qualified Code(s): K92.2 - Gastrointestinal hemorrhage, unspecified Assessment/Plan: hemodynamically stable, H/H drifting down and persistent black stool suggest ongoing blood loss; given Neg EGD, lower gi source should be considered, particularly right sided colonic lesion such as neoplasm or angiodysplasia. Rec: colonoscopy today. consent obtained. Discussed with hospitalists. - Current Meds Current Meds: Current Medications Generic Name Dose Route Start Last Admin Trade Name Freq PRN Reason Stop Dose Admin Acetaminophen 650 mg 12/26/18 07:44 12/27/18 03:16 Tylenol PO 650 mg Q4HR PRN Administration Pain 1 to 4 Amlodipine Besylate 5 mg 12/28/18 09:00 12/28/18 07:52 Norvasc PO Not Given DAILY GHASSAN Atorvastatin Calcium 10 mg 12/26/18 21:00 12/27/18 21:36 Lipitor PO 10 mg QPM GHASSAN Administration Ferrous Sulfate 325 mg 12/26/18 12:00 12/28/18 09:17 Feosol PO 325 mg TIDWM GHASSAN Administration Finasteride 5 mg 12/28/18 09:00 12/28/18 09:17 Proscar PO 5 mg DAILY GHASSAN Administration Gabapentin 300 mg 12/27/18 21:00 12/27/18 21:36 Neurontin PO 300 mg HS GHASSAN Administration Potassium Chloride/Dextrose/Sod Cl 1,000 mls @ 75 mls/hr 12/27/18 17:55 12/27/18 23:34 D5.45ns W/20 Meq Kcl IV 75 mls/hr .[id number] HGASSAN Administration Insulin Human Regular 1 - 5 unit 12/27/18 18:00 12/28/18 05:38 Novolin R SUBQ Not Given Q6HR GHASSAN Protocol Isosorbide Mononitrate 30 mg 12/28/18 09:00 12/28/18 09:17 Imdur PO 30 mg DAILY GHASSAN Administration Levothyroxine Sodium 25 mcg 12/27/18 07:00 12/28/18 06:00 Synthroid PO 25 mcg QDAC GHASSAN Administration Losartan Potassium 50 mg 12/27/18 11:00 12/28/18 09:17 Cozaar PO 50 mg DAILY GHASSAN Administration Metoprolol Tartrate 25 mg 12/27/18 11:00 12/28/18 08:01 Lopressor PO Not Given BID GHASSNA Mineral Oil 1 applic 12/26/18 10:17 12/26/18 22:40 Cavilon TOP 1 applic PRN PRN Administration Skin Care Multivitamins 1 tab 12/27/18 08:00 12/28/18 09:17 Theragran PO 1 tab DAILYWM GHASSAN Administration Oxybutynin Chloride 2.5 mg 12/26/18 14:00 12/28/18 05:09 Ditropan PO 2.5 mg TID GHASSAN Administration Pantoprazole Sodium 40 mg 12/26/18 09:00 12/28/18 09:17 Protonix IVP 40 mg BID GHASSAN Administration Polyethylene Glycol 17 gm 12/26/18 09:00 12/28/18 08:01 Miralax PO Not Given DAILY GHASSAN Sodium Chloride 10 ml 12/26/18 07:44 12/27/18 21:36 Normal Saline Flush 0.9% IVP 10 ml PRN PRN Administration NEEDED PER PROVIDER ORDERS Sodium Chloride 10 ml 12/26/18 09:00 12/28/18 09:17 Normal Saline Flush 0.9% IVP 10 ml 0100,0900,1700 GHASSAN Administration Tamsulosin HCl 0.4 mg 12/26/18 21:00 12/27/18 21:35 Flomax PO 0.4 mg QPM GHASSAN Administration Trazodone HCl 50 mg 12/26/18 21:00 12/27/18 21:35 Desyrel PO 50 mg HS GHASSAN Administration - Lab Result Lab results reviewed: Yes Fish Bone Diagrams: 12/28/18 05:10 12/28/18 05:10 - Additional Planning Condition/Complexity: Stable My Orders: My Active Orders 12/27/18 17:55 D5.45ns W/20 Meq KCl 1,000 ml IV 75 mls/hr 12/28/18 00:01 NPO except Meds at Midnight [DIET] Plan Discussed with:: Patient, Other (hospitalists) Time Spent: 15-30 minutes Subjective - Subjective Patient Reports: Resting Comfortably, No Complaints (no abd pain, N/V; tolerated bowel prep last night well; multiple black liquid stools overnight) Objective Vital Signs: Vital Signs - 24 hr 12/27/18 12/27/18 12/27/18 11:20 11:21 11:40 Temperature 36.5 C 36.5 C 36.5 C Heart Rate Heart Rate [ Brachial] Heart Rate [ 77 70 71 Monitoring electrodes] Respiratory 18 18 18 Rate Blood Pressure Blood Pressure [Left Brachial artery] Blood Pressure [Right Brachial artery] Blood Pressure 123/64 123/64 108/44 L [Right Radial artery] O2 Saturation 97 97 97 12/27/18 12/27/18 12/27/18 12:03 15:05 15:16 Temperature 36.8 C 36.6 C Heart Rate Heart Rate [ Brachial] Heart Rate [ 78 71 Monitoring electrodes] Respiratory 18 18 Rate Blood Pressure 108/44 L Blood Pressure [Left Brachial artery] Blood Pressure [Right Brachial artery] Blood Pressure 132/55 H 134/66 H [Right Radial artery] O2 Saturation 98 97 12/27/18 12/27/18 12/27/18 16:08 16:16 16:20 Temperature 36.4 C L 36.4 C L 36.4 C L Heart Rate 96 107 H 99 Heart Rate [ Brachial] Heart Rate [ Monitoring electrodes] Respiratory 14 14 16 Rate Blood Pressure 79/37 L 102/65 101/70 Blood Pressure [Left Brachial artery] Blood Pressure [Right Brachial artery] Blood Pressure [Right Radial artery] O2 Saturation 95 99 98 12/27/18 12/27/18 12/27/18 16:28 16:43 17:13 Temperature 36.5 C 36.4 C L 36.5 C Heart Rate Heart Rate [ 94 91 76 Brachial] Heart Rate [ Monitoring electrodes] Respiratory 20 20 20 Rate Blood Pressure Blood Pressure 121/53 L [Left Brachial artery] Blood Pressure 115/47 L [Right Brachial artery] Blood Pressure 106/41 L [Right Radial artery] O2 Saturation 98 96 96 12/27/18 12/27/18 12/27/18 17:43 19:43 20:40 Temperature 36.4 C L 36.3 C L Heart Rate 86 Heart Rate [ 77 72 Brachial] Heart Rate [ Monitoring electrodes] Respiratory 16 16 16 Rate Blood Pressure Blood Pressure [Left Brachial artery] Blood Pressure 114/61 135/62 H [Right Brachial artery] Blood Pressure [Right Radial artery] O2 Saturation 94 99 12/27/18 12/27/18 12/27/18 21:35 21:43 23:30 Temperature 36.6 C 36.3 C L Heart Rate Heart Rate [ 84 81 Brachial] Heart Rate [ Monitoring electrodes] Respiratory 20 16 Rate Blood Pressure 135/62 H Blood Pressure [Left Brachial artery] Blood Pressure 133/68 H 126/63 [Right Brachial artery] Blood Pressure [Right Radial artery] O2 Saturation 98 97 12/28/18 12/28/18 03:40 07:30 Temperature 36.4 C L 36.5 C Heart Rate Heart Rate [ 63 69 Brachial] Heart Rate [ Monitoring electrodes] Respiratory 16 16 Rate Blood Pressure Blood Pressure [Left Brachial artery] Blood Pressure 129/52 L 102/51 L [Right Brachial artery] Blood Pressure [Right Radial artery] O2 Saturation 99 99 Oxygen O2 Source [With Activity] Oxymizer O2 Source Room air I&O (Last 24 Hrs): Intake and Output Totals x24h 12/26/18 12/27/18 12/28/18 23:59 23:59 23:59 Intake Total 2280 4652.885 Output Total 1 Balance 2280 4651.885 General: Alert, Oriented x3, Cooperative, No acute distress HEENT: Mucous membr. moist/pink Neck: No JVD Neuro: Alert Abdomen: Normal bowel sounds, Soft, No tenderness, No hepatospenomegaly, No masses Extremities: Other (chronic pretibial edema) - Results Results: Laboratory Results WBC 9.1 x10^3/uL (4.8-10.8) 12/28/18 05:10 RBC 2.85 10^6/uL (4.70-6.10) L 12/28/18 05:10 Hgb 8.8 g/dL (14.0-18.0) L 12/28/18 05:10 Hct 26.1 % (42.0-52.0) L 12/28/18 05:10 MCV 91.5 fL (80.0-94.0) 12/28/18 05:10 MCH 30.9 pg (27.0-31.0) 12/28/18 05:10 MCHC 33.7 g/dL (32.0-36.0) 12/28/18 05:10 RDW 15.7 % (12.0-15.0) H 12/28/18 05:10 Plt Count 240 10^3/uL (130-450) 12/28/18 05:10 MPV 7.1 fL (7.4-11.4) L 12/28/18 05:10 Neut # (Auto) 6.5 10^3/uL (1.5-6.6) 12/28/18 05:10 Lymph # (Auto) 1.4 10^3/uL (1.5-3.5) L 12/28/18 05:10 [place] # (Auto) 0.5 10^3/uL (0.0-1.0) 12/28/18 05:10 Eos # (Auto) 0.6 10^3/uL (0.0-0.7) 12/28/18 05:10 Baso # (Auto) 0.1 10^3/uL (0.0-0.1) 12/28/18 05:10 Absolute Nucleated RBC 0.00 x10^3/uL 12/28/18 05:10 Nucleated RBC % 0.0 /100WBC 12/28/18 05:10 Manual Slide Review Indicated 12/26/18 07:42 RBC Morph Micro Appear 1+ ANISOCYTOSIS (NORMAL) 12/26/18 07:42 PT 14.3 secs (9.9-12.6) H 12/27/18 05:29 INR 1.3 (0.8-1.2) H 12/27/18 05:29 APTT 33.7 secs (24.9-33.3) H 12/27/18 05:29 Sodium 141 mmol/L (135-145) 12/28/18 05:10 Potassium 3.6 mmol/L (3.5-5.0) 12/28/18 05:10 Chloride 106 mmol/L (101-111) 12/28/18 05:10 Carbon Dioxide 27 mmol/L (21-32) 12/28/18 05:10 Anion Gap 8.0 (6-13) 12/28/18 05:10 BUN 22 mg/dL (6-20) H 12/28/18 05:10 Creatinine 0.8 mg/dL (0.6-1.2) 12/28/18 05:10 Estimated GFR (MDRD) 92 (>89) 12/28/18 05:10 Glucose 101 mg/dL (70-100) H 12/28/18 05:10 POC Whole Bld Glucose 102 mg/dL (70 - 100) H 12/28/18 05:35 Glycated Hemoglobin 5.4 % (4.6-6.2) 12/26/18 09:35 Estim Average Glucose 108 (70-100) H 12/26/18 09:35 Calcium 7.9 mg/dL (8.5-10.3) L 12/28/18 05:10 Magnesium 2.0 mg/dL (1.7-2.8) 12/28/18 05:10 Total Bilirubin 0.3 mg/dL (0.2-1.0) 12/27/18 05:29 AST 13 IU/L (10-42) 12/27/18 05:29 ALT 12 IU/L (10-60) 12/27/18 05:29 Alkaline Phosphatase 75 IU/L (42-121) 12/27/18 05:29 Troponin I < 0.04 ng/mL (<0.49) 12/26/18 04:35 B-Natriuretic Peptide 189 pg/mL (5-100) H 12/26/18 04:25 Total Protein 4.3 g/dL (6.7-8.2) L 12/27/18 05:29 Albumin 2.3 g/dL (3.2-5.5) L 12/27/18 05:29 Globulin 2.0 g/dL (2.1-4.2) L 12/27/18 05:29 Albumin/Globulin Ratio 1.1 (1.0-2.2) 12/27/18 05:29 Lipase 27 U/L (22-51) 12/26/18 04:35 TSH 2.90 uIU/mL (0.34-5.60) 12/27/18 05:29 Blood Type O POSITIVE 12/26/18 04:25 Blood Type Recheck O POSITIVE 12/25/18 22:20 Antibody Screen NEGATIVE 12/26/18 04:25 Crossmatch IS Only See Detail 12/26/18 04:25 Sepsis Event Note (H) - Evaluation Current Stage of Sepsis: Ruled out ABX Reporting Has patient been on IV antibiotics over the past 48 hours?: No
[2018-12-28] MEDS ORDERED: LACTATED RINGERS 1,000 ML IV ONE (10:52)
[2018-12-28] MEDS ORDERED: PROPOFOL 200 MG/20 ML VIAL IVP ONE (10:52)
[2018-12-28] MEDS ORDERED: KETAMINE 500 MG/10 ML VIAL IVP ONE (10:52)
[2018-12-28] MEDS ORDERED: ZINC OXIDE 20% OINT 28.35 GM TUBE TOP PRN (10:57)
[2018-12-28] MEDS ORDERED: IOVERSOL 320 100 ML VIAL IVP ONE ×2 (12:12→13:54)
[2018-12-28] MEDS ORDERED: IOVERSOL 320 50 ML VIAL ONE (12:28)
[2018-12-28] MEDS ORDERED: IOVERSOL 320 50 ML VIAL PO ONE (13:54)
[2018-12-28] MEDS: D5.45NS W/20 MEQ KCL 1,000 ML IV SCH (14:15)
--- NOTE | 2018-12-28 15:04 | CT Report ---
Reason: GI bleed/melena Procedure Date: 12/28/2018 Accession Number: [id number] / [id number] Procedure: CT - Abdomen/Pelvis W CPT Code: FULL RESULT: EXAM: CT ABDOMEN AND PELVIS EXAM DATE: 12/28/2018 01:49 PM. CLINICAL HISTORY: GI bleed/melena. COMPARISONS: 10/13/2017 TECHNIQUE: Routine helical CT imaging was performed through the abdomen and pelvis. IV contrast: 100 cc Optiray 3201. Enteric contrast: Yes. Reconstructions: Coronal and sagittal. In accordance with CT protocol optimization, one or more of the following dose reduction techniques were utilized for this exam: automated exposure control, adjustment of mA and/or KV based on patient size, or use of iterative reconstructive technique. FINDINGS: Lung Bases: Small amount of pleural thickening.. There is a calcified right peripheral round lung mass 2.6 x 2.2 cm abutting the pleural surface which may have been present in 2006 on the drier attendant film from a CT scan abdomen and pelvis. Liver: Normal. No masses. Gallbladder/Bile Ducts: Status post cholecystectomy Spleen: Normal. Pancreas: Normal. Adrenal Glands: Normal. Kidneys: Bilateral renal cysts. Staghorn calculus lower pole right kidney without obstruction. Peritoneal Cavity/Bowel: No free fluid, free air or adenopathy. Normal caliber small bowel.. Prominent air-filled williams ascending, transverse, and descending colon with maximal distention of 11.3 cm. Normal caliber sigmoid. No bowel wall pneumatosis. Question focal wall thickening along the ascending colon 12/16, and sigmoid region for example 12/21. Scattered diverticulosis.. Pelvic Organs: THe bladder is unremarkable Vasculature: No aneurysms or other significant abnormality. Bones: Multilevel degenerative change in the spine. Other: Fat-containing lower abdominal hernia as before, neck measuring 2.2 cm. IMPRESSION: 1. Multiple bilateral renal cyst and nonobstructing right staghorn calculus. 2. Fat-containing lower abdominal hernia. 3. Air-filled distended ascending, transverse, and descending colon with normal caliber sigmoid. No evidence of an obstructing lesion. Question wall thickening focally in the ascending colon and more diffusely in the sigmoid region. Colonoscopy may be useful. 4. Scattered colonic diverticulosis. 5. Status post cholecystectomy. 6. 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 7. Other incidental findings as above. [facility]
[2018-12-28 15:30] LABS: HGB - HEMOGLOBIN 8.6 g/dL (14.0-18.0)
--- NOTE | 2018-12-28 16:23 | PROVIDER PROGRESS NOTE ---
Subjective - Prog Note Date Prog Note Date: 12/28/18 - Subjective Pt reports feeling: No change Subjective: pt's H&H continue decreasing. CT of abdomen is pending. Per surgeon Dr Alexander Carpenter report he did not see bleeding site at colon by colonoscopy as he saw. Dr. Alexander Carpenter recommend continuing overnight H&H to monitor to pt. Current Medications - Current Medications Current Medications: Active Medications Acetaminophen (Tylenol) 650 mg PO Q4HR PRN PRN Reason: Pain 1 to 4 Last Admin: 12/27/18 03:16 Dose: 650 mg Albuterol () 1.25 mg INH Q4H PRN PRN Reason: Shortness of Air/Wheezing Amlodipine Besylate (Norvasc) 5 mg PO DAILY [facility] Last Admin: 12/28/18 07:52 Dose: Not Given Atorvastatin Calcium (Lipitor) 10 mg PO QPM [facility] Last Admin: 12/27/18 21:36 Dose: 10 mg Cyclobenzaprine HCl (Flexeril) 10 mg PO Q8HR PRN PRN Reason: Spasms Ferrous Sulfate (Feosol) 325 mg PO TIDWM [facility] Last Admin: 12/28/18 14:14 Dose: 325 mg Finasteride (Proscar) 5 mg PO DAILY [facility] Last Admin: 12/28/18 09:17 Dose: 5 mg Gabapentin (Neurontin) 300 mg PO HS [facility] Last Admin: 12/27/18 21:36 Dose: 300 mg Potassium Chloride/Dextrose/Sod Cl (D5.45ns W/20 Meq Kcl) 1,000 mls @ 75 mls/hr IV .[id number] [facility] Last Admin: 12/28/18 14:15 Dose: 75 mls/hr Insulin Aspart (Novolog) 1 - 5 unit SUBQ 0800,1200,1700,2100 [facility]; Protocol Isosorbide Mononitrate (Imdur) 30 mg PO DAILY [facility] Last Admin: 12/28/18 09:17 Dose: 30 mg Levothyroxine Sodium (Synthroid) 25 mcg PO QDAC [facility] Last Admin: 12/28/18 06:00 Dose: 25 mcg Losartan Potassium (Cozaar) 50 mg PO DAILY [facility] Last Admin: 12/28/18 09:17 Dose: 50 mg Metoprolol Tartrate (Lopressor) 25 mg PO BID [facility] Last Admin: 12/28/18 08:01 Dose: Not Given Mineral Oil (Cavilon) 1 applic TOP PRN PRN PRN Reason: Skin Care Last Admin: 12/26/18 22:40 Dose: 1 applic Multi-Ingredient Ointment (Zinc Oxide) 1 applic TOP PRN PRN PRN Reason: Skin Care Multivitamins (Theragran) 1 tab PO DAILYWM [facility] Last Admin: 12/28/18 09:17 Dose: 1 tab Nystatin (Nystop) 1 applic TOP BID PRN PRN Reason: YEAST SIGNS/SYMPTOMS Ondansetron HCl (Zofran Inj) 4 mg IVP Q6HR PRN PRN Reason: Nausea / Vomiting Oxybutynin Chloride (Ditropan) 2.5 mg PO TID [facility] Last Admin: 12/28/18 14:14 Dose: 2.5 mg Pantoprazole Sodium (Protonix) 40 mg IVP BID [facility] Last Admin: 12/28/18 09:17 Dose: 40 mg Polyethylene Glycol (Miralax) 17 gm PO DAILY [facility] Last Admin: 12/28/18 08:01 Dose: Not Given Sodium Chloride (Normal Saline Flush 0.9%) 10 ml IVP PRN PRN PRN Reason: NEEDED PER PROVIDER ORDERS Last Admin: 12/27/18 21:36 Dose: 10 ml Sodium Chloride (Normal Saline Flush 0.9%) 10 ml IVP 0100,0900,1700 [facility] Last Admin: 12/28/18 09:17 Dose: 10 ml Tamsulosin HCl (Flomax) 0.4 mg PO QPM [facility] Last Admin: 12/27/18 21:35 Dose: 0.4 mg Trazodone HCl (Desyrel) 50 mg PO HS [facility] Last Admin: 12/27/18 21:35 Dose: 50 mg Zolpidem Tartrate (Ambien) 5 mg PO QPM PRN PRN Reason: Insomnia Aspirin 81 mg PO DAILY 07/12/13 Finasteride 5 mg PO DAILY 07/12/13 traZODone [Desyrel] 50 mg PO HS 07/12/13 Glucosamine Sulfate 1,000 mg PO BIDWM 11/20/13 Levothyroxine [Synthroid] 25 mcg PO QDAC 11/20/13 Multivitamin [Multi-Vitamin Daily] 1 each PO DAILY 11/20/13 Vitamin E 400 unit PO DAILY 11/20/13 Acetaminophen 650 mg PO Q6HR PRN 12/29/17 Amlodipine Besylate 5 mg PO DAILY 12/29/17 Atorvastatin Calcium 10 mg PO QPM 12/29/17 Cyclobenzaprine HCl 10 mg PO Q8HR PRN 12/29/17 Ferrous Sulfate 650 mg PO TIDWM 12/29/17 Fluticasone [Flonase] 1 spray NS QPM 12/29/17 Guaifenesin/Dextromethorphan [Tussin Dm Cough Syrup] 10 ml PO Q4HR PRN 12/29/17 Isosorbide Mononitrate [Isosorbide Mononitrate ER] 30 mg PO DAILY 12/29/17 Losartan Potassium 50 mg PO DAILY 12/29/17 Metoprolol Tartrate 25 mg PO BID 12/29/17 Oxybutynin [Ditropan] 2.5 mg PO TID 12/29/17 Potassium Citrate [Potassium Citrate ER] 10 meq PO TIDWM 12/29/17 Tamsulosin HCl [Flomax] 0.4 mg PO QPM 12/29/17 Albuterol Sulfate 1.25 mg INH Q4H PRN 12/26/18 Ascorbic Acid 2,000 mg PO QDBREAKFAST 12/26/18 Furosemide [Lasix] 40 mg PO DAILY 12/26/18 Gabapentin [Neurontin] 300 mg PO HS 12/26/18 Loperamide [Imodium] 2 mg PO QID PRN 12/26/18 Nystatin [Nystop] 1 applic TOP BID PRN 12/26/18 Rivaroxaban [Xarelto] 20 mg PO QDDINNER 12/26/18 Semaglutide [Ozempic] 0.25 mg SUBQ SA@0800 12/26/18 raNITIdine HCl [Ranitidine HCl] 75 mg PO QDDINNER 12/26/18 Objective - Vital Signs/Intake & Output Reviewed Vital Signs: Yes Vital Signs: Vital Signs x48h Temp Pulse Pulse Pulse Resp BP BP 12/28/18 15:45 36.3 C L 82 18 125/68 12/28/18 13:53 36.2 C L 64 16 110/44 L 12/28/18 12:48 36.4 C L 68 16 107/44 L 12/28/18 12:26 36.5 C 86 16 107/45 L 12/28/18 12:10 81 17 113/63 12/28/18 12:00 88 17 81/52 L 12/28/18 11:55 79 16 92/61 12/28/18 11:50 37.0 C 90 15 90/40 L 12/28/18 10:45 90 16 Pulse Ox 12/28/18 15:45 100 12/28/18 13:53 99 12/28/18 12:48 98 12/28/18 12:26 97 12/28/18 12:10 100 12/28/18 12:00 99 12/28/18 11:55 99 12/28/18 11:50 100 12/28/18 10:45 Intake & Output: Intake & Output 12/25/18 12/26/18 12/27/18 12/28/18 23:59 23:59 23:59 23:59 Intake Total 2280 4652.885 1000 Output Total 1 Balance 2280 4651.885 1000 - Objective General Appearance: positive: No acute distress, Alert. negative: Lethargic Eyes Bilateral: positive: Normal inspection, PERRL, No lid inflammation, Conjunctivae nml ENT: positive: ENT inspection nml, Pharynx nml, No signs of dehydration. negative: Purulent nasal drainage, Pharyngeal erythema, Oral lesions Neck: positive: Nml inspection, Thyroid nml, No JVD, Trachea midline. negative: Thyromegaly, Lymphadenopathy (R), Lymphadenopathy (L), Stiff neck, S welling/bruising, Tracheal deviation Respiratory: positive: Chest non-tender, No respiratory distress, Breath sounds nml. negative: Wheezes, Rales, Rhonchi Cardiovascular: positive: Regular rate & rhythm, No murmur, No gallop. negative: Irregularly irregular, Extrasystoles, Tachycardia, Bradycardia, JVD present, Systolic murmur, Diastolic murmur Peripheral Pulses: 2+ Radial (R), 2+ Radial (L), 2+ Dorsalis pedis (R), 2+ Dorsalis pedis (L) Abdomen: positive: Non-tender, No organomegaly, Nml bowel sounds, No distention. negative: Tenderness, Guarding, Rebound Back: positive: Nml inspection. negative: CVA tenderness (R), CVA tenderness (L) Skin: positive: Color nml, No rash, Warm, Dry. negative: Cyanosis, Diaphoresis, Pallor Extremities: positive: Non-tender, Full ROM, Nml appearance. negative: Calf tenderness, Joint swelling, Raysa's sign/cords Neurologic/Psychiatric: positive: Oriented x3, Sensation nml, Mood/affect nml. negative: Weakness, Sensory loss, Facial droop, Slurred/abnml speech, Depressed mood/affect - Lab Results Fish Bones: 12/28/18 15:23 12/28/18 05:10 Other Labs: Lab Results x24hrs 12/28/18 12/28/18 12/28/18 Range/Units 15:23 12:43 05:35 WBC (4.8-10.8) x10^3/uL RBC (4.70-6.10) 10^6/uL Hgb 8.6 L (14.0-18.0) g/dL Hct 26.1 L (42.0-52.0) % MCV (80.0-94.0) fL MCH (27.0-31.0) pg MCHC (32.0-36.0) g/dL RDW (12.0-15.0) % Plt Count (130-450) 10^3/uL MPV (7.4-11.4) fL Neut # (Auto) (1.5-6.6) 10^3/uL Lymph # (Auto) (1.5-3.5) 10^3/uL Stewart # (Auto) (0.0-1.0) 10^3/uL Eos # (Auto) (0.0-0.7) 10^3/uL Baso # (Auto) (0.0-0.1) 10^3/uL Absolute Nucleated RBC x10^3/uL Nucleated RBC % /100WBC Sodium (135-145) mmol/L Potassium (3.5-5.0) mmol/L Chloride (101-111) mmol/L Carbon Dioxide (21-32) mmol/L Anion Gap (6-13) BUN (6-20) mg/dL Creatinine (0.6-1.2) mg/dL Estimated GFR (MDRD) (>89) Glucose (70-100) mg/dL POC Whole Bld Glucose 102 H 102 H (70 - 100) mg/dL Calcium (8.5-10.3) mg/dL Magnesium (1.7-2.8) mg/dL 12/28/18 12/28/18 12/27/18 Range/Units 05:10 05:10 23:30 WBC 9.1 (4.8-10.8) x10^3/uL RBC 2.85 L (4.70-6.10) 10^6/uL Hgb 8.8 L (14.0-18.0) g/dL Hct 26.1 L (42.0-52.0) % MCV 91.5 (80.0-94.0) fL MCH 30.9 (27.0-31.0) pg MCHC 33.7 (32.0-36.0) g/dL RDW 15.7 H (12.0-15.0) % Plt Count 240 (130-450) 10^3/uL MPV 7.1 L (7.4-11.4) fL Neut # (Auto) 6.5 (1.5-6.6) 10^3/uL Lymph # (Auto) 1.4 L (1.5-3.5) 10^3/uL Stewart # (Auto) 0.5 (0.0-1.0) 10^3/uL Eos # (Auto) 0.6 (0.0-0.7) 10^3/uL Baso # (Auto) 0.1 (0.0-0.1) 10^3/uL Absolute Nucleated RBC 0.00 x10^3/uL Nucleated RBC % 0.0 /100WBC Sodium 141 (135-145) mmol/L Potassium 3.6 (3.5-5.0) mmol/L Chloride 106 (101-111) mmol/L Carbon Dioxide 27 (21-32) mmol/L Anion Gap 8.0 (6-13) BUN 22 H (6-20) mg/dL Creatinine 0.8 (0.6-1.2) mg/dL Estimated GFR (MDRD) 92 (>89) Glucose 101 H (70-100) mg/dL POC Whole Bld Glucose 101 H (70 - 100) mg/dL Calcium 7.9 L (8.5-10.3) mg/dL Magnesium 2.0 (1.7-2.8) mg/dL 12/27/18 12/27/18 12/27/18 Range/Units 22:29 20:11 20:11 WBC (4.8-10.8) x10^3/uL RBC (4.70-6.10) 10^6/uL Hgb 9.2 L 9.5 L (14.0-18.0) g/dL Hct 27.7 L 28.9 L (42.0-52.0) % MCV (80.0-94.0) fL MCH (27.0-31.0) pg MCHC (32.0-36.0) g/dL RDW (12.0-15.0) % Plt Count (130-450) 10^3/uL MPV (7.4-11.4) fL Neut # (Auto) (1.5-6.6) 10^3/uL Lymph # (Auto) (1.5-3.5) 10^3/uL Stewart # (Auto) (0.0-1.0) 10^3/uL Eos # (Auto) (0.0-0.7) 10^3/uL Baso # (Auto) (0.0-0.1) 10^3/uL Absolute Nucleated RBC x10^3/uL Nucleated RBC % /100WBC Sodium 138 (135-145) mmol/L Potassium 3.8 (3.5-5.0) mmol/L Chloride 104 (101-111) mmol/L Carbon Dioxide 26 (21-32) mmol/L Anion Gap 8.0 (6-13) BUN 26 H (6-20) mg/dL Creatinine 0.9 (0.6-1.2) mg/dL Estimated GFR (MDRD) 80 L (>89) Glucose 111 H (70-100) mg/dL POC Whole Bld Glucose (70 - 100) mg/dL Calcium 7.9 L (8.5-10.3) mg/dL Magnesium 2.1 (1.7-2.8) mg/dL 12/27/18 12/27/18 Range/Units 17:47 16:44 WBC (4.8-10.8) x10^3/uL RBC (4.70-6.10) 10^6/uL Hgb 8.8 L (14.0-18.0) g/dL Hct 27.0 L (42.0-52.0) % MCV (80.0-94.0) fL MCH (27.0-31.0) pg MCHC (32.0-36.0) g/dL RDW (12.0-15.0) % Plt Count (130-450) 10^3/uL MPV (7.4-11.4) fL Neut # (Auto) (1.5-6.6) 10^3/uL Lymph # (Auto) (1.5-3.5) 10^3/uL Stewart # (Auto) (0.0-1.0) 10^3/uL Eos # (Auto) (0.0-0.7) 10^3/uL Baso # (Auto) (0.0-0.1) 10^3/uL Absolute Nucleated RBC x10^3/uL Nucleated RBC % /100WBC Sodium (135-145) mmol/L Potassium (3.5-5.0) mmol/L Chloride (101-111) mmol/L Carbon Dioxide (21-32) mmol/L Anion Gap (6-13) BUN (6-20) mg/dL Creatinine (0.6-1.2) mg/dL Estimated GFR (MDRD) (>89) Glucose (70-100) mg/dL POC Whole Bld Glucose 103 H (70 - 100) mg/dL Calcium (8.5-10.3) mg/dL Magnesium (1.7-2.8) mg/dL ABX Reporting Has patient been on IV antibiotics over the past 48 hours?: No Sepsis Event Note (H) - Evaluation Current Stage of Sepsis: Ruled out Assessment/Plan - Problem List (1) GI bleed Impression: 12/28 pt's HGB is persistently decreasing, from 9.5 to down to 8.6. pt had one unit of blood on yesterday. Today pt did not have bowel movement. In today colonoscopy, per surgeon report he did not see bleeding site at colon although he could not see clearly the whole colon. CT of abdomen is pending continue H&H 12/27 pt's HGB continue to go down, not HGB is 7. nurse report pt still has black stool although pt took iron pill. transfusion of one unit of blood. pt already had one blood on yesterday will have colonoscopy per GI surgeon, will followup continue H&H manage pt continue IV of Protonic it may be caused by his Xarelto plus Aspirin. HGB is 6.4 and positive Occult test. pt already had one unit blood transfused in ER hold Xarelto and Aspirin now GI surgeon consult NPO after midnight, schedule to have EGD on tomorrow. pt had black stool, it most likely bleed at upper GI if pt had bleeding site Protonic IVF bid H&H check (2) hx of Systolic heart failure Conclusion/Plan: 12/27 new ECHO reveal pt had normal EF at 60%, it is significantly improved. will reconcile home meds continue vital and lab monitor pt pt had ECHO on 2013 in [facility], which showed pt had 45% EF, will update a new ECHO, also pt may need further blood transfusion precaution of fluid overload (3) Chronic a-fib Conclusion/Plan: 12/27 stable HR, continue tele and vital monitor, hold Xarelto and Aspirin now pt has hx of chronic afib on Xarelto, now Xarelto need to be hold. pt's HR is stable. pt had low BP, now hold Metoprolol, but will reconcile after BP is stable (4) HTN (hypertension) Conclusion/Plan: hx of HTN, but now pt present slight lower BP, hold all his BP meds now (5) History of CVA (cerebrovascular accident) Conclusion/Plan: stable, continue nurse care, and support. Hold Xarelto and Aspirin because of GI bleed (6) Chronic anemia Conclusion/Plan: 12/28 pt took iron tid at home, MCV is 92.3, macrocytic anemia check B12, folic acid pt has hx of anemia and he took iron at home. reconcile iron pill, continue lab monitor (7) Diabetes mellitus Conclusion/Plan: hx of DM check A1C, start on slide scale, ACHS and hypoglycemia protocol Qualifiers: GI bleed type/associated pathology: unspecified gastrointestinal hemorrhage type Qualified Code(s): K92.2 - Gastrointestinal hemorrhage, unspecified
--- NOTE | 2018-12-28 16:46 | ADVANCE CARE PLANNING NOTE ---
Advance Care Planning - Date/Time Date: 12/28/18 Time: 16:44 - Purpose of encounter Text: advance care plan for pt - Parties in attendance Parties in attendance: pt and me - Decisional capacity Decisional capacity of: pt has the capacity to make his own decision - Subjective/Patient's story Subjective/Patient's story: pt report he had stroke on last year October. After that, he believed his quality life is significantly reduced. He also has mortality obesity. All these medical condition let him very difficult to ambulate. he is currently living at [facility] nurse facility. He report [facility] let him have air mattress which did help him lots. he did not have pressure ulcer after he had stroke. He think he still continue to have DNR/DNI for his code status now. - Objective/Medical story Objective/Medical Story: pt report he had heart failure which was diagnosis at 2013. he was also very worried about his recently GI bleed. he report his young brother, less more 10 yrs older than him, who recently was diagnosis of colon cancer. he was very concerned his GI scopy study and CT of abdomen study. EGD and colonoscopy did not find GI track lesion now. CT of abdomen is pending, will inform the result to him. - Goals of Care Goals of care determinations: continue DNR/DNI now - Plan Plan: continue current code status, DNR/DNI - Code Status Code Status: Do Not Attempt Resuscitation - Time Spent on Advance Care Planning Time spent on advance care plannin
[2018-12-28] MEDS: INSULIN ASPART 300 UNIT/3 ML PEN SUBQ SCH ×2 (17:43→21:18)
[2018-12-28 20:30] LABS: HGB - HEMOGLOBIN 8.6 g/dL (14.0-18.0)
[2018-12-28] MEDS: TAMSULOSIN 0.4 MG CAPSULE PO SCH (21:17)
[2018-12-28] MEDS: GABAPENTIN 300 MG CAPSULE PO SCH (21:17)
[2018-12-28] MEDS: ATORVASTATIN 10 MG TABLET PO SCH (21:18)
[2018-12-28] MEDS: traZODone 50 MG TABLET PO SCH (21:18)
[2018-12-28] MEDS: SODIUM CHLORIDE FLUSH 0.9% 10 ML SYRINGE IVP PRN (21:18)
[2018-12-29] MEDS: SODIUM CHLORIDE FLUSH 0.9% 10 ML SYRINGE IVP SCH ×2 (00:09→08:11)
[2018-12-29 05:33] LABS: BASOPHILS # (AUTO) 0.1 10^3/uL (0.0-0.1); EOSINOPHILS # (AUTO) 0.5 10^3/uL (0.0-0.7); HGB - HEMOGLOBIN 8.5 g/dL (14.0-18.0); LYMPHOCYTES # (AUTO) 1.3 10^3/uL (1.5-3.5); LYMPHOCYTES % (AUTO) 16.4 %; MEAN CORPUSCULAR HEMOGLOBIN 30.8 pg (27.0-31.0); MEAN CORPUSCULAR HGB CONC 33.6 g/dL (32.0-36.0); MEAN CORPUSCULAR VOLUME 91.6 fL (80.0-94.0); MEAN PLATELET VOLUME 7.3 fL (7.4-11.4); MONOCYTES # (AUTO) 0.5 10^3/uL (0.0-1.0); MONOCYTES % (AUTO) 6.1 %; NEUTROPHILS # (AUTO) 5.4 10^3/uL (1.5-6.6); NEUTROPHILS % (AUTO) 69.5 %; PLT - PLATELET COUNT 245 10^3/uL (130-450); RED BLOOD COUNT 2.74 10^6/uL (4.70-6.10); RED CELL DISTRIBUTION WIDTH 15.9 % (12.0-15.0); WHITE BLOOD COUNT 7.7 x10^3/uL (4.8-10.8)
[2018-12-29 05:43] LABS: CALCIUM 7.9 mg/dL (8.5-10.3); CREATININE 0.8 mg/dL (0.6-1.2)
[2018-12-29] MEDS: LEVOTHYROXINE 25 MCG TABLET PO SCH (06:07)
[2018-12-29] MEDS: OXYBUTYNIN 5MG TABLET PO SCH ×2 (06:08→14:24)
[2018-12-29] MEDS: INSULIN ASPART 300 UNIT/3 ML PEN SUBQ SCH ×2 (07:55→11:29)
[2018-12-29] MEDS ORDERED: POTASSIUM CHLORIDE 20 MEQ TABLET PO ONE (08:09)
[2018-12-29] MEDS: METOPROLOL TARTRATE 25 MG TABLET PO SCH (08:10)
[2018-12-29] MEDS: amLODIPine 5 MG TABLET PO SCH (08:11)
[2018-12-29] MEDS: LOSARTAN 50 MG TABLET PO SCH (08:11)
[2018-12-29] MEDS: PANTOPRAZOLE 40 MG VIAL IVP SCH (08:11)
[2018-12-29] MEDS: MULTIVITAMIN TABLET PO SCH (08:11)
[2018-12-29] MEDS: FINASTERIDE 5 MG TABLET PO SCH (08:11)
[2018-12-29] MEDS: SODIUM CHLORIDE FLUSH 0.9% 10 ML SYRINGE IVP PRN (08:11)
[2018-12-29] MEDS: FERROUS SULFATE 325 MG TABLET PO SCH ×2 (08:11→12:30)
[2018-12-29] MEDS: ISOSORBIDE MONONITRATE ER 30 MG TABLET PO SCH (08:11)
[2018-12-29] MEDS: POLYETHYLENE GLYCOL 3350 17 GM PACKET PO SCH (08:12)
[2018-12-29] MEDS ORDERED: POTASSIUM CHLORIDE INJ 40 MEQ in SODIUM CHLORIDE 0.9% 480 ML IV ONE (09:00)
[2018-12-29 09:46] LABS: FOLATE 15.49 ng/mL (5.90 - >24.8)
[2018-12-29] MEDS ORDERED: COD LIVER OIL/ZINC OXIDE 113 GM TUBE TOP PRN (09:57)
--- NOTE | 2018-12-29 12:23 | Discharge Plan ---
"Discharge Plan for SNF / [facility] - Discharge Plan And Transition Orders Disposition: 03 SNF DC/Xfer Condition: Poor Allergies and Adverse Reactions: Allergies Allergy/AdvReac Type Severity Reaction Status Date / Time No Known Drug Allergies Allergy Verified 12/26/18 04:13 - SNF / [facility] Transition Orders Admit to (Facility): [facility] Under the care of (Name): Dr. Carey Discharge Diagnosis: GI bleed, chronic Afib, HTN, Hx of CVA, chronic anemia, DM, obesity Medicare Certification Statement: I do not certify that Post Hospital care home care is medically necessary on a continuing basis for any of the conditions for which she/he is receiving care during hospitalization. Notify PCP of admission and forward orders to primary provider for signature. Weight on admission and: Daily Call PCP immediately if weight increases by: 2 kg Other Notification Orders: Call PCP immediately if patient develops dyspnea, chest pain/tightness or edema. House Bowel Program: Yes Additional Bowel Program Orders: If no BM after 2 days, nurse may give M.O.M. 30ml PO PRN and/or ducolax Supp 1 ID and/or DARIAN 250mg P.O., and/or senna 1-2 tabs PO. On day 3 nurse may give repeat above order until residents constipation is resolved. Annual Influenza Vaccine (between Mar 31 and October 28): Yes Two-step PPD per [facility] [phone] or approved exception documents: Yes Treatments & Other Orders: pt may followup health provider in [facility] when pt is arrival. pt was found GI bleed. pt had EGD and colonoscopy in hospital, however no bleed sourse was found. Pt's HGB is stable. pt's Xarelto is hold now. Pt may have CBC in one week or as needed, and closely monitor if pt has further bleed. Medication Orders: PLEASE REFER TO THE DISCHARGE MEDICATION LIST. Insulin Orders?: No - Diet Type: Geriatric Texture: Regular Liquids: Thin May have monthly special meal: Yes - Therapies | Activity Rehabilitation Potential: Maximize functional status Activity: Activity as Tolerated Additional Instructions: pt may followup health provider in [facility] when pt is arrival. pt was found GI bleed. pt had EGD and colonoscopy in hospital, however no bleed sourse was found. Pt's HGB is stable. pt's Xarelto is hold now. Pt may have CBC in one week or as needed, and closely monitor if pt has further bleed."
--- NOTE | 2018-12-29 12:36 | DISCHARGE SUMMARY ---
Discharge Summary Discharge Date: 12/29/18 Discharging Provider: FREEDMAN Primary Care Provider: Dr. Garcia Condition at Discharge: Poor Discharge Disposition: SNF DC/Xfer Discharge Facility Name: [facility] - DIAGNOSES Admission Diagnoses: (1) GI bleed (2) Systolic heart failure (3) Chronic a-fib (4) HTN (hypertension) (5) History of CVA (cerebrovascular accident) (6) Chronic anemia (7) Diabetes mellitus Discharge Diagnoses with Status of Each Condition: (1) GI bleed (2) hx of Systolic heart failure (3) Chronic a-fib (4) HTN (hypertension) (5) History of CVA (cerebrovascular accident) (6) Chronic anemia (7) Diabetes mellitus - HPI History of Present Illness: is 83-yrs-old male with a PMH significant for CVA on last year and currently anticoagulated with xarelto, Afib, systolic heart failure EF 45% on 2014, HTN, DM2, BPH, Hypothyroidism, HLD, chronic anemia, hx of renal stones, chronic venous stasis and lymphedema, chronic constipation, cataracts, arthritis, CKD, who present ER with decreased H&H per his care home facility [facility] reported. Patient denies blood in stool or other areas, he report" I had normal stool." pt took Tid iron pill for his chronic anemia in his home meds list. Pt states that he has otherwise been in his normal state of health without significant changes. Pt denies shortness of breath, dizziness, fever, chest pain, headache, abdominal pain, vomiting, urine changes, stool changes. In ER, his black stool is Hemoccult positive. HGB is 6.4. Pt had one unit blood transfused in ER. Now his HGB is 8.3, INR is 2.2. GI surgeon was called in ER. pt is scheduled to have EGD on tomorrow. - CONSULTS | PROCEDURES Consultations: Dr. Alexander Carpenter Procedures: EGD and colonoscopy - HOSPITAL COURSE Hospital Course: 1) GI bleed pt had EGD and Colonoscopy. per GI surgeon's report, no bleed source was found. Pt's HGB is stable, no further GI bleed was reported. pt had two units of bleed transfused at hospital. pt's home meds Xarelto is hold now, follow up [facility] provider, may have CBC in one week or as needed. closely monitor pt if pt has further bleed. (2) hx of Systolic heart failure New ECHO reveals pt has normal EF, and ECHO is unremarkable (3) Chronic a-fib stable, hold Xarelto now because of GI bleed (4) HTN (hypertension) stable, continue home regimen and followup PCP (5) History of CVA (cerebrovascular accident) stable, continue Aspirin 81 mg, but hold Xarelto because of GI bleed (6) Chronic anemia stable, continue home meds regimen (7) Diabetes mellitus stable, continue home meds and followup PCP - ALLERGIES Allergies/Adverse Reactions: Allergies Allergy/AdvReac Type Severity Reaction Status Date / Time No Known Drug Allergies Allergy Verified 12/26/18 04:13 - MEDICATIONS Home Medications: Ambulatory Orders Medication Instructions Recorded Confirmed Aspirin 81 mg PO DAILY 07/12/13 12/26/18 Finasteride 5 mg PO DAILY 07/12/13 12/26/18 traZODone [Desyrel] 50 mg PO HS 07/12/13 12/26/18 Glucosamine Sulfate 1,000 mg PO BIDWM 11/20/13 12/26/18 Levothyroxine [Synthroid] 25 mcg PO QDAC 11/20/13 12/26/18 Multivitamin [Multi-Vitamin Daily] 1 each PO DAILY 11/20/13 12/26/18 Vitamin E 400 unit PO DAILY 11/20/13 12/26/18 Acetaminophen 650 mg PO Q6HR PRN 12/29/17 12/26/18 Amlodipine Besylate 5 mg PO DAILY 12/29/17 12/26/18 Atorvastatin Calcium 10 mg PO QPM 12/29/17 12/26/18 Cyclobenzaprine HCl 10 mg PO Q8HR PRN 12/29/17 12/26/18 Ferrous Sulfate 650 mg PO TIDWM 12/29/17 12/26/18 Fluticasone [Flonase] 1 spray NS QPM 12/29/17 12/26/18 Guaifenesin/Dextromethorphan 10 ml PO Q4HR PRN 12/29/17 12/26/18 [Tussin Dm Cough Syrup] Isosorbide Mononitrate [Isosorbide 30 mg PO DAILY 12/29/17 12/26/18 Mononitrate ER] Losartan Potassium 50 mg PO DAILY 12/29/17 12/26/18 Metoprolol Tartrate 25 mg PO BID 12/29/17 12/26/18 Oxybutynin [Ditropan] 2.5 mg PO TID 12/29/17 12/26/18 Potassium Citrate [Potassium 10 meq PO TIDWM 12/29/17 12/26/18 Citrate ER] Tamsulosin HCl [Flomax] 0.4 mg PO QPM 12/29/17 12/26/18 Albuterol Sulfate 1.25 mg INH Q4H PRN 12/26/18 12/26/18 Ascorbic Acid 2,000 mg PO QDBREAKFAST 12/26/18 12/26/18 Furosemide [Lasix] 40 mg PO DAILY 12/26/18 12/26/18 Gabapentin [Neurontin] 300 mg PO HS 12/26/18 12/26/18 Loperamide [Imodium] 2 mg PO QID PRN 12/26/18 12/26/18 Nystatin [Nystop] 1 applic TOP BID PRN 12/26/18 12/26/18 Semaglutide [Ozempic] 0.25 mg SUBQ SA@0800 12/26/18 12/26/18 raNITIdine HCl [Ranitidine HCl] 75 mg PO QDDINNER 12/26/18 12/26/18 - PHYSICAL EXAM AT DISCHARGE General Appearance: positive: No acute distress, Alert. negative: Lethargic Eyes Bilateral: positive: Normal inspection, PERRL, No lid inflammation, Conjunctivae nml ENT: positive: ENT inspection nml, Pharynx nml, No signs of dehydration. negative: Purulent nasal drainage, Pharyngeal erythema, Oral lesions Neck: positive: Nml inspection, Thyroid nml, No JVD, Trachea midline. negative: Thyromegaly, Lymphadenopathy (R), Lymphadenopathy (L), Stiff neck, Swel ling/bruising, Tracheal deviation Respiratory: positive: Chest non-tender, No respiratory distress, Breath sounds nml. negative: Wheezes, Rales, Rhonchi Cardiovascular: positive: Regular rate & rhythm, No murmur, No gallop. negative: Irregularly irregular, Extrasystoles, Tachycardia, Bradycardia, JVD present, Systolic murmur, Diastolic murmur Peripheral Pulses: positive: 2+ Abdomen: positive: Non-tender, No organomegaly, Nml bowel sounds. negative: Tenderness, Guarding, Rebound Back: positive: Nml inspection. negative: CVA tenderness (R), CVA tenderness (L) Skin: positive: Color nml, No rash, Warm, Dry. negative: Diaphoresis, Pallor Extremities: positive: Non-tender, Nml appearance. negative: Calf tenderness, Raysa's sign/cords Neurologic/Psychiatric: positive: Oriented x3, Mood/affect nml. negative: Weakness, Sensory loss, Facial droop, Slurred/abnml speech, Depressed mood/affect - LABS Result Diagrams: 12/29/18 05:10 12/29/18 05:10 - SEPSIS Current Stage of Sepsis: Ruled out - QUALITY (Female Hip Fx Only) Was patient sent home on osteoporosis medication?: No - FOLLOW UP Follow Up: pt may followup health provider in [facility] when pt is arrival. pt was found GI bleed. pt had EGD and colonoscopy in hospital, however no bleed sourse was found. Pt's HGB is stable. pt's Xarelto is hold now. Pt may have CBC in one week or as needed, and closely monitor if pt has further bleed. - TIME SPENT Time Spent in Discharge (Minutes): 50
[2018-12-29 15:54] VITALS: BP 131/54
== END 2018-12-29 15:50 | DRG 813 ==
LOC: EDUNIT# → ED 04:04 → MS2 07:18 → OBSVTOIN 12-28 16:14
PROVIDERS: ADMIT Family Medicine; ATTEND Nurse Practitioner Gerontology
PROC: 30233N1 Transfusion of Nonautologous Red Blood Cells into Peripheral Vein, Percutaneous Approach (ICD-10-PCS; 2018-12-27)
PROC: 0DB68ZZ Excision of Stomach, Via Natural or Artificial Opening Endoscopic (ICD-10-PCS; principal; 2018-12-27 15:00)
PROC: 0DJD8ZZ Inspection of Lower Intestinal Tract, Via Natural or Artificial Opening Endoscopic (ICD-10-PCS; 2018-12-28)
DX: D68.32 Hemorrhagic disorder due to extrinsic circulating anticoagulants (principal); K92.1 Melena; I13.0 Hypertensive heart and chronic kidney disease with heart failure and stage 1 through stage 4 chronic kidney disease, or unspecified chronic kidney disease; D64.89 Other specified anemias; I50.20 Unspecified systolic (congestive) heart failure; D62 Acute posthemorrhagic anemia; K31.7 Polyp of stomach and duodenum; K57.30 Diverticulosis of large intestine without perforation or abscess without bleeding; T45.515A Adverse effect of anticoagulants, initial encounter; T39.015A Adverse effect of aspirin, initial encounter; Y92.129 Unspecified place in nursing home as the place of occurrence of the external cause; D53.9 Nutritional anemia, unspecified; K21.9 Gastro-esophageal reflux disease without esophagitis; E11.22 Type 2 diabetes mellitus with diabetic chronic kidney disease; N18.9 Chronic kidney disease, unspecified; I48.2 Chronic atrial fibrillation; E66.9 Obesity, unspecified; Z68.33 Body mass index [BMI] 33.0-33.9, adult; N20.0 Calculus of kidney; N40.0 Benign prostatic hyperplasia without lower urinary tract symptoms; E03.9 Hypothyroidism, unspecified; E78.5 Hyperlipidemia, unspecified; K59.09 Other constipation; I87.8 Other specified disorders of veins; I89.0 Lymphedema, not elsewhere classified; M19.90 Unspecified osteoarthritis, unspecified site; Z96.659 Presence of unspecified artificial knee joint; Z66 Do not resuscitate; Z99.3 Dependence on wheelchair; Z79.82 Long term (current) use of aspirin; Z79.01 Long term (current) use of anticoagulants; Z79.51 Long term (current) use of inhaled steroids; Z86.73 Personal history of transient ischemic attack (TIA), and cerebral infarction without residual deficits; Z87.442 Personal history of urinary calculi
CPT/HCPCS: 36415; 36430; 43239; 45378; 74177; 80048; 80053; 82607; 82746; 83036; 83690; 83735; 83880; 84132; 84443; 84484; 85014; 85018; 85025; 85610; 85730; 86850; 86900; 86901; 86920; 93005; 93306; 96365; 96366; 96375; 96376; 99283; 99284; A6250; A9270; G0378; J7120; P9016; Q9967; 96374

== ENCOUNTER 2018-12-26 08:00 | Outpatient (CLI) | payer MEDICARE, MEDICAID ==
[2018-12-26 02:25] LABS: CALCIUM 8.3 mg/dL (8.5-10.3); CREATININE 0.9 mg/dL (0.6-1.2)
[2018-12-26 02:44] LABS: FOLATE 11.81 ng/mL (5.90 - >24.8)
[2018-12-26 02:52] LABS: MAGNESIUM 2.3 mg/dL (1.7-2.8)
[2018-12-26 03:09] LABS: BASOPHILS # (AUTO) 0.1 10^3/uL (0.0-0.1); BASOPHILS % (AUTO) 1.1 %; EOSINOPHILS # (AUTO) 0.8 10^3/uL (0.0-0.7); EOSINOPHILS % (AUTO) 8.9 %; LYMPHOCYTES # (AUTO) 1.4 10^3/uL (1.5-3.5); MEAN CORPUSCULAR HEMOGLOBIN 30.8 pg (27.0-31.0); MEAN CORPUSCULAR HGB CONC 32.8 g/dL (32.0-36.0); MEAN CORPUSCULAR VOLUME 94.2 fL (80.0-94.0); MEAN PLATELET VOLUME 8.3 fL (7.4-11.4); MONOCYTES # (AUTO) 0.4 10^3/uL (0.0-1.0); MONOCYTES % (AUTO) 4.1 %; NEUTROPHILS # (AUTO) 6.6 10^3/uL (1.5-6.6); NEUTROPHILS % (AUTO) 70.9 %; PLT - PLATELET COUNT 269 10^3/uL (130-450); RED BLOOD COUNT 2.06 10^6/uL (4.70-6.10); RED CELL DISTRIBUTION WIDTH 15.5 % (12.0-15.0); WHITE BLOOD COUNT 9.3 x10^3/uL (4.8-10.8)
[2018-12-26 03:18] LABS: HGB - HEMOGLOBIN 6.4 g/dL (14.0-18.0)
== END 2018-12-26 23:59 | disposition home or self-care (01) ==
LOC: LAB.R 08:00
DX: R79.89 Other specified abnormal findings of blood chemistry (principal); I50.9 Heart failure, unspecified; E61.1 Iron deficiency; I10 Essential (primary) hypertension; R68.89 Other general symptoms and signs; E61.2 Magnesium deficiency; D50.9 Iron deficiency anemia, unspecified; R79.0 Abnormal level of blood mineral; D52.9 Folate deficiency anemia, unspecified; D51.9 Vitamin B12 deficiency anemia, unspecified
CPT/HCPCS: 80048; 82607; 82728; 82746; 83540; 83735; 84466; 85025

== ENCOUNTER 2018-12-29 15:54 | Outpatient (CLI) | payer MEDICARE, MEDICAID | END 2018-12-29 15:55 | disposition home or self-care (01) | LOC: EMS 15:54 | PROVIDERS: ATTEND Surgery | DX: R53.1 Weakness (principal); Z74.01 Bed confinement status | CPT/HCPCS: A0425; A0428 ==

== ENCOUNTER 2019-01-29 11:50 | Outpatient (CLI) | payer MEDICARE, MEDICAID ==
[2019-01-29 12:43] LABS: ABSOLUTE RETICS # AUTO 0.062 10^6/uL (0.020-0.110); BASOPHILS # (AUTO) 0.1 10^3/uL (0.0-0.1); BASOPHILS % (AUTO) 0.8 %; EOSINOPHILS # (AUTO) 0.8 10^3/uL (0.0-0.7); EOSINOPHILS % (AUTO) 8.7 %; HGB - HEMOGLOBIN 11.3 g/dL (14.0-18.0); LYMPHOCYTES # (AUTO) 1.5 10^3/uL (1.5-3.5); MEAN CORPUSCULAR HEMOGLOBIN 29.4 pg (27.0-31.0); MEAN CORPUSCULAR HGB CONC 31.1 g/dL (32.0-36.0); MEAN CORPUSCULAR VOLUME 94.5 fL (80.0-94.0); MONOCYTES # (AUTO) 0.6 10^3/uL (0.0-1.0); MONOCYTES % (AUTO) 6.8 %; NEUTROPHILS # (AUTO) 5.9 10^3/uL (1.5-6.6); NEUTROPHILS % (AUTO) 66.2 %; PLT - PLATELET COUNT 232 10^3/uL (130-450); RED BLOOD COUNT 3.84 10^6/uL (4.70-6.10); RED CELL DISTRIBUTION WIDTH 14.3 % (12.0-15.0); WHITE BLOOD COUNT 8.9 x10^3/uL (4.8-10.8)
[2019-01-29 13:03] LABS: ALBUMIN 3.1 g/dL (3.2-5.5); ALBUMIN/GLOBULIN RATIO 1.1 (1.0-2.2); BILIRUBIN,TOTAL 0.5 mg/dL (0.2-1.0); CALCIUM 8.7 mg/dL (8.5-10.3); TOTAL PROTEIN 5.8 g/dL (6.7-8.2)
[2019-01-29 13:19] LABS: FERRITIN 26.2 ng/mL (23.9-336.2)
[2019-01-29 13:23] LABS: FOLATE 20.17 ng/mL (5.90 - >24.8)
== END 2019-01-29 11:51 | disposition home or self-care (01) ==
LOC: LAB 11:50
PROVIDERS: ATTEND Internal Medicine
DX: D64.9 Anemia, unspecified (principal); E11.9 Type 2 diabetes mellitus without complications
CPT/HCPCS: 36415; 80053; 82607; 82728; 82746; 83540; 84466; 85025; 85044

== ENCOUNTER 2019-02-06 23:28 | Outpatient (CLI) | payer MEDICARE, MEDICAID ==
[2019-02-06 23:42] LABS: BASOPHILS # (AUTO) 0.1 10^3/uL (0.0-0.1); BASOPHILS % (AUTO) 0.7 %; EOSINOPHILS # (AUTO) 0.6 10^3/uL (0.0-0.7); EOSINOPHILS % (AUTO) 6.9 %; HGB - HEMOGLOBIN 10.9 g/dL (14.0-18.0); LYMPHOCYTES # (AUTO) 1.8 10^3/uL (1.5-3.5); LYMPHOCYTES % (AUTO) 19.7 %; MEAN CORPUSCULAR HEMOGLOBIN 29.6 pg (27.0-31.0); MEAN CORPUSCULAR HGB CONC 31.9 g/dL (32.0-36.0); MEAN CORPUSCULAR VOLUME 92.9 fL (80.0-94.0); MEAN PLATELET VOLUME 10.2 fL (7.4-11.4); MONOCYTES # (AUTO) 0.7 10^3/uL (0.0-1.0); MONOCYTES % (AUTO) 7.3 %; NEUTROPHILS % (AUTO) 65.1 %; PLT - PLATELET COUNT 233 10^3/uL (130-450); RED BLOOD COUNT 3.68 10^6/uL (4.70-6.10); WHITE BLOOD COUNT 9.2 x10^3/uL (4.8-10.8)
[2019-02-07 00:03] LABS: CHOL/HDL RATIO 2.5 (<5.0); CHOLESTEROL 69 mg/dL; HDL CHOLESTEROL 28 mg/dL; LDL CHOLESTEROL,CALCULATED 30 mg/dL; LDL/HDL RATIO 1.1 (<3.6); VLDL CHOLESTEROL 11 mg/dL
[2019-02-07 00:10] LABS: THYROID STIMULATING HORMONE 3.22 uIU/mL (0.34-5.60)
[2019-02-07 00:12] LABS: FREE T4 (FREE THYROXINE) 1.07 ng/dL (0.58-1.64)
[2019-02-07 01:55] LABS: HB2 TOTAL 11.2 g/dL; HEMOGLOBIN A1C 0.4 g/dL; HEMOGLOBIN A1C % 5.4 % (4.6-6.2)
== END 2019-02-06 23:59 | disposition home or self-care (01) ==
LOC: LAB.R 23:28
DX: G92 Toxic encephalopathy (principal); E03.9 Hypothyroidism, unspecified; R94.6 Abnormal results of thyroid function studies; E11.9 Type 2 diabetes mellitus without complications
CPT/HCPCS: 80061; 83036; 83721; 84439; 84443; 85025

== ENCOUNTER 2019-03-18 07:30 | Outpatient (CLI) | payer MEDICARE, MEDICAID ==
[2019-03-18 08:59] LABS: BASOPHILS # (AUTO) 0.1 10^3/uL (0.0-0.1); BASOPHILS % (AUTO) 0.8 %; EOSINOPHILS # (AUTO) 0.7 10^3/uL (0.0-0.7); EOSINOPHILS % (AUTO) 7.2 %; HGB - HEMOGLOBIN 11.9 g/dL (14.0-18.0); LYMPHOCYTES # (AUTO) 1.9 10^3/uL (1.5-3.5); MEAN CORPUSCULAR HEMOGLOBIN 28.4 pg (27.0-31.0); MEAN CORPUSCULAR HGB CONC 31.1 g/dL (32.0-36.0); MEAN CORPUSCULAR VOLUME 91.4 fL (80.0-94.0); MONOCYTES # (AUTO) 0.6 10^3/uL (0.0-1.0); MONOCYTES % (AUTO) 6.4 %; NEUTROPHILS # (AUTO) 6.2 10^3/uL (1.5-6.6); NEUTROPHILS % (AUTO) 65.4 %; PLT - PLATELET COUNT 261 10^3/uL (130-450); RED BLOOD COUNT 4.19 10^6/uL (4.70-6.10); RED CELL DISTRIBUTION WIDTH 14.4 % (12.0-15.0); WHITE BLOOD COUNT 9.5 x10^3/uL (4.8-10.8)
[2019-03-18 09:15] LABS: ALBUMIN 2.9 g/dL (3.2-5.5); ALKALINE PHOSPHATASE 79 IU/L (42-121); ALT ALANINE AMINOTRANSFERASE 11 IU/L (10-60); AST ASPARTATE AMINOTRANSFERASE 12 IU/L (10-42); BILIRUBIN,TOTAL 0.6 mg/dL (0.2-1.0); BUN - BLOOD UREA NITROGEN 26 mg/dL (6-20); CALCIUM 8.8 mg/dL (8.5-10.3); CARBON DIOXIDE - CO2 27 mmol/L (21-32); CHLORIDE 101 mmol/L (101-111); CHOL/HDL RATIO 2.6 (<5.0); CHOLESTEROL 76 mg/dL; GFR - MDRD 71 (>89); GLUCOSE 83 mg/dL (70-100); HDL CHOLESTEROL 29 mg/dL; LDL CHOLESTEROL,CALCULATED 37 mg/dL; LDL/HDL RATIO 1.3 (<3.6); SODIUM 140 mmol/L (135-145); TOTAL PROTEIN 5.9 g/dL (6.7-8.2); VLDL CHOLESTEROL 10 mg/dL
[2019-03-18 09:22] LABS: HB2 TOTAL 12.4 g/dL; HEMOGLOBIN A1C 0.45 g/dL; HEMOGLOBIN A1C % 5.5 % (4.6-6.2)
[2019-03-19 11:44] LABS: HEPATITIS C ANTIBODY NON-REACTIVE (NON-REACTIVE)
== END 2019-03-18 23:59 | disposition home or self-care (01) ==
LOC: LAB.R 07:30
PROVIDERS: ATTEND Internal Medicine
DX: R68.89 Other general symptoms and signs (principal); R79.89 Other specified abnormal findings of blood chemistry; R94.6 Abnormal results of thyroid function studies; R73.09 Other abnormal glucose; E78.5 Hyperlipidemia, unspecified
CPT/HCPCS: 80053; 80061; 83036; 83721; 84443; 85025; 86803

== ENCOUNTER 2019-04-30 08:00 | Outpatient (CLI) | payer MEDICARE, MEDICAID ==
[2019-04-30 12:21] LABS: MEAN CORPUSCULAR HGB CONC 32.5 g/dL (32.0-36.0); MEAN CORPUSCULAR VOLUME 92.4 fL (80.0-94.0); MEAN PLATELET VOLUME 9.7 fL (7.4-11.4); NEUTROPHILS # (AUTO) 4.8 10^3/uL (1.5-6.6); NEUTROPHILS % (AUTO) 61.2 %; RED BLOOD COUNT 4.33 10^6/uL (4.70-6.10); RED CELL DISTRIBUTION WIDTH 15.6 % (12.0-15.0); WHITE BLOOD COUNT 7.8 x10^3/uL (4.8-10.8)
[2019-04-30 12:38] LABS: % IRON SATURATION 19 % (20-50); ALBUMIN 3.1 g/dL (3.2-5.5); ALBUMIN/GLOBULIN RATIO 1.1 (1.0-2.2); ALKALINE PHOSPHATASE 80 IU/L (42-121); ALT ALANINE AMINOTRANSFERASE < 10 IU/L (10-60); AST ASPARTATE AMINOTRANSFERASE 13 IU/L (10-42); BILIRUBIN,TOTAL 0.7 mg/dL (0.2-1.0); BUN - BLOOD UREA NITROGEN 21 mg/dL (6-20); CALCIUM 8.6 mg/dL (8.5-10.3); CARBON DIOXIDE - CO2 30 mmol/L (21-32); CHLORIDE 101 mmol/L (101-111); CREATININE 1.1 mg/dL (0.6-1.2); GFR - MDRD 64 (>89); GLUCOSE 112 mg/dL (70-100); IRON 41 ug/dL (45-182); SODIUM 137 mmol/L (135-145); TOTAL IRON BINDING CAPACITY 213 ug/dL (250-450); TOTAL PROTEIN 5.9 g/dL (6.7-8.2); TRANSFERRIN 152 mg/dL (180-329)
== END 2019-04-30 23:59 | disposition home or self-care (01) ==
LOC: LAB.R 08:00
DX: D64.9 Anemia, unspecified (principal)
CPT/HCPCS: 80053; 82728; 83540; 84466; 85027

== ENCOUNTER 2019-05-21 15:15 | Outpatient (CLI) | payer MEDICARE, MEDICAID ==
[2019-05-21 16:56] LABS: BASOPHILS # (AUTO) 0.1 10^3/uL (0.0-0.1); EOSINOPHILS # (AUTO) 0.5 10^3/uL (0.0-0.7); EOSINOPHILS % (AUTO) 5.6 %; HGB - HEMOGLOBIN 12.3 g/dL (14.0-18.0); LYMPHOCYTES # (AUTO) 1.5 10^3/uL (1.5-3.5); LYMPHOCYTES % (AUTO) 17.9 %; MEAN CORPUSCULAR HEMOGLOBIN 30.5 pg (27.0-31.0); MEAN CORPUSCULAR HGB CONC 32.4 g/dL (32.0-36.0); MEAN CORPUSCULAR VOLUME 94.3 fL (80.0-94.0); MEAN PLATELET VOLUME 9.9 fL (7.4-11.4); MONOCYTES # (AUTO) 0.5 10^3/uL (0.0-1.0); MONOCYTES % (AUTO) 6.5 %; NEUTROPHILS # (AUTO) 5.7 10^3/uL (1.5-6.6); NEUTROPHILS % (AUTO) 68.5 %; PLT - PLATELET COUNT 248 10^3/uL (130-450); RED BLOOD COUNT 4.03 10^6/uL (4.70-6.10); RED CELL DISTRIBUTION WIDTH 15.5 % (12.0-15.0); WHITE BLOOD COUNT 8.3 x10^3/uL (4.8-10.8)
[2019-05-21 17:12] LABS: CALCIUM 8.4 mg/dL (8.5-10.3)
== END 2019-05-21 23:59 | disposition home or self-care (01) ==
LOC: LAB.R 15:15
DX: E03.9 Hypothyroidism, unspecified (principal); E11.9 Type 2 diabetes mellitus without complications; G92 Toxic encephalopathy
CPT/HCPCS: 80048; 82728; 83540; 84466; 85025

== ENCOUNTER 2019-07-18 03:57 | Outpatient (CLI) | payer MEDICARE, MEDICAID ==
[2019-07-18 05:42] LABS: ALBUMIN 2.9 g/dL (3.2-5.5); ALBUMIN/GLOBULIN RATIO 1.2 (1.0-2.2); ALKALINE PHOSPHATASE 71 IU/L (42-121); ALT ALANINE AMINOTRANSFERASE < 10 IU/L (10-60); AST ASPARTATE AMINOTRANSFERASE 10 IU/L (10-42); BILIRUBIN,TOTAL 0.6 mg/dL (0.2-1.0); BUN - BLOOD UREA NITROGEN 21 mg/dL (6-20); CALCIUM 8.3 mg/dL (8.5-10.3); CARBON DIOXIDE - CO2 30 mmol/L (21-32); CHLORIDE 100 mmol/L (101-111); CHOL/HDL RATIO 2.8 (<5.0); CHOLESTEROL 89 mg/dL; CREATININE 1.2 mg/dL (0.6-1.2); GFR - MDRD 58 (>89); GLUCOSE 81 mg/dL (70-100); HDL CHOLESTEROL 32 mg/dL; LDL CHOLESTEROL,CALCULATED 42 mg/dL; LDL/HDL RATIO 1.3 (<3.6); SODIUM 138 mmol/L (135-145); TOTAL PROTEIN 5.4 g/dL (6.7-8.2); VLDL CHOLESTEROL 15 mg/dL
[2019-07-18 05:43] LABS: HB2 TOTAL 12.3 g/dL; HEMOGLOBIN A1C 0.45 g/dL; HEMOGLOBIN A1C % 5.5 % (4.6-6.2)
== END 2019-07-18 23:59 | disposition home or self-care (01) ==
LOC: LAB.R 03:57
DX: I50.9 Heart failure, unspecified (principal); E11.9 Type 2 diabetes mellitus without complications; E03.9 Hypothyroidism, unspecified; N20.0 Calculus of kidney
CPT/HCPCS: 80053; 80061; 83036; 83721

== ENCOUNTER 2019-08-19 14:30 | Outpatient (CLI) | payer MEDICARE, MEDICAID ==
[2019-08-19 15:47] LABS: BASOPHILS # (AUTO) 0.1 10^3/uL (0.0-0.1); BASOPHILS % (AUTO) 0.9 %; EOSINOPHILS # (AUTO) 0.5 10^3/uL (0.0-0.7); EOSINOPHILS % (AUTO) 6.3 %; HGB - HEMOGLOBIN 11.9 g/dL (14.0-18.0); LYMPHOCYTES % (AUTO) 26.4 %; MEAN CORPUSCULAR HEMOGLOBIN 30.4 pg (27.0-31.0); MEAN CORPUSCULAR VOLUME 95.1 fL (80.0-94.0); MEAN PLATELET VOLUME 9.8 fL (7.4-11.4); MONOCYTES # (AUTO) 0.5 10^3/uL (0.0-1.0); MONOCYTES % (AUTO) 6.4 %; NEUTROPHILS # (AUTO) 4.4 10^3/uL (1.5-6.6); NEUTROPHILS % (AUTO) 59.5 %; PLT - PLATELET COUNT 233 10^3/uL (130-450); RED BLOOD COUNT 3.91 10^6/uL (4.70-6.10); RED CELL DISTRIBUTION WIDTH 13.5 % (12.0-15.0); WHITE BLOOD COUNT 7.5 x10^3/uL (4.8-10.8)
[2019-08-19 16:01] LABS: ALBUMIN 2.8 g/dL (3.2-5.5); ALBUMIN/GLOBULIN RATIO 1.1 (1.0-2.2); ALKALINE PHOSPHATASE 70 IU/L (42-121); ALT ALANINE AMINOTRANSFERASE < 10 IU/L (10-60); AST ASPARTATE AMINOTRANSFERASE 12 IU/L (10-42); BILIRUBIN,TOTAL 0.7 mg/dL (0.2-1.0); BUN - BLOOD UREA NITROGEN 27 mg/dL (6-20); CALCIUM 8.6 mg/dL (8.5-10.3); CARBON DIOXIDE - CO2 29 mmol/L (21-32); CHLORIDE 103 mmol/L (101-111); CHOL/HDL RATIO 3.4 (<5.0); CHOLESTEROL 86 mg/dL; CREATININE 1.1 mg/dL (0.6-1.2); GFR - MDRD 64 (>89); GLUCOSE 97 mg/dL (70-100); HDL CHOLESTEROL 25 mg/dL; LDL CHOLESTEROL,CALCULATED 41 mg/dL; LDL/HDL RATIO 1.6 (<3.6); MAGNESIUM 1.9 mg/dL (1.7-2.8); SODIUM 140 mmol/L (135-145); TOTAL PROTEIN 5.4 g/dL (6.7-8.2); VLDL CHOLESTEROL 20 mg/dL
[2019-08-19 16:06] LABS: HB2 TOTAL 11.5 g/dL; HEMOGLOBIN A1C 0.42 g/dL; HEMOGLOBIN A1C % 5.5 % (4.6-6.2)
== END 2019-08-19 23:59 | disposition home or self-care (01) ==
LOC: LAB.R 14:30
DX: I11.0 Hypertensive heart disease with heart failure (principal); I50.9 Heart failure, unspecified; E66.9 Obesity, unspecified; E03.9 Hypothyroidism, unspecified; E61.2 Magnesium deficiency; N40.0 Benign prostatic hyperplasia without lower urinary tract symptoms; E11.9 Type 2 diabetes mellitus without complications
CPT/HCPCS: 80053; 80061; 83036; 83721; 83735; 84443; 85025

== ENCOUNTER 2019-10-16 08:00 | Outpatient (CLI) | payer MEDICARE, MEDICAID ==
[2019-10-16 10:01] LABS: BASOPHILS # (AUTO) 0.1 10^3/uL (0.0-0.1); BASOPHILS % (AUTO) 0.7 %; EOSINOPHILS # (AUTO) 0.4 10^3/uL (0.0-0.7); EOSINOPHILS % (AUTO) 4.3 %; HGB - HEMOGLOBIN 11.9 g/dL (14.0-18.0); LYMPHOCYTES # (AUTO) 1.8 10^3/uL (1.5-3.5); LYMPHOCYTES % (AUTO) 20.7 %; MEAN CORPUSCULAR HEMOGLOBIN 29.5 pg (27.0-31.0); MEAN CORPUSCULAR HGB CONC 30.6 g/dL (32.0-36.0); MEAN CORPUSCULAR VOLUME 96.5 fL (80.0-94.0); MEAN PLATELET VOLUME 10.1 fL (7.4-11.4); MONOCYTES # (AUTO) 0.7 10^3/uL (0.0-1.0); MONOCYTES % (AUTO) 7.8 %; NEUTROPHILS # (AUTO) 5.7 10^3/uL (1.5-6.6); NEUTROPHILS % (AUTO) 65.9 %; PLT - PLATELET COUNT 249 10^3/uL (130-450); RED BLOOD COUNT 4.03 10^6/uL (4.70-6.10); RED CELL DISTRIBUTION WIDTH 14.2 % (12.0-15.0); WHITE BLOOD COUNT 8.6 x10^3/uL (4.8-10.8)
[2019-10-16 10:20] LABS: ALBUMIN/GLOBULIN RATIO 1.1 (1.0-2.2); ALKALINE PHOSPHATASE 85 IU/L (42-121); ALT ALANINE AMINOTRANSFERASE 12 IU/L (10-60); AST ASPARTATE AMINOTRANSFERASE 15 IU/L (10-42); BILIRUBIN,TOTAL 0.3 mg/dL (0.2-1.0); BUN - BLOOD UREA NITROGEN 26 mg/dL (6-20); CALCIUM 8.4 mg/dL (8.5-10.3); CARBON DIOXIDE - CO2 28 mmol/L (21-32); CHLORIDE 104 mmol/L (101-111); CHOL/HDL RATIO 2.8 (<5.0); CHOLESTEROL 91 mg/dL; CREATININE 0.9 mg/dL (0.6-1.2); GLUCOSE 92 mg/dL (70-100); HDL CHOLESTEROL 32 mg/dL; LDL CHOLESTEROL,CALCULATED 44 mg/dL; LDL/HDL RATIO 1.4 (<3.6); SODIUM 140 mmol/L (135-145); TOTAL PROTEIN 5.7 g/dL (6.7-8.2); VLDL CHOLESTEROL 15 mg/dL
[2019-10-16 12:30] LABS: HB2 TOTAL 11.9 g/dL; HEMOGLOBIN A1C 0.51 g/dL; HEMOGLOBIN A1C % 6.1 % (4.6-6.2)
== END 2019-10-16 23:59 | disposition home or self-care (01) ==
LOC: LAB.R 08:00
DX: N20.0 Calculus of kidney (principal); E78.5 Hyperlipidemia, unspecified; E03.9 Hypothyroidism, unspecified; D64.9 Anemia, unspecified; E11.9 Type 2 diabetes mellitus without complications
CPT/HCPCS: 80053; 80061; 83036; 83721; 84443; 85025

== ENCOUNTER 2020-01-19 08:00 | Outpatient (CLI) | payer MEDICARE, MEDICAID ==
[2020-01-19 15:17] LABS: CALCIUM 8.4 mg/dL (8.5-10.3); CREATININE 0.8 mg/dL (0.6-1.2)
== END 2020-01-19 23:59 | disposition home or self-care (01) ==
LOC: LAB.R 08:00
PROVIDERS: ATTEND Family Medicine
DX: D64.9 Anemia, unspecified (principal)
CPT/HCPCS: 80048

== ENCOUNTER 2020-01-29 14:10 | Outpatient (CLI) | payer MEDICARE, MEDICAID ==
--- NOTE | 2020-01-29 16:38 | XRAY Report ---
PROCEDURE: Chest 2 View X-Ray INDICATIONS: FRACTURED RIB TECHNIQUE: 2 view(s) of the chest. COMPARISON: 2 view chest 12/29/2017 FINDINGS: Surgical changes and devices: None. Lungs and pleura: No pleural effusions or pneumothorax. Lungs are clear of acute opacities. Calcifi ed granuloma in the right midlung is stable. Mediastinum: Mediastinal contours are normal. Heart size is normal. Bones and chest wall: No suspicious bony abnormalities. Soft tissues appear unremarkable. IMPRESSION: 1. No displaced rib fracture. 2. No acute cardiopulmonary disease process. Reviewed by: Kaye Durham MD, PhD on 01/29/2020 4:37 PM PDT Approved by: Kaye Durham MD, PhD on 01/29/2020 4:37 PM PDT Station ID: [id number]
== END 2020-01-29 14:11 | disposition home or self-care (01) ==
LOC: DI 14:10
PROVIDERS: ATTEND Nurse Practitioner
DX: R09.89 Other specified symptoms and signs involving the circulatory and respiratory systems (principal)
CPT/HCPCS: 71046

== ENCOUNTER 2020-06-05 07:00 | Outpatient (CLI) | payer MEDICARE, MEDICAID ==
[2020-06-05 12:20] LABS: BASOPHILS # (AUTO) 0.1 10^3/uL (0.0-0.1); BASOPHILS % (AUTO) 0.8 %; EOSINOPHILS # (AUTO) 0.3 10^3/uL (0.0-0.7); EOSINOPHILS % (AUTO) 3.9 %; HGB - HEMOGLOBIN 10.6 g/dL (14.0-18.0); LYMPHOCYTES # (AUTO) 1.2 10^3/uL (1.5-3.5); LYMPHOCYTES % (AUTO) 14.2 %; MEAN CORPUSCULAR HEMOGLOBIN 28.6 pg (27.0-31.0); MEAN CORPUSCULAR HGB CONC 31.2 g/dL (32.0-36.0); MEAN CORPUSCULAR VOLUME 91.6 fL (80.0-94.0); MEAN PLATELET VOLUME 9.7 fL (7.4-11.4); MONOCYTES # (AUTO) 0.4 10^3/uL (0.0-1.0); MONOCYTES % (AUTO) 5.3 %; NEUTROPHILS # (AUTO) 6.3 10^3/uL (1.5-6.6); NEUTROPHILS % (AUTO) 75.3 %; PLT - PLATELET COUNT 431 10^3/uL (130-450); RED BLOOD COUNT 3.71 10^6/uL (4.70-6.10); RED CELL DISTRIBUTION WIDTH 13.8 % (12.0-15.0); WHITE BLOOD COUNT 8.3 x10^3/uL (4.8-10.8)
[2020-06-05 12:42] LABS: ALBUMIN 2.7 g/dL (3.2-5.5); ALBUMIN/GLOBULIN RATIO 0.8 (1.0-2.2); ALKALINE PHOSPHATASE 80 IU/L (42-121); ALT ALANINE AMINOTRANSFERASE < 10 IU/L (10-60); AST ASPARTATE AMINOTRANSFERASE 11 IU/L (10-42); BILIRUBIN,TOTAL 0.7 mg/dL (0.2-1.0); BUN - BLOOD UREA NITROGEN 21 mg/dL (6-20); CALCIUM 8.7 mg/dL (8.5-10.3); CARBON DIOXIDE - CO2 28 mmol/L (21-32); CHLORIDE 102 mmol/L (101-111); CHOL/HDL RATIO 3.3 (<5.0); CHOLESTEROL 98 mg/dL; CREATININE 0.9 mg/dL (0.6-1.2); GLUCOSE 99 mg/dL (70-100); HDL CHOLESTEROL 30 mg/dL; LDL CHOLESTEROL,CALCULATED 53 mg/dL; LDL/HDL RATIO 1.8 (<3.6); SODIUM 139 mmol/L (135-145); TOTAL PROTEIN 6.1 g/dL (6.7-8.2); VLDL CHOLESTEROL 15 mg/dL
== END 2020-06-05 23:59 | disposition home or self-care (01) ==
LOC: LAB.R 07:00
DX: E03.9 Hypothyroidism, unspecified (principal); D64.9 Anemia, unspecified; E11.9 Type 2 diabetes mellitus without complications; E66.9 Obesity, unspecified
CPT/HCPCS: 80053; 80061; 82728; 83721; 85025

== ENCOUNTER 2020-09-25 12:30 | Outpatient (CLI) | payer MEDICARE, MEDICAID ==
[2020-09-25 13:10] LABS: BASOPHILS # (AUTO) 0.1 10^3/uL (0.0-0.1); BASOPHILS % (AUTO) 0.9 %; EOSINOPHILS # (AUTO) 0.3 10^3/uL (0.0-0.7); EOSINOPHILS % (AUTO) 4.4 %; HCT - HEMATOCRIT 36.7 % (42.0-52.0); LYMPHOCYTES # (AUTO) 1.3 10^3/uL (1.5-3.5); LYMPHOCYTES % (AUTO) 20.1 %; MEAN CORPUSCULAR HEMOGLOBIN 27.5 pg (27.0-31.0); MEAN CORPUSCULAR VOLUME 91.8 fL (80.0-94.0); MONOCYTES # (AUTO) 0.5 10^3/uL (0.0-1.0); MONOCYTES % (AUTO) 7.3 %; NEUTROPHILS # (AUTO) 4.3 10^3/uL (1.5-6.6); PLT - PLATELET COUNT 288 10^3/uL (130-450); RED CELL DISTRIBUTION WIDTH 15.5 % (12.0-15.0); WHITE BLOOD COUNT 6.4 x10^3/uL (4.8-10.8)
[2020-09-25 13:33] LABS: ALBUMIN/GLOBULIN RATIO 1.1 (1.0-2.2); ALKALINE PHOSPHATASE 76 IU/L (42-121); ALT ALANINE AMINOTRANSFERASE < 10 IU/L (10-60); AST ASPARTATE AMINOTRANSFERASE 11 IU/L (10-42); BILIRUBIN,TOTAL 0.4 mg/dL (0.2-1.0); BUN - BLOOD UREA NITROGEN 42 mg/dL (6-20); CALCIUM 8.8 mg/dL (8.5-10.3); CARBON DIOXIDE - CO2 25 mmol/L (21-32); CHLORIDE 105 mmol/L (101-111); GFR - MDRD 71 (>89); GLUCOSE 93 mg/dL (70-100); POTASSIUM 3.7 mmol/L (3.5-5.0); SODIUM 141 mmol/L (135-145); TOTAL PROTEIN 5.7 g/dL (6.7-8.2)
[2020-09-25 13:49] LABS: FERRITIN 19.4 ng/mL (23.9-336.2)
== END 2020-09-25 23:59 | disposition home or self-care (01) ==
LOC: LAB.R 12:30
DX: I11.0 Hypertensive heart disease with heart failure (principal); I50.9 Heart failure, unspecified; E03.9 Hypothyroidism, unspecified; D63.8 Anemia in other chronic diseases classified elsewhere
CPT/HCPCS: 80053; 82728; 84443; 85025

== ENCOUNTER 2021-01-12 20:21 | Outpatient (CLI) | payer MEDICARE, MEDICAID | END 2021-01-12 20:22 | disposition critical access hospital (66) | LOC: EMS 20:21 | DX: N48.89 Other specified disorders of penis (principal) | CPT/HCPCS: A0425; A0429 ==

== ENCOUNTER 2021-01-12 20:31 | Emergency (ER) | payer MEDICARE, MEDICAID ==
--- NOTE | 2021-01-12 21:11 | ED Physician Documentation ---
PD HPI MALE - Stated complaint Stated Complaint: - Chief complaint Chief Complaint: Abd Pain - History obtained from History obtained from: Patient, EMS - History of Present Illness Timing - onset: Today Timing - duration: Seconds Timing - details: Abrupt onset Associated symptoms: Hematuria Similar symptoms before: Has not had sx before Recently seen: Not recently seen - Additional information Additional information: 85-year-old male with a history of chronic atrial fibrillation who is s/p CVA while on Coumadin has had issues previously with GI bleeding related to Xarelto and has been taken off his Xarelto. Today in the prison he was noted to have a squirt of blood from his penis. Patient states he is not having symptoms. Review of Systems Constitutional: denies: Fever Eyes: denies: Decreased vision Ears: denies: Ear pain Nose: denies: Congestion Throat: denies: Sore throat Cardiac: denies: Chest pain / pressure Respiratory: denies: Dyspnea, Cough GI: denies: Abdominal Pain, Vomiting : reports: Hematuria. denies: Dysuria PD PAST MEDICAL HISTORY - Past Medical History Cardiovascular: Congestive heart failure, Hypertension, Atrial fibrillation Respiratory: None Neuro: CVA Endocrine/Autoimmune: Type 2 diabetes, HyPOthyroidism, Other GI: GERD, Other : Kidney stones HEENT: None Psych: None Musculoskeletal: Osteoarthritis, Other Derm: Other - Past Surgical History Past Surgical History: Yes General: Cholecystectomy Ortho: Knee replacement - Present Medications Home Medications: Ambulatory Orders Medication Instructions Recorded Confirmed Aspirin 81 mg PO DAILY 07/12/13 11/23/20 Finasteride 5 mg PO DAILY 07/12/13 11/23/20 traZODone [Desyrel] 50 mg PO HS 07/12/13 11/23/20 Glucosamine Sulfate 1,000 mg PO BIDWM 11/20/13 11/23/20 Levothyroxine [Synthroid] 25 mcg PO QDAC 11/20/13 11/23/20 Acetaminophen 650 mg PO Q6HR PRN 12/29/17 11/23/20 Amlodipine Besylate 5 mg PO DAILY 12/29/17 11/23/20 Atorvastatin Calcium 10 mg PO QPM 12/29/17 11/23/20 Fluticasone [Flonase] 1 spray NS QPM 12/29/17 11/23/20 Isosorbide Mononitrate [Isosorbide 30 mg PO DAILY 12/29/17 11/23/20 Mononitrate ER] Losartan Potassium 50 mg PO DAILY 12/29/17 11/23/20 Metoprolol Tartrate 50 mg PO BID 12/29/17 11/23/20 Tamsulosin HCl [Flomax] 0.4 mg PO QPM 12/29/17 11/23/20 Ascorbic Acid 2,000 mg PO BID 12/26/18 11/23/20 Loperamide [Imodium] 2 mg PO QID PRN 12/26/18 11/23/20 Bisacodyl Supp [Dulcolax Supp] 10 mg .ROUTE BID PRN 02/24/20 11/23/20 Famotidine [Pepcid AC] 10 mg PO DAILY 02/24/20 11/23/20 Ferrous Gluconate [Iron] 240 mg PO DAILY 02/24/20 11/23/20 Magnesium Hydroxide [Milk of 30 ml PO DAILY PRN 02/24/20 11/23/20 Magnesia] Mineral Oil 1 applic .ROUTE DAILY PRN 02/24/20 11/23/20 Senna [Senokot] 8.6 - 17.2 mg PO DAILY PRN 02/24/20 11/23/20 Amox/Clav 875/125 [Augmentin] 1 each PO Q12H #14 tablet 01/13/21 Lactobacillus Rhamnosus GG 1 cap PO DAILY #10 cap 01/13/21 [Culturelle] - Allergies Allergies/Adverse Reactions: Allergies Allergy/AdvReac Type Severity Reaction Status Date / Time No Known Drug Allergies Allergy Verified 11/23/20 13:08 - Social History Does the pt smoke?: No Smoking Status: Former smoker Does the pt drink ETOH?: No Does the pt have substance abuse?: No - Immunizations Immunizations are current?: Yes - POLST Patient has POLST: Yes POLST Status: DNR PD ED PE NORMAL - Vitals Vital signs reviewed: Yes (hypertensive mild) - General General: Alert and oriented X 3, No acute distress, Well developed/nourished - HEENT HEENT: Atraumatic, PERRL, EOMI - Cardiac Cardiac: RRR, No murmur - Respiratory Respiratory: No respiratory distress, Clear bilaterally - Abdomen Abdomen: Soft, Non tender, Non distended, Other (high pitched bowel sounds large abdomen. 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, Normal speech, Other (weakness is general LE>UE) Eye Opening: Spontaneous Motor: Obeys Commands Verbal: Oriented GCS Score: 15 - Psych Psych: Normal mood, Normal affect Results - Vitals Vitals: Vital Signs - 24 hr 01/12/21 01/12/21 01/12/21 20:46 21:22 23:00 Temperature 36.1 C L Heart Rate 69 70 72 Respiratory 14 14 Rate Blood Pressure 137/73 H 160/80 H 152/92 H O2 Saturation 98 97 97 01/13/21 01:00 Temperature 36.6 C Heart Rate 83 Respiratory 16 Rate Blood Pressure 165/75 H O2 Saturation 97 Oxygen O2 Source [With Activity] Oxymizer O2 Source Room air - Labs Labs: Laboratory Tests 01/12/21 01/12/21 01/12/21 21:25 21:25 21:25 WBC 5.0 RBC 4.48 L Hgb 13.3 L Hct 42.2 MCV 94.2 H MCH 29.7 MCHC 31.5 L RDW 15.9 H Plt Count 266 MPV 9.7 Neut # (Auto) 2.8 Lymph # (Auto) 1.2 L [place] # (Auto) 0.6 Eos # (Auto) 0.4 Baso # (Auto) 0.0 Absolute Nucleated RBC 0.00 Nucleated RBC % 0.0 PT 12.3 INR 1.1 Sodium 141 Potassium 3.1 L Chloride 106 Carbon Dioxide 25 Anion Gap 10.0 BUN 41 H Creatinine 1.0 Estimated GFR (MDRD) 71 L Glucose 98 Calcium 8.8 Total Bilirubin 0.5 AST 10 ALT 11 Alkaline Phosphatase 91 Total Protein 6.1 L Albumin 3.4 Globulin 2.7 Albumin/Globulin Ratio 1.3 Lipase 22 Urine Color Urine Clarity Urine pH Ur Specific [place] Urine Protein Urine Glucose (UA) Urine Ketones Urine Occult Blood Urine Nitrite Urine Bilirubin Urine Urobilinogen Ur Leukocyte Esterase Urine RBC Urine WBC Ur Squamous Epith Cells Urine Bacteria Ur Microscopic Review Urine Culture Comments 01/12/21 23:55 WBC RBC Hgb Hct MCV MCH MCHC RDW Plt Count MPV Neut # (Auto) Lymph # (Auto) [place] # (Auto) Eos # (Auto) Baso # (Auto) Absolute Nucleated RBC Nucleated RBC % PT INR Sodium Potassium Chloride Carbon Dioxide Anion Gap BUN Creatinine Estimated GFR (MDRD) Glucose Calcium Total Bilirubin AST ALT Alkaline Phosphatase Total Protein Albumin Globulin Albumin/Globulin Ratio Lipase Urine Color BROWN Urine Clarity CLOUDY Urine pH 6.0 Ur Specific [place] 1.015 Urine Protein 100 H Urine Glucose (UA) NEGATIVE Urine Ketones TRACE Urine Occult Blood LARGE H Urine Nitrite POSITIVE H Urine Bilirubin NEGATIVE Urine Urobilinogen 0.2 (NORMAL) Ur Leukocyte Esterase LARGE H Urine RBC TNTC H Urine WBC >25 H Ur Squamous Epith Cells RARE Squamous Urine Bacteria Few Ur Microscopic Review INDICATED Urine Culture Comments INDICATED PD MEDICAL DECISION MAKING - ED course Complexity details: reviewed old records, reviewed results, considered differential, d/w patient ED course: 85-year-old male has developed hematuria and has evidence of infection. His administered IM Rocephin and we will place him on a course of antibiotic that he will be able to continue at his prison. Departure - Departure Disposition: 01 Home, Self Care Clinical Impression: Urinary tract infection Qualifiers: Urinary tract infection type: acute cystitis Hematuria presence: with hematuria Qualified Code(s): N30.01 - Acute cystitis with hematuria Condition: Stable Instructions: ED UTI Cystitis Male Follow-Up: Tabitha Garcia MD [Primary Care Provider] - Prescriptions: Amox/Clav 875/125 [Augmentin] 1 each PO Q12H #14 tablet Lactobacillus Rhamnosus GG [Culturelle] 1 cap PO DAILY #10 cap
[2021-01-12 21:35] LABS: BASOPHILS % (AUTO) 0.6 %; EOSINOPHILS # (AUTO) 0.4 10^3/uL (0.0-0.7); EOSINOPHILS % (AUTO) 7.8 %; HCT - HEMATOCRIT 42.2 % (42.0-52.0); HGB - HEMOGLOBIN 13.3 g/dL (14.0-18.0); LYMPHOCYTES # (AUTO) 1.2 10^3/uL (1.5-3.5); LYMPHOCYTES % (AUTO) 23.4 %; MEAN CORPUSCULAR HEMOGLOBIN 29.7 pg (27.0-31.0); MEAN CORPUSCULAR HGB CONC 31.5 g/dL (32.0-36.0); MEAN CORPUSCULAR VOLUME 94.2 fL (80.0-94.0); MEAN PLATELET VOLUME 9.7 fL (7.4-11.4); MONOCYTES # (AUTO) 0.6 10^3/uL (0.0-1.0); NEUTROPHILS # (AUTO) 2.8 10^3/uL (1.5-6.6); NEUTROPHILS % (AUTO) 56.6 %; PLT - PLATELET COUNT 266 10^3/uL (130-450); RED BLOOD COUNT 4.48 10^6/uL (4.70-6.10); RED CELL DISTRIBUTION WIDTH 15.9 % (12.0-15.0)
[2021-01-12 21:40] LABS: INR 1.1 (0.8-1.2); PT - PROTHROMBIN TIME 12.3 secs (9.9-12.6)
[2021-01-12 21:49] LABS: ALBUMIN 3.4 g/dL (3.2-5.5); ALBUMIN/GLOBULIN RATIO 1.3 (1.0-2.2); BILIRUBIN,TOTAL 0.5 mg/dL (0.2-1.0); CALCIUM 8.8 mg/dL (8.5-10.3); POTASSIUM 3.1 mmol/L (3.5-5.0); TOTAL PROTEIN 6.1 g/dL (6.7-8.2)
[2021-01-13 00:09] LABS: GLUCOSE, URINE (UA) NEGATIVE (NEGATIVE); KETONES,URINE (UA) TRACE mg/dL (NEGATIVE); LEUKOCYTE ESTERASE, URINE LARGE (NEGATIVE); NITRITE,URINE POSITIVE (NEGATIVE); OCCULT BLOOD,URINE LARGE (NEGATIVE); PROTEIN,URINE 100 mg/dL (NEGATIVE); UROBILINOGEN,URINE 0.2 (NORMAL) E.U./dL (NORMAL)
[2021-01-13 00:18] LABS: BILIRUBIN,URINE NEGATIVE (NEGATIVE); CLARITY,URINE CLOUDY (CLEAR); ICTOTEST,URINE NEGATIVE
[2021-01-13 00:19] LABS: BACTERIA,URINE Few /HPF (None Seen); RBC,URINE TNTC /HPF (0-5); SQUAMOUS EPITHELIAL CELL,UR RARE Squamous (<= Few); WBC,URINE >25 /HPF (0-3)
[2021-01-13] MEDS ORDERED: LIDOCAINE 1% 2 ML VIAL MC ONE (00:24)
[2021-01-13] MEDS ORDERED: cefTRIAXone 1 GM VIAL IM STA (00:24)
[2021-01-13 02:05] VITALS: BP 147/74
== END 2021-01-13 02:03 | disposition home or self-care (01) ==
LOC: EDUNIT# → SUPCPDRO 20:31 → ED 20:31
DX: N30.01 Acute cystitis with hematuria (principal); I48.20 Chronic atrial fibrillation, unspecified; I10 Essential (primary) hypertension; E11.9 Type 2 diabetes mellitus without complications; Z86.73 Personal history of transient ischemic attack (TIA), and cerebral infarction without residual deficits; Z79.82 Long term (current) use of aspirin; Z87.891 Personal history of nicotine dependence
CPT/HCPCS: 36415; 80053; 81001; 81003; 83690; 85025; 85610; 87086; 96372; 99283

== ENCOUNTER 2021-01-13 02:00 | Outpatient (CLI) | payer MEDICARE, MEDICAID | END 2021-01-13 02:01 | disposition home or self-care (01) | LOC: EMS 02:00 | PROVIDERS: ATTEND Emergency Medicine | DX: I69.365 Other paralytic syndrome following cerebral infarction, bilateral (principal); Z74.01 Bed confinement status | CPT/HCPCS: A0425; A0428 ==

== ENCOUNTER 2021-05-12 10:52 | Outpatient (CLI) | payer MEDICARE, MEDICAID ==
[2021-05-12 11:06] LABS: BASOPHILS % (AUTO) 0.8 %; EOSINOPHILS % (AUTO) 2.5 %; HCT - HEMATOCRIT 35.9 % (42.0-52.0); HGB - HEMOGLOBIN 11.3 g/dL (14.0-18.0); LYMPHOCYTES % (AUTO) 15.1 %; MEAN CORPUSCULAR HEMOGLOBIN 30.5 pg (27.0-31.0); MEAN CORPUSCULAR HGB CONC 31.5 g/dL (32.0-36.0); MEAN CORPUSCULAR VOLUME 96.8 fL (80.0-94.0); MONOCYTES % (AUTO) 10.4 %; NEUTROPHILS % (AUTO) 70.8 %; PLT - PLATELET COUNT 233 10^3/uL (130-450); RED BLOOD COUNT 3.71 10^6/uL (4.70-6.10); RED CELL DISTRIBUTION WIDTH 14.9 % (12.0-15.0); WHITE BLOOD COUNT 5.3 x10^3/uL (4.8-10.8)
[2021-05-12 11:18] LABS: ABNORMAL LYMPHS % (MANUAL) 0 %; CALCIUM 8.6 mg/dL (8.5-10.3); CREATININE 0.9 mg/dL (0.6-1.2); POTASSIUM 2.8 mmol/L (3.5-5.0)
[2021-05-12 11:28] LABS: BAND NEUTROPHILS % (MANUAL) 5 %; BASOPHILS # (MANUAL) 0.1 10^3/uL (0-0.1); BASOPHILS % (MANUAL) 1 %; EOSINOPHILS # (MANUAL) 0.2 10^3/uL (0-0.7); LYMPHOCYTES # (MANUAL) 0.7 10^3/uL (1.5-3.5); LYMPHOCYTES % (MANUAL) 14 %; MONOCYTES # (MANUAL) 0.6 10^3/uL (0.0-1.0); NEUTROPHILS # (MANUAL) 3.7 10^3/uL (1.5-6.6); PLATELET ESTIMATE, MANUAL NORMAL (130-450,000) (NORMAL); PLATELET MORPHOLOGY NORMAL APPEARANCE (NORMAL); RBC MORPHOLOGY (MULTIPLE) NORMAL APPEARANCE (NORMAL)
[2021-05-12 11:29] LABS: DIFFERENTIAL COMMENT MANUAL DIFFERENTIAL
== END 2021-05-12 10:53 | disposition home or self-care (01) ==
LOC: LAB.R 10:52
PROVIDERS: ATTEND Family Medicine
DX: E78.5 Hyperlipidemia, unspecified (principal); E87.6 Hypokalemia; D64.9 Anemia, unspecified; E03.9 Hypothyroidism, unspecified; D63.8 Anemia in other chronic diseases classified elsewhere
CPT/HCPCS: 80048; 82728; 85025

== ENCOUNTER 2021-05-21 08:00 | Outpatient (CLI) | payer MEDICARE, MEDICAID | END 2021-05-21 08:01 | disposition home or self-care (01) | LOC: LAB 08:00 | PROVIDERS: ATTEND Family Medicine | DX: E44.1 Mild protein-calorie malnutrition (principal); E66.9 Obesity, unspecified; D50.9 Iron deficiency anemia, unspecified; E87.6 Hypokalemia; M62.81 Muscle weakness (generalized); D63.8 Anemia in other chronic diseases classified elsewhere | CPT/HCPCS: 36415; 84132 ==

== ENCOUNTER 2021-08-31 08:00 | Outpatient (CLI) | payer MEDICARE, MEDICAID ==
[2021-08-31 17:19] LABS: BASOPHILS % (AUTO) 0.5 %; EOSINOPHILS # (AUTO) 0.3 10^3/uL (0.0-0.7); EOSINOPHILS % (AUTO) 4.8 %; HCT - HEMATOCRIT 33.7 % (42.0-52.0); HGB - HEMOGLOBIN 10.5 g/dL (14.0-18.0); LYMPHOCYTES # (AUTO) 1.1 10^3/uL (1.5-3.5); LYMPHOCYTES % (AUTO) 18.5 %; MEAN CORPUSCULAR HEMOGLOBIN 30.3 pg (27.0-31.0); MEAN CORPUSCULAR HGB CONC 31.2 g/dL (32.0-36.0); MEAN CORPUSCULAR VOLUME 97.1 fL (80.0-94.0); MEAN PLATELET VOLUME 10.2 fL (7.4-11.4); MONOCYTES # (AUTO) 0.5 10^3/uL (0.0-1.0); MONOCYTES % (AUTO) 8.9 %; NEUTROPHILS # (AUTO) 3.9 10^3/uL (1.5-6.6); NEUTROPHILS % (AUTO) 67.1 %; PLT - PLATELET COUNT 204 10^3/uL (130-450); RED BLOOD COUNT 3.47 10^6/uL (4.70-6.10); RED CELL DISTRIBUTION WIDTH 13.5 % (12.0-15.0); WHITE BLOOD COUNT 5.8 x10^3/uL (4.8-10.8)
[2021-08-31 17:33] LABS: ALBUMIN 2.8 g/dL (3.2-5.5); BILIRUBIN,TOTAL 0.8 mg/dL (0.2-1.0); CRP - C-REACTIVE PROTEIN 4.5 mg/dL (0-1.0); POTASSIUM 3.1 mmol/L (3.5-5.0); TOTAL PROTEIN 5.6 g/dL (6.7-8.2)
== END 2021-08-31 23:59 ==
LOC: LAB.R 08:00
DX: U07.1 COVID-19 (principal)
CPT/HCPCS: 80053; 85025; 85379; 86140

== ENCOUNTER 2021-09-01 12:55 | Outpatient (CLI) | payer MEDICARE, MEDICAID ==
[2021-09-01 13:13] LABS: BILIRUBIN,URINE NEGATIVE (NEGATIVE); GLUCOSE, URINE (UA) NEGATIVE (NEGATIVE); KETONES,URINE (UA) NEGATIVE (NEGATIVE); LEUKOCYTE ESTERASE, URINE LARGE (NEGATIVE); NITRITE,URINE NEGATIVE (NEGATIVE); OCCULT BLOOD,URINE LARGE (NEGATIVE); PROTEIN,URINE 100 mg/dL (NEGATIVE); UROBILINOGEN,URINE 0.2 (NORMAL) E.U./dL (NORMAL)
[2021-09-01 13:19] LABS: CLARITY,URINE BLOODY (CLEAR)
[2021-09-01 13:20] LABS: BACTERIA,URINE Rare /HPF (None Seen); RBC,URINE TNTC /HPF (0-5); SQUAMOUS EPITHELIAL CELL,UR NONE SEEN (<= Few); WBC,URINE >25 /HPF (0-3)
== END 2021-09-01 12:56 | disposition home or self-care (01) ==
LOC: LAB 12:55 → LAB.R 12:56
DX: R31.9 Hematuria, unspecified (principal)
CPT/HCPCS: 81001; 87077; 87086; 87181

== ENCOUNTER 2021-10-04 15:55 | Outpatient (CLI) | payer MEDICARE, MEDICAID ==
[2021-10-04 17:22] LABS: CREATININE 0.8 mg/dL (0.6-1.2); POTASSIUM 3.3 mmol/L (3.5-5.0)
== END 2021-10-04 23:59 | disposition home or self-care (01) ==
LOC: LAB.R 15:55
PROVIDERS: ATTEND Hospitalist
DX: E11.9 Type 2 diabetes mellitus without complications (principal); I11.0 Hypertensive heart disease with heart failure; I50.9 Heart failure, unspecified
CPT/HCPCS: 80048

== ENCOUNTER 2021-10-06 14:43 | Outpatient (CLI) | payer MEDICARE, MEDICAID ==
[2021-10-06 14:59] LABS: BILIRUBIN,URINE NEGATIVE (NEGATIVE); GLUCOSE, URINE (UA) NEGATIVE (NEGATIVE); KETONES,URINE (UA) NEGATIVE (NEGATIVE); LEUKOCYTE ESTERASE, URINE MODERATE (NEGATIVE); NITRITE,URINE NEGATIVE (NEGATIVE); OCCULT BLOOD,URINE TRACE-INTA (NEGATIVE); PROTEIN,URINE 100 mg/dL (NEGATIVE); UROBILINOGEN,URINE 0.2 (NORMAL) E.U./dL (NORMAL)
[2021-10-06 15:01] LABS: BASOPHILS % (AUTO) 0.5 %; EOSINOPHILS # (AUTO) 0.2 10^3/uL (0.0-0.7); EOSINOPHILS % (AUTO) 2.3 %; HCT - HEMATOCRIT 39.1 % (42.0-52.0); HGB - HEMOGLOBIN 12.6 g/dL (14.0-18.0); LYMPHOCYTES # (AUTO) 1.2 10^3/uL (1.5-3.5); LYMPHOCYTES % (AUTO) 15.8 %; MEAN CORPUSCULAR HEMOGLOBIN 30.4 pg (27.0-31.0); MEAN CORPUSCULAR HGB CONC 32.2 g/dL (32.0-36.0); MEAN CORPUSCULAR VOLUME 94.4 fL (80.0-94.0); MEAN PLATELET VOLUME 10.6 fL (7.4-11.4); MONOCYTES # (AUTO) 0.4 10^3/uL (0.0-1.0); MONOCYTES % (AUTO) 5.1 %; NEUTROPHILS # (AUTO) 5.9 10^3/uL (1.5-6.6); NEUTROPHILS % (AUTO) 75.8 %; PLT - PLATELET COUNT 266 10^3/uL (130-450); RED BLOOD COUNT 4.14 10^6/uL (4.70-6.10); RED CELL DISTRIBUTION WIDTH 14.9 % (12.0-15.0); WHITE BLOOD COUNT 7.8 x10^3/uL (4.8-10.8)
[2021-10-06 15:21] LABS: ALBUMIN 3.2 g/dL (3.2-5.5); ALBUMIN/GLOBULIN RATIO 1.2 (1.0-2.2); BILIRUBIN,TOTAL 0.3 mg/dL (0.2-1.0); CALCIUM 8.8 mg/dL (8.5-10.3); CREATININE 0.9 mg/dL (0.6-1.2); POTASSIUM 3.2 mmol/L (3.5-5.0); TOTAL PROTEIN 5.9 g/dL (6.7-8.2)
[2021-10-06 15:43] LABS: BACTERIA,URINE Rare /HPF (None Seen); CLARITY,URINE SL. CLOUDY (CLEAR); RBC,URINE 0-5 /HPF (0-5); SQUAMOUS EPITHELIAL CELL,UR RARE Squamous (<= Few); WBC CLUMPS,URINE PRESENT; WBC,URINE >25 /HPF (0-3)
== END 2021-10-06 14:44 | disposition home or self-care (01) ==
LOC: LAB.R 14:43
PROVIDERS: ATTEND Hospitalist
DX: E87.6 Hypokalemia (principal); N39.0 Urinary tract infection, site not specified; D50.9 Iron deficiency anemia, unspecified; R31.9 Hematuria, unspecified; D63.8 Anemia in other chronic diseases classified elsewhere; E78.5 Hyperlipidemia, unspecified
CPT/HCPCS: 80053; 81001; 83615; 85025; 87086

== ENCOUNTER 2021-10-19 14:46 | Outpatient (CLI) | payer MEDICARE, MEDICAID ==
--- NOTE | 2021-10-19 15:37 | Ultrasound Report ---
PROCEDURE: Head or Neck Soft Tissue INDICATIONS: ENLARGED LYMPH NODES TECHNIQUE: Real time scanning was performed of the neck region of interest, with image documentation . COMPARISON: None. FINDINGS: The patient's area of palpable concern in the posterior left neck measuring 3.5 x 3.5 x 1.0 cm it is hyperechoic, echogenicity similar to that of the adjacent fat, and appears to be a well enc apsulated lipoma. No other abnormality in the region. IMPRESSION: Probable lipoma in the patient's palpable area of concern in the left posterior neck. Reviewed by: Danilo Mandel MD on 10/19/2021 3:35 PM PDT Approved by: Danilo Mandel MD on 10/19/2021 3:35 PM PDT Station ID: [id number]
== END 2021-10-19 14:47 | disposition home or self-care (01) ==
LOC: DI 14:46
PROVIDERS: ATTEND Hospitalist
DX: R59.0 Localized enlarged lymph nodes (principal)

== ENCOUNTER 2021-11-17 14:09 | Outpatient (CLI) | payer MEDICARE, MEDICAID ==
[2021-11-17 14:27] LABS: MAGNESIUM 2.1 mg/dL (1.7-2.8); POTASSIUM 3.5 mmol/L (3.5-5.0)
== END 2021-11-17 14:10 | disposition home or self-care (01) ==
LOC: LAB.R 14:09
PROVIDERS: ATTEND Hospitalist
DX: E87.6 Hypokalemia (principal); E44.1 Mild protein-calorie malnutrition; E66.9 Obesity, unspecified
CPT/HCPCS: 83735; 84132

== ENCOUNTER 2021-11-26 08:00 | Outpatient (CLI) | payer MEDICARE, MEDICAID ==
[2021-11-26 17:34] LABS: POTASSIUM 4.1 mmol/L (3.5-5.0)
== END 2021-11-26 08:01 | disposition home or self-care (01) ==
LOC: LAB.R 08:00
PROVIDERS: ATTEND Hospitalist
DX: E66.9 Obesity, unspecified (principal); E87.6 Hypokalemia; E78.5 Hyperlipidemia, unspecified; D50.9 Iron deficiency anemia, unspecified; E03.9 Hypothyroidism, unspecified; R53.1 Weakness
CPT/HCPCS: 83735; 84132

== ENCOUNTER 2022-02-25 08:00 | Outpatient (CLI) | payer MEDICARE, MEDICAID ==
[2022-02-25 19:10] LABS: GLUCOSE, URINE (UA) NEGATIVE (NEGATIVE); KETONES,URINE (UA) NEGATIVE (NEGATIVE); LEUKOCYTE ESTERASE, URINE LARGE (NEGATIVE); NITRITE,URINE POSITIVE (NEGATIVE); OCCULT BLOOD,URINE LARGE (NEGATIVE); PROTEIN,URINE 100 mg/dL (NEGATIVE); UROBILINOGEN,URINE 0.2 (NORMAL) E.U./dL (NORMAL)
[2022-02-25 19:13] LABS: CLARITY,URINE CLOUDY (CLEAR)
[2022-02-25 19:27] LABS: BILIRUBIN,URINE NEGATIVE (NEGATIVE); ICTOTEST,URINE NEGATIVE
[2022-02-25 19:39] LABS: BACTERIA,URINE Few /HPF (None Seen); RBC,URINE TNTC /HPF (0-5); SQUAMOUS EPITHELIAL CELL,UR NONE SEEN (<= Few)
== END 2022-02-25 23:59 | disposition home or self-care (01) ==
LOC: LAB.R 08:00
PROVIDERS: ATTEND Hospitalist
DX: R31.9 Hematuria, unspecified (principal)
CPT/HCPCS: 81001; 81003; 87077; 87086; 87181

== ENCOUNTER 2022-02-26 06:44 | Outpatient (CLI) | payer MEDICARE, MEDICAID | END 2022-02-26 23:59 | disposition critical access hospital (66) | LOC: EMS 06:44 | DX: R31.0 Gross hematuria (principal) | CPT/HCPCS: A0425; A0429 ==

== ENCOUNTER 2022-02-26 06:51 | Emergency (ER) | payer MEDICARE, MEDICAID ==
[2022-02-26 07:02] VITALS: BP 151/77
--- NOTE | 2022-02-26 07:09 | ED Physician Documentation ---
PD HPI MALE - Stated complaint Stated Complaint: - Chief complaint Chief Complaint: General - History obtained from History obtained from: Patient - History of Present Illness Timing - onset: How many days ago (few) Timing - duration: Days (few) Timing - details: Abrupt onset, Still present Associated symptoms: Hematuria. No: Dysuria, Abdominal pain Similar symptoms before: Diagnosis (UTI) Recently seen: Not recently seen (Not seen in clinic apparent, but did have UA done at [facility] yesterday which is showing result currently available of positive Nitrates, Leuks, bacteria and blood. MAR does not show any antibiotics started as yet. Still blood in urine this AM, so staff called EMS for patient to have eval in ER.) Review of Systems Constitutional: denies: Fever Nose: denies: Rhinorrhea / runny nose, Congestion Respiratory: denies: Cough GI: denies: Abdominal Pain, Diarrhea : reports: Incontinent, Hematuria. denies: Dysuria Musculoskeletal: denies: Back pain PD PAST MEDICAL HISTORY - Past Medical History Cardiovascular: Congestive heart failure, Hypertension, Atrial fibrillation Respiratory: None Neuro: CVA Endocrine/Autoimmune: Type 2 diabetes, HyPOthyroidism, Other GI: GERD, Other : Kidney stones HEENT: None Psych: None Musculoskeletal: Osteoarthritis, Other Derm: Other - Past Surgical History Past Surgical History: Yes General: Cholecystectomy Ortho: Knee replacement - Present Medications Home Medications: Ambulatory Orders Medication Instructions Recorded Confirmed Aspirin 81 mg PO DAILY 07/12/13 02/07/22 Finasteride 5 mg PO DAILY 07/12/13 02/07/22 traZODone [Desyrel] 50 mg PO HS 07/12/13 02/07/22 Glucosamine Sulfate 1,000 mg PO BIDWM 11/20/13 02/07/22 Levothyroxine [Synthroid] 25 mcg PO QDAC 11/20/13 02/07/22 Acetaminophen 650 mg PO Q6HR PRN 12/29/17 02/07/22 Amlodipine Besylate 5 mg PO DAILY 12/29/17 02/07/22 Isosorbide Mononitrate [Isosorbide 30 mg PO DAILY 12/29/17 02/07/22 Mononitrate ER] Losartan Potassium 50 mg PO DAILY 12/29/17 02/07/22 Metoprolol Tartrate 50 mg PO BID 12/29/17 02/07/22 Tamsulosin HCl [Flomax] 0.4 mg PO QPM 12/29/17 02/07/22 Ascorbic Acid 2,000 mg PO BID 12/26/18 02/07/22 Bisacodyl Supp [Dulcolax Supp] 10 mg .ROUTE BID PRN 02/24/20 02/07/22 Famotidine [Pepcid AC] 10 mg PO DAILY 02/24/20 02/07/22 Ferrous Gluconate [Iron] 240 mg PO DAILY 02/24/20 02/07/22 Mineral Oil 1 applic .ROUTE DAILY PRN 02/24/20 02/07/22 Senna [Senokot] 8.6 - 17.2 mg PO DAILY PRN 02/24/20 02/07/22 Amino Acids/Protein Hydrolys 30 ml PO BID 12/13/21 02/07/22 [Proteinex-18 Liquid] Ammonium Lactate 12 % TOP PRN PRN 12/13/21 02/07/22 polyethylene glycoL 3350 [Miralax] 17 gm PO PRN PRN 12/13/21 02/07/22 cephALEXin [Keflex] 500 mg PO TID #20 cap 02/26/22 - Allergies Allergies/Adverse Reactions: Allergies Allergy/AdvReac Type Severity Reaction Status Date / Time No Known Drug Allergies Allergy Verified 11/23/20 13:08 - Social History Does the pt smoke?: No Smoking Status: Former smoker Does the pt drink ETOH?: No Does the pt have substance abuse?: No - Immunizations Immunizations are current?: Yes - POLST Patient has POLST: Yes POLST Status: DNR PD ED PE NORMAL - Vitals Vital signs reviewed: Yes - General General: Alert and oriented X 3, No acute distress, Well developed/nourished - Abdomen Abdomen: Normal bowel sounds, Soft, Non tender, Non distended, No organomegaly - Male Male : Other (No external lesions. He does have a depends on. No catheter.) - Rectal Rectal: Deferred - Back Back: No CVA TTP Results - Vitals Vitals: Vital Signs - 24 hr 02/26/22 06:58 Temperature 36.5 C Heart Rate 54 L Respiratory 16 Rate Blood Pressure 151/77 H O2 Saturation 98 Oxygen O2 Source [With Activity] Oxymizer O2 Source Room air - Labs Labs: Laboratory Tests 02/26/22 02/26/2222 07:04 07:50 07:50 WBC 5.0 RBC 3.25 L Hgb 9.9 L Hct 30.7 L MCV 94.5 H MCH 30.5 MCHC 32.2 RDW 15.5 H Plt Count 189 MPV 10.6 Neut # (Auto) 3.0 Lymph # (Auto) 1.3 L [place] # (Auto) 0.4 Eos # (Auto) 0.2 Baso # (Auto) 0.1 Absolute Nucleated RBC 0.00 Nucleated RBC % 0.0 Sodium 139 Potassium 3.8 Chloride 108 Carbon Dioxide 21 Anion Gap 10.0 BUN 65 H Creatinine 1.2 Estimated GFR (MDRD) 57 L Glucose 74 Calcium 8.6 Urine Color BROWN Urine Clarity BLOODY Urine pH 6.0 Ur Specific [place] 1.010 Urine Protein 100 H Urine Glucose (UA) NEGATIVE Urine Ketones NEGATIVE Urine Occult Blood LARGE H Urine Nitrite NEGATIVE Urine Bilirubin NEGATIVE Urine Urobilinogen 0.2 (NORMAL) Ur Leukocyte Esterase LARGE H Urine RBC TNTC H Urine WBC >25 H Ur Squamous Epith Cells NONE SEEN Urine Bacteria None Seen Ur Microscopic Review INDICATED Urine Culture Comments INDICATED - Rads (name of study) KUB CT Radiology: Prelim report reviewed (staghorn stone same as prior. No ureterolithiasis. No other acute. Constipation. ), See rad report PD MEDICAL DECISION MAKING - ED course Complexity details: reviewed results (Urinalysis from yesterday done outpatient from [facility] was positive for UTI appearance. Culture is pending. Presume this the cause of his hematuria. We will start him on antibiotics. Can check renal function and blood count. I did do CT scan to ensure no obstructing stones in concurrence.), considered differential, d/w patient Departure - Departure Disposition: 01 Home, Self Care Clinical Impression: Hematuria, UTI (urinary tract infection) Condition: Stable Record reviewed to determine appropriate education?: Yes Prescriptions: cephALEXin [Keflex] 500 mg PO TID #20 cap Comments: Your urine test from yesterday done at [facility] was showing likely UTI and that is a common cause for blood in the urine. The culture of that is still pending so we can start cephalexin antibiotic 3 times daily for a week. The antibiotic choice may need to be modified based on the culture result in another day or 2. Your kidney function is good. Your CT scan shows stable chronic stone in the kidney. This potentially could be the cause of some bleeding intermittently. However the bladder infection is currently more likely. Your blood count shows some anemia. You have been anemic for a while but the blood counts a little bit lower now compared to your most recent blood count. This want to get checked again in a week or so if you continue to have blood in the urine. Consideration would be referral to urologist if symptoms persist as well.
[2022-02-26 07:42] LABS: GLUCOSE, URINE (UA) NEGATIVE (NEGATIVE); KETONES,URINE (UA) NEGATIVE (NEGATIVE); LEUKOCYTE ESTERASE, URINE LARGE (NEGATIVE); NITRITE,URINE NEGATIVE (NEGATIVE); OCCULT BLOOD,URINE LARGE (NEGATIVE); PROTEIN,URINE 100 mg/dL (NEGATIVE); UROBILINOGEN,URINE 0.2 (NORMAL) E.U./dL (NORMAL)
[2022-02-26 07:49] LABS: CLARITY,URINE BLOODY (CLEAR)
[2022-02-26 07:50] LABS: BILIRUBIN,URINE NEGATIVE (NEGATIVE); ICTOTEST,URINE NEGATIVE; RBC,URINE TNTC /HPF (0-5); WBC,URINE >25 /HPF (0-3)
[2022-02-26] MEDS ORDERED: cephALEXin 250 MG CAPSULE PO STA (07:50)
[2022-02-26 07:51] LABS: BACTERIA,URINE None Seen /HPF (None Seen); SQUAMOUS EPITHELIAL CELL,UR NONE SEEN (<= Few)
--- NOTE | 2022-02-26 08:01 | CT Report ---
PROCEDURE: Abdomen/Pelvis WO INDICATIONS: hematuria TECHNIQUE: Noncontrast 5 mm thick sections acquired from the diaphragms to the symphysis. 5 mm coronal and sagi ttal reformats were then performed. For radiation dose reduction, the following was used: automated exposure control, adjustment of mA and/or kV according to patient size. COMPARISON: 12/28/2018 FINDINGS: Image quality: Excellent. Lung bases: Similar calcified pleural lesion in the right lung. Scattered scarring/atelectasis. Stabl e small left lower lobe nodule. Heart: Small pericardial effusion. Cardiomegaly. Coronary artery disease. Liver: Compressed posteriorly as before. Granulomas are present. Gallbladder: Absent. Biliary tree: Unremarkable. Pancreas: Unremarkable. Spleen: Unremarkable. Adrenals: Similar left thickening. Kidneys: Subcentimeter lesions are too small to characterize. Multiple cysts again seen. Right develo ping staghorn calculus measures 2.9 x 2.4 x 1.8 cm, also seen in 2019. This measures 900-1000 Hounsfi eld units. Mild dilation of the right ureter as before, without obstructing lesion or stone. Extensive vascular calcifications of the renal arteries. No definite left-sided stone, although some calcifications extend aortic calyces. Lymph nodes: No lymphadenopathy. Vascular: Extensive atherosclerotic calcifications, particularly involving small arteries. Bowel: No small bowel obstruction. There are colonic diverticula. Marked distention of the proximal a nd transverse colon. Mild to moderate distention of the distal colon and rectum. Peritoneum and body wall: As before, left lower quadrant ventral omentum and fat-containing hernia. S arcopenia. Bladder: Unremarkable. Reproductive organs: Prostate calcifications. Bones: Lumbosacral spondylosis. No suspicious osseous lesion. 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 No bladder stone identified.. The ri ght ureter is slightly dilated, without obstructing lesion identified. Extensive renal artery vascula r calcifications. No obstructing left-sided stone. Marked dilation of the proximal and transverse colon and moderate dilation of the distal colon and re ctum indicating constipation and slow transit. This is worse compared to 2019 CT. Correlation with ag e-appropriate colonoscopy is also recommended. Other incidental/stable findings described above. Reviewed by: Alexandro Nolan MD on 02/26/2022 7:59 AM PDT Approved by: Alexandro Nolan MD on 02/26/2022 7:59 AM [facility] Station ID: [id number]
[2022-02-26 08:04] LABS: CALCIUM 8.6 mg/dL (8.5-10.3); CREATININE 1.2 mg/dL (0.6-1.2); POTASSIUM 3.8 mmol/L (3.5-5.0)
[2022-02-26 08:07] LABS: BASOPHILS # (AUTO) 0.1 10^3/uL (0.0-0.1); EOSINOPHILS # (AUTO) 0.2 10^3/uL (0.0-0.7); EOSINOPHILS % (AUTO) 4.4 %; HCT - HEMATOCRIT 30.7 % (42.0-52.0); HGB - HEMOGLOBIN 9.9 g/dL (14.0-18.0); LYMPHOCYTES # (AUTO) 1.3 10^3/uL (1.5-3.5); LYMPHOCYTES % (AUTO) 25.2 %; MEAN CORPUSCULAR HEMOGLOBIN 30.5 pg (27.0-31.0); MEAN CORPUSCULAR HGB CONC 32.2 g/dL (32.0-36.0); MEAN CORPUSCULAR VOLUME 94.5 fL (80.0-94.0); MEAN PLATELET VOLUME 10.6 fL (7.4-11.4); MONOCYTES # (AUTO) 0.4 10^3/uL (0.0-1.0); MONOCYTES % (AUTO) 8.7 %; NEUTROPHILS % (AUTO) 60.5 %; PLT - PLATELET COUNT 189 10^3/uL (130-450); RED BLOOD COUNT 3.25 10^6/uL (4.70-6.10); RED CELL DISTRIBUTION WIDTH 15.5 % (12.0-15.0)
== END 2022-02-26 09:25 | disposition home or self-care (01) ==
LOC: EDUNIT# → EDBD → ED 06:51
DX: N39.0 Urinary tract infection, site not specified (principal); I11.0 Hypertensive heart disease with heart failure; I50.9 Heart failure, unspecified; I48.91 Unspecified atrial fibrillation; E11.9 Type 2 diabetes mellitus without complications; Z79.84 Long term (current) use of oral hypoglycemic drugs; Z87.891 Personal history of nicotine dependence
CPT/HCPCS: 36415; 74176; 80048; 81001; 85025; 87086; 87181; 99283; 99284; A9270; 81003

== ENCOUNTER 2022-02-26 09:28 | Outpatient (CLI) | payer MEDICARE, MEDICAID | END 2022-02-26 09:29 | disposition home or self-care (01) | LOC: EMS 09:28 | PROVIDERS: ATTEND Emergency Medicine | DX: R41.0 Disorientation, unspecified (principal) | CPT/HCPCS: A0425; A0428 ==

== ENCOUNTER 2022-03-29 10:10 | Outpatient (CLI) | payer MEDICARE, MEDICAID ==
[2022-03-29 21:10] LABS: BILIRUBIN,URINE NEGATIVE (NEGATIVE); GLUCOSE, URINE (UA) NEGATIVE (NEGATIVE); KETONES,URINE (UA) NEGATIVE (NEGATIVE); LEUKOCYTE ESTERASE, URINE LARGE (NEGATIVE); NITRITE,URINE NEGATIVE (NEGATIVE); OCCULT BLOOD,URINE SMALL (NEGATIVE); PROTEIN,URINE 30 mg/dL (NEGATIVE); UROBILINOGEN,URINE 0.2 (NORMAL) E.U./dL (NORMAL)
[2022-03-29 21:28] LABS: BACTERIA,URINE Moderate /HPF (None Seen); CLARITY,URINE HAZY (CLEAR); SQUAMOUS EPITHELIAL CELL,UR RARE Squamous (<= Few); WBC CLUMPS,URINE PRESENT; WBC,URINE >25 /HPF (0-3)
== END 2022-03-29 23:59 | disposition home or self-care (01) ==
LOC: LAB.R 10:10
PROVIDERS: ATTEND Hospitalist
DX: N39.0 Urinary tract infection, site not specified (principal)
CPT/HCPCS: 81001; 87077; 87086; 87181

== ENCOUNTER 2022-04-01 14:05 | Outpatient (CLI) | payer MEDICARE, MEDICAID ==
[2022-04-01 16:52] LABS: BASOPHILS # (AUTO) 0.1 10^3/uL (0.0-0.1); BASOPHILS % (AUTO) 0.9 %; EOSINOPHILS # (AUTO) 0.1 10^3/uL (0.0-0.7); EOSINOPHILS % (AUTO) 1.6 %; HGB - HEMOGLOBIN 8.6 g/dL (14.0-18.0); LYMPHOCYTES % (AUTO) 17.3 %; MEAN CORPUSCULAR HEMOGLOBIN 30.2 pg (27.0-31.0); MEAN CORPUSCULAR HGB CONC 31.9 g/dL (32.0-36.0); MEAN CORPUSCULAR VOLUME 94.7 fL (80.0-94.0); MEAN PLATELET VOLUME 11.8 fL (7.4-11.4); MONOCYTES # (AUTO) 0.4 10^3/uL (0.0-1.0); MONOCYTES % (AUTO) 6.2 %; NEUTROPHILS # (AUTO) 4.2 10^3/uL (1.5-6.6); NEUTROPHILS % (AUTO) 73.6 %; PLT - PLATELET COUNT 247 10^3/uL (130-450); RED BLOOD COUNT 2.85 10^6/uL (4.70-6.10); RED CELL DISTRIBUTION WIDTH 15.2 % (12.0-15.0); WHITE BLOOD COUNT 5.7 x10^3/uL (4.8-10.8)
[2022-04-01 17:05] LABS: ALBUMIN/GLOBULIN RATIO 1.2 (1.0-2.2); BILIRUBIN,TOTAL 0.4 mg/dL (0.2-1.0); CALCIUM 8.5 mg/dL (8.5-10.3); CREATININE 1.2 mg/dL (0.6-1.2); POTASSIUM 3.7 mmol/L (3.5-5.0); TOTAL PROTEIN 5.6 g/dL (6.7-8.2)
== END 2022-04-01 23:59 | disposition home or self-care (01) ==
LOC: LAB.R 14:05
DX: A49.9 Bacterial infection, unspecified (principal)
CPT/HCPCS: 80053; 85025

== ENCOUNTER 2022-04-19 13:07 | Outpatient (CLI) | payer MEDICARE, MEDICAID | END 2022-04-19 13:08 | disposition critical access hospital (66) | LOC: EMS 13:07 | DX: R41.82 Altered mental status, unspecified (principal) | CPT/HCPCS: A0425; A0429 ==

== ENCOUNTER 2022-04-19 13:13 | Inpatient (IN) | payer MEDICARE, MEDICAID ==
--- NOTE | 2022-04-19 13:22 | ED Physician Documentation ---
History of Present Illness - Stated complaint Stated Complaint: ALT LOC - History obtained from History obtained from: Patient, EMS - Additonal information Additional information: 86-year-old gentleman presents from local senior living for altered mental status. Reportedly has had trouble as of late with a Proteus UTI status post multiple rounds of antibiotics. He presents by ambulance for decreased level of consciousness. History is limited from the patient as he is somnolent but does wake up and answer simple questions. He was noted to be bradycardic in route. Review of Systems Unable to obtain: Confused PD PAST MEDICAL HISTORY - Past Medical History Cardiovascular: Congestive heart failure, Hypertension, Atrial fibrillation Respiratory: None Neuro: CVA Endocrine/Autoimmune: Type 2 diabetes, HyPOthyroidism, Other GI: GERD, Other : Kidney stones HEENT: None Psych: None Musculoskeletal: Osteoarthritis, Other Derm: Other - Past Surgical History Past Surgical History: Yes General: Cholecystectomy Ortho: Knee replacement - Present Medications Home Medications: Ambulatory Orders Medication Instructions Recorded Confirmed Aspirin 81 mg PO DAILY 07/12/13 04/19/22 Finasteride 5 mg PO DAILY 07/12/13 04/19/22 traZODone [Desyrel] 50 mg PO HS 07/12/13 04/19/22 Glucosamine Sulfate 1,000 mg PO BIDWM 11/20/13 04/19/22 Levothyroxine [Synthroid] 25 mcg PO QDAC 11/20/13 04/19/22 Acetaminophen 650 mg PO Q6HR PRN 12/29/17 04/19/22 Amlodipine Besylate 5 mg PO DAILY 12/29/17 04/19/22 Isosorbide Mononitrate [Isosorbide 30 mg PO DAILY 12/29/17 04/19/22 Mononitrate ER] Losartan Potassium 50 mg PO DAILY 12/29/17 04/19/22 Metoprolol Tartrate 50 mg PO BID 12/29/17 04/19/22 Tamsulosin HCl [Flomax] 0.4 mg PO QPM 12/29/17 04/19/22 Bisacodyl Supp [Dulcolax Supp] 10 mg .ROUTE BID PRN 02/24/20 04/19/22 Famotidine [Pepcid AC] 10 mg PO DAILY 02/24/20 04/19/22 Mineral Oil 1 applic .ROUTE DAILY PRN 02/24/20 04/19/22 Senna [Senokot] 8.6 - 17.2 mg PO DAILY PRN 02/24/20 04/19/22 Amino Acids/Protein Hydrolys 30 ml PO BID 12/13/21 04/19/22 [Proteinex-18 Liquid] Ammonium Lactate 12 % TOP PRN PRN 12/13/21 04/19/22 polyethylene glycoL 3350 [Miralax] 17 gm PO PRN PRN 12/13/21 04/19/22 Cyanocobalamin (Vitamin B-12) 2 tab PO DAILY 04/19/22 04/19/22 [Vitamin B12] Nystatin [Nystop] 1 applic TOP BID PRN 04/19/22 04/19/22 - Allergies Allergies/Adverse Reactions: Allergies Allergy/AdvReac Type Severity Reaction Status Date / Time No Known Drug Allergies Allergy Verified 04/19/22 13:31 - Social History Does the pt smoke?: No Smoking Status: Former smoker Does the pt drink ETOH?: No Does the pt have substance abuse?: No - Immunizations Immunizations are current?: Yes - POLST Patient has POLST: Yes POLST Status: DNR PD ED PE NORMAL - Vitals Vital signs reviewed: Yes - General General: Other (He is alert and oriented to person and place but not time or events, he is somnolent but easily arousable.) - HEENT HEENT: Other (Small pupils) - Neck Neck: Supple, no meningeal sign, No bony TTP - Cardiac Cardiac: Other (Profound bradycardia, irregular, no murmur, distant heart sounds) - Respiratory Respiratory: No respiratory distress, Clear bilaterally - Abdomen Abdomen: Non tender - Derm Derm: Normal color, Warm and dry - Extremities Extremities: No edema, No calf tenderness / cord - Neuro Eye Opening: Spontaneous Motor: Obeys Commands Verbal: Confused GCS Score: 14 Results - Vitals Vitals: Vital Signs - 24 hr 04/19/22 04/19/22 04/19/22 13:25 14:01 14:30 Temperature 36 C L 36 C L Heart Rate 40 L 54 L 48 L Respiratory 14 10 L 12 Rate Blood Pressure 115/55 L 132/64 H 114/53 L O2 Saturation 100 100 100 Oxygen O2 Source [] Oxymizer O2 Source Room air - EKG (time done) 1325 Rate: Rate (enter#) (30) Rhythm: Atrial fibrillation [place]: Normal Intervals: Wide QRS Ischemia: Normal ST segments - Labs Labs: Laboratory Tests 04/19/22 04/19/22 04/19/22 13:28 13:28 13:28 WBC 3.7 L RBC 2.02 L Hgb 6.1 L* Hct 19.8 L* MCV 98.0 H MCH 30.2 MCHC 30.8 L RDW 16.5 H Plt Count 155 MPV 10.8 Neut # (Auto) 3.1 Lymph # (Auto) 0.4 L [place] # (Auto) 0.2 Eos # (Auto) 0.1 Baso # (Auto) 0.0 Absolute Nucleated RBC 0.03 Nucleated RBC % 0.8 PT 10.9 INR 1.0 Sodium 140 Potassium 4.5 Chloride 112 H Carbon Dioxide 21 Anion Gap 7.0 BUN 79 H Creatinine 1.3 H Estimated GFR (MDRD) 52 L Glucose 96 Calcium 8.4 L Magnesium 2.5 Total Bilirubin 0.5 AST 14 ALT 19 Alkaline Phosphatase 90 Total Protein 5.4 L Albumin 2.9 L Globulin 2.5 Albumin/Globulin Ratio 1.2 PD MEDICAL DECISION MAKING - ED course ED course: 86-year-old gentleman who is somnolent and fairly significantly bradycardic. He is in A. fib and is noted to be on metoprolol. Differential diagnosis includes medication effect, electrolyte disturbance, Etc. I discussed with him goals of care initial arrival, but he was not quite with it enough to understand the discussion. I mentioned a pacemaker which she did not seem interested in. This is a gentleman presents from a senior living with profound bradycardia in the setting of known A. fib. He is also profoundly anemic with history of guaiac positive stools but a negative EGD colonoscopy and has been getting iron as an outpatient. I called the [facility] and left voicemail regarding goals of care needing discussion. I was able to get a hold of his POA/fjantgn-ak-cox [facility], we discussed goals of care, he is okay with medical therapy and transfusion, but not pacemaker placement, surgery, or other invasive measures. He was crossmatched for blood. His heart rate came up to about 50 after the administration of 0.5 mg of atropine IV. Spoke with Dr. Armas for admission at 2:35 PM. - Critical Care Time(min): 40 Time Includes: Direct patient care, Review records, Reassess patient, Document care, Coordinate care, Medical consult, Family consult for tx dec Data interpretation: Labs, Pulse ox Procedures excluded from critical care time: EKG Departure - Departure Disposition: 66 [facility] DC/Xfer Clinical Impression: Do not intubate, cardiopulmonary resuscitation (CPR)-only code status, Anemia, Bradycardia Condition: Serious
[2022-04-19 13:35] LABS: BASOPHILS % (AUTO) 0.5 %; EOSINOPHILS # (AUTO) 0.1 10^3/uL (0.0-0.7); EOSINOPHILS % (AUTO) 1.4 %; LYMPHOCYTES # (AUTO) 0.4 10^3/uL (1.5-3.5); LYMPHOCYTES % (AUTO) 10.1 %; MEAN CORPUSCULAR HEMOGLOBIN 30.2 pg (27.0-31.0); MEAN CORPUSCULAR HGB CONC 30.8 g/dL (32.0-36.0); MEAN PLATELET VOLUME 10.8 fL (7.4-11.4); MONOCYTES # (AUTO) 0.2 10^3/uL (0.0-1.0); MONOCYTES % (AUTO) 4.1 %; NEUTROPHILS # (AUTO) 3.1 10^3/uL (1.5-6.6); NEUTROPHILS % (AUTO) 83.4 %; NRBC ABSOLUTE COUNT (AUTO) 0.03 x10^3/uL; NUCLEATED RED BLOOD CELLS AUTO 0.8 /100WBC; PLT - PLATELET COUNT 155 10^3/uL (130-450); RED BLOOD COUNT 2.02 10^6/uL (4.70-6.10); RED CELL DISTRIBUTION WIDTH 16.5 % (12.0-15.0); WHITE BLOOD COUNT 3.7 x10^3/uL (4.8-10.8)
[2022-04-19 13:38] LABS: HCT - HEMATOCRIT 19.8 % (42.0-52.0); HGB - HEMOGLOBIN 6.1 g/dL (14.0-18.0)
[2022-04-19 13:46] LABS: ALBUMIN 2.9 g/dL (3.2-5.5); ALBUMIN/GLOBULIN RATIO 1.2 (1.0-2.2); BILIRUBIN,TOTAL 0.5 mg/dL (0.2-1.0); CALCIUM 8.4 mg/dL (8.5-10.3); CREATININE 1.3 mg/dL (0.6-1.2); MAGNESIUM 2.5 mg/dL (1.7-2.8); POTASSIUM 4.5 mmol/L (3.5-5.0); TOTAL PROTEIN 5.4 g/dL (6.7-8.2)
[2022-04-19] MEDS ORDERED: SODIUM CHLORIDE 0.9% 1,000 ML IV STA (13:47)
[2022-04-19] MEDS ORDERED: ATROPINE ABBOJECT 0.5 MG/5 ML SYRINGE IVP STA ×2 (13:48→17:01)
[2022-04-19 13:56] LABS: PT - PROTHROMBIN TIME 10.9 secs (9.9-12.6)
[2022-04-19] MEDS ORDERED: MORPHINE 2 MG/ML CARPUJECT IVP STA (13:59)
[2022-04-19 14:42] LABS: CORONAVIRUS 229E-RESP PCR NOT DETECTED; CORONAVIRUS HKU1-RESP PCR NOT DETECTED; CORONAVIRUS NL63-RESP PCR NOT DETECTED; CORONAVIRUS OC43-RESP PCR NOT DETECTED; HUMAN METAPNEUMOVIRUS NOT DETECTED; INFLUENZA A- RESP PCR PANEL NOT DETECTED; INFLUENZA B - RESP PCR PANEL NOT DETECTED; PARAINFLUENZA VIRUS 1 NOT DETECTED; PARAINFLUENZA VIRUS 2 NOT DETECTED; PARAINFLUENZA VIRUS 3 NOT DETECTED; RHINOVIRUS/ENTEROVIRUS NOT DETECTED; SARS-CoV-2 -RESP PCR PANEL NOT DETECTED
[2022-04-19 14:43] LABS: B. PARAPERTUSSIS- RESP PCR PAN NOT DETECTED; B. PERTUSSIS- RESP PCR PANEL NOT DETECTED; C. PNEUMONIAE- RESP PCR PANEL NOT DETECTED; M. PNEUMONIAE- RESP PCR PANEL NOT DETECTED; PARAINFLUENZA VIRUS 4 NOT DETECTED; RSV- RESP PCR PANEL NOT DETECTED
[2022-04-19] MEDS ORDERED: ACETAMINOPHEN 500 MG TABLET PO STA (15:21)
[2022-04-19] MEDS ORDERED: ONDANSETRON 4 MG/2 ML VIAL IVP PRN (18:06)
--- NOTE | 2022-04-19 18:19 | HISTORY & PHYSICAL EXAMINATION ---
Chief Complaint - Chief Complaint Chief Complaint: AMS from [place] History of Present Illness - Admitted From Admitted From:: ED - History Obtained From History obtained from: ED provider - History of Present Illness HPI Comment/Other: This is an 86-year-old white woman who [place] (exact diagnosis for needing [place] [facility] [place] is not clear from the EMR). He has a history of recurrent UTIs, urinary incontinence, and diabetes but is not on insulin or oral agents and his diet at the [facility] is not known. He has a history of chronic atrial fib but is not on anticoagulation. He was [place] in [place] [facility] [place] today because staff noticed that he was more somnolent. He provided minimal history in the ED. He was found to be severely bradycardic with heart rates in the 30s in Afib. He was given 1 amp of atropine and heart rate simone to the 50s, then dropped again to 40's and now is in the 30's again. The ED provider was able to speak to the [id number], who requested the patient have no transfer to another facility, no surgery, no pacemaker insertion, but transfusion of blood would be okay. The blood transfusion was ordered to start in the ED and the Hospitalist team has been contacted for admission for treating his marked anemia and profound bradycardia. The patient has had a history of GI bleed and several prior endoscopies with no source ever found. He is also noted to be hypothermic with Temp of 36 dropping to 35.2 degrees C in the ED. A POLST is on record and his CODE BLUE status is DNR/DNI. History - Past Medical History Cardiovascular: reports: Congestive heart failure, Hypertension, Atrial fibrillation Respiratory: reports: None Neuro: reports: CVA Endocrine/Autoimmune: reports: Type 2 diabetes, HyPOthyroidism, Other GI: reports: GERD, Other : reports: Kidney stones HEENT: reports: None Psych: reports: None Musculoskeletal: reports: Osteoarthritis, Other Derm: reports: Other MRSA Hx?: No - Past Surgical History General: reports: Cholecystectomy Ortho: reports: Knee replacement - Family & Social History Family History: Mother: , Father: Living arrangement: skilled nursing Social History Notes: In the past, pt denied cigarette smoking, alcohol or drug abuse - Substance History Use: Uses substance without health or social issues: NONE - POLST Patient has POLST: Yes POLST Status: DNR Meds/Allgy - Home Medications Home Medications: Ambulatory Orders Medication Instructions Recorded Confirmed Aspirin 81 mg PO DAILY 07/12/13 04/19/22 Finasteride 5 mg PO DAILY 07/12/13 04/19/22 traZODone [Desyrel] 50 mg PO HS 07/12/13 04/19/22 Glucosamine Sulfate 1,000 mg PO BIDWM 11/20/13 04/19/22 Levothyroxine [Synthroid] 25 mcg PO QDAC 11/20/13 04/19/22 Acetaminophen 650 mg PO Q6HR PRN 12/29/17 04/19/22 Amlodipine Besylate 5 mg PO DAILY 12/29/17 04/19/22 Isosorbide Mononitrate [Isosorbide 30 mg PO DAILY 12/29/17 04/19/22 Mononitrate ER] Losartan Potassium 50 mg PO DAILY 12/29/17 04/19/22 Metoprolol Tartrate 50 mg PO BID 12/29/17 04/19/22 Tamsulosin HCl [Flomax] 0.4 mg PO QPM 12/29/17 04/19/22 Bisacodyl Supp [Dulcolax Supp] 10 mg .ROUTE BID PRN 02/24/20 04/19/22 Famotidine [Pepcid AC] 10 mg PO DAILY 02/24/20 04/19/22 Mineral Oil 1 applic .ROUTE DAILY PRN 02/24/20 04/19/22 Senna [Senokot] 8.6 - 17.2 mg PO DAILY PRN 02/24/20 04/19/22 Amino Acids/Protein Hydrolys 30 ml PO BID 12/13/21 04/19/22 [Proteinex-18 Liquid] Ammonium Lactate 12 % TOP PRN PRN 12/13/21 04/19/22 polyethylene glycoL 3350 [Miralax] 17 gm PO PRN PRN 12/13/21 04/19/22 Cyanocobalamin (Vitamin B-12) 2 tab PO DAILY 04/19/22 04/19/22 [Vitamin B12] Nystatin [Nystop] 1 applic TOP BID PRN 04/19/22 04/19/22 - Allergies Allergies/Adverse Reactions: Allergies Allergy/AdvReac Type Severity Reaction Status Date / Time No Known Drug Allergies Allergy Verified 04/19/22 13:31 Review of Systems - All Other Systems All Other Systems: reports: Other (He is a very poor historian because of confusion, lethargy and his underlying mental status.) Exam - Vital Signs Vital Signs: Vital Signs x48h Temp Pulse Pulse Resp BP BP Pulse Ox 04/19/22 18:00 35.3 C L 46 L 14 137/88 H 98 04/19/22 17:30 146/60 H 04/19/22 17:18 35.3 C L 50 L 18 146/60 H 100 04/19/22 17:00 143/56 H 04/19/22 16:48 35.3 C L 31 L 12 143/56 H 100 04/19/22 16:30 35.1 C L 43 L 14 123/46 L 100 04/19/22 16:18 35.1 C L 43 L 12 04/19/22 16:03 35.3 C L 39 L 12 135/56 H 100 04/19/22 15:57 35.2 C L 41 L 16 100 04/19/22 15:44 35.1 C L 54 L 14 126/66 100 04/19/22 15:00 40 L 11 L 123/64 100 04/19/22 14:30 36 C L 48 L 12 114/53 L 100 04/19/22 14:01 54 L 10 L 132/64 H 100 04/19/22 13:25 36 C L 40 L 14 115/55 L 100 - Physical Exam General Appearance: positive: No acute distress, Lethargic, Other (He is covered in blankets and rolled blankets around his head and his entire body up to his neck) Eyes Bilateral: positive: Normal inspection, Other (Prominent edema of the lower lids (has "bags under his eyes")) ENT: positive: ENT inspection nml, No signs of dehydration Neck: positive: Nml inspection, Thyroid nml, No JVD Respiratory: positive: No respiratory distress, Breath sounds nml Cardiovascular: positive: Regular rate & rhythm, No murmur, Bradycardia Abdomen: positive: Non-tender, Nml bowel sounds, No distention Skin: positive: Warm, Dry, Pallor Extremities: positive: Non-tender, No pedal edema Neurologic/Psychiatric: positive: Motor nml, Disoriented to person, Disoriented to place, Disoriented to time Conclusion/Plan - Problem List (1) Bradycardia Conclusion/Plan: Likely some of the cause of this is from being on metoprolol. A TSH was drawn and is normal. He may have severe conduction system incompetence, since he has the underlying A. fib. We will admit the patient, place him on telemetry to follow HR. Will stop his metoprolol, allow to washout, hopefully the heart rate will rise into a more stable range. Will avoid all heart rate slowing medications. No pacemaker is desired by DPOA. No EKG was done in ED; will obtain EKG. An Echo will be obtained, the last one was in 2019. (2) Altered mental status Conclusion/Plan: The description was that he was more lethargic. It is unknown if he has underlying dementia, he gives very poor history however. He may have this lethargy from the marked bradycardia or from the hypothermia, which will be managed. No head CT or other imaging was done. No urinalysis was obtained to assure there is no new infection. Will obtain a.m. cortisol level. Will obtain UA (straight cath needed since he is incontinent). Will order warming blanket. Qualifiers: Altered mental status type: unspecified Qualified Code(s): R41.82 - Altered mental status, unspecified (3) Anemia Conclusion/Plan: Presumably this is from a GI source, since he has a history of GI bleeding with no exact etiology found on multiple scopes and prior work-up. Will transfuse with PRBCs. Follow CBC daily (4) Chronic a-fib Conclusion/Plan: As per Hx. He is on chewable daily ASA for stroke prophylaxis which will be continued. Echo ordered. (5) Diabetes mellitus Conclusion/Plan: He is on no insulin or oral DM meds noted, after his list has been reconciled by pharmacy. Will order a regular diet but will order fingerstick checks, ss insulin coverage, hypoglycemia protocol and check A1c with morning labs. Nutrition consult will be ordered as well. (6) Acute on chronic kidney failure Conclusion/Plan: His admission labs show BUN/creatinine of 79/1.3, and usually these run 57-71/1.1-1.2 Will give very slow rehydration since his cardiac status is not known. Echo ordered. (7) Hypothermia Conclusion/Plan: This is likely from the combination of severe bradycardia (and poor perfusion) plus marked anemia. A TSH was drawn and is normal. Will order a warmin unit to use prn. Will check a.m. cortisol level. - Lab Results Fish Bones: 04/19/22 13:28 04/19/22 13:28 - Diagnostic Imaging Results Diagnostic Imaging Results: positive: Final report reviewed - Other Other Results/Comments: Attestation: The patient is expected to be discharged or transferred to another facility for 96 hours: Yes.
[2022-04-19] MEDS: ACETAMINOPHEN 325 MG TABLET PO PRN (20:07)
[2022-04-19] MEDS: TAMSULOSIN 0.4 MG CAPSULE PO SCH (20:07)
[2022-04-19] MEDS: INSULIN LISPRO 300 UNIT/3 ML PEN SUBQ SCH (20:08)
[2022-04-19 20:22] LABS: BILIRUBIN,URINE NEGATIVE (NEGATIVE); GLUCOSE, URINE (UA) NEGATIVE (NEGATIVE); KETONES,URINE (UA) NEGATIVE (NEGATIVE); LEUKOCYTE ESTERASE, URINE MODERATE (NEGATIVE); NITRITE,URINE NEGATIVE (NEGATIVE); OCCULT BLOOD,URINE SMALL (NEGATIVE); PH,URINE 5.5 PH (5.0-7.5); PROTEIN,URINE 30 mg/dL (NEGATIVE); UROBILINOGEN,URINE 0.2 (NORMAL) E.U./dL (NORMAL)
[2022-04-19 20:24] LABS: CLARITY,URINE HAZY (CLEAR)
[2022-04-19 20:37] LABS: BACTERIA,URINE Few /HPF (None Seen); RBC,URINE 0-5 /HPF (0-5); SQUAMOUS EPITHELIAL CELL,UR NONE SEEN (<= Few); WBC,URINE >25 /HPF (0-3)
[2022-04-19] MEDS: SODIUM CHLORIDE FLUSH 0.9% 10 ML SYRINGE IVP SCH (23:50)
[2022-04-20] MEDS: LEVOTHYROXINE 25 MCG TABLET PO SCH (05:47)
[2022-04-20] MEDS: ASPIRIN CHEW 81 MG TABLET PO SCH (08:25)
[2022-04-20] MEDS: FINASTERIDE 5 MG TABLET PO SCH (08:25)
[2022-04-20] MEDS: FAMOTIDINE 20 MG TABLET PO SCH (08:25)
[2022-04-20] MEDS: INSULIN LISPRO 300 UNIT/3 ML PEN SUBQ SCH ×4 (08:25→21:00)
[2022-04-20] MEDS: SODIUM CHLORIDE FLUSH 0.9% 10 ML SYRINGE IVP SCH ×2 (08:26→17:20)
[2022-04-20] MEDS ORDERED: ISOSORBIDE MONONITRATE ER 30 MG TABLET PO SCH (09:00)
[2022-04-20 09:35] LABS: BASOPHILS % (AUTO) 0.3 %; EOSINOPHILS % (AUTO) 0.6 %; HCT - HEMATOCRIT 22.4 % (42.0-52.0); HGB - HEMOGLOBIN 7.1 g/dL (14.0-18.0); LYMPHOCYTES # (AUTO) 0.3 10^3/uL (1.5-3.5); LYMPHOCYTES % (AUTO) 4.6 %; MEAN CORPUSCULAR HEMOGLOBIN 30.5 pg (27.0-31.0); MEAN CORPUSCULAR HGB CONC 31.7 g/dL (32.0-36.0); MEAN CORPUSCULAR VOLUME 96.1 fL (80.0-94.0); MONOCYTES # (AUTO) 0.4 10^3/uL (0.0-1.0); MONOCYTES % (AUTO) 5.2 %; NEUTROPHILS # (AUTO) 6.1 10^3/uL (1.5-6.6); NEUTROPHILS % (AUTO) 88.4 %; NRBC ABSOLUTE COUNT (AUTO) 0.15 x10^3/uL; NUCLEATED RED BLOOD CELLS AUTO 2.2 /100WBC; PLT - PLATELET COUNT 156 10^3/uL (130-450); RED BLOOD COUNT 2.33 10^6/uL (4.70-6.10); RED CELL DISTRIBUTION WIDTH 16.5 % (12.0-15.0); WHITE BLOOD COUNT 6.9 x10^3/uL (4.8-10.8)
[2022-04-20 09:40] LABS: CALCIUM 8.4 mg/dL (8.5-10.3); CREATININE 1.3 mg/dL (0.6-1.2); MAGNESIUM 2.5 mg/dL (1.7-2.8)
--- NOTE | 2022-04-20 10:14 | PROVIDER PROGRESS NOTE ---
Assessment/Plan - Problem List (1) Altered mental status Qualifiers: Altered mental status type: unspecified Qualified Code(s): R41.82 - Altered mental status, unspecified Assessment/Plan: Unchanged hyper somnolence today. He presented more lethargic. He may have the lethargy from the marked bradycardia or from the hypothermia or a recurrent infection. No head CT or other imaging was done in the ED. No urinalysis was obtained in the ED to assu re there was no new infection. It was unknown if he has underlying dementia, or a prior stroke, since he gives very poor history. Today we learned (from SW contacting the PA RN), that he does not carry a Dx of dementia, does have R sided weakness chronically compared to L and there is no Dxc as to why. 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 He received IV fluids, given the Acute on chronic kidney disease (see below). Will obtain a head CT. We are awaiting an a.m. cortisol level. A UA was obtained (straight cath needed since he is incontinent) and does suggest a UTI (see below). A warming blanket was ordered and helped. Qualifiers: Altered mental status type: unspecified Qualified Code(s): R41.82 - Altered mental status, unspecified (2) Bradycardia Conclusion/Plan: Improving. His HRs are now 50-70. Likely some of the cause of this is from being on metoprolol. A TSH was drawn and is normal. He may have severe conduction system incompetence, since he has the underlying A. fib. We saw no EKG done in ED; but it was not yet scanned into the EMR when he was admitted by me yesterday. We stopped his metoprolol, allowing it to washout, and hopefully the heart rate will rise into a more stable range, and it is. We are avoiding all heart rate slowing medications. No pacemaker is desired by DPOA. An Echo was ordered to be done today, the last one was in 2019. Continue telemetry (3) UTI Conclusion/Plan: He has had recurrent UTIs, recently many of the cx have grown Proteus mirabilis. The most recent was February 2022. A UA was obtained after admission (straight cath needed since he is incontinent) and does suggest a UTI. Will start iv Ceftriaxone, which the Proteus was sens to. Await new urine cx results and sens to tailor antibx. We will plan a 14 to 21-day total course of treatment with antibx for good prostate penetration. (4) Anemia Conclusion/Plan: Presumably this is from a GI source, since he has a history of GI bleeding with no exact etiology found on multiple scopes and prior work-up. He has an appointment pending with Hematol to get Iron He was transfused with 1U PRBCs overnight, and Hgb simone to 7.1 today Follow CBC daily (5) Chronic a-fib Conclusion/Plan: As per Hx. He is on chewable daily ASA for stroke prophylaxis which will be continued. Echo ordered. (6) Diabetes mellitus Conclusion/Plan: He is on no insulin or oral DM meds noted, after his list has been reconciled by pharmacy. Will order a regular diet but will order fingerstick checks, ss insulin coverage, hypoglycemia protocol and check A1c with morning labs. Nutrition consult ordered. [facility] RN was also asked to obtain DM info from the PA. It was learned that he does have Diet-controlled DM, but he is on no Insulin or oral meds. (7) Hypoglycemia Conclusion/Plan: He had a morning fingerstick glucose level of 54, despite being ordered to eat a regular diet, not a diabetic diet. He did receive oral glucose and the next fingerstick was 94. Nutrition consult ordered. It was learned that he does have Diet-controlled DM, but he is on no Insulin or oral meds at the [facility]. (8) Acute on chronic kidney failure Conclusion/Plan: Unchanged. His admission labs show BUN/creatinine of 79/1.3, and usually these run 57-71/1.1-1.2. Today the BUN/creat is 77/1.3. Will continue to give very slow rehydration since his cardiac status is not known. Echo ordered. Will obtain CXR today, due to audible rhonchi today, not present at admission. (9) Hypothermia Conclusion/Plan: Improved This is likely from the combination of severe bradycardia (and poor perfusion) plus marked anemia. A TSH was drawn and is normal. We ordered a warming unit to use prn. We are awaiting a.m. cortisol level. - Current Meds Current Meds: Current Medications Generic Name Dose Route Start Last Admin Trade Name Freq PRN Reason Stop Dose Admin Acetaminophen 650 mg 04/19/22 18:09 04/19/22 20:07 Acetaminophen 325 Mg Tablet PO 650 mg Q6HR PRN Administration PAIN Aspirin 81 mg 04/20/22 09:00 04/20/22 08:25 Aspirin Chew 81 Mg Tablet PO 81 mg DAILY GHASSAN Administration Famotidine 10 mg 04/20/22 09:00 04/20/22 08:25 Famotidine 20 Mg Tablet PO 10 mg Q48H GHASSAN Administration Finasteride 5 mg 04/20/22 09:00 04/20/22 08:25 Finasteride 5 Mg Tablet PO 5 mg DAILY GHASSAN Administration Insulin Human Lispro 1 - 5 unit 04/19/22 21:00 04/20/22 08:25 Insulin Lispro 300 Unit/3 Ml Pen SUBQ Not Given 0800,1200,1700,2100 [facility] Protocol Levothyroxine Sodium 25 mcg 04/20/22 07:00 04/20/22 05:47 Levothyroxine 25 Mcg Tablet PO 25 mcg QDAC GHASSAN Administration Sodium Chloride 10 ml 04/20/22 01:00 04/20/22 08:26 Sodium Chloride Flush 0.9% 10 Ml Syringe IVP 10 ml 0100,0900,1700 GHASSAN Administration Tamsulosin HCl 0.4 mg 04/19/22 21:00 04/19/22 20:07 Tamsulosin 0.4 Mg Capsule PO 0.4 mg QPM GHASSAN Administration - Lab Result Fish Bone Diagrams: 04/20/22 09:23 04/20/22 09:23 - Additional Planning My Orders: My Active Orders 04/19/22 Dinner Regular Diet [DIET] 04/19/22 18:06 Activity Orders [RC] Q2HR IO [RC] IOSHIFT Initiate Bowel Care Protocol [RC] .protocol Initiate Line Care Protocol [RC] QSHIFT Initiate Personal Care Protoco [RC] .protocol Oxygen Therapy [RC] .PRN Telemetry- [RC] Q4HR Vital Signs [RC] Q4HR Ondansetron Inj [Zofran Inj] 4 mg IVP Q6HR PRN Sodium Chloride Flush 0.9% [Normal Saline Flush 0.9%] 10 ml IVP PRN PRN Code Status [OTHERS] Routine Condition of Patient [OTHERS] Routine DVT Prophylaxis [OTHERS] Routine 04/19/22 18:08 IV Insert [RC] .ONCE SCDs [RC] QSHIFT 04/19/22 18:09 Initiate Line Care Protocol [RC] QSHIFT Acetaminophen [Tylenol] 650 mg PO Q6HR PRN 04/19/22 18:14 Blood Glucose Checks - Eating [RC] 0800,1200,1700,2100 Initiate Hypoglycemia Protocol [RC] .protocol 04/19/22 19:11 Miscellaenous Nursing Order [RC] QSHIFT Straight Catheter Insertion [RC] ONCE 04/19/22 19:40 EKG - Electrocardiogram [RC] .ONCE Warming Unit [RC] PRN 04/19/22 19:41 Nutrition Consult [CONS] Routine 04/19/22 19:50 CUL, URINE [RM] Stat 04/19/22 21:00 Insulin Lispro [Humalog Kwikpen U-100] 1 - 5 unit SUBQ 0800,1200,1700,2100 Tamsulosin [Flomax] 0.4 mg PO QPM 04/20/22 01:00 Sodium Chloride Flush 0.9% [Normal Saline Flush 0.9%] 10 ml IVP 0100,0900,1700 04/20/22 07:00 Echo Transthoracic Complete [ECHO] Routine Levothyroxine [Synthroid] 25 mcg PO QDAC 04/20/22 09:00 Aspirin Chewable [[place] Aspirin] 81 mg PO DAILY Famotidine [Pepcid] 10 mg PO Q48H Finasteride [Proscar] 5 mg PO DAILY 04/20/22 09:23 HEMOGLOBIN A1c% [CHEM] DAILYLAB 04/21/22 05:00 CBC - COMP BLD CT W/AUTO DIFF [HEME] DAILYLAB 04/22/22 05:00 CBC - COMP BLD CT W/AUTO DIFF [HEME] DAILYLAB 04/23/22 05:00 CBC - COMP BLD CT W/AUTO DIFF [HEME] DAILYLAB Subjective - Subjective Nursing Reports: Other (Still somnolent, minimally awakens and answers in 1-2 word sentences, is able to awaken to swallow food but needs to be fed. He appears to be in slightly more respiratory distress with rhonchi audible) Objective Vital Signs: Vital Signs - 24 hr 04/19/22 04/19/22 04/19/22 13:25 14:01 14:30 Temperature 36 C L 36 C L Heart Rate 40 L 54 L 48 L Heart Rate [ Monitoring electrodes] Respiratory 14 10 L 12 Rate Blood Pressure 115/55 L 132/64 H 114/53 L Blood Pressure [Right Brachial artery] O2 Saturation 100 100 100 04/19/22 04/19/22 04/19/22 15:00 15:44 15:57 Temperature 35.1 C L 35.2 C L Heart Rate 40 L 41 L Heart Rate [ 54 L Monitoring electrodes] Respiratory 11 L 14 16 Rate Blood Pressure 123/64 Blood Pressure 126/66 [Right Brachial artery] O2 Saturation 100 100 100 04/19/22 04/19/22 04/19/22 16:03 16:18 16:30 Temperature 35.3 C L 35.1 C L 35.1 C L Heart Rate 43 L Heart Rate [ 39 L 43 L Monitoring electrodes] Respiratory 12 12 14 Rate Blood Pressure 123/46 L Blood Pressure 135/56 H [Right Brachial artery] O2 Saturation 100 100 04/19/22 04/19/22 04/19/22 16:48 17:00 17:18 Temperature 35.3 C L 35.3 C L Heart Rate Heart Rate [ 31 L 50 L Monitoring electrodes] Respiratory 12 18 Rate Blood Pressure 143/56 H Blood Pressure 143/56 H 146/60 H [Right Brachial artery] O2 Saturation 100 100 04/19/22 04/19/22 04/19/22 17:30 17:48 18:00 Temperature 35.3 C L 35.3 C L Heart Rate 46 L Heart Rate [ 45 L Monitoring electrodes] Respiratory 14 14 Rate Blood Pressure 146/60 H 137/88 H Blood Pressure 138/66 H [Right Brachial artery] O2 Saturation 97 98 04/19/22 04/19/22 04/19/22 18:18 18:46 19:00 Temperature 35.4 C L 35.3 C L Heart Rate Heart Rate [ 48 L 48 L 41 L Monitoring electrodes] Respiratory 17 18 16 Rate Blood Pressure Blood Pressure 137/88 H 144/85 H 131/84 H [Right Brachial artery] O2 Saturation 100 100 98 04/19/22 04/19/22 04/19/22 19:11 22:45 23:57 Temperature 35.3 C L 35.7 C L 35.5 C L Heart Rate Heart Rate [ 53 L 55 L Monitoring electrodes] Respiratory 18 16 Rate Blood Pressure Blood Pressure 123/54 L 149/66 H [Right Brachial artery] O2 Saturation 97 97 04/20/22 04/20/22 04:26 07:36 Temperature 36.1 C L 36.2 C L Heart Rate Heart Rate [ 53 L 73 Monitoring electrodes] Respiratory 16 20 Rate Blood Pressure Blood Pressure 114/57 L 133/59 H [Right Brachial artery] O2 Saturation 98 96 Oxygen O2 Source [With Activity] Oxymizer O2 Source Room air I&O (Last 24 Hrs): Intake and Output Totals x24h 04/18/22 04/19/22 04/20/22 23:59 23:59 23:59 Intake Total 1870 800 Output Total 100 Balance 1770 800 General: Other (Somnolent, awakens to name) HEENT: Mucous membr. moist/pink Neck: Supple, No JVD Neuro: Other (Somnolent, awakens and answers approp w/ 1-2 words) Cardiovascular: No murmurs Respiratory: No respiratory distress, Rhonchi Abdomen: Normal bowel sounds, Soft Extremities: No clubbing, No edema - Results Results: Laboratory Results WBC 6.9 x10^3/uL (4.8-10.8) 04/20/22 09:23 RBC 2.33 10^6/uL (4.70-6.10) L 04/20/22 09:23 Hgb 7.1 g/dL (14.0-18.0) L 04/20/22 09:23 Hct 22.4 % (42.0-52.0) L 04/20/22 09:23 MCV 96.1 fL (80.0-94.0) H 04/20/22 09:23 MCH 30.5 pg (27.0-31.0) 04/20/22 09:23 MCHC 31.7 g/dL (32.0-36.0) L 04/20/22 09:23 RDW 16.5 % (12.0-15.0) H 04/20/22 09:23 Plt Count 156 10^3/uL (130-450) 04/20/22 09:23 MPV 11.0 fL (7.4-11.4) 04/20/22 09:23 Neut # (Auto) 6.1 10^3/uL (1.5-6.6) 04/20/22 09:23 Lymph # (Auto) 0.3 10^3/uL (1.5-3.5) L 04/20/22 09:23 Foster # (Auto) 0.4 10^3/uL (0.0-1.0) 04/20/22 09:23 Eos # (Auto) 0.0 10^3/uL (0.0-0.7) 04/20/22 09: Baso # (Auto) 0.0 10^3/uL (0.0-0.1) 04/20/22 09:23 Absolute Nucleated RBC 0.15 x10^3/uL 04/20/22 09: Nucleated RBC % 2.2 /100WBC 04/20/22 09: PT 10.9 secs (9.9-12.6) 04/19/22 13:28 INR 1.0 (0.8-1.2) 04/19/22 13:28 Sodium 142 mmol/L (135-145) 04/20/22 09:23 Potassium 5.0 mmol/L (3.5-5.0) 04/20/22 09:23 Chloride 116 mmol/L (101-111) H 04/20/22 09:23 Carbon Dioxide 20 mmol/L (21-32) L 04/20/22 09:23 Anion Gap 6.0 (6-13) 04/20/22 09:23 BUN 77 mg/dL (6-20) H 04/20/22 09:23 Creatinine 1.3 mg/dL (0.6-1.2) H 04/20/22 09:23 Estimated GFR (MDRD) 52 (>89) L 04/20/22 09:23 Glucose 94 mg/dL (70-100) 04/20/22 09:23 Calcium 8.4 mg/dL (8.5-10.3) L 04/20/22 09:23 Magnesium 2.5 mg/dL (1.7-2.8) 04/20/22 09:23 Total Bilirubin 0.5 mg/dL (0.2-1.0) 04/19/22 13:28 AST 14 IU/L (10-42) 04/19/22 13:28 ALT 19 IU/L (10-60) 04/19/22 13:28 Alkaline Phosphatase 90 IU/L (42-121) 04/19/22 13:28 Total Protein 5.4 g/dL (6.7-8.2) L 04/19/22 13:28 Albumin 2.9 g/dL (3.2-5.5) L 04/19/22 13:28 Globulin 2.5 g/dL (2.1-4.2) 04/19/22 13:28 Albumin/Globulin Ratio 1.2 (1.0-2.2) 04/19/22 13:28 TSH 5.13 uIU/mL (0.34-5.60) 04/19/22 13:28 Cortisol AM Sample 17.7 ug/dL 04/20/22 09:23 Urine Color YELLOW 04/19/22 19:50 Urine Clarity HAZY (CLEAR) 04/19/22 19:50 Urine pH 5.5 PH (5.0-7.5) 04/19/22 19:50 Ur Specific [place] 1.015 (1.002-1.030) 04/19/22 19:50 Urine Protein 30 mg/dL (NEGATIVE) H 04/19/22 19:50 Urine Glucose (UA) NEGATIVE mg/dL (NEGATIVE) 04/19/22 19:50 Urine Ketones NEGATIVE mg/dL (NEGATIVE) 04/19/22 19:50 Urine Occult Blood SMALL (NEGATIVE) H 04/19/22 19:50 Urine Nitrite NEGATIVE (NEGATIVE) 04/19/22 19:50 Urine Bilirubin NEGATIVE (NEGATIVE) 04/19/22 19:50 Urine Urobilinogen 0.2 (NORMAL) E.U./dL (NORMAL) 04/19/22 19:50 Ur Leukocyte Esterase MODERATE (NEGATIVE) H 04/19/22 19:50 Urine RBC 0-5 /HPF (0-5) 04/19/22 19:50 Urine WBC >25 /HPF (0-3) H 04/19/22 19:50 Ur Squamous Epith Cells NONE SEEN (<= Few) 04/19/22 19:50 Urine Bacteria Few /HPF (None Seen) 04/19/22 19:50 Urine Culture Comments INDICATED 04/19/22 19:50 Nasal Adenovirus (PCR) NOT DETECTED 04/19/22 13:40 Nasal B. parapertussis DNA (PCR) NOT DETECTED 04/19/22 13:40 Nasal Coronavir 229E PCR NOT DETECTED 04/19/22 13:40 Nasal Coronavir HKU1 PCR NOT DETECTED 04/19/22 13:40 Nasal Coronavir NL63 PCR NOT DETECTED 04/19/22 13:40 Nasal Coronavir OC43 PCR NOT DETECTED 04/19/22 13:40 Nasal Enterovir/Rhinovir PCR NOT DETECTED 04/19/22 13:40 Nasal Influenza B PCR NOT DETECTED 04/19/22 13:40 Nasal Influenza A PCR NOT DETECTED 04/19/22 13:40 Nasal Parainfluen 1 PCR NOT DETECTED 04/19/22 13:40 Nasal Parainfluen 2 PCR NOT DETECTED 04/19/22 13:40 Nasal Parainfluen 3 PCR NOT DETECTED 04/19/22 13:40 Nasal Parainfluen 4 PCR NOT DETECTED 04/19/22 13:40 Nasal RSV (PCR) NOT DETECTED 04/19/22 13:40 Nasal B.pertussis DNA PCR NOT DETECTED 04/19/22 13:40 Nasal C.pneumoniae (PCR) NOT DETECTED 04/19/22 13:40 Lino Human Metapneumo PCR NOT DETECTED 04/19/22 13:40 Nasal M.pneumoniae (PCR) NOT DETECTED 04/19/22 13:40 Nasal SARS-CoV-2 (PCR) NOT DETECTED 04/19/22 13:40 Blood Type O POSITIVE 04/19/22 13:52 Antibody Screen NEGATIVE 04/19/22 13:52 Crossmatch IS Only See Detail 04/19/22 13:52 - Procedures Procedures: Procedures EXCISION OF STOMACH, ENDO (12/28/18) INSPECTION OF LOWER INTESTINAL TRACT, ENDO (12/28/18) TRANSFUSE NONAUT RED BLOOD CELLS IN PERIPH VEIN, PERC (12/28/18)
--- NOTE | 2022-04-20 12:08 | PHARMACY PROGRESS NOTE ---
- Best Possible Medication History Admit Date and Time: 04/19/221805 Processed by: Pharmacy Medication History completed: Yes Patient Interview: Completed Secondary Source(s): Insurance records, Facility MAR as ONLY source As the person ultimately responsible for medication therapy, providers are able to order a medication from an existing home medication list in [facility] via the "Reconcile Routine" prior to Confirmation of that medication by call center support representative. Such practice is discouraged except when the physician, in their clinical judgment, deems that a medical need exists for a medication without regard to previous use.
--- NOTE | 2022-04-20 12:17 | CT Report ---
PROCEDURE: CT brain without contrast INDICATIONS: AMS, R sided weakness chronic reported by [facility] TECHNIQUE: Noncontrast 4.5 mm thick angled axial sections acquired from the foramen magnum to the vertex. For r adiation dose reduction, the following was used: automated exposure control, adjustment of mA and/or kV according to patient size. COMPARISON: 10/15/2017 FINDINGS: Image quality: Excellent. CSF spaces: Basal cisterns are patent. No extra-axial fluid collections. Ventricles are normal in size and shape. Brain: No midline shift. No intracranial masses or hemorrhage. Andrade-white matter interface is norm al. Atrophy and white matter chronic ischemic change are present. Skull and face: Calvarium and visualized facial bones are intact, without suspicious lesions. Sinuses: Visualized sinuses and mastoids are clear. IMPRESSION: Atrophy and chronic ischemic change without intracranial hemorrhage or mass effect. No change from th e prior Reviewed by: Pancho Ojeda MD on 04/20/2022 11:15 AM JODIE Approved by: Pancho Ojeda MD on 04/20/2022 11:15 AM JODIE Station ID: [id number]
[2022-04-20] MEDS: SODIUM CHLORIDE FLUSH 0.9% 10 ML SYRINGE IVP PRN (12:18)
[2022-04-20] MEDS: SODIUM CHLORIDE 0.9% 1,000 ML IV SCH (12:18)
--- NOTE | 2022-04-20 12:38 | XRAY Report ---
PROCEDURE: Chest 1 View X-Ray INDICATIONS: Rhonchi and poss rales TECHNIQUE: One view of the chest was acquired. COMPARISON: 12/30/2019 FINDINGS: Surgical changes and devices: None. Lungs and pleura: Right lower lobe lobe pulmonary infiltrate tip. The calcified right-sided pulmonar y nodules remain unchanged. Mediastinum: Heart size enlarged. Mild vascular congestion present. Obscuration left hemidiaphragm. Right basilar pulmonary infiltrate present. Bones and chest wall: No suspicious bony lesions. Overlying soft tissues appear unremarkable. IMPRESSION: Right lower lobe pulmonary infiltrate consistent with pneumonia Cardiomegaly and mild vascular congestion Calcified pulmonary nodules in the right remain unchanged Reviewed by: Pancho Ojeda MD on 04/20/2022 11:37 AM AKJENNIE Approved by: Pancho Ojeda MD on 04/20/2022 11:37 AM AKDT Station ID: [id number]
[2022-04-20] MEDS ORDERED: cefTRIAXone 1 GM in SODIUM CHLORIDE 0.9% MINIBAG 100 ML IV SCH (13:00)
[2022-04-20 13:20] LABS: ESTIMATED AVERAGE GLUCOSE 74 mg/dL (70-100); HEMOGLOBIN A1c% 4.2 % (4.27-6.07)
[2022-04-20] MEDS: AZITHROMYCIN INJ 500 MG in SODIUM CHLORIDE 0.9% 250 ML IV SCH (15:22)
[2022-04-20] MEDS: cefTRIAXone 1 GM in SODIUM CHLORIDE 0.9% MINIBAG 100 ML IV SCH (17:20)
[2022-04-20] MEDS: TAMSULOSIN 0.4 MG CAPSULE PO SCH (21:01)
[2022-04-20] MEDS: guaiFENesin 600 MG TABLET PO SCH (21:02)
[2022-04-21] MEDS: SODIUM CHLORIDE FLUSH 0.9% 10 ML SYRINGE IVP SCH ×5 (04:15→22:43)
[2022-04-21 04:38] LABS: BASOPHILS % (AUTO) 0.5 %; EOSINOPHILS # (AUTO) 0.1 10^3/uL (0.0-0.7); EOSINOPHILS % (AUTO) 1.1 %; HCT - HEMATOCRIT 21.3 % (42.0-52.0); LYMPHOCYTES # (AUTO) 0.8 10^3/uL (1.5-3.5); LYMPHOCYTES % (AUTO) 15.1 %; MEAN CORPUSCULAR VOLUME 96.8 fL (80.0-94.0); MEAN PLATELET VOLUME 11.7 fL (7.4-11.4); MONOCYTES # (AUTO) 0.5 10^3/uL (0.0-1.0); MONOCYTES % (AUTO) 8.4 %; NEUTROPHILS # (AUTO) 4.1 10^3/uL (1.5-6.6); NEUTROPHILS % (AUTO) 74.4 %; NRBC ABSOLUTE COUNT (AUTO) 0.06 x10^3/uL; NUCLEATED RED BLOOD CELLS AUTO 1.1 /100WBC; PLT - PLATELET COUNT 137 10^3/uL (130-450); RED CELL DISTRIBUTION WIDTH 16.5 % (12.0-15.0); WHITE BLOOD COUNT 5.6 x10^3/uL (4.8-10.8)
[2022-04-21 04:40] LABS: HGB - HEMOGLOBIN 6.6 g/dL (14.0-18.0)
[2022-04-21 04:45] LABS: CALCIUM 7.9 mg/dL (8.5-10.3); CREATININE 1.4 mg/dL (0.6-1.2); POTASSIUM 4.4 mmol/L (3.5-5.0)
[2022-04-21] MEDS: LEVOTHYROXINE 25 MCG TABLET PO SCH (06:55)
[2022-04-21] MEDS: INSULIN LISPRO 300 UNIT/3 ML PEN SUBQ SCH (08:08)
--- NOTE | 2022-04-21 08:30 | PROVIDER PROGRESS NOTE ---
Assessment/Plan - Problem List (1) Altered mental status Qualifiers: Altered mental status type: unspecified Qualified Code(s): R41.82 - Altered mental status, unspecified Assessment/Plan: Much improved alertness today: He presented more lethargic. He may have the lethargy from the marked bradycardia or from the hypothermia or a recurrent infection. No head CT or other imaging was done in the ED. No urinalysis was obtained in the ED to assure there was no new infection. It was unknown if he has underlying dementia, or a prior stroke, since he gives very poor history. Today we learned (from SW contacting the [facility] RN), that he does not carry a Dx of dementia, does have R sided weakness chronically compared to L and there is no Dxc as to why. 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 His head this admission CT showed no stroke or bleed, but chronic microangiopathy changes were seen His a.m. cortisol level was normal A CXR shows PNA A warming blanket was ordered and helped. He is receiving IV fluids, given the Acute on chronic kidney disease (see below). PT and OT evaluations were to start today until social work found out that his baseline functional status is using a wheelchair and a Ru lift for transfers. Therefore no PT and OT is needed and will be canceled. I updated the [id number] at bedside today Qualifiers: Altered mental status type: unspecified Qualified Code(s): R41.82 - Altered mental status, unspecified (2) Bradycardia Conclusion/Plan: Improving. His HRs are now 50-70. Likely some of the cause of this is from being on metoprolol. A TSH was drawn and is normal. He may have severe conduction system incompetence, since he has the underlying A. fib. We saw no EKG done in ED; but it was not yet scanned into the EMR when he was admitted by me yesterday. We stopped his metoprolol, allowing it to washout, and hopefully the heart rate will rise into a more stable range, and it is. We are avoiding all heart rate slowing medications. No pacemaker is desired by DPOA. An Echo was ordered to be done today, the last one was in 2019. Continue telemetry (3) Pneumonia Conclusion/Plan: The chest x-ray that was done today because of rhonchi heard today, shows a lobar pneumonia. Will order Zithromax IV and the iv Ceftriaxone has already been ordered for a presumed UTI. Will order Mucinex for pulmonary toilet Original Note: (4) Anemia Conclusion/Plan: Presumably this is from a GI source, since he has a history of GI bleeding with no exact etiology found on multiple scopes and prior work-up. He has an appointment pending with Hematol to get Iron After transfusion with 1U PRBCs Hgb simone to 7.1, but has again dropped, is down to 6.6 today. Transfusion of 1U PRBCs ordered again for today Follow CBC daily Will obtain a stool guaic given that he has needed several transfusions already this admission. (5) Chronic a-fib Conclusion/Plan: As per Hx. He is on chewable daily ASA for stroke prophylaxis which will be continued. Echo ordered. (6) Acute on chronic kidney failure Conclusion/Plan: Unchanged. His admission labs show BUN/creatinine of 79/1.3, and usually these run 57-71/1.1-1.2.Then the BUN/creat was 77/1.3 yesterday>> 73/1.4 today. Will continue to give very slow rehydration, since he is also getting blood t ransfusions Will obtain CXR today, due to audible rhonchi today, not present at admission. (7) Hypoglycemia Conclusion/Plan: Resolved. He had one morning fingerstick glucose level of 54, despite being ordered to eat a regular diet, not a diabetic diet. He did receive oral glucose and the next fingerstick was 94. Nutrition consult ordered. It was learned that he does have Diet-controlled DM, but he is on no Insulin or oral meds at the [facility]. (8) Diabetes mellitus Conclusion/Plan: Ruled out He was on no insulin or oral DM meds noted, after his list has been reconciled by pharmacy. Will order a regular diet but will order fingerstick checks, ss insulin coverage, hypoglycemia protocol and check A1c with morning labs. Nutrition consult ordered. [facility] RN was also asked to obtain DM info from the [facility]. It was learned that he does have Diet-controlled DM, but he is on no Insulin or oral meds. His A1c came back at 4.1, ruling out DM I will change his diet back to a Reg diet Will stop sliding scale Insulin coverage I updated the brother in law today at bedside (9) Hypothermia Conclusion/Plan: Resolved This is likely from the combination of severe bradycardia (and poor perfusion) plus marked anemia. A TSH was drawn and is normal. We ordered a warming unit to use prn. His a.m. cortisol level was normal (10) UTI Conclusion/Plan: Ruled out. Ur cx grew skin henry He has had recurrent UTIs, recently many of the cx have grown Proteus mirabilis. The most recent was February 2022. A UA was obtained after admission (straight cath needed since he is incontinent) and does suggest a UTI. Will start iv Ceftriaxone, which the Proteus was sens to. Await new urine cx results and sens to tailor antibx. We will plan a 14 to 21-day total course of treatment with antibx for good prostate penetration. - Current Meds Current Meds: Current Medications Generic Name Dose Route Start Last Admin Trade Name Freq PRN Reason Stop Dose Admin Acetaminophen 650 mg 04/19/22 18:09 04/19/22 20:07 Acetaminophen 325 Mg Tablet PO 650 mg Q6HR PRN Administration PAIN Aspirin 81 mg 04/20/22 09:00 04/20/22 08:25 Aspirin Chew 81 Mg Tablet PO 81 mg DAILY GHASSAN Administration Famotidine 10 mg 04/20/22 09:00 04/20/22 08:25 Famotidine 20 Mg Tablet PO 10 mg Q48H GHASSAN Administration Finasteride 5 mg 04/20/22 09:00 04/20/22 08:25 Finasteride 5 Mg Tablet PO 5 mg DAILY GHASSAN Administration Guaifenesin 600 mg 04/20/22 21:00 04/20/22 21:02 Guaifenesin 600 Mg Tablet PO 600 mg BID GHASSAN Administration Sodium Chloride 1,000 mls @ 40 mls/hr 04/20/22 11:00 04/20/22 12:18 Normal Saline 0.9% IV 40 mls/hr .Q25H GHASSAN Administration Azithromycin 500 mg/ Sodium 250 mls @ 250 mls/hr 04/20/22 13:47 04/20/22 17:21 Chloride IV 04/23/22 00:01 Infused DAILY GHASSAN Infusion Ceftriaxone Sodium 1 gm/ 100 mls @ 200 mls/hr 04/20/22 15:10 04/20/22 18:29 Sodium Chloride IV Infused DAILY@1300 [facility] Infusion Insulin Human Lispro 1 - 5 unit 04/19/22 21:00 04/21/22 08:08 Insulin Lispro 300 Unit/3 Ml Pen SUBQ Not Given 0800,1200,1700,2100 [facility] Protocol Levothyroxine Sodium 25 mcg 04/20/22 07:00 04/21/22 06:55 Levothyroxine 25 Mcg Tablet PO 25 mcg QDAC GHASSAN Administration Sodium Chloride 10 ml 04/19/22 18:06 04/20/22 12:18 Sodium Chloride Flush 0.9% 10 Ml Syringe IVP 10 ml PRN PRN Administration NEEDED PER PROVIDER ORDERS Sodium Chloride 10 ml 04/20/22 01:00 04/21/22 04:15 Sodium Chloride Flush 0.9% 10 Ml Syringe IVP Not Given 0100,0900,1700 [facility] Tamsulosin HCl 0.4 mg 04/19/22 21:00 04/20/22 21:01 Tamsulosin 0.4 Mg Capsule PO 0.4 mg QPM [facility] Administration - Lab Result Fish Bone Diagrams: 04/21/22 08:59 04/21/22 04:23 - Additional Planning My Orders: My Active Orders 04/20/22 09:00 Aspirin Chewable [[place] Aspirin] 81 mg PO DAILY Famotidine [Pepcid] 10 mg PO Q48H Finasteride [Proscar] 5 mg PO DAILY 04/20/22 11:00 Sodium Chloride 0.9% [Normal Saline 0.9%] 1,000 ml IV 40 mls/hr 04/20/22 13:47 Azithromycin Inj [Zithromax Inj] 500 mg Sodium Chloride 0.9% [Normal Saline 0.9%] 250 ml IV DAILY 04/20/22 14:59 Zinc Oxide 20% Oint [Zinc Oxide] 1 applic TOP PRN PRN 04/20/22 15:10 cefTRIAXone [Rocephin] 1 gm Sodium Chloride 0.9% Minibag [Normal Saline 0.9% Minibag] 100 ml IV DAILY@1300 04/20/22 21:00 guaiFENesin [Mucinex] 600 mg PO BID 04/21/22 Breakfast Carb-controlled Diet [DIET] 04/21/22 Lunch DIET [Regular Diet] [DIET] 04/22/22 05:00 BMP - BASIC METABOLIC PANEL [CHEM] DAILYLAB CBC - COMP BLD CT W/AUTO DIFF [HEME] DAILYLAB 04/23/22 05:00 BMP - BASIC METABOLIC PANEL [CHEM] DAILYLAB CBC - COMP BLD CT W/AUTO DIFF [HEME] DAILYLAB Subjective - Subjective Patient Reports: Other (Ate, had to be fed, also awoke and spoke to brother in law) Objective Vital Signs: Vital Signs - 24 hr 04/20/22 04/20/22 04/20/22 12:20 15:43 20:14 Temperature 37.1 C 37.3 C 37.0 C Heart Rate [ 62 60 66 Monitoring electrodes] Respiratory 20 20 20 Rate Blood Pressure [Left Brachial artery] Blood Pressure 102/33 L 107/48 L 149/46 H [Right Brachial artery] O2 Saturation 94 95 96 04/21/22 04/21/22 04/21/22 01:30 05:07 07:32 Temperature 36.3 C L 36.7 C 36.2 C L Heart Rate [ 61 70 64 Monitoring electrodes] Respiratory 20 18 18 Rate Blood Pressure 119/50 L 137/62 H 140/54 H [Left Brachial artery] Blood Pressure [Right Brachial artery] O2 Saturation 94 97 95 04/21/22 08:00 Temperature 37.0 C Heart Rate [ 61 Monitoring electrodes] Respiratory 20 Rate Blood Pressure 140/54 H [Left Brachial artery] Blood Pressure [Right Brachial artery] O2 Saturation 96 Oxygen O2 Source [With Activity] Oxymizer O2 Source Room air I&O (Last 24 Hrs): Intake and Output Totals x24h 04/19/22 04/20/22 04/21/22 23:59 23:59 23:59 Intake Total 1870 1999 150 Output Total 100 Balance 1770 1999 150 General: Other (Somnolent but awakens to name by voice, turns his head and interacts with entire sentences. Easily falls back asleep) HEENT: Mucous membr. moist/pink Neck: Supple, No JVD Neuro: Non Focal, Other (Somnolent but more easily awoken and is able to have a full conversation for several minutes before falling back asleep) Cardiovascular: Regular rate, No murmurs Respiratory: No respiratory distress, Rhonchi Abdomen: Soft, No tenderness Extremities: No edema - Results Results: Laboratory Results WBC 5.6 x10^3/uL (4.8-10.8) 04/21/22 04:23 RBC 2.20 10^6/uL (4.70-6.10) L 04/21/22 04:23 Hgb 6.6 g/dL (14.0-18.0) L* 04/21/22 04:23 Hct 21.3 % (42.0-52.0) L 04/21/22 04:23 MCV 96.8 fL (80.0-94.0) H 04/21/22 04:23 MCH 30.0 pg (27.0-31.0) 04/21/22 04:23 MCHC 31.0 g/dL (32.0-36.0) L 04/21/22 04:23 RDW 16.5 % (12.0-15.0) H 04/21/22 04:23 Plt Count 137 10^3/uL (130-450) 04/21/22 04:23 MPV 11.7 fL (7.4-11.4) H 04/21/22 04:23 Neut # (Auto) 4.1 10^3/uL (1.5-6.6) 04/21/22 04:23 Lymph # (Auto) 0.8 10^3/uL (1.5-3.5) L 04/21/22 04:23 [place] # (Auto) 0.5 10^3/uL (0.0-1.0) 04/21/22 04:23 Eos # (Auto) 0.1 10^3/uL (0.0-0.7) 04/21/22 04:23 Baso # (Auto) 0.0 10^3/uL (0.0-0.1) 04/21/22 04:23 Absolute Nucleated RBC 0.06 x10^3/uL 04/21/22 04:23 Nucleated RBC % 1.1 /100WBC 04/21/22 04:23 PT 10.9 secs (9.9-12.6) 04/19/22 13:28 INR 1.0 (0.8-1.2) 04/19/22 13:28 Sodium 140 mmol/L (135-145) 04/21/22 04:23 Potassium 4.4 mmol/L (3.5-5.0) 04/21/22 04:23 Chloride 115 mmol/L (101-111) H 04/21/22 04:23 Carbon Dioxide 20 mmol/L (21-32) L 04/21/22 04:23 Anion Gap 5.0 (6-13) L 04/21/22 04:23 BUN 73 mg/dL (6-20) H 04/21/22 04:23 Creatinine 1.4 mg/dL (0.6-1.2) H 04/21/22 04:23 Estimated GFR (MDRD) 48 (>89) L 04/21/22 04:23 Glucose 68 mg/dL (70-100) L 04/21/22 04:23 Estimat Average Glucose 74 mg/dL (70-100) 04/20/22 09:23 Hemoglobin A1c % 4.2 % (4.27-6.07) L 04/20/22 09:23 Calcium 7.9 mg/dL (8.5-10.3) L 04/21/22 04:23 Magnesium 2.5 mg/dL (1.7-2.8) 04/20/22 09:23 Total Bilirubin 0.5 mg/dL (0.2-1.0) 04/19/22 13:28 AST 14 IU/L (10-42) 04/19/22 13:28 ALT 19 IU/L (10-60) 04/19/22 13:28 Alkaline Phosphatase 90 IU/L (42-121) 04/19/22 13:28 Total Protein 5.4 g/dL (6.7-8.2) L 04/19/22 13:28 Albumin 2.9 g/dL (3.2-5.5) L 04/19/22 13:28 Globulin 2.5 g/dL (2.1-4.2) 04/19/22 13:28 Albumin/Globulin Ratio 1.2 (1.0-2.2) 04/19/22 13:28 TSH 5.13 uIU/mL (0.34-5.60) 04/19/22 13:28 Cortisol AM Sample 17.7 ug/dL 04/20/22 09:23 Urine Color YELLOW 04/19/22 19:50 Urine Clarity HAZY (CLEAR) 04/19/22 19:50 Urine pH 5.5 PH (5.0-7.5) 04/19/22 19:50 Ur Specific [place] 1.015 (1.002-1.030) 04/19/22 19:50 Urine Protein 30 mg/dL (NEGATIVE) H 04/19/22 19:50 Urine Glucose (UA) NEGATIVE mg/dL (NEGATIVE) 04/19/22 19:50 Urine Ketones NEGATIVE mg/dL (NEGATIVE) 04/19/22 19:50 Urine Occult Blood SMALL (NEGATIVE) H 04/19/22 19:50 Urine Nitrite NEGATIVE (NEGATIVE) 04/19/22 19:50 Urine Bilirubin NEGATIVE (NEGATIVE) 04/19/22 19:50 Urine Urobilinogen 0.2 (NORMAL) E.U./dL (NORMAL) 04/19/22 19:50 Ur Leukocyte Esterase MODERATE (NEGATIVE) H 04/19/22 19:50 Urine RBC 0-5 /HPF (0-5) 04/19/22 19:50 Urine WBC >25 /HPF (0-3) H 04/19/22 19:50 Ur Squamous Epith Cells NONE SEEN (<= Few) 04/19/22 19:50 Urine Bacteria Few /HPF (None Seen) 04/19/22 19:50 Urine Culture Comments INDICATED 04/19/22 19:50 Nasal Adenovirus (PCR) NOT DETECTED 04/19/22 13:40 Nasal B. parapertussis DNA (PCR) NOT DETECTED 04/19/22 13:40 Nasal Coronavir 229E PCR NOT DETECTED 04/19/22 13:40 Nasal Coronavir HKU1 PCR NOT DETECTED 04/19/22 13:40 Nasal Coronavir NL63 PCR NOT DETECTED 04/19/22 13:40 Nasal Coronavir OC43 PCR NOT DETECTED 04/19/22 13:40 Nasal Enterovir/Rhinovir PCR NOT DETECTED 04/19/22 13:40 Nasal Influenza B PCR NOT DETECTED 04/19/22 13:40 Nasal Influenza A PCR NOT DETECTED 04/19/22 13:40 Nasal Parainfluen 1 PCR NOT DETECTED 04/19/22 13:40 Nasal Parainfluen 2 PCR NOT DETECTED 04/19/22 13:40 Nasal Parainfluen 3 PCR NOT DETECTED 04/19/22 13:40 Nasal Parainfluen 4 PCR NOT DETECTED 04/19/22 13:40 Nasal RSV (PCR) NOT DETECTED 04/19/22 13:40 Nasal B.pertussis DNA PCR NOT DETECTED 04/19/22 13:40 Nasal C.pneumoniae (PCR) NOT DETECTED 04/19/22 13:40 [place] Human Metapneumo PCR NOT DETECTED 04/19/22 13:40 Nasal M.pneumoniae (PCR) NOT DETECTED 04/19/22 13:40 Nasal SARS-CoV-2 (PCR) NOT DETECTED 04/19/22 13:40 Blood Type O POSITIVE 04/19/22 13:52 Antibody Screen NEGATIVE 04/19/22 13:52 Crossmatch IS Only See Detail 04/19/22 13:52 - Procedures Procedures: Procedures EXCISION OF STOMACH, ENDO (12/28/18) INSPECTION OF LOWER INTESTINAL TRACT, ENDO (12/28/18) TRANSFUSE NONAUT RED BLOOD CELLS IN PERIPH VEIN, PERC (12/28/18)
[2022-04-21 09:17] LABS: HCT - HEMATOCRIT 24.1 % (42.0-52.0); HGB - HEMOGLOBIN 7.6 g/dL (14.0-18.0)
[2022-04-21] MEDS: ASPIRIN CHEW 81 MG TABLET PO SCH (09:35)
[2022-04-21] MEDS: FINASTERIDE 5 MG TABLET PO SCH (09:35)
[2022-04-21] MEDS: guaiFENesin 600 MG TABLET PO SCH ×2 (09:35→21:22)
[2022-04-21] MEDS: ACETAMINOPHEN 325 MG TABLET PO PRN (09:58)
[2022-04-21] MEDS: ZINC OXIDE 20% OINT 30 GM TUBE TOP PRN (10:45)
[2022-04-21] MEDS: AZITHROMYCIN INJ 500 MG in SODIUM CHLORIDE 0.9% 250 ML IV SCH (10:56)
[2022-04-21] MEDS: SENNA 8.6 MG TABLET PO SCH (12:13)
[2022-04-21] MEDS: polyethylene glycoL 3350 17 GM PACKET PO SCH (12:13)
[2022-04-21] MEDS: cefTRIAXone 1 GM in SODIUM CHLORIDE 0.9% MINIBAG 100 ML IV SCH (12:26)
[2022-04-21] MEDS: MULTIVITAMIN W/MINERALS TABLET PO SCH (14:48)
[2022-04-21] MEDS: SODIUM CHLORIDE FLUSH 0.9% 10 ML SYRINGE IVP PRN (15:40)
[2022-04-21] MEDS: TAMSULOSIN 0.4 MG CAPSULE PO SCH (21:22)
[2022-04-21] MEDS: SODIUM CHLORIDE 0.9% 1,000 ML IV SCH (21:22)
[2022-04-22 05:13] LABS: BASOPHILS % (AUTO) 0.3 %; EOSINOPHILS # (AUTO) 0.1 10^3/uL (0.0-0.7); EOSINOPHILS % (AUTO) 1.9 %; HCT - HEMATOCRIT 23.7 % (42.0-52.0); HGB - HEMOGLOBIN 7.7 g/dL (14.0-18.0); LYMPHOCYTES # (AUTO) 0.9 10^3/uL (1.5-3.5); LYMPHOCYTES % (AUTO) 14.7 %; MEAN CORPUSCULAR HEMOGLOBIN 30.8 pg (27.0-31.0); MEAN CORPUSCULAR HGB CONC 32.5 g/dL (32.0-36.0); MEAN CORPUSCULAR VOLUME 94.8 fL (80.0-94.0); MEAN PLATELET VOLUME 11.6 fL (7.4-11.4); MONOCYTES # (AUTO) 0.5 10^3/uL (0.0-1.0); MONOCYTES % (AUTO) 8.3 %; NEUTROPHILS # (AUTO) 4.6 10^3/uL (1.5-6.6); NEUTROPHILS % (AUTO) 74.3 %; NRBC ABSOLUTE COUNT (AUTO) 0.04 x10^3/uL; NUCLEATED RED BLOOD CELLS AUTO 0.6 /100WBC; PLT - PLATELET COUNT 136 10^3/uL (130-450); RED CELL DISTRIBUTION WIDTH 16.6 % (12.0-15.0); WHITE BLOOD COUNT 6.2 x10^3/uL (4.8-10.8)
[2022-04-22 05:21] LABS: CREATININE 1.5 mg/dL (0.6-1.2); POTASSIUM 4.8 mmol/L (3.5-5.0)
[2022-04-22] MEDS: LEVOTHYROXINE 25 MCG TABLET PO SCH (06:57)
[2022-04-22] MEDS: MULTIVITAMIN W/MINERALS TABLET PO SCH (09:38)
[2022-04-22] MEDS: ASPIRIN CHEW 81 MG TABLET PO SCH (09:38)
[2022-04-22] MEDS: FAMOTIDINE 20 MG TABLET PO SCH (09:38)
[2022-04-22] MEDS: SODIUM CHLORIDE FLUSH 0.9% 10 ML SYRINGE IVP SCH ×3 (09:39→23:46)
[2022-04-22] MEDS: CYANOCOBALAMIN 500 MCG TABLET PO SCH ×2 (09:39→21:05)
[2022-04-22] MEDS: SENNA 8.6 MG TABLET PO SCH (09:39)
[2022-04-22] MEDS: AZITHROMYCIN INJ 500 MG in SODIUM CHLORIDE 0.9% 250 ML IV SCH (09:39)
[2022-04-22] MEDS: FINASTERIDE 5 MG TABLET PO SCH (09:39)
[2022-04-22] MEDS: guaiFENesin 600 MG TABLET PO SCH ×2 (09:39→21:05)
[2022-04-22] MEDS: polyethylene glycoL 3350 17 GM PACKET PO SCH (09:39)
[2022-04-22] MEDS: cefTRIAXone 1 GM in SODIUM CHLORIDE 0.9% MINIBAG 100 ML IV SCH (12:56)
--- NOTE | 2022-04-22 16:01 | PROVIDER PROGRESS NOTE ---
Assessment/Plan - Problem List (1) Altered mental status Qualifiers: Altered mental status type: unspecified Qualified Code(s): R41.82 - Altered mental status, unspecified Assessment/Plan: Significantly improved alertness today: He is talking in complete sentences without any distress, has a good memory of what he used to do at the half-way, asks appropriate questions, interacts with his [id number] who is again at the bedside. He presented more lethargic. He may have the lethargy from the marked bradycardia or from the hypothermia or a recurrent infection. No head CT or other imaging was done in the ED. No urinalysis was obtained in the ED to assure there was no new infection. He does not carry a Dx of dementia, does have weakness chronically. His head CT this admission showed no stroke or bleed, but chronic microangiopathy changes were seen His a.m. cortisol level was normal A CXR showed PNA the day after admission A warming blanket was ordered and helped his hypothermia. He is receiving IV fluids, given the Acute on chronic kidney disease (see below). PT and OT evaluations were to start until social work found out that his baseline functional status is using a wheelchair and a Ru lift for transfers. Therefore no PT and OT is needed and was canceled. I updated the [id number] at bedside again today Qualifiers: Altered mental status type: unspecified Qualified Code(s): R41.82 - Altered mental status, unspecified (2) Bradycardia Conclusion/Plan: Improving. His HRs are now 50-70. Likely some of the cause of this is from being on metoprolol. A TSH was drawn and is normal. He may have severe conduction system incompetence, since he has the underlying A. fib. We saw no EKG done in ED; but it was not yet scanned into the EMR when he was admitted by me yesterday. We stopped his metoprolol, allowing it to washout. We are avoiding all heart rate slowing medications. No pacemaker is desired by DPOA. An Echo was done and showed normal LVEF Continue telemetry (3) Pneumonia Conclusion/Plan: The chest x-ray that was done after admission, because of rhonchi heard the next day, showed a lobar pneumonia. We ordered Zithromax IV and the iv Ceftriaxone, and Mucinex (4) Anemia Conclusion/Plan: Presumably this is from a GI source, since he has a history of GI bleeding with no exact etiology found on multiple scopes and prior work-up. He has an appointment pending with Hematol to get Iron He has needed transfusion twice this admission. Following CBC daily We ordered a stool guaic given that he has needed several transfusions already this admission, but no stool sample yet. B12 level and iron panel also ordered (5) Chronic a-fib Conclusion/Plan: As per Hx. He is on chewable daily ASA for stroke prophylaxis which will be continued. Echo was done and showed normal LVEF (6) Acute on chronic kidney failure Conclusion/Plan: Unchanged. His admission labs show BUN/creatinine of 79/1.3, and usually these run 57-71/1.1-1.2. Will continue to give very slow rehydration one more day (7) Hypoglycemia Conclusion/Plan: Resolved. He had a morning fingerstick glucose level of 54, despite being ordered to eat a regular diet, not a diabetic diet. He did receive oral glucose and the next fingerstick was 94. Today a glu was 70. He was asymptomatic (8) Diabetes mellitus Conclusion/Plan: Ruled out He was on no insulin or oral DM meds noted, after his list has been reconciled by pharmacy. Will order a regular diet but will order fingerstick checks, ss insulin coverage, hypoglycemia protocol and check A1c with morning labs. Nutrition consult ordered. [facility] RN was also asked to obtain DM info from the CT. It was learned that he does have Diet-controlled DM, but he is on no Insulin or oral meds. His A1c came back at 4.1, ruling out DM I will change his diet back to a Reg diet Will stop sliding scale Insulin coverage I updated the brother in law today at bedside (9) Hypothermia Conclusion/Plan: Resolved This is likely from the combination of severe bradycardia (and poor perfusion) plus marked anemia. A TSH was drawn and is normal. We ordered a warming unit to use prn. His a.m. cortisol level was normal (10) UTI Conclusion/Plan: Ruled out. Ur cx grew skin henry He has had recurrent UTIs, recently many of the cx have grown Proteus mirabilis. The most recent was February 2022. A UA was obtained after admission (straight cath needed since he is incontinent) and does suggest a UTI. Will start iv Ceftriaxone, which the Proteus was sens to. Await new urine cx results and sens to tailor antibx. We will plan a 14 to 21-day total course of treatment with antibx for good prostate penetration. - Current Meds Current Meds: Current Medications Generic Name Dose Route Start Last Admin Trade Name Freq PRN Reason Stop Dose Admin Acetaminophen 650 mg 04/19/22 18:09 04/21/22 09:58 Acetaminophen 325 Mg Tablet PO 650 mg Q6HR PRN Administration PAIN Aspirin 81 mg 04/20/22 09:00 04/22/22 09:38 Aspirin Chew 81 Mg Tablet PO 81 mg DAILY GHASSAN Administration Cyanocobalamin 500 mcg 04/22/22 10:00 04/22/22 09:39 Cyanocobalamin 500 Mcg Tablet PO 500 mcg BID GHASSAN Administration Famotidine 10 mg 04/20/22 09:00 04/22/22 09:38 Famotidine 20 Mg Tablet PO 10 mg Q48H GHASSAN Administration Finasteride 5 mg 04/20/22 09:00 04/22/22 09:39 Finasteride 5 Mg Tablet PO 5 mg DAILY GHASSAN Administration Guaifenesin 600 mg 04/20/22 21:00 04/22/22 09:39 Guaifenesin 600 Mg Tablet PO 600 mg BID GHASSAN Administration Sodium Chloride 1,000 mls @ 40 mls/hr 04/20/22 11:00 04/22/22 13:35 Normal Saline 0.9% IV 40 mls/hr .Q25H GHASSAN Infusion Azithromycin 500 mg/ Sodium 250 mls @ 250 mls/hr 04/20/22 13:47 04/22/22 10:45 Chloride IV 04/23/22 00:01 Infused DAILY GHASSAN Infusion Ceftriaxone Sodium 1 gm/ 100 mls @ 200 mls/hr 04/20/22 15:10 04/22/22 13:30 Sodium Chloride IV Infused DAILY@1300 GHASSAN Infusion Levothyroxine Sodium 25 mcg 04/20/22 07:00 04/22/22 06:57 Levothyroxine 25 Mcg Tablet PO 25 mcg QDAC GHASSAN Administration Multi-Ingredient Ointment 1 applic 04/20/22 14:59 04/21/22 10:45 Zinc Oxide 20% Oint 30 Gm Tube TOP 1 applic PRN PRN Administration Skin Care Multivitamins/Minerals 1 tab 04/21/22 14:00 04/22/22 09:38 Multivitamin W/Minerals Tablet PO 1 tab DAILYWM GHASSAN Administration Polyethylene Glycol 17 gm 04/21/22 12:00 04/22/22 09:39 Polyethylene Glycol 3350 17 Gm Packet PO 17 gm DAILY GHASSAN Administration Senna 8.6 - 17.2 mg 04/21/22 12:00 04/22/22 09:39 Senna 8.6 Mg Tablet PO 8.6 mg DAILY GHASSAN Administration Sodium Chloride 10 ml 04/19/22 18:06 04/21/22 15:40 Sodium Chloride Flush 0.9% 10 Ml Syringe IVP 10 ml PRN PRN Administration NEEDED PER PROVIDER ORDERS Sodium Chloride 10 ml 04/20/22 01:00 04/22/22 09:39 Sodium Chloride Flush 0.9% 10 Ml Syringe IVP Not Given 0100,0900,1700 GHASSAN Tamsulosin HCl 0.4 mg 04/19/22 21:00 04/21/22 21:22 Tamsulosin 0.4 Mg Capsule PO 0.4 mg QPM GHASSAN Administration - Lab Result Fish Bone Diagrams: 04/22/22 04:57 04/22/22 04:57 - Additional Planning My Orders: My Active Orders 04/21/22 Dinner Dysphagia - Minced and Moist [DIET] 04/22/22 10:00 Cyanocobalamin [Vitamin B-12] 500 mcg PO BID 04/22/22 10:31 Miscellaenous Nursing Order [RC] QSHIFT 04/23/22 05:00 BMP - BASIC METABOLIC PANEL [CHEM] DAILYLAB CBC - COMP BLD CT W/AUTO DIFF [HEME] DAILYLAB IRON TIBC PANEL [CHEM] DAILYLAB VITAMIN B12 [IAI] DAILYLAB Subjective - Subjective Patient Reports: Resting Comfortably, No Complaints, Other (Does describe poor vision and poor finger dexterity plus arm weakness) Nursing Reports: Other (Awake, communicative) Objective Vital Signs: Vital Signs - 24 hr 04/21/22 04/21/22 04/22/22 20:18 23:57 05:00 Temperature 36.3 C L 36.3 C L 36.2 C L Heart Rate [ 67 56 L 59 L Brachial] Respiratory 16 15 16 Rate Blood Pressure 120/55 L [Left Brachial artery] Blood Pressure 141/47 H 133/59 H [Right Brachial artery] O2 Saturation 98 94 99 04/22/22 04/22/22 07:52 11:54 Temperature 36.3 C L 36.2 C L Heart Rate [ 58 L 56 L Brachial] Respiratory 16 18 Rate Blood Pressure [Left Brachial artery] Blood Pressure 135/50 H 116/39 L [Right Brachial artery] O2 Saturation 99 99 Oxygen O2 Source [With Activity] Oxymizer O2 Source Room air I&O (Last 24 Hrs): Intake and Output Totals x24h 04/20/22 04/21/22 04/22/22 23:59 23:59 23:59 Intake Total 1999 2730 1920.000 Balance 1999 273 1920.000 General: Alert, Oriented x3 HEENT: Mucous membr. moist/pink Neck: Supple, No JVD Neuro: Alert, Other (Generalized weakness) Cardiovascular: Regular rate Respiratory: No respiratory distress Abdomen: Soft Extremities: No edema - Results Results: Laboratory Results WBC 6.2 x10^3/uL (4.8-10.8) 04/22/22 04:57 RBC 2.50 10^6/uL (4.70-6.10) L 04/22/22 04:57 Hgb 7.7 g/dL (14.0-18.0) L 04/22/22 04:57 Hct 23.7 % (42.0-52.0) L 04/22/22 04:57 MCV 94.8 fL (80.0-94.0) H 04/22/22 04:57 MCH 30.8 pg (27.0-31.0) 04/22/22 04:57 MCHC 32.5 g/dL (32.0-36.0) 04/22/22 04:57 RDW 16.6 % (12.0-15.0) H 04/22/22 04:57 Plt Count 136 10^3/uL (130-450) 04/22/22 04:57 MPV 11.6 fL (7.4-11.4) H 04/22/22 04:57 Neut # (Auto) 4.6 10^3/uL (1.5-6.6) 04/22/22 04:57 Lymph # (Auto) 0.9 10^3/uL (1.5-3.5) L 04/22/22 04:57 Rains # (Auto) 0.5 10^3/uL (0.0-1.0) 04/22/22 04:57 Eos # (Auto) 0.1 10^3/uL (0.0-0.7) 04/22/22 04:57 Baso # (Auto) 0.0 10^3/uL (0.0-0.1) 04/22/22 04:57 Absolute Nucleated RBC 0.04 x10^3/uL 04/22/22 04:57 Nucleated RBC % 0.6 /100WBC 04/22/22 04:57 PT 10.9 secs (9.9-12.6) 04/19/22 13:28 INR 1.0 (0.8-1.2) 04/19/22 13:28 Sodium 136 mmol/L (135-145) 04/22/22 04:57 Potassium 4.8 mmol/L (3.5-5.0) 04/22/22 04:57 Chloride 110 mmol/L (101-111) 04/22/22 04:57 Carbon Dioxide 20 mmol/L (21-32) L 04/22/22 04:57 Anion Gap 6.0 (6-13) 04/22/22 04:57 BUN 64 mg/dL (6-20) H 04/22/22 04:57 Creatinine 1.5 mg/dL (0.6-1.2) H 04/22/22 04:57 Estimated GFR (MDRD) 44 (>89) L 04/22/22 04:57 Glucose 74 mg/dL (70-100) 04/22/22 04:57 Estimat Average Glucose 74 mg/dL (70-100) 04/20/22 09:23 Hemoglobin A1c % 4.2 % (4.27-6.07) L 04/20/22 09:23 Calcium 8.0 mg/dL (8.5-10.3) L 04/22/22 04:57 Magnesium 2.5 mg/dL (1.7-2.8) 04/20/22 09:23 Total Bilirubin 0.5 mg/dL (0.2-1.0) 04/19/22 13:28 AST 14 IU/L (10-42) 04/19/22 13:28 ALT 19 IU/L (10-60) 04/19/22 13:28 Alkaline Phosphatase 90 IU/L (42-121) 04/19/22 13:28 Total Protein 5.4 g/dL (6.7-8.2) L 04/19/22 13:28 Albumin 2.9 g/dL (3.2-5.5) L 04/19/22 13:28 Globulin 2.5 g/dL (2.1-4.2) 04/19/22 13:28 Albumin/Globulin Ratio 1.2 (1.0-2.2) 04/19/22 13:28 TSH 5.13 uIU/mL (0.34-5.60) 04/19/22 13:28 Cortisol AM Sample 17.7 ug/dL 04/20/22 09:23 Urine Color YELLOW 04/19/22 19:50 Urine Clarity HAZY (CLEAR) 04/19/22 19:50 Urine pH 5.5 PH (5.0-7.5) 04/19/22 19:50 Ur Specific [place] 1.015 (1.002-1.030) 04/19/22 19:50 Urine Protein 30 mg/dL (NEGATIVE) H 04/19/22 19:50 Urine Glucose (UA) NEGATIVE mg/dL (NEGATIVE) 04/19/22 19:50 Urine Ketones NEGATIVE mg/dL (NEGATIVE) 04/19/22 19:50 Urine Occult Blood SMALL (NEGATIVE) H 04/19/22 19:50 Urine Nitrite NEGATIVE (NEGATIVE) 04/19/22 19:50 Urine Bilirubin NEGATIVE (NEGATIVE) 04/19/22 19:50 Urine Urobilinogen 0.2 (NORMAL) E.U./dL (NORMAL) 04/19/22 19:50 Ur Leukocyte Esterase MODERATE (NEGATIVE) H 04/19/22 19:50 Urine RBC 0-5 /HPF (0-5) 04/19/22 19:50 Urine WBC >25 /HPF (0-3) H 04/19/22 19:50 Ur Squamous Epith Cells NONE SEEN (<= Few) 04/19/22 19:50 Urine Bacteria Few /HPF (None Seen) 04/19/22 19:50 Urine Culture Comments INDICATED 04/19/22 19:50 Nasal Adenovirus (PCR) NOT DETECTED 04/19/22 13:40 Nasal B. parapertussis DNA (PCR) NOT DETECTED 04/19/22 13:40 Nasal Coronavir 229E PCR NOT DETECTED 04/19/22 13:40 Nasal Coronavir HKU1 PCR NOT DETECTED 04/19/22 13:40 Nasal Coronavir NL63 PCR NOT DETECTED 04/19/22 13:40 Nasal Coronavir OC43 PCR NOT DETECTED 04/19/22 13:40 Nasal Enterovir/Rhinovir PCR NOT DETECTED 04/19/22 13:40 Nasal Influenza B PCR NOT DETECTED 04/19/22 13:40 Nasal Influenza A PCR NOT DETECTED 04/19/22 13:40 Nasal Parainfluen 1 PCR NOT DETECTED 04/19/22 13:40 Nasal Parainfluen 2 PCR NOT DETECTED 04/19/22 13:40 Nasal Parainfluen 3 PCR NOT DETECTED 04/19/22 13:40 Nasal Parainfluen 4 PCR NOT DETECTED 04/19/22 13:40 Nasal RSV (PCR) NOT DETECTED 04/19/22 13:40 Nasal B.pertussis DNA PCR NOT DETECTED 04/19/22 13:40 Nasal C.pneumoniae (PCR) NOT DETECTED 04/19/22 13:40 Lino Human Metapneumo PCR NOT DETECTED 04/19/22 13:40 Nasal M.pneumoniae (PCR) NOT DETECTED 04/19/22 13:40 Nasal SARS-CoV-2 (PCR) NOT DETECTED 04/19/22 13:40 Blood Type O POSITIVE 04/19/22 13:52 Antibody Screen NEGATIVE 04/19/22 13:52 Crossmatch IS Only See Detail 04/19/22 13:52 - Procedures Procedures: Procedures EXCISION OF STOMACH, ENDO (12/28/18) INSPECTION OF LOWER INTESTINAL TRACT, ENDO (12/28/18) TRANSFUSE NONAUT RED BLOOD CELLS IN PERIPH VEIN, PERC (12/28/18)
[2022-04-22] MEDS: TAMSULOSIN 0.4 MG CAPSULE PO SCH (21:05)
[2022-04-22] MEDS: SODIUM CHLORIDE 0.9% 1,000 ML IV SCH (23:45)
[2022-04-23] MEDS: ZINC OXIDE 20% OINT 30 GM TUBE TOP PRN (00:09)
[2022-04-23 05:45] LABS: BASOPHILS % (AUTO) 0.3 %; EOSINOPHILS # (AUTO) 0.2 10^3/uL (0.0-0.7); EOSINOPHILS % (AUTO) 3.4 %; HCT - HEMATOCRIT 25.2 % (42.0-52.0); HGB - HEMOGLOBIN 8.1 g/dL (14.0-18.0); LYMPHOCYTES # (AUTO) 0.8 10^3/uL (1.5-3.5); LYMPHOCYTES % (AUTO) 13.3 %; MEAN CORPUSCULAR HEMOGLOBIN 30.6 pg (27.0-31.0); MEAN CORPUSCULAR HGB CONC 32.1 g/dL (32.0-36.0); MEAN CORPUSCULAR VOLUME 95.1 fL (80.0-94.0); MEAN PLATELET VOLUME 11.7 fL (7.4-11.4); MONOCYTES # (AUTO) 0.4 10^3/uL (0.0-1.0); NEUTROPHILS # (AUTO) 4.5 10^3/uL (1.5-6.6); NEUTROPHILS % (AUTO) 76.5 %; NRBC ABSOLUTE COUNT (AUTO) 0.03 x10^3/uL; NUCLEATED RED BLOOD CELLS AUTO 0.5 /100WBC; PLT - PLATELET COUNT 143 10^3/uL (130-450); RED BLOOD COUNT 2.65 10^6/uL (4.70-6.10); RED CELL DISTRIBUTION WIDTH 16.1 % (12.0-15.0); WHITE BLOOD COUNT 5.9 x10^3/uL (4.8-10.8)
[2022-04-23] MEDS: LEVOTHYROXINE 25 MCG TABLET PO SCH (06:02)
[2022-04-23 06:05] LABS: CALCIUM 8.3 mg/dL (8.5-10.3); CREATININE 1.3 mg/dL (0.6-1.2); POTASSIUM 4.1 mmol/L (3.5-5.0)
[2022-04-23] MEDS: polyethylene glycoL 3350 17 GM PACKET PO SCH (08:33)
[2022-04-23] MEDS: SENNA 8.6 MG TABLET PO SCH (08:33)
[2022-04-23] MEDS: MULTIVITAMIN W/MINERALS TABLET PO SCH (08:33)
[2022-04-23] MEDS: CYANOCOBALAMIN 500 MCG TABLET PO SCH (08:33)
[2022-04-23] MEDS: guaiFENesin 600 MG TABLET PO SCH (08:33)
[2022-04-23] MEDS: FINASTERIDE 5 MG TABLET PO SCH (08:34)
[2022-04-23] MEDS: ASPIRIN CHEW 81 MG TABLET PO SCH (08:34)
[2022-04-23] MEDS ORDERED: NYSTATIN POWDER 15 GM TOP SCH (10:37)
--- NOTE | 2022-04-23 11:05 | Discharge Plan ---
Discharge Plan for SNF / [facility] - Discharge Plan And Transition Orders Problem Reviewed?: Yes Disposition: 03 SNF DC/Xfer Condition: Stable Allergies and Adverse Reactions: Allergies Allergy/AdvReac Type Severity Reaction Status Date / Time No Known Drug Allergies Allergy Verified 04/19/22 13:31 Health Concerns: The patient was admitted with altered mental status (lethargy). This improved when we (1) permanently stopped Metoprolol due to severe bradycardic Afib, (2)treated him with IV antibiotics for pneumonia and IV fluids for dehydration and MARC on CKD, (3)treated his hypothermia with a warming unit, and (4)stopped Diabetic diet, and also ruled out that he is a Diabetic any longer. He is being discharged back to his residence at the custodial and new orders have been prescribed for several more days of oral antibiotics. He needs a regular diet, NOT a diabetic, carb-controlled diet. Please also avoid nephrotoxins. His Metoprolol has been stopped permanently and he should be on no heart rate- slowing medications ever. His Losartan and Amlodipine have been stopped due to "soft" BP, no longer Hypertensive. All his other pre-hospital medications can be resumed. Plan of Treatment: As above. Care Goals: Improvement in symptoms and stabilization are the goals. Assessment: Written instructions provided for custodial at discharge time. - SNF / HALF-WAY Transition Orders Admit to (Facility): [facility] Under the care of (Name): Dr Tabitha Garcia Discharge Diagnosis: (1) Altered mental status, resolved (2) Pneumonia, being treated (3) Bradycardia, improved No pacemaker was desired by DPOA (4) Chronic a-fib (5) Acute on chronic kidney failure, improved (6) Yeast infection of axillae, being treated (7) Anemia, stable (8) Hypothermia, resolved (9) Hypoglycemia, resolved (10) Diabetes mellitus, has been RULED OUT with A1c test result of 4.8 (11) BPH, stable (12) Hypothyroidism, stable (13) Generalized weakness, stable Other Notification Orders: Call PCP immediately if patient develops dyspnea, chest pain/tightness or edema. House Bowel Program: Yes Additional Bowel Program Orders: If no BM after 2 days, nurse may give M.O.M. 30ml PO PRN and/or ducolax Supp 1 ND and/or DARIAN 250mg P.O., and/or senna 1-2 tabs PO. On day 3 nurse may give repeat above order until residents constipation is resolved. Annual Influenza Vaccine (between Mar 31 and October 28): Yes Two-step PPD per [facility] [id number] or approved exception documents: Yes Treatments & Other Orders: OOB to chair with a Ru lift Medication Orders: PLEASE REFER TO THE DISCHARGE MEDICATION LIST. Insulin Orders?: No - Medications New Prescriptions: levoFLOXacin [Levofloxacin] 750 mg PO DAILY #2 tablet Multivitamin W/Minerals [Theragran M] 1 tab PO DAILYWM #30 tab - Diet Type: Geriatric Texture: Regular Liquids: Thin May have monthly special meal: Yes - Therapies | Activity Rehabilitation Potential: Maintain present ADL Functional Activity: Activity as Tolerated Weight Bearing: No Weight Assistance Devices: Wheelchair Follow Up: See PCP for hospital follow-up appointment in 1 to 2 weeks.
[2022-04-23] MEDS: SODIUM CHLORIDE FLUSH 0.9% 10 ML SYRINGE IVP SCH (11:08)
--- NOTE | 2022-04-23 11:26 | DISCHARGE SUMMARY ---
Discharge Summary Admit Date: 04/19/22 Discharge Date: 04/23/22 Discharging Provider: Dr Charley Armas Primary Care Provider: Dr Tabitha Garcia Code Status: Do Not Attempt Resuscitation Condition at Discharge: Stable Discharge Disposition: 03 SNF DC/Xfer - HPI History of Present Illness: This is an 86-year-old white woman who lives in a care home (exact diagnosis for needing care home is not clear from the EMR). He has a history of recurrent UTIs, urinary incontinence, and diabetes but is not on insulin or oral agents and [facility]. He has a history of chronic atrial fib but is not on anticoagulation. He was sent in from the care home today because staff noticed that he was more somnolent. He provided minimal history in the ED. He was found to be severely bradycardic with heart rates in the 30s in Afib. He was given 1 amp of atropine and heart rate siomne to the 50s, then dropped again to 40's and now is in the 30's again. The ED provider was able to speak to the OA [id number], who requested the patient have no transfer to another facility, no surgery, no pacemaker insertion, but transfusion of blood would be okay. The blood transfusion was ordered to start in the ED and the Hospitalist team has been contacted for admission for treating his marked anemia and profound bradycardia. The patient has had a history of GI bleed and several prior endoscopies with no source ever found. He is also noted to be hypothermic with Temp of 36 dropping to 35.2 degrees C in the ED. A POLST is on record and his CODE BLUE status is DNR/DNI. - HOSPITAL COURSE Hospital Course: (1) Altered mental status A head CT was done that showed no stroke, no hemorrhage, microangiopathic changes present, similar to a head CT from 2019. He was started on IV fluids, IV antibiotics, had a warming blanket and metoprolol was stopped because of severe bradycardia. In approximately 2 days his somnolence resolved, and he was at baseline. He was discharged back to his residence at [facility] in stable condition. (2) Pneumonia On the second day, he had new rhonchi and a chest x-ray was done that showed a lobar pneumonia. He was treated with Zithromax and Ceftriaxone. Mucinex was started to help him expectorate his cough. At the time of discharge, she was sent out to take 2 more days of oral Levaquin (3) Bradycardia Metoprolol was stopped. He was kept on telemetry. The heart rate improved from 30 up to 50-70, however, in A. fib he still gets pauses of up to 3.5 seconds. No pacemaker was desired by his DPOA. (4) Chronic a-fib As per Hx. He requires no heart rate-slowing medications now. This is consistent with significant conduction system disease. His stroke prophylaxis treatment is with a daily aspirin. (5) Acute on chronic kidney failure Losartan was stopped. He received IV fluids at a very slow rate. With this he had slight improvement of his BUN/creatinine, which were 60/1.3 at discharge. (6) Yeast infection of skin of axillae Topical Nystatin powder was ordered for this. (7) Anemia After transusion, his hemoglobin fluctuated between 8 and 9. It is likely anemia of chronic disease (CKD). (8) Hypothermia Resolved with a warming blanket and with the infection treated and IV fluids started (9) Hypoglycemia His lowest glucose was documented at 57. He did respond after drinking orange juice. (10) Diabetes mellitus Active DM has been RULED OUT with A1c test result of 4.8. He was changed from a diabetic diet to a regular diet. (11) Hx of HTN Metoprolol, Losartan and Amlodipine were stopped, since he had no HTN while here; this is likely because he is on 3 meds for his BPH which drop BP. (12) BPH He was kept on his multiple medications for his prostate while here. (13) Hypothyroidism TSH was stable. He was kept on his Synthroid dose. (14) Generalized weakness After we received records to review from his care home, we found that he was bedbound at baseline, a Ru lift was used to get him into a chair. Therefore no PT or OT was ordered. - ALLERGIES Allergies/Adverse Reactions: Allergies Allergy/AdvReac Type Severity Reaction Status Date / Time No Known Drug Allergies Allergy Verified 04/19/22 13:31 - MEDICATIONS Home Medications: Ambulatory Orders Medication Instructions Recorded Confirmed Aspirin 81 mg PO DAILY 07/12/13 04/19/22 Finasteride 5 mg PO DAILY 07/12/13 04/19/22 traZODone [Desyrel] 12.5 mg PO HS 07/12/13 04/20/22 Glucosamine Sulfate 1,000 mg PO BIDWM 11/20/13 04/19/22 Levothyroxine [Synthroid] 25 mcg PO QDAC 11/20/13 04/19/22 Acetaminophen 650 mg PO Q6HR PRN 12/29/17 04/19/22 Isosorbide Mononitrate [Isosorbide 30 mg PO DAILY 12/29/17 04/19/22 Mononitrate ER] Tamsulosin HCl [Flomax] 0.4 mg PO QPM 12/29/17 04/19/22 Bisacodyl Supp [Dulcolax Supp] 10 mg .ROUTE BID PRN 02/24/20 04/19/22 Famotidine [Pepcid AC] 10 mg PO HS 02/24/20 04/20/22 Senna [Senokot] 2 tab PO PRN PRN 02/24/20 04/20/22 Amino Acids/Protein Hydrolys 30 ml PO BID 12/13/21 04/19/22 [Proteinex-18 Liquid] Ammonium Lactate 12 % TOP PRN PRN 12/13/21 04/19/22 polyethylene glycoL 3350 [Miralax] 17 gm PO PRN PRN 12/13/21 04/19/22 Cyanocobalamin (Vitamin B-12) 2 tab PO DAILY 04/19/22 04/19/22 [Vitamin B12] Nystatin [Nystop] 1 applic TOP BID PRN 04/19/22 04/19/22 Mineral Oil [Mineral Oil Enema] 1 ea RC PRN PRN 04/20/22 04/20/22 Multivitamin W/Minerals [Theragran 1 tab PO DAILYWM #30 tab 04/23/22 M] Zinc Oxide 20% Oint [Zinc Oxide] 1 applic TOP PRN PRN each 04/23/22 levoFLOXacin [Levofloxacin] 750 mg PO DAILY #2 tablet 04/23/22 - PHYSICAL EXAM AT DISCHARGE General Appearance: positive: No acute distress, Alert, Other (Bedbound) Eyes Bilateral: positive: Normal inspection, EOMI ENT: positive: ENT inspection nml, No signs of dehydration Neck: positive: Nml inspection, No JVD Respiratory: positive: No respiratory distress, Breath sounds nml Cardiovascular: positive: Irregularly irregular, Bradycardia Abdomen: positive: Non-tender, Nml bowel sounds, Other (Obese with pannus) Skin: positive: Skin rash (of axillae) Extremities: positive: Non-tender, No pedal edema Neurologic/Psychiatric: positive: Oriented x3, Other (Generalized weakness. Nonfocal. Digital dexterity of his fingers is limited) - LABS Result Diagrams: 04/23/22 04:57 04/23/22 04:57 - DIAGNOSTIC IMAGING Diagnostic Imaging Results: Final report reviewed - FOLLOW UP Follow Up: See PCP for follow-up hospital visit in 1 to 2 weeks. - TIME SPENT Time Spent in Discharge (Minutes): 45
[2022-04-23] MEDS: cefTRIAXone 1 GM in SODIUM CHLORIDE 0.9% MINIBAG 100 ML IV SCH (12:30)
[2022-04-23 12:38] VITALS: BP 122/61
== END 2022-04-23 15:16 | DRG 308 ==
LOC: EDUNIT# → ED 13:13 → MS2 18:06
PROVIDERS: ADMIT Internal Medicine; ATTEND Internal Medicine
DX: R00.1 Bradycardia, unspecified (principal); D64.9 Anemia, unspecified; I48.91 Unspecified atrial fibrillation; I11.0 Hypertensive heart disease with heart failure; J18.9 Pneumonia, unspecified organism; E11.9 Type 2 diabetes mellitus without complications; Z20.822 Contact with and (suspected) exposure to COVID-19; N17.9 Acute kidney failure, unspecified; Z87.891 Personal history of nicotine dependence; I13.0 Hypertensive heart and chronic kidney disease with heart failure and stage 1 through stage 4 chronic kidney disease, or unspecified chronic kidney disease; N39.0 Urinary tract infection, site not specified; I48.20 Chronic atrial fibrillation, unspecified; R40.0 Somnolence; N18.9 Chronic kidney disease, unspecified; B37.2 Candidiasis of skin and nail; D63.1 Anemia in chronic kidney disease; T68.XXXA Hypothermia, initial encounter; N40.1 Benign prostatic hyperplasia with lower urinary tract symptoms; N39.498 Other specified urinary incontinence; E03.9 Hypothyroidism, unspecified; R53.1 Weakness; I50.9 Heart failure, unspecified; M19.90 Unspecified osteoarthritis, unspecified site; E16.2 Hypoglycemia, unspecified; Z66 Do not resuscitate; Z74.01 Bed confinement status; Z79.82 Long term (current) use of aspirin; Z79.890 Hormone replacement therapy; Z79.899 Other long term (current) drug therapy; Z86.73 Personal history of transient ischemic attack (TIA), and cerebral infarction without residual deficits; Z90.49 Acquired absence of other specified parts of digestive tract; Z96.659 Presence of unspecified artificial knee joint
CPT/HCPCS: 36415; 70450; 71045; 80048; 80053; 81001; 82533; 82607; 83036; 83540; 83735; 84443; 84466; 85014; 85018; 85025; 85610; 86850; 86900; 86901; 86920; 87086; 87633; 87635; 93005; 93306; 96361; 96374; 96375; 96376; 99285; 99291; A9270; P9016; 82272

== ENCOUNTER 2022-04-23 15:19 | Outpatient (CLI) | payer MEDICARE, MEDICAID | END 2022-04-23 15:20 | LOC: EMS 15:19 | PROVIDERS: ATTEND Internal Medicine | DX: R53.1 Weakness (principal); J18.9 Pneumonia, unspecified organism; Z74.01 Bed confinement status | CPT/HCPCS: A0425; A0428 ==